=== PATIENT | female | born 1995 | race Hispanic/Latino ===

== ENCOUNTER 2020-04-18 13:10 | Emergency (ER) | payer SELFPAY ==
--- OUTSIDE RECORDS SUMMARY | 2020-04-18 13:13 | XMS REPORT | Continuity of Care Document ---
:1995 Author Organization [facility] t Address [address] [place] [address] Care Team Providers Name Role Phone Unavailable Unavailable Unavailable Payers Payer Name Policy Type Policy Number Effective Date Expiration Date S ource Problems This patient has no known problems. Allergies, Adverse Reactions, Alerts Allergy Allergy Status Severity Reaction(s) Onset Inactive Treating Comm ents Source Name Type Date Date Clinician clindamy DA Active U 2019-0 [facility]- [place] 00:00: [address] clindamy DA Active U 2015-0 [facility] 9-11 [place] 00:00: [address] Medications This patient has no known medications. Procedures This patient has no known procedures. Results Test Description Test Time Test Comments Results Result Comments Source Novel Coronavirus 2019 nCoV 2019-07-09 11:29:00 Test Item Value Reference Range Interpretation Comme nts Novel Coronavirus 2018 nCoV (test code = COVID19) Negative Nega tive - XR CHEST 1 [id number] 14:00:00 Patient Name: ALYSSIA LEE Unit No: [id number] EXAMS: CPT CODE: [id number] XR CHEST 1 V [id number] Reason: cough - XR CHEST 1 V 07/05/2019 1:13 PM Exam: - XR CHEST 1 V Comparison: none Reason forexam: cough FINDINGS: The heart size is normal. Vascularity is normal. The lungs are clear. There is no fluid or adenopathy. IMPRESSION: Negative chest at 1400 Reported and signed by: Jermaine Cobos MD CC: Carlos French MD Technologist: Brenna Costa (Schroeder) RT Trscrpt Dt/ (1400)[id number] Orig Print D/T: S: 07/05/2019 (1409) [facility] NAME: ALYSSIA LEE [facility] PHYS: MARY.01 - Manolo,[place] [id number] : [birth year] AGE: 23 SEX: F LOC: ROSA PHONE #: [phone] EXAM DATE: 07/05/2019 STATUS: REG ER FAX #: RAD NO: DC Dt: PAGE 1 Signed ReportHCG SERUM [id number] 20:31:00 Test Item Value Reference Range Interpretation Comments HCG SERUM QUAL NEGATIVE NEGATIVE False negativ es may occur (test code = when levels of hCGare below HCGQL) 10 mIU/ml. When is still suspec lalit, a new specimenshould be obtained after 48 hours and re-tested.If wa iting 48 hours is not me dically advisable,the t est result should be confi rmed using aquantitative h CG assay. CBC W/AUTO [id number] 20:17:00 Test Item Value Reference Range Interpretation Comments WHITE BLOOD CELL (test code = 11.39 x10 3/uL 4.80-10.80 H WBC) RED BLOOD CELL (test code = 4.35 x10 6/uL 4.2-5.4 N RBC) HEMOGLOBIN (test code = HGB) 13.0 G/DL 12.0-16.0 N HEMATOCRIT (test code = HCT) 39.7 % 37-47 N MEAN CELL VOLUME (test code = 91.3 FL 81-99 N MCV) MEAN CELL HGB (test code = 29.9 PG 27-31 N MCH) MEAN CELL HGB CONCENTRATION 32.7 G/DL 33-37 L (test code = MCHC) RED CELL DISTRIBUTION WIDTH 13.0 % 11.5-14.5 N (test code = RDW) PLATELET COUNT (test code = 270 x10 3/uL 150-450 N PLT) MEAN PLATELET VOLUME (test 9.7 FL 7.4-10.4 N code = MPV) NEUTROPHIL % (test code = NT%) 69.2 % 42-86 N IMMATURE GRANULOCYTE % (test 0.5 % 0.0-2.0 N code = IG%) LYMPHOCYTE % (test code = LY%) 19.8 % 24-44 L MONOCYTE % (test code = MO%) 8.3 % 0.0-4.0 H EOSINOPHIL % (test code = EO%) 1.8 % 0.0-2.7 N BASOPHIL % (test code = BA%) 0.4 % 0.0-0.5 N NUCLEATED RBC % (test code = 0.0 % 0.0-0.0 N NRBC%) NEUTROPHIL # (test code = NT#) 7.88 x10 3/uL 1.8-7.7 H IMMATURE GRANULOCYTE # (test 0.06 x10 3/uL 0.00-0.03 H code = IG#) LYMPHOCYTE # (test code = LY#) 2.26 x10 3/uL 1.0-4.8 N MONOCYTE # (test code = MO#) 0.95 x10 3/uL 0.0-0.8 H EOSINOPHIL # (test code = EO#) 0.20 x10 3/uL 0.0-0.5 N BASOPHIL # (test code = BA#) 0.04 x10 3/uL 0.0-0.2 N NUCLEATED RBC # (test code = 0.0 X10 3/uL 0.0-0.2 N NRBC#)
--- NOTE | 2020-04-18 15:24 | ER ---
Nurse's Notes [facility] Name: Kanwal De La Vega Age: 24 yrs Sex: Female : 1995 Arrival Date: 04/18/2020 Time: 13:12 Bed Waiting Private MD: Diagnosis: Presentation: 04/18 13:34 Chief complaint: Patient states: SOB, cough, runny nose, body aches, and headaches that aa5 began 2 weeks ago. Pt reports her household is COVID-19 positive. Coronavirus screen: cough unrelated to allergies, headache, muscle pain, runny nose, shortness of breath, Client presents with at least one sign or symptom that may indicate coronavirus-19. Standard/surgical mask placed on the client. Provider contacted for isolation considerations. Ebola Screen: Patient negative for fever greater than or equal to 101.5 degrees Fahrenheit, and additional compatible Ebola Virus Disease symptoms. Initial Sepsis Screen: Does the patient meet any 2 criteria? No. Patient's initial sepsis screen is negative. Does the patient have a suspected source of infection? No. Patient's initial sepsis screen is negative. Risk Assessment: Do you want to hurt yourself or someone else? Patient reports no desire to harm self or others. Onset of symptoms was March 2020. 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 - Social history:: Smoking status: Patient denies any tobacco usage or history of. Vital Signs: 13:34 BP 122 / 84; Pulse 76; Resp 16 S; Temp 98.7(O); Pulse Ox 95% on R/A; Pain 7/10; aa5 ED Course: 13:12 Patient arrived in ED. rg4 13:33 Arm band placed on. aa5 13:35 Triage completed. aa5 Administered Medications: No medications were administered Outcome: 15:24 Patient left the ED. dm5 Signatures: Kemi Givens RN RN dm5 Charo Padilla, RN RN aa5 Priscila Villalobos rg4
[2020-04-18 15:41] VITALS: BP 122/84; TEMP 98.7; O2SAT 95
== END 2020-04-18 15:24 | disposition left against medical advice (07) ==
LOC: ER 13:10
DX: Z53.21 Procedure and treatment not carried out due to patient leaving prior to being seen by health care provider (principal)
CPT/HCPCS: 99281

== ENCOUNTER 2021-04-03 18:22 | Emergency (ER) | payer SELFPAY ==
--- OUTSIDE RECORDS SUMMARY | 2021-04-03 18:25 | XMS REPORT | Continuity of Care Document ---
:1995 Author Organization [facility] t Address [address] [place] [address] Care Team Providers Name Role Phone PCP, DOES NOT HAVE A Primary Care Physician Unavailable Singer CARVAJAL Attending Clinician PATEL Attending Clinician Unavailable CHRIS DE LA GARZA Attending Clinician Unavailable NISHANT Attending Clinician Unavailable Physician, Primary or Family Admitting Clinician Unavailnathan vazquez PATEL Admitting Clinician Unavailable Payers Payer Name Policy Type Policy Number Effective Date Expiration Date S ource Problems This patient has no known problems. Allergies, Adverse Reactions, Alerts Allergy Allergy Status Severity Reaction(s) Onset Inactive Treating Comm ents Source Name Type Date Date Clinician Clindamy Propensi Active Hives 2020-04 Univer s jyoti ty to 2-02 ity of adverse 00:00: [place] reaction 00 [facility] CLINDAMY DRUG Active Hives 2020-04 Univers JYOTI INGREDI 2-02 ity of 00:00: [place] 00 [facility] clindamy DA Active U 2020-0 [facility] 3-22 [facility] 00:00: [facility] clindamy DA Active U HIVES 2019-0 [facility] 3-22 [facility] 00:00: [facility] clindamy DA Active U 2015-0 [facility] 9-11 [facility] 00:00: [facility] clindamy DA Active U HIVES 2015-0 [facility] 9-11 Corp[facility] 00:00: [facility] NO KNOWN Drug Active [facility] ALLERGIE Class ity of S [facility] [place] [facility] Social History Social Habit Start Date Stop Date Quantity Comments Source Exposure to Not sure [facility] SARS-CoV-2 (event) Medica l Branch Sex Assigned At [birth year] [facility] 00:00:00 00:00:00 Medical Branch Smoking Status Start Date Stop Date Source Unknown if ever smoked [facility] Medications Ordered Filled Start Stop Current Ordering Indication Dosage Frequency Signature Comments Components Source Medication Medication Date Date Medication? Clinician (SIG) Name Name methylPREDN 2020-04 Yes [id number] Take by [facility] ISolone 05-17 mouth ity of (MEDROL, 00:00: SEE-INSTRU Chad as DONA,) 4 mg 00 CTIONS. Medica l tablets follow [place] package directions azithromyci 2020-04 Yes [id number] 250mg Take 1 Univers n 05-17 tablet by ity of (ZITHROMAX 00:00: mouth [place] Z-DONA) 250 00 SEE-INSTRU Med ical mg tablet CTIONS. Branch Take 500 mg day 1, then 250 mg days 2 to 5. Vital Signs Vital Name Observation Time Observation Value Comments Source Systolic blood 2021-03-16 18:57:00 135 mm[Hg] [facility]iver sity [facility] Diastolic blood 2021-03-16 18:57:00 74 mm[Hg] [facility] Heart rate 2021-03-16 18:57:00 110 /min [facility] Body temperature 2021-03-16 18:57:00 37.06 [facility] Respiratory rate 2021-03-16 18:57:00 18 /min [facility] Body height 2021-03-16 18:57:00 147.3 cm [facility] Body weight 2021-03-16 18:57:00 68.04 kg [facility] BMI 2021-03-16 18:57:00 31.35 kg/m2 [facility] Oxygen saturation in 2021-03-16 18:57:00 100 /min [facility] Arterial blood by [facility] Pulse oximetry Branch Procedures Procedure Date / Time Performed Performing Clinician [facility] e ASSIGNMENT OF BENEFITS 2021-03-16 20:14:13 Doctor Unassigned, No [facility] Name Medical Branch XR CHEST 1 VW 2021-03-16 19:49:32 Kayla Patel o f [facility] [place] [facility] RAPID INFLUENZA A/B 2021-03-16 19:01:00 Kayla Patel ty of [facility] [place] [facility] COVID-19 (ID NOW RAPID 2021-03-16 19:01:00 Kayla Patel [facility] TESTING) [facility] NOTICE OF PRIVACY 2021-03-16 18:54:56 Doctor Unassigned, No [facility] Name Medical Branch CONSENT/REFUSAL FOR 2021-03-16 18:54:22 Doctor Unassigned, No [facility] DIAGNOSIS AND Name Medical Branch TREATMENT Encounters Start End Encounter Admission Attending Care Care Encounter Source Date/Time Date/Time Type Type Clinicians Facility Department ID 2019-07-05 Inpatient [facility] ER [id number] [facility] 12:36:00 [id number] [facility] 2021-03-16 2021-03-[address] [facility] [id number] Univers 12:57:00 14:46:00 Kayla DRUMMOND [id number] i [facility] [id number] [facility] [id number] [facility] 084 Branch 2021-03-16 2021-03-16 Emergency X SINGER INMAYLIN ERT [id number] Univers 12:57:00 14:46:00 KAYLA blanca [facility] 2020-07-22 2020-07-22 Emergency Velasquez DE LA GARZA [facility] [id number] [facility] 08:20:00 17:00:00 TAMMIE 2020-04-18 2020-04-18 Emergency [facility] [id number] [place] 00:00:00 00:00:[address] Results Test Description Test Time Test Comments Results Result Comments Source Novel Coronavirus 2019 nCoV 2019-07-09 11:29:00 Test Item Value Reference Range Interpretation Comme nts Novel Coronavirus 2018 nCoV (test code = COVID19) Negative Nega tive - XR CHEST 1 [id number] 14:00:00 Patient Name: ALYSSIA LEE Unit No: [id number] EXAMS: CPT CODE: [id number] XR CHEST 1 V [id number] Reason: cough - XR CHEST 1 V [...] Dt/ (1400)[id number] Orig Print D/T: S: 07/05/2019 (4864) [facility] NAME: ALYSSIA LEE [address] [facility] PHYS: MARY.01 - [place] [address] : [birth year] AGE: 23 SEX: F LOC: ROSA PHONE #: [phone] EXAM DATE: 07/05/2019 STATUS: REG ER FAX #: RAD NO: DC Dt: PAGE 1 Signed ReportHCG SERUM [id number] 20:31:00 Test Item Value Reference Range Interpretation Comments HCG SERUM QUAL NEGATIVE NEGATIVE False negativ es may occur (test code = when levels of hCGare below HCGQL) 10 mIU/ml. When is still suspec llait, a new specimenshould be obtained after 48 hours and re-tested.If wa iting 48 hours is not me dically advisable,the t est result should be confi rmed using aquantitative h CG assay. CBC W/AUTO [id number] 20:17:00 Test Item Value Reference Range Interpretation [...]
[2021-04-03] MEDS ORDERED: HYDROCODONE/CHLORPHEN 5 ML/OSYR ONE (19:23)
[2021-04-03] MEDS ORDERED: ONDANSETRON 4 MG (ODT) TAB ONE (19:23)
[2021-04-03 20:49] LABS: SARS-COV-2 RT PCR POSITIVE (NEGATIVE)
--- NOTE | 2021-04-03 20:51 | EDPHYS ---
Physician Documentation [facility] Name: Kanwal De La Vega Age: 25 yrs Sex: Female : 1995 Arrival Date: 04/03/2021 Time: 18:24 Bed 14 Private MD: ED Physician Ruben Loza HPI: 04/03 19:16 This 25 yrs old Female presents to ER via Ambulatory with complaints of Cough, pm1 Headache, Chills, Body Aches. 19:16 The patient or guardian reports cough, with no sputum, flu symptoms, low-grade fever, pm1 body aches. Onset: The symptoms/episode began/occurred yesterday. Severity of symptoms: in the emergency department the symptoms are actually worse. Modifying factors: The symptoms are alleviated by nothing, the symptoms are aggravated by nothing. Associated signs and symptoms: Pertinent positives: chest pain, with cough, earache, fever, nausea, Pertinent negatives: diarrhea, vomiting. The patient has not experienced similar symptoms in the past. The patient has not recently seen a physician. 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 - Social history:: Smoking status: Patient denies any tobacco usage or history of. ROS: 19:16 Eyes: Negative for injury, pain, redness, and discharge. pm1 19:16 Neck: Negative for injury, pain, and swelling. 19:16 Back: Negative for injury and pain, MS/Extremity: Negative for injury and deformity, Skin: Negative for injury, rash, and discoloration. 19:16 Constitutional: Positive for body aches, fever, Negative for poor PO intake. 19:16 ENT: Positive for ear pain, sore throat. 19:16 Cardiovascular: Positive for chest pain, with cough, Negative for edema, palpitations. 19:16 Respiratory: Positive for cough, with no reported sputum, Negative for shortness of breath, sputum production, wheezing. 19:16 Abdomen/GI: Positive for nausea, Negative for abdominal pain, vomiting, diarrhea. 19:16 Neuro: Positive for headache, Negative for dizziness, numbness, tingling, weakness. 19:16 All other systems are negative. pm1 Exam: 19:16 Constitutional: This is a well developed, well nourished patient who is awake, alert, pm1 and in no acute distress. Head/Face: Normocephalic, atraumatic. 19:16 Back: No spinal tenderness. No costovertebral tenderness. Full range of motion. Skin: Warm, dry with normal turgor. Normal color with no rashes, no lesions, and no evidence of cellulitis. MS/ Extremity: Pulses equal, no cyanosis. Neurovascular intact. Full, normal range of motion. 19:16 Eyes: Exam is negative for acute changes, Extraocular movements: no acute changes, Conjunctiva: no acute changes, no injection, Sclera: no acute changes, icterus, is not appreciated. 19:16 ENT: External ear(s): no acute changes, Ear canal(s): no acute changes, TM's: no acute changes, Mouth: Lips: normal, moist, Oral mucosa: normal, pink and intact, moist, Posterior pharynx: Airway: no evidence of obstruction, Tonsils: bilaterally enlarged, with erythema, with exudate, no ulcerations, peritonsillar mass, is not appreciated. 19:16 Neck: External neck: is normal, ROM/movement: no acute changes, Lymph nodes: lymphadenopathy is appreciated, anterior cervical nodes. 19:16 Cardiovascular: Exam negative for acute changes, Rate: normal, Rhythm: regular, Pulses: no pulse deficits are appreciated, Heart sounds: normal, normal S1and S2. 19:16 Respiratory: Exam negative for acute changes, respiratory distress, shortness of breath, Breath sounds: are clear throughout. 19:16 Neuro: Exam negative for acute changes, Orientation: is normal, Mentation: is normal, Motor: is normal, moves all fours. Vital Signs: 18:57 Pulse 111; Resp 18; Temp 98.4; Pulse Ox 100% ; Weight 58.97 kg; Height 4 ft. 9 in. ww (144.78 cm); Pain 0/10; 20:42 BP 128 / 95; Pulse 98; Resp 16; Temp 99; Pulse Ox 100% ; Pain 8/10; kd3 18:57 Body Mass Index 28.13 (58.97 kg, 144.78 cm) ww MDM: 19:13 Patient medically screened. [facility] 20:49 Data reviewed: vital signs. Data interpreted: Pulse oximetry: on room air is 100 %. pm1 Interpretation: normal. Counseling: I had a detailed discussion with the patient and/or guardian regarding: the historical points, exam findings, and any diagnostic results supporting the discharge/admit diagnosis, lab results, the need for outpatient follow up, to return to the emergency department if symptoms worsen or persist or if there are any questions or concerns that arise at home. 04/03 19:15 Order name: COVID-19/FLU A+B (Document "Date of Onset" if Symptomatic) pm1 04/03 19:15 Order name: Strep pm1 04/03 19:16 Order name: COVID-19/FLU A+B; Complete Time: 20:50 EDMS 04/03 19:16 Order name: Group A Streptococcus Rapid Sc; Complete Time: 20:34 EDMS 04/03 20:34 Order name: Throat Culture EDMS Administered Medications: 19:35 Drug: Tussionex Pennkinetic ER (chlorpheniramine-hydrocodone) Suspension 5 ml Route: PO;kd3 21:16 Follow up: Response: No adverse reaction kd3 19:35 Drug: Ondansetron 4 mg Route: PO; kd3 21:16 Follow up: Response: No adverse reaction kd3 20:55 Drug: Tylenol 650 mg Route: PO; kd3 21:16 Follow up: Response: No adverse reaction; Pain is decreased kd3 Disposition: 04/04 18:58 Co-signature as Attending Physician, Ruben Loza MD I agree with the assessment and [facility] plan of care. Disposition Summary: 04/03/21 20:50 Discharge Ordered Location: Home pm1 Problem: new pm1 Symptoms: have improved pm1 Condition: Stable pm1 Diagnosis - Coronavirus infection, unspecified pm1 Followup: pm1 - With: Emergency Department - When: As needed - Reason: Worsening of condition Followup: pm1 - With: Private Physician - When: 2 - 3 days - Reason: Recheck today's complaints, Continuance of care, Re-evaluation by your physician Discharge Instructions: - Discharge Summary Sheet pm1 - COVID-19 pm1 - COVID-19 Frequently Asked Questions pm1 - 10 Things You Can Do to Manage Your COVID-19 Symptoms at Home - [facility] pm1 - COVID-19: Quarantine vs. Isolation - [facility] pm1 Forms: - Medication Reconciliation Form pm1 - Thank You Letter pm1 - Antibiotic Education pm1 - Prescription Opioid Use pm1 - Work release form pm1 Prescriptions: - Guaifenesin AC 10-100 mg/5 mL Oral Liquid - take 10 milliliters by ORAL route every 4 hours As needed; 240 milliliter; pm1 Refills: 0, Product Selection Permitted Signatures: Dispatcher [employer] EDWI Ruben Loza MD MD cha Marinas, Patrick, ROBERTO SPEECH THERAPY ASSISTANT pm1 Bianca Hogue RN RN kd3 Babita Rocha RN RN ww
--- NOTE | 2021-04-03 20:51 | ER ---
Nurse's Notes [facility] Name: Kanwal De La Vega Age: 25 yrs Sex: Female : 1995 Arrival Date: 04/03/2021 Time: 18:24 Bed 14 Private MD: Diagnosis: Coronavirus infection, unspecified Presentation: 04/03 18:57 Chief complaint: Patient states: Sore throat, bilateral ear pain, cough, chest ww congestion and nasal congestion that started 2 days ago. Coronavirus screen: Vaccine status: Patient reports being unvaccinated. Client denies travel out of the [place] in the last 14 days. chills, congestion, cough unrelated to allergies, fatigue, nausea, sore throat, Client presents with at least one sign or symptom that may indicate coronavirus-19. Standard/surgical mask placed on the client. Provider contacted for isolation considerations. Ebola Screen: Patient negative for fever greater than or equal to 101.5 degrees Fahrenheit, and additional compatible Ebola Virus Disease symptoms Patient denies exposure to infectious person. Patient denies travel to an Ebola-affected area in the 21 days before illness onset. Initial Sepsis Screen: Does the patient meet any 2 criteria? No. Patient's initial sepsis screen is negative. Does the patient have a suspected source of infection? No. Patient's initial sepsis screen is negative. Risk Assessment: Do you want to hurt yourself or someone else? Patient reports no desire to harm self or others. Onset of symptoms was April 01, 2021. 18:57 Method Of Arrival: Ambulatory ww 18:57 Acuity: MOI 4 ww Triage Assessment: 18:59 Headache History: Denies prior headaches. General: Appears ill, well developed, well ww nourished, Behavior is calm, cooperative, appropriate for age. Pain: Complains of pain in soft palate, uvula, left aspect of posterior pharynx and right aspect of posterior pharynx Pain Pain began 2-3 days ago. Also complains of sleeplessness. EENT: Reports nasal congestion nasal discharge pain when swallowing. Neuro: Level of Consciousness is awake, alert, obeys commands, Oriented to person, place, time, situation, Appropriate for age Gait is steady, Speech is normal. Cardiovascular: Capillary refill < 3 seconds Patient's skin is warm and dry. Respiratory: Reports cough that is Airway is patent Respiratory effort is even, unlabored, Respiratory pattern is regular, symmetrical. GI: No deficits noted. No signs and/or symptoms were reported involving the gastrointestinal system. : No deficits noted. No signs and/or symptoms were reported regarding the genitourinary system. Derm: No deficits noted. No signs and/or symptoms reported regarding the dermatologic system. Skin is intact, Skin is pink, warm \\T\\ dry. Musculoskeletal: No deficits noted. No signs and/or symptoms reported regarding the musculoskeletal system. 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 - Social history:: Smoking status: Patient denies any tobacco usage or history of. Screenin:43 Abuse screen: Denies threats or abuse. Denies injuries from another. Nutritional kd3 screening: No deficits noted. Tuberculosis screening: No symptoms or risk factors identified. Fall Risk None identified. Assessment: 19:47 Reassessment: Patient is alert, oriented x 3, equal unlabored respirations, skin kd3 warm/dry/pink. Pain: Complains of pain in mouth and right aspect of posterior pharynx and left aspect of posterior pharynx and uvula and soft palate. Neuro: No deficits noted. Level of Consciousness is awake, alert, obeys commands, Oriented to person, place, time, situation, Appropriate for age. Cardiovascular: No deficits noted. Patient's skin is warm and dry. Respiratory: No deficits noted. Airway is patent Respiratory effort is even, unlabored. GI: Reports diarrhea. Vital Signs: 18:57 Pulse 111; Resp 18; Temp 98.4; Pulse Ox 100% ; Weight 58.97 kg; Height 4 ft. 9 in. ww (144.78 cm); Pain 0/10; 20:42 BP 128 / 95; Pulse 98; Resp 16; Temp 99; Pulse Ox 100% ; Pain 8/10; kd3 18:57 Body Mass Index 28.13 (58.97 kg, 144.78 cm) ED Course: 18:24 Patient arrived in ED. rg4 18:59 Triage completed. ww 18:59 Arm band placed on right wrist. ww 19:08 Harjinder Lowe NP is [facility]. pm1 19:09 Ruben Loza MD is Attending Physician. pm1 19:17 Bianca Hogue, RN is Primary Nurse. kd3 19:34 Strep Sent. kd3 19:34 COVID-19/FLU A+B (Document "Date of Onset" if Symptomatic) Sent. kd3 19:43 Patient has correct armband on for positive identification. Bed in low position. Call kd3 light in reach. 21:15 No provider procedures requiring assistance completed. Patient did not have IV access kd3 during this emergency room visit. Administered Medications: 19:35 Drug: Tussionex Pennkinetic ER (chlorpheniramine-hydrocodone) Suspension 5 ml Route: PO;kd3 21:16 Follow up: Response: No adverse reaction kd3 19:35 Drug: Ondansetron 4 mg Route: PO; kd3 21:16 Follow up: Response: No adverse reaction kd3 20:55 Drug: Tylenol 650 mg Route: PO; kd3 21:16 Follow up: Response: No adverse reaction; Pain is decreased kd3 Outcome: 20:50 Discharge ordered by MD. pm1 21:15 Discharged to home ambulatory. kd3 21:15 Condition: good 21:15 Discharge instructions given to patient, family, Instructed on discharge instructions, follow up and referral plans. 21:37 Patient left the ED. kd3 Signatures: Harjinder Lowe NP ACCOUNTING CONSULTANT pm1 Priscila Villalobos rg4 Bianca Hogue RN RN kd3 Babita Rocha RN RN
[2021-04-03] MEDS ORDERED: ACETAMINOPHEN 325 MG TABLET ONE (20:53)
[2021-04-03 22:18] VITALS: O2SAT 100
[2021-04-03 22:20] VITALS: BP 128/95; TEMP 99
== END 2021-04-03 21:37 | disposition home or self-care (01) ==
LOC: ER 18:22
DX: U07.1 COVID-19 (principal); Z88.0 Allergy status to penicillin; Z88.3 Allergy status to other anti-infective agents
CPT/HCPCS: 0240U; 87070; 87081; 99283

== ENCOUNTER 2021-07-01 11:56 | Emergency (ER) | payer OTHER, SELFPAY ==
--- OUTSIDE RECORDS SUMMARY | 2021-07-01 11:59 | XMS REPORT | Continuity of Care Document ---
:1995 Author Organization [facility] t Address [address] [place] [address] Care Team Providers Name Role Phone PCP, [...] ity of adverse 00:00: [place] reaction 00 [facility] CLINDAMY DRUG Active Hives 2020-04 Univers JYOTI INGREDI 2-02 ity of 00:00: [place] 00 [facility] clindamy DA Active U 2020-0 [facility] jyoti 3-22 Corpus 00:00: Melisa [facility] clindamy DA Active U HIVES 2019-0 [facility] jyoti 3-22 Corpus 00:00: Melisa [facility] clindamy DA Active U 2015-0 [facility] jyoti 9-11 Corpus 00:00: Melisa [facility] clindamy DA Active U HIVES 2015-0 [facility] jyoti 9-11 Corpus 00:00: Melisa [facility] NO KNOWN Drug Active [facility] ALLERGIE Class ity of S [facility] Social History Social Habit Start Date Stop Date Quantity Comments Source Exposure to Not sure [facility] SARS-CoV-2 (event) Medica l Branch Sex Assigned At [birth year] [facility] 00:00:00 00:00:00 Medical Branch Smoking Status Start Date Stop Date Source Unknown if ever smoked [facility] Medications Ordered Filled Start Stop Current Ordering Indication Dosage Frequency Signature Comments Components Source Medication Medication Date Date Medication? Clinician (SIG) Name Name methylPREDN 2020-04 Yes [id number] Take by [facility] ISolone 05-17 mouth ity of (MEDROL, 00:00: SEE-INSTRU Chad as DONA,) 4 mg 00 CTIONS. Medica l tablets follow [place] package directions azithromyci 2020-04 Yes [id number] 250mg Take 1 Univers n 05-17 tablet by ity of (ZITHROMAX 00:00: mouth [place] Z-DONA) 250 00 SEE-INSTRU Med ical mg tablet CTIONS. Branch Take 500 mg day 1, then 250 mg days 2 to 5. Vital Signs Vital Name Observation Time Observation Value Comments Source Systolic blood 2021-03-16 18:57:00 135 mm[Hg] Univer sity [facility] [place] [place] Diastolic blood 2021-03-16 18:57:00 74 mm[Hg] [facility] Heart rate 2021-03-16 18:57:00 110 /min [facility] Body temperature 2021-03-16 18:57:00 37.06 [facility] Respiratory rate 2021-03-16 18:57:00 18 /min [facility] Body height 2021-03-16 18:57:00 147.3 cm [facility] Body weight 2021-03-16 18:57:00 68.04 kg [facility] BMI 2021-03-16 18:57:00 31.35 kg/m2 [facility] Oxygen saturation in 2021-03-16 18:57:00 100 /min [facility] Arterial blood by [facility] Pulse oximetry Branch Procedures Procedure Date / Time Performed Performing Clinician [facility] e ASSIGNMENT OF BENEFITS 2021-03-16 20:14:13 Doctor Unassigned, No [facility] Name Medical Branch XR CHEST 1 VW 2021-03-16 19:49:32 Kayla Patel o f [facility] RAPID INFLUENZA A/B 2021-03-16 19:01:00 Kayla Patel ty of [facility] COVID-19 (ID NOW RAPID 2021-03-16 19:01:00 Kayla Patel [facility] TESTING) [facility] NOTICE OF PRIVACY 2021-03-16 18:54:56 Doctor Unassigned, No [facility] PRACTICES Name Medical Branch CONSENT/REFUSAL FOR 2021-03-16 18:54:22 Doctor Unassigned, No [facility] DIAGNOSIS AND Name Medical Branch TREATMENT Encounters Start End Encounter Admission Attending Care Care Encounter Source Date/Time Date/Time Type Type Clinicians Facility Department ID 2019-07-05 Inpatient [facility] ER [id number] [facility] 12:36:[id number] [facility] 2021-03-16 2021-03-16 Emergency [facility] [id number] Univers 12:57:00 14:46:00 Kayla DRUMMOND [id number] i [facility] [id number] [facility] [id number] [facility] 084 Branch 2021-03-16 2021-03-16 Emergency X SINGER NEMAYLIN ERT [id number] Univers 12:57:00 14:46:[address] [facility] 2020-07-22 2020-07-22 Emergency Velasquez DE LA GARZA [facility] [id number] [facility] 08:20:00 17:00:00 TAMMIE 2020-04-18 2020-04-18 Emergency BRANDON DILLARD [facility] [id number] [place] 00:00:00 00:00:[address] Results Test Description Test Time Test Comments Results Result Comments Source Novel Coronavirus 2019 nCoV 2019-07-09 11:29:00 Test Item Value Reference Range Interpretation Comme nts Novel Coronavirus 2018 nCoV (test code = COVID19) Negative Nega tive - XR CHEST 1 [id number] 14:00:00 Patient Name: ALYSSIA LEE Unit No: [id number] EXAMS: CPT CODE: [id number] XR CHEST 1 V [id number] Reason: cough - XR CHEST 1 V [...] Dt/ ([id number] Orig Print D/T: S: 07/05/2019 (5220) [facility] NAME: ALYSSIA LEE [address] [facility] PHYS: MARY.[id number] - [place] [address] : [birth year] AGE: 23 SEX: F LOC: ROSA PHONE #: [phone] EXAM DATE: 07/05/2019 STATUS: REG ER FAX #: RAD NO: DC Dt: PAGE 1 Signed ReportHCG SERUM [id number] 20:31:00 Test Item Value Reference Range Interpretation [...] using aquantitative h CG assay. CBC W/AUTO [id number] 20:17:00 Test Item Value Reference Range Interpretation [...]
[2021-07-01] MEDS ORDERED: ONDANSETRON 4 MG (ODT) TAB ONE (13:01)
[2021-07-01 13:17] LABS: SARS-COV-2 RT PCR NEGATIVE (NEGATIVE)
--- NOTE | 2021-07-01 13:26 | EDPHYS ---
Physician Documentation [facility] Name: Kanwal De La Vega Age: 25 yrs Sex: Female : 1995 Arrival Date: 07/01/2021 Time: 11:58 Bed 11 Private MD: ED Physician Brianne Hancock HPI: 07/01 12:53 This 25 yrs old Female presents to ER via Ambulatory with complaints of Cough, kb Headache, Vomiting, Pain All Over. 12:53 The patient or guardian reports cough, that is intermittent, described as mild, flu kb symptoms, low-grade fever, myalgias. The patient has not recently seen a physician. 12:54 Onset: The symptoms/episode began/occurred 3 day(s) ago. Severity of symptoms: At their kb worst the symptoms were moderate, in the emergency department the symptoms are unchanged. Modifying factors: The symptoms are alleviated by nothing, the symptoms are aggravated by nothing. Associated signs and symptoms: Pertinent positives: fever. The patient has not experienced similar symptoms in the past. Pt reports cough, headache, nausea and vomiting, bodyaches, and fever for 3 days. . 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 - Social history:: Smoking status: Patient denies any tobacco usage or history of. ROS: 12:52 Cardiovascular: Negative for chest pain, palpitations, and edema. kb 12:52 Constitutional: Positive for body aches, chills, fatigue, fever, malaise. 12:52 Respiratory: Positive for cough, Negative for dyspnea on exertion, hemoptysis, orthopnea, pleurisy, shortness of breath, sputum production, wheezing. 12:52 Abdomen/GI: Positive for nausea and vomiting, Negative for abdominal pain. 12:52 Neuro: Positive for headache. 12:52 All other systems are negative. Exam: 12:53 Constitutional: This is a well developed, well nourished patient who is awake, alert, kb and in no acute distress. Head/Face: Normocephalic, atraumatic. ENT: Moist Mucous membranes Cardiovascular: Regular rate and rhythm with a normal S1 and S2. No gallops, murmurs, or rubs. No pulse deficits. Respiratory: Respirations even and unlabored. No increased work of breathing. Talking in full sentences Abdomen/GI: Soft, non-tender. No distention Skin: Warm, dry with normal turgor. Normal color. MS/ Extremity: Pulses equal, no cyanosis. Neurovascular intact. Full, normal range of motion. Neuro: Awake and alert, GCS 15, oriented to person, place, time, and situation. Moves all extremities. Normal gait. Psych: Awake, alert, with orientation to person, place and time. Behavior, mood, and affect are within normal limits. Vital Signs: 12:16 BP 106 / 66; Pulse 100; Resp 16; Temp 99.1; Pulse Ox 100% ; Weight 77.11 kg; Height 4 vg1 ft. 9 in. (144.78 cm); Pain 10/10; 13:28 BP 119 / 76; Pulse 92; Resp 18; Pulse Ox 100% on R/A; ss7 12:16 Body Mass Index 36.79 (77.11 kg, 144.78 cm) vg1 MDM: 12:19 Patient medically screened. kb 12:52 Data reviewed: vital signs, nurses notes. Data interpreted: Pulse oximetry: on room air kb is 100 %. Interpretation: normal. 13:25 Counseling: I had a detailed discussion with the patient and/or guardian regarding: the kb historical points, exam findings, and any diagnostic results supporting the discharge/admit diagnosis, lab results, the need for outpatient follow up, a family practitioner, to return to the emergency department if symptoms worsen or persist or if there are any questions or concerns that arise at home. 07/01 12:19 Order name: COVID-19/FLU A+B (Document "Date of Onset" if Symptomatic); Complete Time: kb 13:20 07/01 13:20 Order name: PO challenge; Complete Time: 13:30 kb Administered Medications: 12:55 CANCELLED (Duplicate Order): Zofran (Ondansetron) 4 mg IVP once; over 2 minutes kb 13:02 Drug: Zofran (Ondansetron) 4 mg Route: PO; ss7 13:30 Follow up: Response: Nausea is decreased ss7 Disposition Summary: 07/01/21 13:25 Discharge Ordered Location: Home kb Condition: Stable kb Diagnosis - Acute upper respiratory infection, unspecified kb Followup: kb - With: Emergency Department - When: As needed - Reason: Worsening of condition Followup: kb - With: Private Physician - When: 2 - 3 days - Reason: Recheck today's complaints, Continuance of care, Re-evaluation by your physician Discharge Instructions: - Discharge Summary Sheet kb - Upper Respiratory Infection, Adult, [id number] kb - Viral Respiratory Infection, [id number] kb Forms: - Medication Reconciliation Form kb - Thank You Letter kb - Antibiotic Education kb - Prescription Opioid Use kb - Work release form ss7 Prescriptions: - Zofran 4 mg Oral Tablet - take 1 tablet by ORAL route every 6 hours As needed; 20 tablet; Refills: 0, kb Product Selection Permitted Signatures: Dispatcher [employer] EDMagdalene More FNP-C FNP-Martine Miranda RN RN vg1 Sanjuana Luis RN RN ss7 Corrections: (The following items were deleted from the chart) 12:55 12:55 Zofran (Ondansetron) 4 mg IVP once; over 2 minutes ordered. kb kb
--- NOTE | 2021-07-01 13:26 | ER ---
Nurse's Notes [facility] Name: Kanwal De La Vega Age: 25 yrs Sex: Female : 1995 Arrival Date: 07/01/2021 Time: 11:58 Bed 11 Private MD: Diagnosis: Acute upper respiratory infection, unspecified Presentation: 07/01 12:16 Chief complaint: Patient states: cough, h/a, vomiting, body aches x 3 days. Coronavirus vg1 screen: Vaccine status: Patient reports being unvaccinated. Client denies travel out of the [place] in the last 14 days. chills, headache, muscle pain, vomiting. Client presents with at least one sign or symptom that may indicate coronavirus-19. Standard/surgical mask placed on the client. Ebola Screen: Patient negative for fever greater than or equal to 101.5 degrees Fahrenheit, and additional compatible Ebola Virus Disease symptoms. Initial Sepsis Screen: Does the patient meet any 2 criteria? HR > 90 bpm. Yes Does the patient have a suspected source of infection? No. Patient's initial sepsis screen is negative. Risk Assessment: Do you want to hurt yourself or someone else? Patient reports no desire to harm self or others. Onset of symptoms was June 28, 2021. 12:16 Method Of Arrival: Ambulatory vg1 12:16 Acuity: MOI 3 vg1 Triage Assessment: 12:17 Headache History: The patient has had previous headaches and this one is similar to vg1 previous episodes. General: Appears in no apparent distress. uncomfortable, Behavior is calm, cooperative. Pain: Complains of pain in generalized body Pain currently is 10 out of 10 on a pain scale. Pain began 2-3 days ago. Also complains of nausea. Neuro: Level of Consciousness is awake, alert, obeys commands, Oriented to person, place, time, situation. 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 - Social history:: Smoking status: Patient denies any tobacco usage or history of. Screenin:25 Abuse screen: Denies threats or abuse. Nutritional screening: No deficits noted. ss7 Tuberculosis screening: No symptoms or risk factors identified. Fall Risk None identified. Assessment: 12:25 General: Appears in no apparent distress. ill, Behavior is calm, cooperative, ss7 appropriate for age. Pain: Complains of pain in generalized body aches. Cardiovascular: Heart tones S1 S2. Respiratory: Breath sounds are clear bilaterally. GI: Bowel sounds present X 4 quads. : No deficits noted. EENT: No deficits noted. Derm: No deficits noted. Musculoskeletal: No deficits noted. 13:36 Reassessment: Pt given 4 ounce gingerale. Tolerated well. . ss7 Vital Signs: 12:16 BP 106 / 66; Pulse 100; Resp 16; Temp 99.1; Pulse Ox 100% ; Weight 77.11 kg; Height 4 vg1 ft. 9 in. (144.78 cm); Pain 10/10; 13:28 BP 119 / 76; Pulse 92; Resp 18; Pulse Ox 100% on R/A; ss7 12:16 Body Mass Index 36.79 (77.11 kg, 144.78 cm) vg1 ED Course: 11:58 Patient arrived in ED. ja2 12:03 Magdalene Hernandez FNP-C is [facility]. kb 12:03 Brianne Hancock MD is Attending Physician. kb 12:17 Triage completed. vg1 12:17 Arm band placed on. vg1 12:25 Sanjuana Luis, RN is Primary Nurse. ss7 12:25 Patient has correct armband on for positive identification. Bed in low position. Call ss7 light in reach. 12:25 No provider procedures requiring assistance completed. ss7 12:36 COVID-19/FLU A+B (Document "Date of Onset" if Symptomatic) Sent. ss7 13:28 Patient did not have IV access during this emergency room visit. ss7 Administered Medications: 12:55 CANCELLED (Duplicate Order): Zofran (Ondansetron) 4 mg IVP once; over 2 minutes kb 13:02 Drug: Zofran (Ondansetron) 4 mg Route: PO; ss7 13:30 Follow up: Response: Nausea is decreased ss7 Outcome: 13:25 Discharge ordered by . kb 13:28 Discharged to home ss7 13:28 Condition: good 13:28 Discharge instructions given to patient, Instructed on discharge instructions, follow up and referral plans. Demonstrated understanding of instructions, follow-up care. 13:37 Patient left the ED. ss7 Signatures: Magdalene Hernandez, ACCESS CONTROL SPECIALIST-C THEO-Martine Miranda, RN RN vg1 Kimberly Cho Shana, RN RN ss7
[2021-07-01 13:50] VITALS: TEMP 99.1; O2SAT 100
[2021-07-01 13:51] VITALS: BP 119/76
== END 2021-07-01 13:37 | disposition home or self-care (01) ==
LOC: ER 11:56
DX: J06.9 Acute upper respiratory infection, unspecified (principal); Z20.822 Contact with and (suspected) exposure to COVID-19; Z88.0 Allergy status to penicillin; Z88.3 Allergy status to other anti-infective agents
CPT/HCPCS: 0240U; 99283

== ENCOUNTER 2021-12-19 12:52 | Emergency (ER) | payer SELFPAY ==
--- OUTSIDE RECORDS SUMMARY | 2021-12-19 12:57 | XMS REPORT | Continuity of Care Document ---
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 95954-1) NRBC/100 WBC (test See_Comment [Automat ed code = 4091828351) message] The system which generated this result transmitted reference range : 0.0 - 10.0 /100 WBCs. The refer ence range was not u sed to interpret th is result as normal/abnormal . NRBC x10^3 (test code <0.01 See_Comment [Auto mated = 0827706168) message] The s ystem which generated this result transmitted reference range : 10*3/?L. The reference range was not used to interpret this result as normal/abnormal . GRAN MAT (NEUT) % 66.7 % (test code = 770-8) IMM GRAN % (test code 0.80 % = 8471719248) LYMPH % (test code = 23.4 % 736-9) MONO % (test code = 7.3 % 5905-5) EOS % (test code = 1.3 % 713-8) BASO % (test code = 0.5 % 706-2) GRAN MAT x10^3(ANC) 6.59 10*3/uL 1.88-7.09 (test code = 1414292489) IMM GRAN x10^3 (test 0.08 10*3/uL 0.00-0.06 H code = 7923028296) LYMPH x10^3 (test code 2.31 10*3/uL 1.32-3.29 = 731-0) MONO x10^3 (test code 0.72 10*3/uL 0.33-0.92 = 742-7) EOS x10^3 (test code = 0.13 10*3/uL 0.03-0.39 711-2) BASO x10^3 (test code 0.05 10*3/uL 0.01-0.07 = 704-7) Lab Interpretation Abnormal (test code = 79039-7) [facility] HospitalPO[facility] [id number] 22:35:00 Test Item Value Reference Range Interpretation Comments POCT PREG (test code = 1605) negative On board controls acceptable with present C Line (test code = 3574) POCT PREG LOT # (test code = 3575) [id number] POCT PREG TEST DATE (test code = 3576) Lab Interpretation (test code = Normal 83481-6) [facility] HospitalDR[facility] [id number] 16:22:00 Test Item Value Reference Range Interpretation Comments U Amph Scr (test code Negative *NA*(07/22/20 = U Amph Scr) 11:22 AM) [facility] [id number] 16:22:00 Test Item Value Reference Range Interpretation Comments U Hollie Scr (test code Negative *NA*(07/22/20 = U Hollie Scr) 11:22 AM) [facility] [id number] 16:22:00 Test Item Value Reference Range Interpretation Comments U Benzodiaz Scr (test Positive *ABN*(07/22/20 code = U Benzodiaz Scr) 11:22 AM) [facility] [id number] 16:22:00 Test Item Value Reference Range Interpretation Comments U Cannab Scr (test Positive *ABN*(07/22/20 code = U Cannab Scr) 11:22 AM) [facility] [id number] 16:22:00 Test Item Value Reference Range Interpretation Comments U Cocaine Scr (test Negative *NA*(07/22/20 code = U Cocaine Scr) 11:22 AM) [facility] [id number] 16:22:00 Test Item Value Reference Range Interpretation Comments U Opiate Scr (test Negative *NA*(07/22/20 code = U Opiate Scr) 11:22 AM) [facility] [id number] 16:22:00 Test Item Value Reference Range Interpretation Comments U Phencyclidine Scr (test Negative *NA*(07/22/20 code = U Phencyclidine 11:22 AM) Scr) [facility] [id number] 16:22:00 Test Item Value Reference Range Interpretation Comments UDS Note (test code = See Note (07/22/20 11:22 UDS Note) AM) [facility] [id number] 16:22:00 Test Item Value Reference Range Interpretation Comments UA Turbidity (test code = Clear (07/22/20 11:22 UA Turbidity) AM) [facility] [id number] 16:22:00 Test Item Value Reference Range Interpretation Comments UA Spec Grav (test code = UA Spec Grav) no gt [facility] [id number] 16:22:00 Test Item Value Reference Range Interpretation Comments UA pH (test code = UA pH) 8.0 1 5.0-8.0 [facility] [id number] 16:22:00 Test Item Value Reference Range Interpretation Comments UA Protein (test code = UA Negative mg/dL Protein) [facility] [id number] 16:22:00 Test Item Value Reference Range Interpretation Comments UA Glucose (test code = UA Negative mg/dL Glucose) [facility] [id number] 16:22:00 Test Item Value Reference Range Interpretation Comments UA Ketones (test code = UA Negative mg/dL Ketones) [facility] AND [id number] 16:22:00 Test Item Value Reference Range Interpretation Comments UA Bili (test code = Negative *NA*(07/22/20 UA Bili) 11:22 AM) [facility] AND [id number] 16:22:00 Test Item Value Reference Range Interpretation Comments UA Blood (test code = Negative (07/22/20 11:22 UA Blood) AM) [facility] AND [id number] 16:22:00 Test Item Value Reference Range Interpretation Comments UA Urobilinogen (test code = UA no gt 0.1-1.0 Urobilinogen) [facility] AND [id number] 16:22:00 Test Item Value Reference Range Interpretation Comments UA Nitrite (test code Negative (07/22/20 11:22 = UA Nitrite) AM) [facility] AND [id number] 16:22:00 Test Item Value Reference Range Interpretation Comments UA Leuk Est (test Negative (07/22/20 11:22 code = UA Leuk Est) AM) [facility] AND [id number] 16:22:00 Test Item Value Reference Range Interpretation Comments UA Sq Epi (test code = UA Sq Occasional /LPF Epi) [facility] AND [id number] 16:22:00 Test Item Value Reference Range Interpretation Comments UA WBC (test code = no gt See_Comment [Automa lalit message] The UA WBC) system which ge nerated this result transmit lalit reference range : <=5. The reference range was not used to interpr et this result as reid l/abnormal. [facility] [id number] 16:22:00 Test Item Value Reference Range Interpretation Comments UA RBC (test code = no gt See_Comment [Automa lalit message] The UA RBC) system which ge nerated this result transmit lalit reference range : <=2. The reference range was not used to interpr et this result as reid l/abnormal. [facility] [id number] 16:22:00 Test Item Value Reference Range Interpretation Comments UA Mucus (test code = UA Mucus) Few /LPF [facility] [id number] 16:22:00 Test Item Value Reference Range Interpretation Comments UA Color (test code = UA Color) STRAW [facility] [id number] 13:54:00 Test Item Value Reference Range Interpretation Comments ABO/Rh (test code = ABO/Rh) O POS [facility] [id number] 13:54:00 Test Item Value Reference Range Interpretation Comments Antibody Scrn (test Negative (07/22/20 8:54 code = Antibody Scrn) AM) [facility] Cent[id number] 13:54:00 Test Item Value Reference Range Interpretation Comments Hep C Ab (test code = Hep C Ab) NON-REACTIVE [facility] [id number] 13:54:00 Test Item Value Reference Range Interpretation Comments Hep Signal to Cut-Off (test code = Hep 0.01 1 Signal to Cut-Off) [facility] CenterZkxsrxrFWWPKTMTVN5237-06-20 13:54:00 Test Item Value Reference Range Interpretation Comments [facility] HIV 4th GEN (test Negative *NA*(07/22/20 code = CDC HIV 4th 8:54 AM) GEN) [facility] [id number] 13:46:52 Test Item Value Reference Range Interpretation Comments Glucose Lvl (test code = Glucose Lvl) 89 70-99 [facility] [id number] 13:46:52 Test Item Value Reference Range Interpretation Comments BUN (test code = BUN) 8 7-22 [facility] [id number] 13:46:52 Test Item Value Reference Range Interpretation Comments Creatinine Lvl (test code = Creatinine 0.42 0.50-1.40 Lvl) [facility] [id number] 13:46:52 Test Item Value Reference Range Interpretation Comments Sodium Lvl (test code = Sodium Lvl) 143 135-145 [facility] [id number] 13:46:52 Test Item Value Reference Range Interpretation Comments Potassium Lvl (test code = Potassium 3.6 3.5-5.1 Lvl) [facility] [id number] 13:46:52 Test Item Value Reference Range Interpretation Comments Chloride Lvl (test code = Chloride Lvl) 110 95-109 [facility] [id number] 13:46:52 Test Item Value Reference Range Interpretation Comments CO2 (test code = CO2) 27 24-32 [facility]2021-04-09 13:46:52 Test Item Value Reference Range Interpretation Comments Calcium Lvl (test code = Calcium Lvl) 8.5 8.5-10.5 [facility]2021-04-09 13:46:52 Test Item Value Reference Range Interpretation Comments AGAP (test code = AGAP) 9.6 10.0-20.0 [facility]2021-04-09 13:46:52 Test Item Value Reference Range Interpretation Comments eGFR (test code = eGFR) 140 [facility]2021-04-09 13:46:52 Test Item Value Reference Range Interpretation Comments Lactic Acid Lvl (test code = Lactic 1.6 0.5-2.2 Acid Lvl) [place] [id number] 13:46:52 Test Item Value Reference Range Interpretation Comments S Preg (test code = S Negative *NA*(07/22/20 Preg) 8:46 AM) [id number] 13:46:52 Test Item Value Reference Range Interpretation Comments WBC X 10x3 (test code = WBC X 10x3) 11.3 3.7-10.4 [place] 648481-04-09 13:46:52 Test Item Value Reference Range Interpretation Comments RBC X 10x6 (test code = RBC X 10x6) 4.39 4.20-5.40 [facility] [id number] 13:46:52 Test Item Value Reference Range Interpretation Comments Hgb (test code = Hgb) 13.0 12.0-16.0 [facility] HospitalAzqtjbjHLLDBVCXRZ9510-97-08 13:46:52 Test Item Value Reference Range Interpretation Comments Hct (test code = Hct) 40.3 36.0-48.0 [place] 648481-04-09 13:46:52 Test Item Value Reference Range Interpretation Comments MCV (test code = MCV) 91.7 80.0-98.0 [place] 648481-04-09 13:46:52 Test Item Value Reference Range Interpretation Comments MCH (test code = MCH) 29.7 pg 27.0-31.0 [place] 648481-04-09 13:46:52 Test Item Value Reference Range Interpretation Comments MCHC (test code = MCHC) 32.4 32.0-36.0 [facility] Hos[id number] 13:46:52 Test Item Value Reference Range Interpretation Comments RDW (test code = RDW) 13.7 11.5-14.5 [place] 648481-04-09 13:46:52 Test Item Value Reference Range Interpretation Comments Platelet (test code = Platelet) 245 133-450 [place] 648481-04-09 13:46:52 Test Item Value Reference Range Interpretation Comments MPV (test code = MPV) 8.3 7.4-10.4 [place] 648481-04-09 13:46:52 Test Item Value Reference Range Interpretation Comments ACT (TEG) Rapid (test code = ACT (TEG) 105 s 86-118 Rapid) [place] 648481-04-09 13:46:52 Test Item Value Reference Range Interpretation Comments Split Point Rapid (test code = Split 0.5 min Point Rapid) [place] 648481-04-09 13:46:52 Test Item Value Reference Range Interpretation Comments R-time Rapid (test code = R-time 0.6 min 0.4-0.7 Rapid) [facility] Ho[id number] 13:46:52 Test Item Value Reference Range Interpretation Comments K-time Rapid (test code = K-time 1.0 min 0.6-2.3 Rapid) [place] 648481-04-09 13:46:52 Test Item Value Reference Range Interpretation Comments Angle Rapid (test code = Angle 77 degrees 64-80 Rapid) [facility] HospitalMvnqkwcRDTEVDGJJB5024-91-67 13:46:52 Test Item Value Reference Range Interpretation Comments Max Amplitude Rapid (test code = Max 71 mm 52-71 Amplitude Rapid) [place] 648481-04-09 13:46:52 Test Item Value Reference Range Interpretation Comments G-value Rapid (test code = G-value 12.5 5.0-11.6 Rapid) [facility] HospitalZimhhntIRQNFYQJJM1777-75-88 13:46:52 Test Item Value Reference Range Interpretation Comments Estimated % Lysis Rapid 0.0 See_Comment [Au tomated message] The (test code = Estimated syste m which generated % Lysis Rapid) this result t ransmitted reference range : <=7.5. The reference r marsha was not used to int erpret this result as normal/abnormal . [facility] HospitalWpugyinVICVAPCNSO4996-94-49 13:46:52 Test Item Value Reference Range Interpretation Comments Segs (test code = Segs) 62.5 45.0-75.0 [facility] HospitalNjreryqXMLKXPBAUC8703-63-42 13:46:52 Test Item Value Reference Range Interpretation Comments Lymphocytes (test code = Lymphocytes) 27.1 20.0-40.0 [place] 648481-04-09 13:46:52 Test Item Value Reference Range Interpretation Comments Monocytes (test code = Monocytes) 8.6 2.0-12.0 [place] 648481-04-09 13:46:52 Test Item Value Reference Range Interpretation Comments Eosinophils (test code = 1.1 See_Comment [A utomated message] The Eosinophils) system which ge nerated this result tra nsmitted reference range : <=4.0. The reference r marsha was not used to int erpret this result as normal/abnormal . [facility] HospitalVlgxtkbLPDJWXOPRC6949-28-36 13:46:52 Test Item Value Reference Range Interpretation Comments Basophils (test code = 0.7 See_Comment [Aut omated message] The Basophils) system which ge nerated this result tra nsmitted reference range : <=1.0. The reference r marsha was not used to int erpret this result as normal/abnormal . [facility] HospitalIdccygcCNQJUERERQ4617-26-67 13:46:52 Test Item Value Reference Range Interpretation Comments Neutrophils # (test code = Neutrophils 7.0 1.5-8.1 #) [facility] HospitalMbgpdlmEZRCAILUMM2626-13-75 13:46:52 Test Item Value Reference Range Interpretation Comments Lymphocytes # (test code = Lymphocytes 3.1 1.0-5.5 #) [place] 648481-04-09 13:46:52 Test Item Value Reference Range Interpretation Comments Monocytes # (test code 1.0 See_Comment [Aut omated message] The = Monocytes #) system which generated this result tra nsmitted reference range : <=0.8. The reference r marsha was not used to int erpret this result as normal/abnormal . [place] 648481-04-09 13:46:52 Test Item Value Reference Range Interpretation Comments Eosinophils # (test code 0.1 See_Comment [A utomated message] The = Eosinophils #) system whic h generated this result tra nsmitted reference range : <=0.5. The reference r marsha was not used to int erpret this result as normal/abnormal . [facility] HospitalKtukyuqUIIFRJXKKK2353-55-82 13:46:52 Test Item Value Reference Range Interpretation Comments Basophils # (test code 0.1 See_Comment [Aut omated message] The = Basophils #) system which generated this result tra nsmitted reference range : <=0.2. The reference r marsha was not used to int erpret this result as normal/abnormal . [facility]QovqtqkVBWBZXJLBF4421-31-73 13:46:52 Test Item Value Reference Range Interpretation Comments Ethanol Lvl (test code = Ethanol Lvl) 125 [place] 61288021-04-09 13:46:52 Test Item Value Reference Range Interpretation Comments Etoh (%) (test code = Etoh (%)) 0.125 [facility] Coronavirus 2019 [id number] 11:29:00 Test Item Value Reference Range Interpretation Comments Novel Coronavirus 2019 nCoV (test Negative Negative code = COVID19) - XR CHEST 1 [id number] 14:00:00 Patient Name: ALYSSIA LEE Unit No: [id number] EXAMS: CPT CODE: [id number] XR CHEST 1 V 26235Uboarn: cough - XR CHEST 1 V 07/05/2019 1:13 PM Exam: - XR CHEST 1 V Comparison: none Reason for exam: cough FINDINGS: The heart size is normal. Vascularity is normal. The lungs are clear. There is no fluid or adenopathy. IMPRESSION: Negative chest at 1400 Reported and signed by: Jermaine Cobos MD CC: Carlos French MD Technologist: Brenna Costa (Schroeder) RT Trscrpt Dt/ (1400)[id number] Orig Print D/T: S: 07/05/2019 (8259) [facility] NAME: ALYSSIA LEE [address] PHYS: [id number] - Carlos French [facility], [place] [address] : 1995 AGE: 23 SEX: F LOC: ROSA PHONE #: [phone] EXAM DATE: 07/05/2019 STATUS: REG ER FAX #: RAD NO: DC Dt: PAGE 1 Signed ReportHCG SERUM [id number] 20:31:00 Test Item Value Reference Range Interpretation [...] using aquantitative h CG assay. CBC W/AUTO [id number] 20:17:00 Test Item Value Reference Range Interpretation [...]
--- NOTE | 2021-12-19 16:14 | ER ---
Nurse's Notes [facility] Name: Kanwal De La Vega Age: 26 yrs Sex: Female : 1995 Arrival Date: 12/19/2021 Time: 12:54 Bed Treatment Private MD: Diagnosis: Acute upper respiratory infection, unspecified Presentation: 12/19 13:13 Chief complaint: Patient states: I have had a sore throat, body aches, and coughing for bm7 a week now. Coronavirus screen: Client presents with at least one sign or symptom that may indicate coronavirus-19. Standard/surgical mask placed on the client. Ebola Screen: No symptoms or risks identified at this time. Initial Sepsis Screen: Does the patient meet any 2 criteria? No. Patient's initial sepsis screen is negative. Does the patient have a suspected source of infection? No. Patient's initial sepsis screen is negative. Risk Assessment: Do you want to hurt yourself or someone else? Patient reports no desire to harm self or others. Onset of symptoms is unknown. 13:13 Method Of Arrival: Ambulatory [facility] 13:13 Acuity: MOI 4 bm7 Triage Assessment: 13:17 General: Appears in no apparent distress. uncomfortable, Behavior is calm, cooperative, bm7 appropriate for age. Pain: Denies pain. EENT: Eyes are tearing on right outer canthus and left outer canthus Nares are clear with drainage noted Oral mucosa is moist. Reports nasal discharge. Neuro: No deficits noted. Cardiovascular: No deficits noted. Respiratory: Reports cough that is productive, non-productive, dry, pain with cough Airway is patent Respiratory effort is even, unlabored, Respiratory pattern is regular, symmetrical, Breath sounds are clear bilaterally. GI: No deficits noted. No signs and/or symptoms were reported involving the gastrointestinal system. : No deficits noted. No signs and/or symptoms were reported regarding the genitourinary system. Derm: No deficits noted. No signs and/or symptoms reported regarding the dermatologic system. Musculoskeletal: No deficits noted. No signs and/or symptoms reported regarding the musculoskeletal system. 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 - Social history:: Smoking status: Patient denies any tobacco usage or history of. Screenin:40 Abuse screen: Denies threats or abuse. Denies injuries from another. Nutritional kb3 screening: No deficits noted. Tuberculosis screening: No symptoms or risk factors identified. Fall Risk None identified. Assessment: 15:40 General: Appears in no apparent distress. Behavior is calm, cooperative, [facility] kb[facility]. Pt reports fever, sore throat, cough, congestion, generalized malaise x7 days.. 15:40 Respiratory: Breath sounds are clear bilaterally. kb3 Vital Signs: 13:08 BP 120 / 66; Pulse 90; Resp 16; Temp 98.2(TE); Pulse Ox 98% on R/A; Weight 72.57 kg bm7 (R); Height 4 ft. 10 in. (147.32 cm); Pain 8/10; 15:40 BP 130 / 83; Pulse 100; Resp 20; Pulse Ox 100% ; Pain 7/10; kb3 17:00 BP 128 / 68; Pulse 80; Resp 20; Temp 98.9; Pulse Ox 100% ; kb3 13:08 Body Mass Index 33.44 (72.57 kg, 147.32 cm) bm7 ED Course: 12:54 Patient arrived in ED. mr 12:58 Magdalene Hernandez FNP-C [facility]. kb 12:58 Ramo Maloney MD is Attending Physician. kb 13:13 Triage completed. bm7 13:17 Arm band placed on right wrist. bm7 15:40 Patient has correct armband on for positive identification. Bed in low position. Call kb3 light in reach. 15:40 Warm blanket given. kb3 15:40 No provider procedures requiring assistance completed. kb3 16:07 Cassandra Garcia, RN is Primary Nurse. kb3 17:00 Patient did not have IV access during this emergency room visit. kb3 Administered Medications: No medications were administered Medication: 15:40 VIS not applicable for this client. kb3 Outcome: 16:13 Discharge ordered by . kb 17:00 Discharged to home ambulatory. kb3 17:00 Condition: stable 17:00 Discharge instructions given to patient, Instructed on discharge instructions, follow up and referral plans. medication usage, Demonstrated understanding of instructions, follow-up care, medications. 17:02 Patient left the ED. kb3 Signatures: Magdalene Hernandez, ADJUSTER [employer]LECTR[employer]TACTS-C ADJUSTER ELECTR[employer] CONTACTS-Ckb Lupe Peoples mr Myrna Baeza, RN RN bm7 Cassandra Garcia, RN RN kb3 Corrections: (The following items were deleted from the chart) 16:10 15:40 General: Appears in no apparent distress. Behavior is calm, cooperative, Received kb3 care of pt from [facility] without distress. Pt reports fever, cough, congestion, generalized malaise x3 days. kb3
--- NOTE | 2021-12-19 16:14 | EDPHYS ---
Physician Documentation [facility] Name: Kanwal De La Vega Age: 26 yrs Sex: Female : 1995 Arrival Date: 12/19/2021 Time: 12:54 Bed Treatment Private MD: ED Physician Ramo Maloney HPI: 12/19 16:38 This 26 yrs old Female presents to ER via Ambulatory with complaints of Flu kb Symptoms. 16:38 The patient or guardian reports cough, that is intermittent, described as mild, flu kb symptoms, low-grade fever, myalgias, no appetite. Onset: The symptoms/episode began/occurred 1 week(s) ago. Severity of symptoms: At their worst the symptoms were moderate, in the emergency department the symptoms are unchanged. Modifying factors: The symptoms are alleviated by nothing, the symptoms are aggravated by nothing. Associated signs and symptoms: Pertinent positives: fever, sore throat, Pertinent negatives: chest pain, diarrhea, ear ache, nausea, rhinorrhea, vomiting. The patient has not experienced similar symptoms in the past. The patient has not recently seen a physician. 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 - Social history:: Smoking status: Patient denies any tobacco usage or history of. ROS: 16:38 Abdomen/GI: Negative for abdominal pain, nausea, vomiting, diarrhea, and constipation. kb 16:38 Constitutional: Positive for body aches, chills, fatigue, fever, malaise. 16:38 ENT: Positive for sore throat. 16:38 Respiratory: Positive for cough. 16:38 All other systems are negative. Exam: 16:38 Constitutional: This is a well developed, well nourished patient who is awake, alert, kb and in no acute distress. Head/Face: Normocephalic, atraumatic. ENT: Moist Mucous membranes Cardiovascular: Regular rate and rhythm with a normal S1 and S2. No gallops, murmurs, or rubs. No pulse deficits. Respiratory: Respirations even and unlabored. No increased work of breathing. Talking in full sentences Abdomen/GI: Soft, non-tender. No distention Skin: Warm, dry with normal turgor. Normal color. MS/ Extremity: Pulses equal, no cyanosis. Neurovascular intact. Full, normal range of motion. Neuro: Awake and alert, GCS 15, oriented to person, place, time, and situation. Moves all extremities. Normal gait. Psych: Awake, alert, with orientation to person, place and time. Behavior, mood, and affect are within normal limits. Vital Signs: 13:08 BP 120 / 66; Pulse 90; Resp 16; Temp 98.2(TE); Pulse Ox 98% on R/A; Weight 72.57 kg bm7 (R); Height 4 ft. 10 in. (147.32 cm); Pain 8/10; 15:40 BP 130 / 83; Pulse 100; Resp 20; Pulse Ox 100% ; Pain 7/10; kb3 17:00 BP 128 / 68; Pulse 80; Resp 20; Temp 98.9; Pulse Ox 100% ; kb3 13:08 Body Mass Index 33.44 (72.57 kg, 147.32 cm) bm7 MDM: 13:13 Patient medically screened. kb 16:36 Data reviewed: vital signs, nurses notes. Data interpreted: Pulse oximetry: on room air kb is 100 %. Interpretation: normal. Counseling: I had a detailed discussion with the patient and/or guardian regarding: the historical points, exam findings, and any diagnostic results supporting the discharge/admit diagnosis, lab results, the need for outpatient follow up, a family practitioner, to return to the emergency department if symptoms worsen or persist or if there are any questions or concerns that arise at home. 12/19 13:51 Order name: Influenza Screen (A ; Complete Time: 13:55 EDMS 12/19 13:51 Order name: Group A Streptococcus Rapid Sc; Complete Time: 13:55 EDMS 12/19 14:49 Order name: SARS-COV-2 RT PCR; Complete Time: 15:17 EDMS Administered Medications: No medications were administered Disposition: 18:48 Co-signature as Attending Physician, Ramo Maloney MD. rn Disposition Summary: 12/19/21 16:13 Discharge Ordered Location: Home kb Condition: Stable kb Diagnosis - Acute upper respiratory infection, unspecified kb Followup: kb - With: Emergency Department - When: As needed - Reason: Worsening of condition Followup: kb - With: Private Physician - When: 2 - 3 days - Reason: Recheck today's complaints, Continuance of care, Re-evaluation by your physician Discharge Instructions: - Discharge Summary Sheet kb - Upper Respiratory Infection, Adult, [id number] kb - Viral Respiratory Infection, [id number] kb Forms: - Medication Reconciliation Form kb - Thank You Letter kb - Work release form kb - Antibiotic Education kb - Prescription Opioid Use kb Signatures: Magdalene Hernandez, HOUSEHOLD COORDINATOR-C THEO-Ramo Bonilla MD MD rn McCarthy, Brittany, RN RN bm7
[2021-12-19 18:23] VITALS: O2SAT 100
[2021-12-19 18:25] VITALS: BP 128/68; TEMP 98.9
== END 2021-12-19 17:02 | disposition home or self-care (01) ==
LOC: ER 12:52
DX: J06.9 Acute upper respiratory infection, unspecified (principal); Z20.822 Contact with and (suspected) exposure to COVID-19; Z88.1 Allergy status to other antibiotic agents; Z88.0 Allergy status to penicillin
CPT/HCPCS: 87070; 87081; 87804; 99281; U0003

== ENCOUNTER 2022-04-05 08:57 | Emergency (ER) | payer SELFPAY ==
--- OUTSIDE RECORDS SUMMARY | 2022-04-05 09:02 | XMS REPORT | Continuity of Care Document ---
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 CREATININE (test code = 0.43 mg/dL 0.50-1.04 L 2987091947) TOTAL BILI (test code = 0.6 mg/dL 0.1-1.0 9714384709) CALCIUM (test code = 8.9 mg/dL 8.6-10.6 3659740652) T PROTEIN (test code = 8.0 g/dL 6.3-8.2 5086530932) ALBUMIN (test code = 4.6 g/dL 3.5-5.0 4451972780) ALK PHOS (test code = 137 U/L 34-122 H 7476181904) ALTv (test code = 17 U/L 5-35 1742-6) AST(SGOT) (test code = 29 U/L 13-40 7006617372) eGFR (test code = mL/min/1.73m2 2409775562) JASPREET (test code = JASPREET) Association of [...] tests). Lab Interpretation Abnormal (test code = 80972-4) [facility] 23:06:24 Test Item Value Reference Range Interpretation Comments MAGNESIUM (test code = 8300819582) 1.9 mg/dL 1.7-2.4 Lab Interpretation (test code = Normal 71093-6) [facility]22[facility] 23:06:04 Test Item Value Reference Range Interpretation Comments LIPASE (test code = 3536862426) 119 U/L 0-220 Lab Interpretation (test code = Normal 47150-0) [facility] CenterCB WITH [id number] 22:52:03 Test Item Value Reference Range Interpretation Comments WBC (test code = See_Comment [Automated 8105-2) message] The sy stem which generated this result transmitted reference range : 4.30 - 11.10 10*3/?L. The reference range was not used to interpret this result as normal/abnormal . RBC (test code = See_Comment [Automated 331-2) message] The sy stem which generated this [...] RDW-SD (test code = 41.5 fL 39.0-49.9 40996-5) RDW-CV (test code = 12.6 % 12.0-15.5 788-0) PLT (test code = See_Comment [Automated 777-3) message] The sy stem which generated this result transmitted reference range : 166 - 358 10*3/ ?L. The reference r marsha was not used to interpret this result as normal/abnormal . MPV (test code = 10.6 fL 9.5-12.9 57964-4) NRBC/100 WBC (test See_Comment [Automat ed code = 0564518996) message] The system which generated this result transmitted reference range : 0.0 - 10.0 /100 WBCs. The refer ence range was not u sed to interpret th is result as normal/abnormal . NRBC x10^3 (test code <0.01 See_Comment [Auto mated = 4229732285) message] The s ystem which generated this result transmitted reference range : 10*3/?L. The reference range was not used to interpret this result as normal/abnormal . GRAN MAT (NEUT) % 66.7 % (test code = 770-8) IMM GRAN % (test code 0.80 % = 5180461224) LYMPH % (test code = 23.4 % 736-9) MONO % (test code = 7.3 % 5905-5) EOS % (test code = 1.3 % 713-8) BASO % (test code = 0.5 % 706-2) GRAN MAT x10^3(ANC) 6.59 10*3/uL 1.88-7.09 (test code = 2756217667) IMM GRAN x10^3 (test 0.08 10*3/uL 0.00-0.06 H code = 7149161934) LYMPH x10^3 (test code 2.31 10*3/uL 1.32-3.29 = 731-0) MONO x10^3 (test code 0.72 10*3/uL 0.33-0.92 = 742-7) EOS x10^3 (test code = 0.13 10*3/uL 0.03-0.39 711-2) BASO x10^3 (test code 0.05 10*3/uL 0.01-0.07 = 704-7) Lab Interpretation Abnormal (test code = 98665-1) [facility] [id number] 22:35:00 Test Item Value Reference Range Interpretation Comments POCT PREG (test code = 1605) negative On board controls acceptable with present C Line (test code = 3574) POCT PREG LOT # (test code = 3575) [id number] POCT PREG TEST DATE (test code = 3576) Lab Interpretation (test code = Normal 60070-1) [facility] CenterDR[facility] [id number] 16:22:00 Test Item Value Reference Range Interpretation Comments U Amph Scr (test code Negative *NA*(07/22/20 = U Amph Scr) 11:22 AM) [facility] [id number] 16:22:00 Test Item Value Reference Range Interpretation Comments U Hollie Scr (test code Negative *NA*(07/22/20 = U Hollie Scr) 11:22 AM) [facility] [id number] 16:22:00 Test Item Value Reference Range Interpretation Comments U Benzodiaz Scr (test Positive *ABN*(07/22/20 code = U Benzodiaz Scr) 11:22 AM) [facility] [id number] 16:22:00 Test Item Value Reference Range Interpretation Comments U Cannab Scr (test Positive *ABN*(07/22/20 code = U Cannab Scr) 11:22 AM) [facility] [id number] 16:22:00 Test Item Value Reference Range Interpretation Comments U Cocaine Scr (test Negative *NA*(07/22/20 code = U Cocaine Scr) 11:22 AM) [facility] [id number] 16:22:00 Test Item Value Reference Range Interpretation Comments U Opiate Scr (test Negative *NA*(07/22/20 code = U Opiate Scr) 11:22 AM) [facility] [id number] 16:22:00 Test Item Value Reference Range Interpretation Comments U Phencyclidine Scr (test Negative *NA*(07/22/20 code = U Phencyclidine 11:22 AM) Scr) [facility] [id number] 16:22:00 Test Item Value Reference Range Interpretation Comments UDS Note (test code = See Note (07/22/20 11:22 UDS Note) AM) [facility] [id number] 16:22:00 Test Item Value Reference Range Interpretation Comments UA Turbidity (test code = Clear (07/22/20 11:22 UA Turbidity) AM) [facility] [id number] 16:22:00 Test Item Value Reference Range Interpretation Comments UA Spec Grav (test code = UA Spec Grav) no gt [facility] [id number] 16:22:00 Test Item Value Reference Range Interpretation Comments UA pH (test code = UA pH) 8.0 1 5.0-8.0 [facility] [id number] 16:22:00 Test Item Value Reference Range Interpretation Comments UA Protein (test code = UA Negative mg/dL Protein) [facility] [id number] 16:22:00 Test Item Value Reference Range Interpretation Comments UA Glucose (test code = UA Negative mg/dL Glucose) [facility] [id number] 16:22:00 Test Item Value Reference Range Interpretation Comments UA Ketones (test code = UA Negative mg/dL Ketones) [facility] [id number] 16:22:00 Test Item Value Reference Range Interpretation Comments UA Bili (test code = Negative *NA*(07/22/20 UA Bili) 11:22 AM) [facility] [id number] 16:22:00 Test Item Value Reference Range Interpretation Comments UA Blood (test code = Negative (07/22/20 11:22 UA Blood) AM) [facility] [id number] 16:22:00 Test Item Value Reference Range Interpretation Comments UA Urobilinogen (test code = UA no gt 0.1-1.0 Urobilinogen) [facility] [id number] 16:22:00 Test Item Value Reference Range Interpretation Comments UA Nitrite (test code Negative (07/22/20 11:22 = UA Nitrite) AM) [facility] [id number] 16:22:00 Test Item Value Reference Range Interpretation Comments UA Leuk Est (test Negative (07/22/20 11:22 code = UA Leuk Est) AM) [facility] [id number] 16:22:00 Test Item Value Reference Range Interpretation Comments UA Sq Epi (test code = UA Sq Occasional /LPF Epi) [facility] [id number] 16:22:00 Test Item Value Reference Range Interpretation Comments UA WBC (test code = no gt See_Comment [Automa lalit message] The UA WBC) system which ge nerated this result transmit lalit reference range : <=5. The reference range was not used to interpr et this result as reid l/abnormal. [facility] [id number] 16:22:00 Test Item Value Reference Range Interpretation Comments UA RBC (test code = no gt See_Comment [Automa lalit message] The UA RBC) system which ge nerated this result transmit lalit reference range : <=2. The reference range was not used to interpr et this result as reid l/abnormal. [facility] [id number] 16:22:00 Test Item Value Reference Range Interpretation Comments UA Mucus (test code = UA Mucus) Few /LPF [facility] [id number] 16:22:00 Test Item Value Reference Range Interpretation Comments UA Color (test code = UA Color) STRAW [facility] [id number] 16:22:00 Test Item Value Reference Range Interpretation Comments U Amph Scr (test code Negative *NA*(07/22/20 = U Amph Scr) 11:22 AM) [facility] [id number] 16:22:00 Test Item Value Reference Range Interpretation Comments U Hollie Scr (test code Negative *NA*(07/22/20 = U Hollie Scr) 11:22 AM) [facility] [id number] 16:22:00 Test Item Value Reference Range Interpretation Comments U Benzodiaz Scr (test Positive *ABN*(07/22/20 code = U Benzodiaz Scr) 11:22 AM) [facility] [id number] 16:22:00 Test Item Value Reference Range Interpretation Comments U Cannab Scr (test Positive *ABN*(07/22/20 code = U Cannab Scr) 11:22 AM) [facility] [id number] 16:22:00 Test Item Value Reference Range Interpretation Comments U Cocaine Scr (test Negative *NA*(07/22/20 code = U Cocaine Scr) 11:22 AM) [facility] [id number] 16:22:00 Test Item Value Reference Range Interpretation Comments U Opiate Scr (test Negative *NA*(07/22/20 code = U Opiate Scr) 11:22 AM) [facility] [id number] 16:22:00 Test Item Value Reference Range Interpretation Comments U Phencyclidine Scr (test Negative *NA*(07/22/20 code = U Phencyclidine 11:22 AM) Scr) [facility] [id number] 16:22:00 Test Item Value Reference Range Interpretation Comments UDS Note (test code = See Note (07/22/20 11:22 UDS Note) AM) [facility] [id number] 16:22:00 Test Item Value Reference Range Interpretation Comments UA Turbidity (test code = Clear (07/22/20 11:22 UA Turbidity) AM) [facility] [id number] 16:22:00 Test Item Value Reference Range Interpretation Comments UA Spec Grav (test code = UA Spec Grav) no gt [facility] [id number] 16:22:00 Test Item Value Reference Range Interpretation Comments UA pH (test code = UA pH) 8.0 1 5.0-8.0 [facility] [id number] 16:22:00 Test Item Value Reference Range Interpretation Comments UA Protein (test code = UA Negative mg/dL Protein) [facility] [id number] 16:22:00 Test Item Value Reference Range Interpretation Comments UA Glucose (test code = UA Negative mg/dL Glucose) [facility] [id number] 16:22:00 Test Item Value Reference Range Interpretation Comments UA Ketones (test code = UA Negative mg/dL Ketones) [facility] [id number] 16:22:00 Test Item Value Reference Range Interpretation Comments UA Bili (test code = Negative *NA*(07/22/20 UA Bili) 11:22 AM) [facility] AND [id number] 16:22:00 Test Item Value Reference Range Interpretation Comments UA Blood (test code = Negative (07/22/20 11:22 UA Blood) AM) [facility] AND [id number] 16:22:00 Test Item Value Reference Range Interpretation Comments UA Urobilinogen (test code = UA no gt 0.1-1.0 Urobilinogen) [facility] AND [id number] 16:22:00 Test Item Value Reference Range Interpretation Comments UA Nitrite (test code Negative (07/22/20 11:22 = UA Nitrite) AM) [facility] AND [id number] 16:22:00 Test Item Value Reference Range Interpretation Comments UA Leuk Est (test Negative (07/22/20 11:22 code = UA Leuk Est) AM) [facility] AND [id number] 16:22:00 Test Item Value Reference Range Interpretation Comments UA Sq Epi (test code = UA Sq Occasional /LPF Epi) [facility] AND [id number] 16:22:00 Test Item Value Reference Range Interpretation Comments UA WBC (test code = no gt See_Comment [Automa lalit message] The UA WBC) system which ge nerated this result transmit lalit reference range : <=5. The reference range was not used to interpr et this result as reid l/abnormal. [facility] AND [id number] 16:22:00 Test Item Value Reference Range Interpretation Comments UA RBC (test code = no gt See_Comment [Automa lalit message] The UA RBC) system which ge nerated this result transmit lalit reference range : <=2. The reference range was not used to interpr et this result as reid l/abnormal. [facility] AND [id number] 16:22:00 Test Item Value Reference Range Interpretation Comments UA Mucus (test code = UA Mucus) Few /LPF [facility] AND [id number] 16:22:00 Test Item Value Reference Range Interpretation Comments UA Color (test code = UA Color) STRAW [facility] CenterHunterOn [facility] [id number] 13:54:00 Test Item Value Reference Range Interpretation Comments ABO/Rh (test code = ABO/Rh) O POS [facility] CenterElevate DigitalMiCard[employer] Corporation [facility] [id number] 13:54:00 Test Item Value Reference Range Interpretation Comments Antibody Scrn (test Negative (07/22/20 8:54 code = Antibody Scrn) AM) [facility] Cent[id number] 13:54:00 Test Item Value Reference Range Interpretation Comments Hep C Ab (test code = Hep C Ab) NON-REACTIVE [facility] [id number] 13:54:00 Test Item Value Reference Range Interpretation Comments Hep Signal to Cut-Off (test code = Hep 0.01 1 Signal to Cut-Off) [facility] CenterQcdjcinXPDTMKMEIQ2412-13-16 13:54:00 Test Item Value Reference Range Interpretation Comments [facility] HIV 4th GEN (test Negative *NA*(07/22/20 code = CDC HIV 4th 8:54 AM) GEN) [facility] CenterHunterOn [facility] [id number] 13:54:00 Test Item Value Reference Range Interpretation Comments ABO/Rh (test code = ABO/Rh) O POS [facility] [employer] [facility] [id number] 13:54:00 Test Item Value Reference Range Interpretation Comments Antibody Scrn (test Negative (07/22/20 8:54 code = Antibody Scrn) AM) [facility] [id number] 13:54:00 Test Item Value Reference Range Interpretation Comments Hep C Ab (test code = Hep C Ab) NON-REACTIVE [facility] Cent[id number] 13:54:00 Test Item Value Reference Range Interpretation Comments Hep Signal to Cut-Off (test code = Hep 0.01 1 Signal to Cut-Off) [facility] [id number] 13:54:00 Test Item Value Reference Range Interpretation Comments [facility] HIV 4th GEN (test Negative *NA*(07/22/20 code = CDC HIV 4th 8:54 AM) GEN) [facility] [employer] [id number] 13:46:52 Test Item Value Reference Range Interpretation Comments Potassium Lvl (test code = Potassium 3.6 3.5-5.1 Lvl) [facility] [employer] [id number] 13:46:52 Test Item Value Reference Range Interpretation Comments Chloride Lvl (test code = Chloride Lvl) 110 95-109 [place] [id number] 13:46:52 Test Item Value Reference Range Interpretation Comments CO2 (test code = CO2) 27 24-32 [place] [id number] 13:46:52 Test Item Value Reference Range Interpretation Comments Calcium Lvl (test code = Calcium Lvl) 8.5 8.5-10.5 [place] 672551-04-09 13:46:52 Test Item Value Reference Range Interpretation Comments AGAP (test code = AGAP) 9.6 10.0-20.0 [facility]2021-04-09 13:46:52 Test Item Value Reference Range Interpretation Comments eGFR (test code = eGFR) 140 [facility]2021-04-09 13:46:52 Test Item Value Reference Range Interpretation Comments Lactic Acid Lvl (test code = Lactic 1.6 0.5-2.2 Acid Lvl) [id number] 13:46:52 Test Item Value Reference Range Interpretation Comments S Preg (test code = S Negative *NA*(07/22/20 Preg) 8:46 AM) [id number] 13:46:52 Test Item Value Reference Range Interpretation Comments WBC X 10x3 (test code = WBC X 10x3) 11.3 3.7-10.4 [place] 044461-04-09 13:46:52 Test Item Value Reference Range Interpretation Comments RBC X 10x6 (test code = RBC X 10x6) 4.39 4.20-5.40 [place] 044461-04-09 13:46:52 Test Item Value Reference Range Interpretation Comments Hgb (test code = Hgb) 13.0 12.0-16.0 [place] 044461-04-09 13:46:52 Test Item Value Reference Range Interpretation Comments Hct (test code = Hct) 40.3 36.0-48.0 [place] 044461-04-09 13:46:52 Test Item Value Reference Range Interpretation Comments MCV (test code = MCV) 91.7 80.0-98.0 [place] 044461-04-09 13:46:52 Test Item Value Reference Range Interpretation Comments MCH (test code = MCH) 29.7 pg 27.0-31.0 [facility] HospitalNldcgmwFHWKWZHHID7785-31-93 13:46:52 Test Item Value Reference Range Interpretation Comments MCHC (test code = MCHC) 32.4 32.0-36.0 [facility] HospitalYajqriyZNGMDZWDSD4585-39-75 13:46:52 Test Item Value Reference Range Interpretation Comments RDW (test code = RDW) 13.7 11.5-14.5 [place] 044461-04-09 13:46:52 Test Item Value Reference Range Interpretation Comments Platelet (test code = Platelet) 245 133-450 [facility] HospitalSuqjebvUFNXUMPHZK5854-65-25 13:46:52 Test Item Value Reference Range Interpretation Comments MPV (test code = MPV) 8.3 7.4-10.4 [facility] HospitalMrpdpnvKUUPIWJIDA0487-52-76 13:46:52 Test Item Value Reference Range Interpretation Comments ACT (TEG) Rapid (test code = ACT (TEG) 105 s 86-118 Rapid) [facility] HospitalEvaiujaYCRERQTULQ0672-80-41 13:46:52 Test Item Value Reference Range Interpretation Comments Split Point Rapid (test code = Split 0.5 min Point Rapid) [facility] HospitalUdifyjiEQPCZESCIE5802-25-95 13:46:52 Test Item Value Reference Range Interpretation Comments R-time Rapid (test code = R-time 0.6 min 0.4-0.7 Rapid) [facility] HospitalMqkfvjeTMTZCCZJSG5364-87-36 13:46:52 Test Item Value Reference Range Interpretation Comments K-time Rapid (test code = K-time 1.0 min 0.6-2.3 Rapid) [facility] HospitalWlbtbwwXFFLZVBJBT7435-82-51 13:46:52 Test Item Value Reference Range Interpretation Comments Angle Rapid (test code = Angle 77 degrees 64-80 Rapid) [facility] HospitalImqelsoCDBRPOSMHQ4049-22-76 13:46:52 Test Item Value Reference Range Interpretation Comments Max Amplitude Rapid (test code = Max 71 mm 52-71 Amplitude Rapid) [facility] HospitalNtcpsvvIQOTYABGDD2494-90-78 13:46:52 Test Item Value Reference Range Interpretation Comments G-value Rapid (test code = G-value 12.5 5.0-11.6 Rapid) [facility] HospitalEnxyekfGCJRNSUHAD3269-58-39 13:46:52 Test Item Value Reference Range Interpretation Comments Estimated % Lysis Rapid 0.0 See_Comment [Au tomated message] The (test code = Estimated syste m which generated % Lysis Rapid) this result t ransmitted reference range : <=7.5. The reference r marsha was not used to int erpret this result as normal/abnormal . [place] 044461-04-09 13:46:52 Test Item Value Reference Range Interpretation Comments Segs (test code = Segs) 62.5 45.0-75.0 [facility] HospitalErjwvkkSHUSGSZBTL4830-69-40 13:46:52 Test Item Value Reference Range Interpretation Comments Lymphocytes (test code = Lymphocytes) 27.1 20.0-40.0 [place] 044461-04-09 13:46:52 Test Item Value Reference Range Interpretation Comments Monocytes (test code = Monocytes) 8.6 2.0-12.0 [facility] HospitalZfmmrowAVGASEGTXR2775-20-55 13:46:52 Test Item Value Reference Range Interpretation Comments Eosinophils (test code = 1.1 See_Comment [A utomated message] The Eosinophils) system which ge nerated this result tra nsmitted reference range : <=4.0. The reference r marsha was not used to int erpret this result as normal/abnormal . [facility] HospitalMvthzojEINVOSJSRJ3933-89-64 13:46:52 Test Item Value Reference Range Interpretation Comments Basophils (test code = 0.7 See_Comment [Aut omated message] The Basophils) system which ge nerated this result tra nsmitted reference range : <=1.0. The reference r marsha was not used to int erpret this result as normal/abnormal . [facility] HospitalLwcasngVGAUOQBJNJ4396-93-29 13:46:52 Test Item Value Reference Range Interpretation Comments Neutrophils # (test code = Neutrophils 7.0 1.5-8.1 #) [facility] HospitalOwlrzksSLLYRECLTK6660-44-83 13:46:52 Test Item Value Reference Range Interpretation Comments Lymphocytes # (test code = Lymphocytes 3.1 1.0-5.5 #) [place] 044461-04-09 13:46:52 Test Item Value Reference Range Interpretation Comments Monocytes # (test code 1.0 See_Comment [Aut omated message] The = Monocytes #) system which generated this result tra nsmitted reference range : <=0.8. The reference r marsha was not used to int erpret this result as normal/abnormal . [place] 044461-04-09 13:46:52 Test Item Value Reference Range Interpretation Comments Eosinophils # (test code 0.1 See_Comment [A utomated message] The = Eosinophils #) system whic h generated this result tra nsmitted reference range : <=0.5. The reference r marsha was not used to int erpret this result as normal/abnormal . [facility] HospitalZibuxubYSJGUXUYHY6070-13-37 13:46:52 Test Item Value Reference Range Interpretation Comments Basophils # (test code 0.1 See_Comment [Aut omated message] The = Basophils #) system which generated this result tra nsmitted reference range : <=0.2. The reference r marsha was not used to int erpret this result as normal/abnormal . [place] 281761-04-09 13:46:52 Test Item Value Reference Range Interpretation Comments Ethanol Lvl (test code = Ethanol Lvl) 125 [place] 281761-04-09 13:46:52 Test Item Value Reference Range Interpretation Comments Etoh (%) (test code = Etoh (%)) 0.125 [place] 672551-04-09 13:46:52 Test Item Value Reference Range Interpretation Comments Glucose Lvl (test code = Glucose Lvl) 89 70-99 [place] 672551-04-09 13:46:52 Test Item Value Reference Range Interpretation Comments BUN (test code = BUN) 8 7-22 [facility]enGet[facility] [id number] 13:46:52 Test Item Value Reference Range Interpretation Comments Creatinine Lvl (test code = Creatinine 0.42 0.50-1.40 Lvl) [place] [id number] 13:46:52 Test Item Value Reference Range Interpretation Comments Sodium Lvl (test code = Sodium Lvl) 143 135-145 [id number] 13:46:52 Test Item Value Reference Range Interpretation Comments Potassium Lvl (test code = Potassium 3.6 3.5-5.1 Lvl) [place] 672551-04-09 13:46:52 Test Item Value Reference Range Interpretation Comments Chloride Lvl (test code = Chloride Lvl) 110 95-109 [facility]2021-04-09 13:46:52 Test Item Value Reference Range Interpretation Comments CO2 (test code = CO2) 27 24-32 [place] 672551-04-09 13:46:52 Test Item Value Reference Range Interpretation Comments Calcium Lvl (test code = Calcium Lvl) 8.5 8.5-10.5 [facility]2021-04-09 13:46:52 Test Item Value Reference Range Interpretation Comments AGAP (test code = AGAP) 9.6 10.0-20.0 [facility]2021-04-09 13:46:52 Test Item Value Reference Range Interpretation Comments eGFR (test code = eGFR) 140 [facility]2021-04-09 13:46:52 Test Item Value Reference Range Interpretation Comments Lactic Acid Lvl (test code = Lactic 1.6 0.5-2.2 Acid Lvl) [place] 51831021-04-09 13:46:52 Test Item Value Reference Range Interpretation Comments S Preg (test code = S Negative *NA*(07/22/20 Preg) 8:46 AM) [id number] 13:46:52 Test Item Value Reference Range Interpretation Comments WBC X 10x3 (test code = WBC X 10x3) 11.3 3.7-10.4 [place] [id number] 13:46:52 Test Item Value Reference Range Interpretation Comments RBC X 10x6 (test code = RBC X 10x6) 4.39 4.20-5.40 [place] 044461-04-09 13:46:52 Test Item Value Reference Range Interpretation Comments Hgb (test code = Hgb) 13.0 12.0-16.0 [place] 13039-04-09 13:46:52 Test Item Value Reference Range Interpretation Comments Hct (test code = Hct) 40.3 36.0-48.0 [place] 044461-04-09 13:46:52 Test Item Value Reference Range Interpretation Comments MCV (test code = MCV) 91.7 80.0-98.0 [place] 044461-04-09 13:46:52 Test Item Value Reference Range Interpretation Comments MCH (test code = MCH) 29.7 pg 27.0-31.0 [place] 044461-04-09 13:46:52 Test Item Value Reference Range Interpretation Comments MCHC (test code = MCHC) 32.4 32.0-36.0 [place] 044461-04-09 13:46:52 Test Item Value Reference Range Interpretation Comments RDW (test code = RDW) 13.7 11.5-14.5 [place] 044461-04-09 13:46:52 Test Item Value Reference Range Interpretation Comments Platelet (test code = Platelet) 245 133-450 [facility]texfpmOUZTXAXCPC4460-75-02 13:46:52 Test Item Value Reference Range Interpretation Comments MPV (test code = MPV) 8.3 7.4-10.4 [place] 044461-04-09 13:46:52 Test Item Value Reference Range Interpretation Comments ACT (TEG) Rapid (test code = ACT (TEG) 105 s 86-118 Rapid) [id number] 13:46:52 Test Item Value Reference Range Interpretation Comments Split Point Rapid (test code = Split 0.5 min Point Rapid) [facility]YxrgslsZVCIYYJPJC6096-16-29 13:46:52 Test Item Value Reference Range Interpretation Comments R-time Rapid (test code = R-time 0.6 min 0.4-0.7 Rapid) [place] 044461-04-09 13:46:52 Test Item Value Reference Range Interpretation Comments K-time Rapid (test code = K-time 1.0 min 0.6-2.3 Rapid) [facility]OibplgsKAJFSAORUE1991-83-94 13:46:52 Test Item Value Reference Range Interpretation Comments Angle Rapid (test code = Angle 77 degrees 64-80 Rapid) [place] 044461-04-09 13:46:52 Test Item Value Reference Range Interpretation Comments Max Amplitude Rapid (test code = Max 71 mm 52-71 Amplitude Rapid) [place] 044461-04-09 13:46:52 Test Item Value Reference Range Interpretation Comments G-value Rapid (test code = G-value 12.5 5.0-11.6 Rapid) [facility]WoxwjyaQOLQUVIXUG7510-33-10 13:46:52 Test Item Value Reference Range Interpretation Comments Estimated % Lysis Rapid 0.0 See_Comment [Au tomated message] The (test code = Estimated syste m which generated % Lysis Rapid) this result t ransmitted reference range : <=7.5. The reference r marsha was not used to int erpret this result as normal/abnormal . [facility] HospitalNwacpkiQUCIUYCJLU7146-46-67 13:46:52 Test Item Value Reference Range Interpretation Comments Segs (test code = Segs) 62.5 45.0-75.0 [facility]HupygjvLAJDGZBVOF2348-12-94 13:46:52 Test Item Value Reference Range Interpretation Comments Lymphocytes (test code = Lymphocytes) 27.1 20.0-40.0 [place] 044461-04-09 13:46:52 Test Item Value Reference Range Interpretation Comments Monocytes (test code = Monocytes) 8.6 2.0-12.0 [place] 044461-04-09 13:46:52 Test Item Value Reference Range Interpretation Comments Eosinophils (test code = 1.1 See_Comment [A utomated message] The Eosinophils) system which ge nerated this result tra nsmitted reference range : <=4.0. The reference r marsha was not used to int erpret this result as normal/abnormal . [facility] HospitalIboyrhhYFKXVUQBMV0481-55-22 13:46:52 Test Item Value Reference Range Interpretation Comments Basophils (test code = 0.7 See_Comment [Aut omated message] The Basophils) system which ge nerated this result tra nsmitted reference range : <=1.0. The reference r marsha was not used to int erpret this result as normal/abnormal . [facility] Hospit[id number] 13:46:52 Test Item Value Reference Range Interpretation Comments Neutrophils # (test code = Neutrophils 7.0 1.5-8.1 #) [facility] HospitalBqxobmcFBIQICKLWB6090-66-24 13:46:52 Test Item Value Reference Range Interpretation Comments Lymphocytes # (test code = Lymphocytes 3.1 1.0-5.5 #) [place] 044461-04-09 13:46:52 Test Item Value Reference Range Interpretation Comments Monocytes # (test code 1.0 See_Comment [Aut omated message] The = Monocytes #) system which generated this result tra nsmitted reference range : <=0.8. The reference r marsha was not used to int erpret this result as normal/abnormal . [place] 130[address]-04-09 13:46:52 Test Item Value Reference Range Interpretation Comments Eosinophils # (test code 0.1 See_Comment [A utomated message] The = Eosinophils #) system whic h generated this result tra nsmitted reference range : <=0.5. The reference r marsha was not used to int erpret this result as normal/abnormal . [facility] HospitalOychdoiOVPGQODNGK0054-75-03 13:46:52 Test Item Value Reference Range Interpretation Comments Basophils # (test code 0.1 See_Comment [Aut omated message] The = Basophils #) system which generated this result tra nsmitted reference range : <=0.2. The reference r marsha was not used to int erpret this result as normal/abnormal . [place] [id number] 13:46:52 Test Item Value Reference Range Interpretation Comments Ethanol Lvl (test code = Ethanol Lvl) 125 [place] 281761-04-09 13:46:52 Test Item Value Reference Range Interpretation Comments Etoh (%) (test code = Etoh (%)) 0.125 [facility]2021-04-09 13:46:52 Test Item Value Reference Range Interpretation Comments Glucose Lvl (test code = Glucose Lvl) 89 70-99 [facility]2021-04-09 13:46:52 Test Item Value Reference Range Interpretation Comments BUN (test code = BUN) 8 7-22 [facility]2021-04-09 13:46:52 Test Item Value Reference Range Interpretation Comments Creatinine Lvl (test code = Creatinine 0.42 0.50-1.40 Lvl) [facility]2021-04-09 13:46:52 Test Item Value Reference Range Interpretation Comments Sodium Lvl (test code = Sodium Lvl) 143 135-145 [facility] Coronavirus 2019 [id number] 11:29:00 Test Item Value Reference Range Interpretation Comments Novel Coronavirus 2019 nCoV (test Negative Negative code = COVID19) - XR CHEST 1 [id number] 14:00:00 Patient Name: ALYSSIA LEE Unit No: [id number] EXAMS: CPT CODE: [id number] XR CHEST 1 V [id number]: cough - XR CHEST 1 V 07/05/2019 1:13 PM Exam: - XR CHEST 1 V Comparison: none Reason for exam: cough FINDINGS: The heart size is normal. Vascularity is normal. The lungs are clear. There is no fluid or adenopathy. IMPRESSION: Negative chest at 1400 Reported and signed by: Jermaine Cobos MD CC: [place] MD Technologist: Brenna Costa (Schroeder) RT Trscrpt Dt/ (1400)t.SDR.[id number] Orig Print D/T: S: 07/05/2019 (1403) [facility] NAME: ALYSSIA LEE [address] PHYS: [id number] - [place] [id number] : 1995 AGE: 23 SEX: F LOC: D.POP PHONE #: [phone] EXAM DATE: 07/05/2019 STATUS: REG ER FAX #: RAD NO: DC Dt: PAGE 1 Signed ReportHCG SERUM [id number] 20:31:00 Test Item Value Reference Range Interpretation [...] using aquantitative h CG assay. CBC W/AUTO [id number] 20:17:00 Test Item Value Reference Range Interpretation [...]
[2022-04-05] MEDS ORDERED: KETOROLAC 30 MG/ML INJ ONE (09:47)
[2022-04-05] MEDS ORDERED: MAGNES/ALUMIN/SIMET 30ML UCUP ONE (09:47)
[2022-04-05] MEDS ORDERED: LIDOCAINE VISCOUS 2% SOLN 15 ML UDC ONE (09:47)
[2022-04-05 09:59] LABS: SARS-COV-2 RT PCR NEGATIVE (NEGATIVE)
--- NOTE | 2022-04-05 10:05 | ER ---
Nurse's Notes [facility] Name: Kanwal De La Vega Age: 26 yrs Sex: Female : 1995 Arrival Date: 04/05/2022 Time: 09:00 Bed 20 Private MD: Diagnosis: Streptococcal pharyngitis Presentation: 04/05 09:02 Chief complaint: Patient states: Cough, sore throat, [place], not feeling well since ll1 Saturday. Coronavirus screen: Vaccine status: Patient reports being unvaccinated. Client denies travel out of the [place] in the last 14 days. cough unrelated to allergies, fatigue, fever, headache, muscle pain, sore throat, Client presents with at least one sign or symptom that may indicate coronavirus-19. Standard/surgical mask placed on the client. Ebola Screen: Patient denies travel to an Ebola-affected area in the 21 days before illness onset. Initial Sepsis Screen: Does the patient meet any 2 criteria? HR > 90 bpm. No. Patient's initial sepsis screen is negative. Does the patient have a suspected source of infection? Yes: Productive cough/pneumonia. Risk Assessment: Do you want to hurt yourself or someone else? Patient reports no desire to harm self or others. Onset of symptoms was April 03, 2022. 09:02 Method Of Arrival: Ambulatory [facility] 09:02 Acuity: MOI 4 ll1 Triage Assessment: 09:11 General: Appears uncomfortable, ill, Behavior is calm, cooperative, appropriate for [facility] age. Pain: Complains of pain in throat Pain currently is 10 out of 10 on a pain scale. Quality of pain is described as aching, throbbing, Pain began 2-3 days ago. EENT: Throat is reddened bilaterally Reports pain when swallowing. Neuro: No deficits noted. Neuro: Reports headache. Cardiovascular: No deficits noted. Respiratory: Reports cough that is. GI: No deficits noted. 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 - Social history:: Smoking status: Patient denies any tobacco usage or history of. Screenin:19 [facility] ED Fall Risk Assessment (Adult) Score/Fall Risk Level 0 - 2 = Low Risk ll1 Oriented to surroundings, Maintained a safe environment, Hourly rounding (assess needs \T\ fall precautionary measures) done. Abuse screen: Denies threats or abuse. Nutritional screening: No deficits noted. Tuberculosis screening: No symptoms or risk factors identified. Assessment: 09:21 Reassessment: No changes from previously documented assessment. Patient and/or family ll1 updated on plan of care and expected duration. Pain level reassessed. Patient is alert, oriented x 3, equal unlabored respirations, skin warm/dry/pink. Respiratory: Airway is patent Respiratory effort is even, unlabored, Breath sounds are clear bilaterally. 09:52 Reassessment: No changes from previously documented assessment. Patient and/or family ll1 updated on plan of care and expected duration. Pain level reassessed. Patient is alert, oriented x 3, equal unlabored respirations, skin warm/dry/pink. 10:18 Reassessment: No changes from previously documented assessment. Patient and/or family ll1 updated on plan of care and expected duration. Pain level reassessed. Patient is alert, oriented x 3, equal unlabored respirations, skin warm/dry/pink. Vital Signs: 09:02 BP 119 / 80; Pulse 93; Resp 17; Temp 98.6(O); Pulse Ox 99% on R/A; Height 4 ft. 11 in. ll1 (149.86 cm); Pain 10/10; 10:18 BP 112 / 82; Pulse 86; Resp 17; Pulse Ox 99% ; Pain 10/10; ll1 ED Course: 09:00 Patient arrived in ED. rg4 09:01 Arm band placed on Patient placed in an exam room, on a stretcher. ll1 09:02 Magdalene Hernandez FNP-C [facility] kb 09:02 Facundo Moran MD is Attending Physician. kb 09:11 Strep Sent. ss 09:11 COVID-19/FLU A+B Sent. ss 09:16 Marlyn Landon, WALESKA is Primary Nurse. ll1 09:18 Triage completed. ll1 09:20 Patient has correct armband on for positive identification. Bed in low position. Call ll1 light in reach. Side rails up X 1. Cardiac monitoring not applicable on this patient. 10:19 No provider procedures requiring assistance completed. Patient did not have IV access ll1 during this emergency room visit. Administered Medications: 09:50 Drug: Ketorolac 30 mg Route: IM; Site: right gluteus; ll1 10:19 Follow up: Response: No adverse reaction; Pain is unchanged, physician notified; RASS: ll1 Alert and Calm (0) 09:52 Drug: GI Cocktail without - (Maalox Suspension 30 ml, Lidocaine Liquid 2 % 15 ll1 ml) Route: PO; 10:19 Follow up: Response: No adverse reaction; Pain is unchanged, physician notified; RASS: ll1 Alert and Calm (0) Medication: 09:20 VIS not applicable for this client. ll1 Outcome: 10:04 Discharge ordered by . kb 10:19 Patient left the ED. ll1 10:19 Discharged to home ambulatory. ll1 10:19 Condition: stable 10:19 Discharge instructions given to patient, Instructed on discharge instructions, follow up and referral plans. Demonstrated understanding of instructions, follow-up care, medications, Prescriptions given X 1. Signatures: Magdalene Hernandez, FURNITURE PAINTER-C FURNITURE PAINTER-Mariob Sera Bruno, RN Priscila Pickering rg4 Marlyn Landon, WALESKA RN ll1
--- NOTE | 2022-04-05 10:05 | EDPHYS ---
Physician Documentation [facility] Name: Kanwal De La Vega Age: 26 yrs Sex: Female : 1995 Arrival Date: 04/05/2022 Time: 09:00 Bed 20 Private MD: ED Physician Facundo Moran HPI: 04/05 09:10 This 26 yrs old Female presents to ER via Unassigned with complaints of Sore kb Throat, Cough. 09:10 The patient presents with sore throat. The patient describes throat pain as constant. kb Onset: The symptoms/episode began/occurred 3 day(s) ago. Severity of symptoms: At their worst the symptoms were moderate, in the emergency department the symptoms are unchanged. Modifying factors: The symptoms are alleviated by nothing, the symptoms are aggravated by swallowing, Patient's oral intake status: limited fluid intake, limited food intake, unaware of sick contact. Associated signs and symptoms: Pertinent positives: cough, flu-like symptoms, myalgias, Sore throat. The patient has not experienced similar symptoms in the past. The patient has not recently seen a physician. Pt reports cough, chills, bodyaches and sore throat for 3 days. . 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 - Social history:: Smoking status: Patient denies any tobacco usage or history of. ROS: 09:10 Abdomen/GI: Negative for abdominal pain, nausea, vomiting, diarrhea, and constipation. kb 09:10 Constitutional: Positive for body aches, chills, malaise. 09:10 ENT: Positive for sore throat. 09:10 Respiratory: Positive for cough. 09:10 All other systems are negative. Exam: 09:10 Constitutional: This is a well developed, well nourished patient who is awake, alert, kb and in no acute distress. Head/Face: Normocephalic, atraumatic. Cardiovascular: Regular rate and rhythm with a normal S1 and S2. No gallops, murmurs, or rubs. No pulse deficits. Respiratory: Respirations even and unlabored. No increased work of breathing. Talking in full sentences Abdomen/GI: Soft, non-tender. No distention Skin: Warm, dry with normal turgor. Normal color. MS/ Extremity: Pulses equal, no cyanosis. Neurovascular intact. Full, normal range of motion. Neuro: Awake and alert, GCS 15, oriented to person, place, time, and situation. Moves all extremities. Normal gait. Psych: Awake, alert, with orientation to person, place and time. Behavior, mood, and affect are within normal limits. 09:10 ENT: Posterior pharynx: Airway: normal, no evidence of obstruction, Tonsils: bilaterally enlarged, with erythema, Uvula: normal, midline, swelling, that is mild, erythema, that is mild. Vital Signs: 09:02 BP 119 / 80; Pulse 93; Resp 17; Temp 98.6(O); Pulse Ox 99% on R/A; Height 4 ft. 11 in. ll1 (149.86 cm); Pain 10/10; 10:18 BP 112 / 82; Pulse 86; Resp 17; Pulse Ox 99% ; Pain 10/10; ll1 MDM: 09:02 Patient medically screened. kb 09:13 Data reviewed: vital signs, nurses notes. Data interpreted: Pulse oximetry: on room air kb is 100 %. Interpretation: normal. 10:03 Counseling: I had a detailed discussion with the patient and/or guardian regarding: the kb historical points, exam findings, and any diagnostic results supporting the discharge/admit diagnosis, lab results, the need for outpatient follow up, a family practitioner, to return to the emergency department if symptoms worsen or persist or if there are any questions or concerns that arise at home. 04/05 09:05 Order name: Strep; Complete Time: 09:30 kb 04/05 09:05 Order name: COVID-19/FLU A+B; Complete Time: 10:03 kb Administered Medications: 09:50 Drug: Ketorolac 30 mg Route: IM; Site: right gluteus; ll1 10:19 Follow up: Response: No adverse reaction; Pain is unchanged, physician notified; RASS: ll1 Alert and Calm (0) 09:52 Drug: GI Cocktail without - (Maalox Suspension 30 ml, Lidocaine Liquid 2 % 15 ll1 ml) Route: PO; 10:19 Follow up: Response: No adverse reaction; Pain is unchanged, physician notified; RASS: ll1 Alert and Calm (0) Disposition: 10:19 Attestation: The patient's history, exam findings, diagnostics, and a summary of any jr interventions or procedures was reviewed in detail with Magdalene BRADLEY. Disposition Summary: 04/05/22 10:04 Discharge Ordered Location: Home kb Condition: Stable kb Diagnosis - Streptococcal pharyngitis kb Followup: kb - With: Emergency Department - When: As needed - Reason: Worsening of condition Followup: kb - With: Private Physician - When: 2 - 3 days - Reason: Recheck today's complaints, Continuance of care, Re-evaluation by your physician Discharge Instructions: - Discharge Summary Sheet kb - Strep Throat, Adult, Kisp-[id number] kb Forms: - Medication Reconciliation Form kb - Thank You Letter kb - Antibiotic Education kb - Prescription Opioid Use kb - Work release form ll1 Prescriptions: - Zithromax 500 mg Oral Tablet - take 1 tablet by ORAL route once daily for 5 days; 5 tablet; Refills: 0, kb Product Selection Permitted Signatures: Dispatcher [employer] EDMagdalene More FNP-C FNP-Marlyn Champagne, RN RN ll1 Facundo Moran MD MD [id number]
[2022-04-05 10:29] VITALS: BP 119/80; TEMP 98.6; O2SAT 99
== END 2022-04-05 10:19 | disposition home or self-care (01) ==
LOC: ER 08:57
DX: J02.0 Streptococcal pharyngitis (principal); Z20.822 Contact with and (suspected) exposure to COVID-19
CPT/HCPCS: 0240U; 87081; 96372; 99283

== ENCOUNTER 2022-05-26 19:41 | Emergency (ER) | payer SELFPAY ==
--- OUTSIDE RECORDS SUMMARY | 2022-05-26 19:47 | XMS REPORT | Continuity of Care Document ---
:1995 Author Organization [facility] t Address [address] [place] [address] Care Team Providers Name Role Phone Asked, No Pcp Primary Care Physician Unavailable BILLIE JASMINE Attending Clinician Unavailable Billie Maya Attending Clinician Tyler CANCINO Attending Clinician Unavailable Tyler Dewitt Attending Clinician Doctor Unassigned, [place] Attending Clinician Unavailable JERRY PADILLA Attending Clinician [...] 07-22 16:54:00 l 07/22/2020 00:00: Rudolph culp [address] No known No known Disease Unive rs active active ity of problems problems [facility] Lower back Lower Problem Active 2020-07-24 M emoria injury back 22:15:56 l (disorder) injury Rudolph n (disorder) Active Problem 07/24/2020 [facility] Acute Acute Problem Active 2020-07-24 Memor ia exacerbati exacerbati 22:15:56 l on of on of Se asthma asthma (disorder) (disorder) Active Problem 07/24/2020 [facility] History of Past Illness Condition Condition Condition Status Onset Resolution Last Treating Co mments Source Name Details Category Date Date Treatment Clinician Date Unspecifie Unspecifi Problem 2020-07-24 2020-07-24 Memoria d asthma ed asthma 07-22 22:15:56 22:15:56 l with with 17:00: Se (acute) (acute) 00 exacerbati exacerbati on on 07/22/2020 07/24/2020 [facility] Strain of Strain of Problem 2020-07-24 2020-07-24 Memoria muscle, muscle, 07-22 22:15:56 22:15:56 l fascia and fascia and 17:00: He rmann tendon of tendon of 00 lower lower back, back, initial initial encounter encounter 07/22/2020 [facility] Allergies, Adverse Reactions, Alerts Allergy Allergy Status [...] U [facility] jyoti 3-22 [facility] 00:00: Melisa [address] [place] [address] clindamy DA Active U HIVES 2019-0 [facility] jyoti 3-22 [facility] 00:00: Melisa [address] [facility] clindamy DA Active U 2016-0 [facility] jyoti 9-11 [facility] 00:00: Melisa [address] [facility] clindamy DA Active U HIVES 2015-0 [facility] jyoti 9-11 [facility] 00:00: Melisa [facility] penicill penicill Active Memori a ins ins l Se clindamy clindamy Active Memori a jyoti jyoti l [place] NO KNOWN Drug Active [facility] ALLERGIE Class ity of S [facility] Social History Social Habit Start Date Stop Date Quantity Comments Source Exposure to 2021-10-10 2021-10-20 Yes [facility] SARS-CoV-2 00:00:00 10:24:00 [facility] (event) [place] Alcohol intake 2020-04-18 2020-04-18 Current drinker [facility] 00:00:00 00:00:00 of alcohol (finding) Alcohol Comment 2020-04-18 2020-04-18 [facility] 00:00:00 00:00:00 Tobacco use and 2020-04-18 2020-04-18 Smokeless tobacco [facility] exposure 00:00:00 00:00:00 non-user Sex Assigned At [birth year] [facility] 00:00:00 00:00:00 Smoking Status Start Date Stop Date Source Unknown if ever smoked [facility] Social History [facility] Medications Ordered Filled Start Stop Current Ordering Indication Dosage Frequency Signature Comments Components Source Medication Medication Date Date Medication? Clinician (SIG) Name Name ondansetron Yes [id number] 4mg Take 1 Univers 4 mg 7-08 tablet by ity of disintegrat 00:00: mouth [place] ing tablet 00 every 8 Medica l (eight) Branch hours as needed for Nausea and Vomiting (N/V). benzonatate Yes [id number] 100mg Take 1 Univers 100 mg 7-08 [...] Sat08/16/21 at 2030, STAT iopamidol 2021- No [id number] 120mL 120 mL, Univers (ISOVUE 08-17 Intravenou [...] Branch at 1830, STAT ibuprofen 2021- Yes [id number] 600mg Take 1 U nivers 600 mg 5-04 tablet by ity of tablet 00:00: mouth [place] 00 every 6 Medical (six) Branch hours as needed for Pain (scale 4-6). dicyclomine 2021-0 Yes [id number] 20mg Take 1 Univers 20 mg 5-04 tablet by ity of tablet 00:00: mouth 4 [place] 00 (four) Medical times Branch daily. ondansetron 2021-0 Yes [id number] 4mg Take 1 Univers 4 mg 5-04 tablet by ity of disintegrat 00:00: mouth [place] ing tablet 00 every 8 Medica l (eight) Branch hours as needed for Nausea and Vomiting (N/V). ibuprofen Yes [id number] 600mg Take 1 U nivers 600 mg 5-04 tablet by ity of tablet 00:00: mouth [place] 00 every 6 Medical (six) Branch hours as needed for Pain (scale 4-6). dicyclomine Yes [id number] 20mg Take 1 Univers 20 mg 5-04 tablet by ity of tablet 00:00: mouth (four) Medical times Branch daily. ondansetron 0 Yes [id number] 4mg Take 1 Univers 4 mg 5-04 tablet by ity of disintegrat 00:00: mouth [place] ing tablet 00 every 8 Medica l (eight) Branch hours as needed for Nausea and Vomiting (N/V). dextrometho 2021- No 5mL 5 mL, [facility] 07-21 Oral, ity of enesin 17:45: 16:52 ONCE, 1 Aleshia (ROBITUSSIN 00 :00 dose, On Medi indu DM) 10-100 07/21/21 Bra nch mg/5 mL at 1245, solution 5 Routine mL acetaminoph 2021- No 1000mg 1,000 mg, [facility] en 07-21 Oral, ity of (TYLENOL) 17:45: 16:52 ONCE, 1 [place] tablet 00 :00 dose, On Medical 1,000 mg 07/21/21 Branc h at 1245, Routine methylPREDN 2020-04 Yes [id number] Take by [facility] ISolone 2-02 mouth ity of (MEDROL, 00:00: SEE-INSTRU Chad as DONA,) 4 mg 00 CTIONS. Medica l tablets follow Branch package directions azithromyci 2020-04 Yes [id number] 250mg Take 1 Univers n 2-02 tablet by ity of (ZITHROMAX 00:00: mouth [place] Z-DONA) 250 00 SEE-INSTRU Med ical mg tablet CTIONS. Branch Take 500 mg day 1, then 250 mg days 2 to 5. methylPREDN 2020-04 Yes [id number] Take by [facility] ISolone 202 mouth ity of (MEDROL, 00:00: SEE-INSTRU Chad as DONA,) 4 mg 00 CTIONS. Medica l tablets follow Branch package directions azithromyci 2020-04 Yes [id number] 250mg Take 1 Univers n 2-02 tablet by ity of (ZITHROMAX 00:00: mouth [place] Z-DONA) 250 00 SEE-INSTRU Med ical mg tablet CTIONS. Branch Take 500 mg day 1, then 250 mg days 2 to 5. methylPREDN 2020-04 Yes [id number] Take by [facility] ISolone 202 mouth ity of (MEDROL, 00:00: SEE-INSTRU Chad as DONA,) 4 mg 00 CTIONS. Medica l tablets follow Branch package directions azithromyci 2020-04 Yes [id number] 250mg Take 1 Univers n 2-02 tablet by ity of (ZITHROMAX 00:00: mouth [place] Z-DONA) 250 00 SEE-INSTRU Med ical mg tablet CTIONS. Branch Take 500 mg day 1, then 250 mg days 2 to 5. methylPREDN 2020-04 Yes [id number] Take by [facility] ISolone 202 mouth ity of (MEDROL, 00:00: SEE-INSTRU Chad as DONA,) 4 mg 00 CTIONS. Medica l tablets follow Branch package directions azithromyci 2020-04 Yes [id number] 250mg Take 1 Univers n 2-02 tablet by ity of (ZITHROMAX 00:00: mouth [place] Z-DONA) 250 00 SEE-INSTRU Med ical mg tablet CTIONS. Branch Take 500 mg day 1, then 250 mg days 2 to 5. methylPREDN 2020-04 Yes [id number] Take by [facility] ISolone 202 mouth ity of (MEDROL, 00:00: SEE-INSTRU Chad as DONA,) 4 mg 00 CTIONS. Medica l tablets follow Branch package directions azithromyci 2020-04 Yes [id number] 250mg Take 1 Univers n 2-02 tablet [...] CDT Albuterol No Notes: SEE Me moria 4- RT l 22:41: DOCUMENTAT Se 00 ION (Same as: Proventil) Albuterol No Notes: SEE Me moria 4-09 RT l 22:41: DOCUMENTAT [place] 00 ION (Same as: Proventil) Albuterol No Notes: SEE Me moria 4-09 RT l 22:41: DOCUMENTAT [place] 00 ION (Same as: Proventil) Famotidine No Notes: Memor ia 07-22 (Same as: l 21:42: Pepcid) Se 00 Can be dilute in 5-10cc NS IVP: Slow IV push over at least 2 minutes. Famotidine 2020-0 No Notes: Memor ia 4-09 (Same as: l 21:42: Pepcid) Es 00 Can be dilute in 5-10cc NS IVP: Slow IV push over at least 2 minutes. Famotidine 2020-0 No Notes: Memor ia 4-09 (Same as: l 21:42: Pepcid) [place] 00 Can be dilute in 5-10cc NS IVP: Slow IV push over at least 2 minutes. MDI Inhaler 2020-0 Yes 1 ea, Memor ia Spacer 4-09 MISC, l 20:50: ONCE, Use Se 00 as directed, # 1 ea, 0 Refill(s) MDI Inhaler 2020-0 Yes 1 ea, Memor ia Spacer 4-09 MISC, l 20:50: ONCE, Use [place] 00 as directed, # 1 ea, 0 Refill(s) MDI Inhaler 2020-0 Yes 1 ea, Memor ia Spacer 4-09 MISC, l 20:50: ONCE, Use Se 00 as directed, # 1 ea, 0 Refill(s) Isolyte S 2020-0 No 1,000 mL, Mem oria PH-7.4 4-09 Infuse l (Bolus) IV 19:30: Over: 1 Herm [place] 00 hr, Route: IV, Drug form: INJ, ONCE, Priority: STAT, Dosing Weight 63.636 kg, Start date: 07/22/20 14:30:00 CDT, Stop date: 07/22/20 14:30:00 CDT, Bolus Dose Isolyte S 1-0 No 1,000 mL, Mem oria PH-7.4 4-09 Infuse l (Bolus) IV 19:30: Over: 1 [place] 00 hr, Route: IV, Drug form: INJ, ONCE, Priority: STAT, Dosing Weight 63.636 kg, Start date: 07/22/20 14:30:00 CDT, Stop date: 07/22/20 14:30:00 CDT, Bolus Dose Isolyte S 1-0 No 1,000 mL, Mem oria PH-7.4 4-09 Infuse l (Bolus) IV 19:30: Over: 1 [place] 00 hr, Route: IV, Drug form: INJ, ONCE, Priority: STAT, Dosing Weight 63.636 kg, Start date: 07/22/20 14:30:00 CDT, Stop date: 07/22/20 14:30:00 CDT, Bolus Dose Prednisone 2020-0 No Notes: Memor ia 4-09 Take with l 17:47: food. [place] 00 Prednisone 2020-0 No Notes: Memor ia 4-09 Take with l 17:47: food. Se 00 Prednisone 2020-0 No Notes: Memor ia 4-09 Take with l 17:47: food. Zofran 2020-0 No 4 mg, Memoria 4- Route: l 17:46: IVP, Drug Se 00 form: INJ, ONCE, Dosing Weight 63.636, kg, Priority: STAT, Start date: 07/22/20 12:46:00 CDT, Stop date: 07/22/20 12:46:00 CDT Zofran 2020-0 No 4 mg, Memoria - Route: l 17:46: IVP, Drug Se 00 form: INJ, ONCE, Dosing Weight 63.636, kg, Priority: STAT, Start date: 07/22/20 12:46:00 CDT, Stop date: 07/22/20 12:46:00 CDT Zofran 2020-0 No 4 mg, Memoria - Route: l 17:46: IVP, Drug Se 00 form: INJ, ONCE, Dosing Weight 63.636, kg, Priority: STAT, Start date: 07/22/20 12:46:00 CDT, Stop date: 07/22/20 12:46:00 CDT Prednisone 2020-0 Yes 50 mg = 1 Me moria 50 MG Oral 4-09 tab, PO, l Tablet 17:36: Daily, # 5 Destini nn 00 tab, 0 Refill(s) Prednisone 2020-0 Yes 50 mg = 1 Me moria 50 MG Oral 4-09 tab, PO, l Tablet 17:36: Daily, # 5 Destini nn 00 tab, 0 Refill(s) Prednisone 2020-0 Yes 50 mg = 1 Me moria 50 MG Oral 4-09 tab, PO, l Tablet 17:36: Daily, # 5 Destini nn 00 tab, 0 Refill(s) Prednisone 2021-0 No 50 mg, Memor ia 07-22 Route: PO, l 17:35: Drug form: Se 00 TAB, ONCE, Dosing Weight 63.636, kg, Priority: STAT, Start date: 07/22/20 12:35:00 CDT, Stop date: 07/22/20 12:35:00 CDT Albuterol 2021-0 No 3 ml, Memoria 0.833 MG/ML 07-22 Route: l / 17:35: NEB, Drug Se Ipratropium 00 Form: Dike SOLN, 0.167 MG/ML Dosing Inhalant Weight Solution 63.636, [DuoNeb] kg, ONCE, PRN Respirator y Pathway, Start date: 07/22/20 12:35:00 CDT Prednisone 1-0 No 50 mg, Memor ia 07-22 Route: PO, l 17:35: Drug form: Se 00 TAB, ONCE, Dosing Weight 63.636, kg, Priority: STAT, Start date: 07/22/20 12:35:00 CDT, Stop date: 07/22/20 12:35:00 CDT Albuterol 1-0 No 3 ml, Memoria 0.833 MG/ML 07-22 Route: l / 17:35: NEB, Drug Se Ipratropium 00 Form: Dike SOLN, 0.167 MG/ML Dosing Inhalant Weight Solution 63.636, [DuoNeb] kg, ONCE, PRN Respirator y Pathway, Start date: 07/22/20 12:35:00 CDT Prednisone 1-0 No 50 mg, Memor ia 07-22 Route: PO, l 17:35: Drug form: [place] 00 TAB, ONCE, Dosing Weight 63.636, kg, Priority: STAT, Start date: 07/22/20 12:35:00 CDT, Stop date: 07/22/20 12:35:00 CDT Albuterol 2021-0 No 3 ml, Memoria 0.833 MG/ML 07-22 Route: l / 17:35: NEB, Drug [place] Ipratropium 00 Form: Dike SOLN, 0.167 MG/ML Dosing Inhalant Weight Solution 63.636, [DuoNeb] kg, ONCE, PRN Respirator y Pathway, Start date: 07/22/20 12:35:00 CDT acetaminoph 0 No 1 tab, [place] rusty en-codeine - Route: PO, l #3 16:06: Drug Form: [place] 00 TAB, Dosing Weight 63.636, kg, ONCE, STAT, Start date: 07/22/20 11:06:00 CDT, Stop date: 07/22/20 11:06:00 CDT acetaminoph 2020-0 No 1 tab, [place] rusty en-codeine - Route: PO, l #3 16:06: Drug Form: Se 00 TAB, Dosing Weight 63.636, kg, ONCE, STAT, Start date: 07/22/20 11:06:00 CDT, Stop date: 07/22/20 11:06:00 CDT acetaminoph 2020-0 No 1 tab, [place] rusty en-codeine - Route: PO, l #3 16:06: Drug Form: [place] 00 TAB, Dosing Weight 63.636, kg, ONCE, STAT, Start date: 07/22/20 11:06:00 CDT, Stop date: 07/22/20 11:06:00 CDT Albuterol 0 No Notes: Memori a 0.833 MG/ML 07-22 (Same as: :: Duoneb) Se Ipratropium 00 Dike 0.167 MG/ML Inhalant Solution [DuoNeb] Albuterol No Notes: Memori a 0.833 MG/ML - (Same as: :: Duoneb) Se Ipratropium 00 Dike 0.167 MG/ML Inhalant Solution [DuoNeb] Albuterol No Notes: Memori a 0.833 MG/ML 07-22 (Same as: :: Duoneb) [place] Ipratropium 00 Dike 0.167 MG/ML Inhalant Solution [DuoNeb] Iohexol No 85 mL, Memoria 07-22 Route: l 14:24: IVP, Drug [place] 00 Form: SOLN, Dosing Weight 63.636, kg, ONCALL, STAT, Start date: 07/22/20 9:24:00 CDT, Duration: 1 doses or times, Dose = 2.2ml/kg, Max dose = 100ml -- "To be infused by Radiology Staff ONLY" Iohexol 1-0 No 85 mL, Memoria 07-22 Route: l 14:24: IVP, Drug Se 00 Form: SOLN, Dosing Weight 63.636, kg, ONCALL, STAT, Start date: 07/22/20 9:24:00 CDT, Duration: 1 doses or times, Dose = 2.2ml/kg, Max dose = 100ml -- "To be infused by Radiology Staff ONLY" Iohexol 1-0 No 85 mL, Memoria 07-22 Route: l 14:24: IVP, Drug Se Form: SOLN, Dosing Weight 63.636, kg, ONCALL, [...] Stop date: 07/22/20 8:43:00 CDT Isolyte S 2021-0 No 1,000 mL, Mem oria PH-7.4 07-22 [...] CDT, Stop date: 07/22/20 8:43:00 CDT Saline 1-0 No Notes: Memoria Flush 0.9% 4-09 (Same as: l 13:39: BD Se 00 Posiflush) Fentanyl No 50 Memoria 4-09 microgram, l 13:39: Route: Se 00 IVP, ONCE, Dosing Weight 63.636, kg, Priority: STAT, Start date: 07/22/20 8:39:00 CDT, Stop date: 07/22/20 8:39:00 CDT Saline No Notes: Memoria Flush 0.9% 4-09 (Same as: l 13:39: BD Se 00 Posiflush) Fentanyl No 50 Memoria 4-09 microgram, l 13:39: Route: Se 00 IVP, ONCE, Dosing Weight 63.636, kg, Priority: STAT, Start date: 07/22/20 8:39:00 CDT, Stop date: 07/22/20 8:39:00 CDT Saline No Notes: Memoria Flush 0.9% 4-09 (Same as: l 13:39: BD [place] 00 Posiflush) Fentanyl No 50 Memoria 4-09 [...] inhaler hours as needed for wheezing. azithromyci 2021-0 Yes 250mg QD Take 1 [facility] (Zithromax 00:00: (250 mg [facility]) 250 00 total) by l MG tablet mouth daily. Take 2 tablets the first day, then 1 tablet daily for 4 days. azithromyci 1-0 Yes 250mg QD Take 1 [facility] n 1-[address] (Zithromax 00:00: (250 mg [facility]) 250 00 total) by l MG tablet mouth daily. Take 2 tablets the first day, then 1 tablet daily for 4 days. azithromyci 2020-0 Yes 250mg QD Take 1 [facility] n 1-[address] (Zithromax 00:00: (250 mg [facility]) 250 00 total) by l MG tablet mouth daily. Take 2 tablets the first day, then 1 tablet daily for 4 days. Vital Signs Vital Name Observation Time Observation Value Comments Source Systolic blood 2021-10-20 15:24:00 119 [facility]Hg[facility] 2021-10-20 15:24:00 73 mm[Hg] [facility] Heart rate 2021-10-20 15:24:00 88 /min [facility] Body temperature 2021-10-20 15:24:00 36.67 [place] Respiratory rate 2021-10-20 15:24:00 18 /min [facility] Body height 2021-10-20 15:24:[address] [facility] Body weight 2021-10-20 15:24:[address] [facility] BMI 2021-10-20 15:24:00 29.26 kg/m2 [facility] Oxygen saturation in 2021-10-20 15:24:00 97 /min [facility] Arterial blood by [facility] Pulse oximetry [place] Systolic blood 2021-08-17 02:00:00 119 mm[Hg] Univer sity [facility] Diastolic blood 2021-08-17 02:00:00 70 mm[Hg] [facility] 2021-08-17 02:00:00 83 /min [facility] Respiratory rate 2021-08-17 02:00:00 19 /min [facility] Oxygen saturation in 2021-08-17 02:00:00 100 /min [facility] of Arterial blood by [facility] Pulse oximetry Branch Body temperature 2021-08-16 20:33:00 37.5 [place] [facility] Body height 2021-08-16 20:33:00 147.3 cm [facility] Body weight 2021-08-16 20:33:00 77.111 kg [facility] BMI 2021-08-16 20:33:00 35.53 kg/m2 [facility] Systolic blood 2021-07-21 16:28:00 126 mm[Hg] Univer sity [facility] Diastolic blood 2021-07-21 16:28:00 79 mm[Hg] Unive rsity [facility] Heart rate 2021-07-21 16:28:00 89 /min [facility] Body temperature 2021-07-21 16:28:00 37.28 [place] [facility] Respiratory rate 2021-07-21 16:28:00 18 /min [facility] Body weight 2021-07-21 16:28:00 77.111 kg [facility] BMI 2021-07-21 16:28:00 35.53 kg/m2 [facility] Oxygen saturation in 2021-07-21 16:28:00 99 /min [facility] of Arterial blood by [facility] Pulse oximetry Branch Systolic blood 2021-03-16 18:57:00 135 mm[Hg] Univer [facility]ity [facility] [place] [facility] Diastolic blood 2021-03-16 18:57:00 74 mm[Hg] Unive rsity [facility] Heart rate 2021-03-16 18:57:00 110 /min [facility] Body temperature 2021-03-16 18:57:00 37.06 [place] [facility] [place] [facility] Respiratory rate 2021-03-16 18:57:00 18 /min [facility] Body height 2021-03-16 18:57:[address] [facility] Body weight 2021-03-16 18:57:[address] [facility] BMI 2021-03-16 18:57:00 31.35 kg/m2 [facility] Oxygen saturation in 2021-03-16 18:57:00 100 /min [facility] blood by [facility] Pulse oximetry Branch Diastolic (mm Hg) 2020-07-22 21:06:00 Mem orial Se Respitory Rate 2020-07-22 21:06:00 Memori al [place] Systolic (mm Hg) 2020-07-22 21:06:00 [place] rial [place] Respitory Rate 2020-07-22 20:33:00 Memori al [place] Respitory Rate 2020-07-22 19:50:00 Memori al [place] Systolic (mm Hg) 2020-07-22 19:50:00 [place] rial Se Diastolic (mm Hg) 2020-07-22 19:50:00 Mem orial [place] Systolic (mm Hg) 2020-07-22 19:04:00 [place] rial [place] Diastolic (mm Hg) 2020-07-22 19:04:00 Mem orial Se Temperature Oral (F) 2020-07-22 17:25:00 98.3 F [facility] Height 2020-07-22 13:21:00 144.78 cm [facility] BMI Calculated 2020-07-22 13:21:[facility] [place] Weight 2020-07-22 13:21:00 [facility] Heart Rate 2020-07-22 13:21:00 [facility] Procedures Procedure Date / Time Performed Performing Clinician [facility] e POCT TEST 2021-10-20 15:47:[address] [facility] COVID-19 (ID NOW RAPID 2021-10-20 15:42:00 Billie Jasmine [facility] TESTING) Medical Branch CONSENT/REFUSAL FOR 2021-10-20 15:20:23 [facility]igned, [facility] Name [facility] Branch TREATMENT CT ABDOMEN PELVIS W 2021-08-16 23:04:02 Tyler Cancino [facility] CONTRAST [facility] COMP. METABOLIC PANEL 2021-08-16 22:37:00 Tyler Cancino [facility] ([id number]) Medical Branch CBC WITH DIFF 2021-08-16 22:37:00 Tyler Cancino [facility] URINALYSIS 2021-08-16 22:37:00 Tyler Cancino [facility] LIPASE 2021-08-16 22:37:00 Tyler Cancino [facility] MAGNESIUM 2021-08-16 22:37:00 Tyler Cancino [facility] POCT TEST 2021-08-16 22:35:[address] [facility] NOTICE OF PRIVACY 2021-08-16 20:19:38 Doctor Unassigned, No [facility] Medical Branch CONSENT/REFUSAL FOR 2021-08-16 20:18:58 Doctor Unassigned, No [facility] Medical Branch TREATMENT RAPID STREP SCREEN FOR 2021-07-21 16:29:00 Kayla Patel [facility] GROUP A Medical Branch RAPID INFLUENZA A/B 2021-07-21 16:29:[address] [facility] CONSENT/REFUSAL FOR 2021-07-21 16:23:54 Doctor Unassigned, No [facility] AND Name Medical Branch TREATMENT ASSIGNMENT OF BENEFITS 2021-03-16 20:14:13 Doctor Unassigned, No [facility] XR CHEST 1 VW 2021-03-16 19:49:32 Kayla Patel [facility] RAPID INFLUENZA A/B 2021-03-16 19:01:[address] [facility] COVID-19 (ID NOW RAPID 2021-03-16 19:01:00 [facility] TESTING) Medical Branch NOTICE OF PRIVACY 2021-03-16 18:54:56 Doctor Unassigned, No [facility] Medical Branch CONSENT/REFUSAL FOR 2021-03-16 18:54:22 Doctor Unassigned, No [facility] AND Name Medical Branch TREATMENT Plan of Care Planned Activity Planned Date Details Comments Source Future Scheduled 2022-04-09 [facility] 06:05:15 (#1) [code = COVID-19 VACCINE (#1)] Future Scheduled 2022-04-09 [facility] 06[facility]05:15 screening (procedure) [code = 349957604] Future Scheduled 2022-04-09 [facility] for [facility] Test 06:05:15 malignant neoplasm of cervix (procedure) [code = 477692405] Future Scheduled 2022-04-09 INFLUENZA VACCINE [facility] Test 06:05:15 [code = INFLUENZA VACCINE] Future Scheduled 2022-04-01 COVID-19 [facility]ACCINE [facility] Test 16:02:42 (#1) [code = COVID-19 VACCINE (#1)] Future Scheduled 2022-04-01 [facility] 16:02:42 screening (procedure) [code = 653076282] Future Scheduled 2022-04-01 INFLUENZA VACCINE [facility] Test 16:02:42 [code = INFLUENZA VACCINE] Future Scheduled 2021-12-16 COVID-19 VACCINE [facility] Test 14:45:51 (#1) [code = COVID-19 VACCINE (#1)] Future Scheduled 2021-12-16 [facility] Test 14:45:51 screening (procedure) [code = 453976793] Future Scheduled 2021-12-16 [facility] for [facility] Test 14:45:51 malignant neoplasm of cervix (procedure) [code = 334082643] Future Scheduled 2021-12-16 INFLUENZA VACCINE [facility] Test 14:45:51 [code = INFLUENZA VACCINE] Future Scheduled 2021-12-16 [facility]IS B [facility] Test 14:45:51 VACCINES (1 of 3 - 3-dose series) [code = HEPATITIS B VACCINES (1 of 3 - 3-dose series)] Encounters Start End Encounter Admission Attending Care Care Encounter Source Date/Time Date/Time Type Type Clinicians Facility Department ID 2021-10-20 2021-10-20 Emergency X KENROY, [facility] [id number] Univers 10:26:00 11:30:00 BILLIE blanca [facility] 2021-10-20 2021-10-20 [facility] [id number] Univers 10:26:00 11:30:00 Billie Kirkpatrick HODA [id number] [facility] [id number] [facility] [id number] [address] 2021-08-16 2021-08-16 Emergency X Tyler CANCINO [facility] ERT [id number] Univers 15:34:00 21:39:00 ity of [facility] 2021-08-16 2021-08-16 Emergency Tyler Cancino [facility] [id number] Univers 15:34:00 21:39:00 Joyce DRUMMOND [id number] i ty of [place] [id number] [facility] [id number] [address] 2021-08-16 2021-08-16 Orders Doctor JINNY [id number] Univers 00:00:00 00:00:00 Only Unassigned, [place] [id number] [facility] [id number] Chad [id number] [address] 2021-07-21 2021-07-21 Emergency [facility] E[facility] [id number] [facility] 11:28:00 12:36:00 JERRY ity of [facility] 2021-07-21 2021-07-21 Emergency [facility] [id number] [facility] 11:28:00 12:36:00 Jerry Chaves HODA [id number] i [address] [facility] [id number] [facility] [id number] [address] 2021-03-16 2021-03-16 Emergency [facility] [id number] [facility] 12:57:00 14:46:00 Kayla DRUMMOND [id number] i ty [address] [facility] [id number] [facility] [id number] [address] 2021-03-16 2021-03-16 Emergency X [facility] ERT [id number] [facility] 12:57:00 14:46:00 KAYLA hasmukh [facility] 2020-07-22 2020-07-22 Emergency [facility] [id number] [place] 13:20:36 22:00:00 r [place] 00 [facility] 2020-07-22 2020-07-22 Emergency [facility] [id number] [place] 13:20:36 22:00:00 r [place] 00 [facility] 2020-07-22 2020-07-22 Outpatient Frederic [facility] [id number] 08:20:36 17:00:00 Tammie Fortino 2020-07-22 2020-07-22 Emergency E [facility] [id number] 08:20:00 17:00:00 TAMMIE 2020-04-18 2020-04-18 Emergency BRANDON DILLARD [facility] [id number] [place] 00:00:00 00:00:[address] 2019-07-05 2019-08-07 Inpatient [facility] ER [id number] [facility] 12:36:00 08:15:59 41 [facility] Results Test Description Test Time Test Comments Results Result Comments Source POCT TEST 2021-10-20 15:47:00 Test Item Value Reference Range Interpretation Comme nts POCT PREG (test code = 1605) Negative On board controls acceptable with C Line (test code = 3574) Present POCT PREG LOT # (test code = 3575) [id number] POCT PREG TEST DATE (test code = 3576) 02/12/2023 Lab Interpretation (test code = 03592-6) Normal [facility] (49890)2021-08-16 23:06:24 Test Item Value Reference Range Interpretation Comments NA (test code = 138 mmol/L 135-145 6207989306) K (test code = 4.7 mmol/L 3.5-5.0 7023410883) CL (test code = 104 mmol/L 98-108 5088822366) CO2 TOTAL (test code = 25 mmol/L 23-31 1679884845) AGAP (test code = 2-16 9249137903) BUN (test code = 9 mg/dL 7-23 3393001252) GLUCOSE (test code = 87 mg/dL 70-110 2168873650) CREATININE (test code = 0.43 mg/dL 0.50-1.04 L 7702844164) TOTAL BILI (test code = 0.6 mg/dL 0.1-1.7 4715827456) CALCIUM (test code = 8.9 mg/dL 8.6-10.6 8468813456) T PROTEIN (test code = 8.0 g/dL 6.3-8.2 2433174786) ALBUMIN (test code = 4.6 g/dL 3.5-5.0 9254909048) ALK PHOS (test code = 137 U/L 34-122 H 7014013081) ALTv (test code = 17 U/L 5-35 2-6) AST(SGOT) (test code = 29 U/L 13-40 0190451148) eGFR (test code = mL/min/1.73m2 8154420922) JASPREET (test code = JASPREET) Association of [...] tests). Lab Interpretation Abnormal (test code = 90854-7) [facility]2022-[facility]-04 23:06:24 Test Item Value Reference Range Interpretation Comments MAGNESIUM (test code = 3877858050) 1.9 mg/dL 1.7-2.4 Lab Interpretation (test code = Normal 30621-3) [facility]2022-[facility]-04 23:06:04 Test Item Value Reference Range Interpretation Comments LIPASE (test code = 9016512660) 119 U/L 0-220 Lab Interpretation (test code = Normal 69579-1) [facility] AreaCB WITH [id number] 22:52:03 Test Item Value Reference Range Interpretation Comments WBC (test code = See_Comment [Automated 4290-2) message] The sy stem which generated this result transmitted reference range : 4.30 - 11.10 10*3/?L. The reference range was not used to interpret this result as normal/abnormal . RBC (test code = See_Comment [Automated 176-8) message] The sy stem which generated this [...] RDW-SD (test code = 41.5 fL 39.0-49.9 21329-9) RDW-CV (test code = 12.6 % 12.0-15.5 788-0) PLT (test code = See_Comment [Automated 067-3) message] The sy stem which generated this result transmitted reference range : 166 - 358 10*3/ ?L. The reference r marsha was not used to interpret this result as normal/abnormal . MPV (test code = 10.6 fL 9.5-12.9 97442-1) NRBC/100 WBC (test See_Comment [Automat ed code = 6037163187) message] The system which generated this result transmitted reference range : 0.0 - 10.0 /100 WBCs. The refer ence range was not u sed to interpret th is result as normal/abnormal . NRBC x10^3 (test code <0.01 See_Comment [Auto mated = 7979780385) message] The s ystem which generated this result transmitted reference range : 10*3/?L. The reference range was not used to interpret this result as normal/abnormal . GRAN MAT (NEUT) % 66.7 % (test code = 770-8) IMM GRAN % (test code 0.80 % = 9239970946) LYMPH % (test code = 23.4 % 736-9) MONO % (test code = 7.3 % 5905-5) EOS % (test code = 1.3 % 713-8) BASO % (test code = 0.5 % 706-2) GRAN MAT x10^3(ANC) 6.59 10*3/uL 1.88-7.09 (test code = 5213009337) IMM GRAN x10^3 (test 0.08 10*3/uL 0.00-0.06 H code = 2689881319) LYMPH x10^3 (test code 2.31 10*3/uL 1.32-3.29 = 731-0) MONO x10^3 (test code 0.72 10*3/uL 0.33-0.92 = 742-7) EOS x10^3 (test code = 0.13 10*3/uL 0.03-0.39 711-2) BASO x10^3 (test code 0.05 10*3/uL 0.01-0.07 = 704-7) Lab Interpretation Abnormal (test code = 81285-4) [facility] [id number] 22:35:00 Test Item Value Reference Range Interpretation Comments POCT PREG (test code = 1605) negative On board controls acceptable with present C Line (test code = 3574) POCT PREG LOT # (test code = 3575) [id number] POCT PREG TEST DATE (test code = 3576) Lab Interpretation (test code = Normal 45588-2) [facility] [id number] 16:22:00 Test Item Value Reference Range Interpretation Comments U Amph Scr (test code Negative *NA*(07/22/20 = U Amph Scr) 11:22 AM) [facility] [id number] 16:22:00 Test Item Value Reference Range Interpretation Comments U Hollie Scr (test code Negative *NA*(07/22/20 = U Hollie Scr) 11:22 AM) [facility] [id number] 16:22:00 Test Item Value Reference Range Interpretation Comments U Benzodiaz Scr (test Positive *ABN*(07/22/20 code = U Benzodiaz Scr) 11:22 AM) [facility] [id number] 16:22:00 Test Item Value Reference Range Interpretation Comments U Cannab Scr (test Positive *ABN*(07/22/20 code = U Cannab Scr) 11:22 AM) [facility] [id number] 16:22:00 Test Item Value Reference Range Interpretation Comments U Cocaine Scr (test Negative *NA*(07/22/20 code = U Cocaine Scr) 11:22 AM) [facility] [id number] 16:22:00 Test Item Value Reference Range Interpretation Comments U Opiate Scr (test Negative *NA*(07/22/20 code = U Opiate Scr) 11:22 AM) [facility] [id number] 16:22:00 Test Item Value Reference Range Interpretation Comments U Phencyclidine Scr (test Negative *NA*(07/22/20 code = U Phencyclidine 11:22 AM) Scr) [facility] [id number] 16:22:00 Test Item Value Reference Range Interpretation Comments UDS Note (test code = See Note (07/22/20 11:22 UDS Note) AM) [facility] [id number] 16:22:00 Test Item Value Reference Range Interpretation Comments UA Turbidity (test code = Clear (07/22/20 11:22 UA Turbidity) AM) [facility] [id number] 16:22:00 Test Item Value Reference Range Interpretation Comments UA Spec Grav (test code = UA Spec Grav) no gt [facility] AND [id number] 16:22:00 Test Item Value Reference Range Interpretation Comments UA pH (test code = UA pH) 8.0 1 5.0-8.0 [facility] AND [id number] 16:22:00 Test Item Value Reference Range Interpretation Comments UA Protein (test code = UA Negative mg/dL Protein) [facility] AND [id number] 16:22:00 Test Item Value Reference Range Interpretation Comments UA Glucose (test code = UA Negative mg/dL Glucose) [facility] AND [id number] 16:22:00 Test Item Value Reference Range Interpretation Comments UA Ketones (test code = UA Negative mg/dL Ketones) [facility] AND [id number] 16:22:00 Test Item Value Reference Range Interpretation Comments UA Bili (test code = Negative *NA*(07/22/20 UA Bili) 11:22 AM) [facility] AND [id number] 16:22:00 Test Item Value Reference Range Interpretation Comments UA Blood (test code = Negative (07/22/20 11:22 UA Blood) AM) [facility] AND [id number] 16:22:00 Test Item Value Reference Range Interpretation Comments UA Urobilinogen (test code = UA no gt 0.1-1.0 Urobilinogen) [facility] AND [id number] 16:22:00 Test Item Value Reference Range Interpretation Comments UA Nitrite (test code Negative (07/22/20 11:22 = UA Nitrite) AM) [facility] AND [id number] 16:22:00 Test Item Value Reference Range Interpretation Comments UA Leuk Est (test Negative (07/22/20 11:22 code = UA Leuk Est) AM) [facility] AND [id number] 16:22:00 Test Item Value Reference Range Interpretation Comments UA Sq Epi (test code = UA Sq Occasional /LPF Epi) [facility] AND [id number] 16:22:00 Test Item Value Reference Range Interpretation Comments UA WBC (test code = no gt See_Comment [Automa lalit message] The UA WBC) system which ge nerated this result transmit lalit reference range : <=5. The reference range was not used to interpr et this result as reid l/abnormal. [facility] [id number] 16:22:00 Test Item Value Reference Range Interpretation Comments UA RBC (test code = no gt See_Comment [Automa lalit message] The UA RBC) system which ge nerated this result transmit lalit reference range : <=2. The reference range was not used to interpr et this result as reid l/abnormal. [facility] [id number] 16:22:00 Test Item Value Reference Range Interpretation Comments UA Mucus (test code = UA Mucus) Few /LPF [facility] [id number] 16:22:00 Test Item Value Reference Range Interpretation Comments UA Color (test code = UA Color) STRAW [facility] [id number] 16:22:00 Test Item Value Reference Range Interpretation Comments U Amph Scr (test code Negative *NA*(07/22/20 = U Amph Scr) 11:22 AM) [facility] [id number] 16:22:00 Test Item Value Reference Range Interpretation Comments U Hollie Scr (test code Negative *NA*(07/22/20 = U Hollie Scr) 11:22 AM) [facility] [id number] 16:22:00 Test Item Value Reference Range Interpretation Comments U Benzodiaz Scr (test Positive *ABN*(07/22/20 code = U Benzodiaz Scr) 11:22 AM) [facility] [id number] 16:22:00 Test Item Value Reference Range Interpretation Comments U Cannab Scr (test Positive *ABN*(07/22/20 code = U Cannab Scr) 11:22 AM) [facility] [id number] 16:22:00 Test Item Value Reference Range Interpretation Comments U Cocaine Scr (test Negative *NA*(07/22/20 code = U Cocaine Scr) 11:22 AM) [facility] [id number] 16:22:00 Test Item Value Reference Range Interpretation Comments U Opiate Scr (test Negative *NA*(07/22/20 code = U Opiate Scr) 11:22 AM) [facility] [id number] 16:22:00 Test Item Value Reference Range Interpretation Comments U Phencyclidine Scr (test Negative *NA*(07/22/20 code = U Phencyclidine 11:22 AM) Scr) [facility] [id number] 16:22:00 Test Item Value Reference Range Interpretation Comments UDS Note (test code = See Note (07/22/20 11:22 UDS Note) AM) [facility] [id number] 16:22:00 Test Item Value Reference Range Interpretation Comments UA Turbidity (test code = Clear (07/22/20 11:22 UA Turbidity) AM) [facility] [id number] 16:22:00 Test Item Value Reference Range Interpretation Comments UA Spec Grav (test code = UA Spec Grav) no gt [facility] [id number] 16:22:00 Test Item Value Reference Range Interpretation Comments UA pH (test code = UA pH) 8.0 1 5.0-8.0 [facility] [id number] 16:22:00 Test Item Value Reference Range Interpretation Comments UA Protein (test code = UA Negative mg/dL Protein) [facility] [id number] 16:22:00 Test Item Value Reference Range Interpretation Comments UA Glucose (test code = UA Negative mg/dL Glucose) [facility] [id number] 16:22:00 Test Item Value Reference Range Interpretation Comments UA Ketones (test code = UA Negative mg/dL Ketones) [facility] [id number] 16:22:00 Test Item Value Reference Range Interpretation Comments UA Bili (test code = Negative *NA*(07/22/20 UA Bili) 11:22 AM) [facility] [id number] 16:22:00 Test Item Value Reference Range Interpretation Comments UA Blood (test code = Negative (07/22/20 11:22 UA Blood) AM) [facility] [id number] 16:22:00 Test Item Value Reference Range Interpretation Comments UA Urobilinogen (test code = UA no gt 0.1-1.0 Urobilinogen) [facility] [id number] 16:22:00 Test Item Value Reference Range Interpretation Comments UA Nitrite (test code Negative (07/22/20 11:22 = UA Nitrite) AM) [facility] [id number] 16:22:00 Test Item Value Reference Range Interpretation Comments UA Leuk Est (test Negative (07/22/20 11:22 code = UA Leuk Est) AM) [facility] [id number] 16:22:00 Test Item Value Reference Range Interpretation Comments UA Sq Epi (test code = UA Sq Occasional /LPF Epi) [facility] [id number] 16:22:00 Test Item Value Reference Range Interpretation Comments UA WBC (test code = no gt See_Comment [Automa lalit message] The UA WBC) system which ge nerated this result transmit lalit reference range : <=5. The reference range was not used to interpr et this result as reid l/abnormal. [facility] [id number] 16:22:00 Test Item Value Reference Range Interpretation Comments UA RBC (test code = no gt See_Comment [Automa lalit message] The UA RBC) system which ge nerated this result transmit lalit reference range : <=2. The reference range was not used to interpr et this result as reid l/abnormal. [facility] [id number] 16:22:00 Test Item Value Reference Range Interpretation Comments UA Mucus (test code = UA Mucus) Few /LPF [facility] [id number] 16:22:00 Test Item Value Reference Range Interpretation Comments UA Color (test code = UA Color) STRAW [facility] [id number] 16:22:00 Test Item Value Reference Range Interpretation Comments U Amph Scr (test code Negative *NA*(07/22/20 = U Amph Scr) 11:22 AM) [facility] [id number] 16:22:00 Test Item Value Reference Range Interpretation Comments U Hollie Scr (test code Negative *NA*(07/22/20 = U Hollie Scr) 11:22 AM) [facility] [id number] 16:22:00 Test Item Value Reference Range Interpretation Comments U Benzodiaz Scr (test Positive *ABN*(07/22/20 code = U Benzodiaz Scr) 11:22 AM) [facility] [id number] 16:22:00 Test Item Value Reference Range Interpretation Comments U Cannab Scr (test Positive *ABN*(07/22/20 code = U Cannab Scr) 11:22 AM) [facility] [id number] 16:22:00 Test Item Value Reference Range Interpretation Comments U Cocaine Scr (test Negative *NA*(07/22/20 code = U Cocaine Scr) 11:22 AM) [facility] [id number] 16:22:00 Test Item Value Reference Range Interpretation Comments U Opiate Scr (test Negative *NA*(07/22/20 code = U Opiate Scr) 11:22 AM) [facility] [id number] 16:22:00 Test Item Value Reference Range Interpretation Comments U Phencyclidine Scr (test Negative *NA*(07/22/20 code = U Phencyclidine 11:22 AM) Scr) [facility] [id number] 16:22:00 Test Item Value Reference Range Interpretation Comments UDS Note (test code = See Note (07/22/20 11:22 UDS Note) AM) [facility] [id number] 16:22:00 Test Item Value Reference Range Interpretation Comments UA Turbidity (test code = Clear (07/22/20 11:22 UA Turbidity) AM) [facility] [id number] 16:22:00 Test Item Value Reference Range Interpretation Comments UA Spec Grav (test code = UA Spec Grav) no gt [facility] [id number] 16:22:00 Test Item Value Reference Range Interpretation Comments UA pH (test code = UA pH) 8.0 1 5.0-8.0 [facility] [id number] 16:22:00 Test Item Value Reference Range Interpretation Comments UA Protein (test code = UA Negative mg/dL Protein) [facility] [id number] 16:22:00 Test Item Value Reference Range Interpretation Comments UA Glucose (test code = UA Negative mg/dL Glucose) [facility] [id number] 16:22:00 Test Item Value Reference Range Interpretation Comments UA Ketones (test code = UA Negative mg/dL Ketones) [facility] [id number] 16:22:00 Test Item Value Reference Range Interpretation Comments UA Bili (test code = Negative *NA*(07/22/20 UA Bili) 11:22 AM) [facility] [id number] 16:22:00 Test Item Value Reference Range Interpretation Comments UA Blood (test code = Negative (07/22/20 11:22 UA Blood) AM) [facility] [id number] 16:22:00 Test Item Value Reference Range Interpretation Comments UA Urobilinogen (test code = UA no gt 0.1-1.0 Urobilinogen) [facility] AND [id number] 16:22:00 Test Item Value Reference Range Interpretation Comments UA Nitrite (test code Negative (07/22/20 11:22 = UA Nitrite) AM) [facility] AND [id number] 16:22:00 Test Item Value Reference Range Interpretation Comments UA Leuk Est (test Negative (07/22/20 11:22 code = UA Leuk Est) AM) [facility] AND [id number] 16:22:00 Test Item Value Reference Range Interpretation Comments UA Sq Epi (test code = UA Sq Occasional /LPF Epi) [facility] AND [id number] 16:22:00 Test Item Value Reference Range Interpretation Comments UA WBC (test code = no gt See_Comment [Automa lalit message] The UA WBC) system which ge nerated this result transmit lalit reference range : <=5. The reference range was not used to interpr et this result as reid l/abnormal. [facility] AND [id number] 16:22:00 Test Item Value Reference Range Interpretation Comments UA RBC (test code = no gt See_Comment [Automa lalit message] The UA RBC) system which ge nerated this result transmit lalit reference range : <=2. The reference range was not used to interpr et this result as reid l/abnormal. [facility] AND [id number] 16:22:00 Test Item Value Reference Range Interpretation Comments UA Mucus (test code = UA Mucus) Few /LPF [facility] AND [id number] 16:22:00 Test Item Value Reference Range Interpretation Comments UA Color (test code = UA Color) STRAW [facility] BANK [id number] 13:54:00 Test Item Value Reference Range Interpretation Comments ABO/Rh (test code = ABO/Rh) O POS [facility] CenterHackPadEXCEL[facility] [id number] 13:54:00 Test Item Value Reference Range Interpretation Comments Antibody Scrn (test Negative (07/22/20 8:54 code = Antibody Scrn) AM) [facility] [id number] 13:54:00 Test Item Value Reference Range Interpretation Comments Hep C Ab (test code = Hep C Ab) NON-REACTIVE [facility] [id number] 13:54:00 Test Item Value Reference Range Interpretation Comments Hep Signal to Cut-Off (test code = Hep 0.01 1 Signal to Cut-Off) [facility] [id number] 13:54:00 Test Item Value Reference Range Interpretation Comments [facility] HIV 4th GEN (test Negative *NA*(07/22/20 code = CDC HIV 4th 8:54 AM) GEN) [facility] [id number] 13:54:00 Test Item Value Reference Range Interpretation Comments ABO/Rh (test code = ABO/Rh) O POS [facility] [id number] 13:54:00 Test Item Value Reference Range Interpretation Comments Antibody Scrn (test Negative (07/22/20 8:54 code = Antibody Scrn) AM) [facility] [id number] 13:54:00 Test Item Value Reference Range Interpretation Comments Hep C Ab (test code = Hep C Ab) NON-REACTIVE [facility] [id number] 13:54:00 Test Item Value Reference Range Interpretation Comments Hep Signal to Cut-Off (test code = Hep 0.01 1 Signal to Cut-Off) [facility] [id number] 13:54:00 Test Item Value Reference Range Interpretation Comments [facility] HIV 4th GEN (test Negative *NA*(07/22/20 code = CDC HIV 4th 8:54 AM) GEN) [facility] CenterVital [facility]msWE[facility] [id number] 13:54:00 Test Item Value Reference Range Interpretation Comments ABO/Rh (test code = ABO/Rh) O POS [facility]WE[facility] [id number] 13:54:00 Test Item Value Reference Range Interpretation Comments Antibody Scrn (test Negative (07/22/20 8:54 code = Antibody Scrn) AM) [place] [id number] 13:54:00 Test Item Value Reference Range Interpretation Comments Hep C Ab (test code = Hep C Ab) NON-REACTIVE [place] [id number] 13:54:00 Test Item Value Reference Range Interpretation Comments Hep Signal to Cut-Off (test code = Hep 0.01 1 Signal to Cut-Off) [place] [id number] 13:54:00 Test Item Value Reference Range Interpretation Comments [facility] HIV 4th GEN (test Negative *NA*(07/22/20 code = CDC HIV 4th 8:54 AM) GEN) [facility]2021-04-09 13:46:52 Test Item Value Reference Range Interpretation Comments Glucose Lvl (test code = Glucose Lvl) 89 70-99 [facility]2021-04-09 13:46:52 Test Item Value Reference Range Interpretation Comments BUN (test code = BUN) 8 7-22 [place] 159931-04-09 13:46:52 Test Item Value Reference Range Interpretation Comments Creatinine Lvl (test code = Creatinine 0.42 0.50-1.40 Lvl) [facility]2021-04-09 13:46:52 Test Item Value Reference Range Interpretation Comments Sodium Lvl (test code = Sodium Lvl) 143 135-145 [facility]2021-04-09 13:46:52 Test Item Value Reference Range Interpretation Comments Potassium Lvl (test code = Potassium 3.6 3.5-5.1 Lvl) [facility]2021-04-09 13:46:52 Test Item Value Reference Range Interpretation Comments Chloride Lvl (test code = Chloride Lvl) 110 95-109 [place] 159931-04-09 13:46:52 Test Item Value Reference Range Interpretation Comments CO2 (test code = CO2) 27 24-32 [facility]2021-04-09 13:46:52 Test Item Value Reference Range Interpretation Comments Calcium Lvl (test code = Calcium Lvl) 8.5 8.5-10.5 [place] 159931-04-09 13:46:52 Test Item Value Reference Range Interpretation Comments AGAP (test code = AGAP) 9.6 10.0-20.0 [place] 159931-04-09 13:46:52 Test Item Value Reference Range Interpretation Comments eGFR (test code = eGFR) 140 [facility]2021-04-09 13:46:52 Test Item Value Reference Range Interpretation Comments Lactic Acid Lvl (test code = Lactic 1.6 0.5-2.2 Acid Lvl) [facility]GrcofepIQLZCKICXKKSW4232-38-28 13:46:52 Test Item Value Reference Range Interpretation Comments S Preg (test code = S Negative *NA*(07/22/20 Preg) 8:46 AM) [facility]kcsoaaCRFCZJKKEM2190-[facility] 13:46:52 Test Item Value Reference Range Interpretation Comments WBC X 10x3 (test code = WBC X 10x3) 11.3 3.7-10.4 [facility]VsegefuPPDLUKMHRJ0062-90-75 13:46:52 Test Item Value Reference Range Interpretation Comments RBC X 10x6 (test code = RBC X 10x6) 4.39 4.20-5.40 [facility]NgoucynTPSTWECZZI1462-79-78 13:46:52 Test Item Value Reference Range Interpretation Comments Hgb (test code = Hgb) 13.0 12.0-16.0 [facility]OpjjremAQVRQHKQGD5074-98-65 13:46:52 Test Item Value Reference Range Interpretation Comments Hct (test code = Hct) 40.3 36.0-48.0 [facility]UrkevldUVGHFCSZXF2455-96-38 13:46:52 Test Item Value Reference Range Interpretation Comments MCV (test code = MCV) 91.7 80.0-98.0 [facility]EmyzmziRMZZLZPITG8049-59-60 13:46:52 Test Item Value Reference Range Interpretation Comments MCH (test code = MCH) 29.7 pg 27.0-31.0 [facility] HospitalRwkvepaKMXXSWHVQF1789-53-49 13:46:52 Test Item Value Reference Range Interpretation Comments MCHC (test code = MCHC) 32.4 32.0-36.0 [facility]WcqalgqIKBUESMBRR8229-70-91 13:46:52 Test Item Value Reference Range Interpretation Comments RDW (test code = RDW) 13.7 11.5-14.5 [facility]DivfppsCYLDYZXPEW8334-95-61 13:46:52 Test Item Value Reference Range Interpretation Comments Platelet (test code = Platelet) 245 133-450 [facility]QozdlzpDTTSJNJFFE8312-45-65 13:46:52 Test Item Value Reference Range Interpretation Comments MPV (test code = MPV) 8.3 7.4-10.4 [place] 731901-04-09 13:46:52 Test Item Value Reference Range Interpretation Comments ACT (TEG) Rapid (test code = ACT (TEG) 105 s 86-118 Rapid) [place] 731901-04-09 13:46:52 Test Item Value Reference Range Interpretation Comments Split Point Rapid (test code = Split 0.5 min Point Rapid) [place] 731901-04-09 13:46:52 Test Item Value Reference Range Interpretation Comments R-time Rapid (test code = R-time 0.6 min 0.4-0.7 Rapid) [place] 731901-04-09 13:46:52 Test Item Value Reference Range Interpretation Comments K-time Rapid (test code = K-time 1.0 min 0.6-2.3 Rapid) [place] 731901-04-09 13:46:52 Test Item Value Reference Range Interpretation Comments Angle Rapid (test code = Angle 77 degrees 64-80 Rapid) [facility]OiavyleAINSQMINPK1817-13-18 13:46:52 Test Item Value Reference Range Interpretation Comments Max Amplitude Rapid (test code = Max 71 mm 52-71 Amplitude Rapid) [place] 731901-04-09 13:46:52 Test Item Value Reference Range Interpretation Comments G-value Rapid (test code = G-value 12.5 5.0-11.6 Rapid) [place] 731901-04-09 13:46:52 Test Item Value Reference Range Interpretation Comments Estimated % Lysis Rapid 0.0 See_Comment [Au tomated message] The (test code = Estimated syste m which generated % Lysis Rapid) this result t ransmitted reference range : <=7.5. The reference r marsha was not used to int erpret this result as normal/abnormal . [place] 731901-04-09 13:46:52 Test Item Value Reference Range Interpretation Comments Segs (test code = Segs) 62.5 45.0-75.0 [place] 731901-04-09 13:46:52 Test Item Value Reference Range Interpretation Comments Lymphocytes (test code = Lymphocytes) 27.1 20.0-40.0 [place] [address]-04-09 13:46:52 Test Item Value Reference Range Interpretation Comments Monocytes (test code = Monocytes) 8.6 2.0-12.0 [place] 731901-04-09 13:46:52 Test Item Value Reference Range Interpretation Comments Eosinophils (test code = 1.1 See_Comment [A utomated message] The Eosinophils) system which ge nerated this result tra nsmitted reference range : <=4.0. The reference r marsha was not used to int erpret this result as normal/abnormal . [place] 731901-04-09 13:46:52 Test Item Value Reference Range Interpretation Comments Basophils (test code = 0.7 See_Comment [Aut omated message] The Basophils) system which ge nerated this result tra nsmitted reference range : <=1.0. The reference r marsha was not used to int erpret this result as normal/abnormal . [place] 731901-04-09 13:46:52 Test Item Value Reference Range Interpretation Comments Neutrophils # (test code = Neutrophils 7.0 1.5-8.1 #) [place] 731901-04-09 13:46:52 Test Item Value Reference Range Interpretation Comments Lymphocytes # (test code = Lymphocytes 3.1 1.0-5.5 #) [facility]SbjqusqONJKFHCRSB0978-09-70 13:46:52 Test Item Value Reference Range Interpretation Comments Monocytes # (test code 1.0 See_Comment [Aut omated message] The = Monocytes #) system which generated this result tra nsmitted reference range : <=0.8. The reference r marsha was not used to int erpret this result as normal/abnormal . [place] 731901-04-09 13:46:52 Test Item Value Reference Range Interpretation Comments Eosinophils # (test code 0.1 See_Comment [A utomated message] The = Eosinophils #) system whic h generated this result tra nsmitted reference range : <=0.5. The reference r marsha was not used to int erpret this result as normal/abnormal . [place] 731901-04-09 13:46:52 Test Item Value Reference Range Interpretation Comments Basophils # (test code 0.1 See_Comment [Aut omated message] The = Basophils #) system which generated this result tra nsmitted reference range : <=0.2. The reference r marsha was not used to int erpret this result as normal/abnormal . [place] 11605021-04-09 13:46:52 Test Item Value Reference Range Interpretation Comments Ethanol Lvl (test code = Ethanol Lvl) 125 [place] 604691-04-09 13:46:52 Test Item Value Reference Range Interpretation Comments Etoh (%) (test code = Etoh (%)) 0.125 [facility]2021-04-09 13:46:52 Test Item Value Reference Range Interpretation Comments Glucose Lvl (test code = Glucose Lvl) 89 70-99 [facility]2021-04-09 13:46:52 Test Item Value Reference Range Interpretation Comments BUN (test code = BUN) 8 7-22 [facility]2021-04-09 13:46:52 Test Item Value Reference Range Interpretation Comments Creatinine Lvl (test code = Creatinine 0.42 0.50-1.40 Lvl) [facility]2021-04-09 13:46:52 Test Item Value Reference Range Interpretation Comments Sodium Lvl (test code = Sodium Lvl) 143 135-145 [facility]2021-04-09 13:46:52 Test Item Value Reference Range Interpretation Comments Potassium Lvl (test code = Potassium 3.6 3.5-5.1 Lvl) [facility]2021-04-09 13:46:52 Test Item Value Reference Range Interpretation Comments Chloride Lvl (test code = Chloride Lvl) 110 95-109 [place] 159931-04-09 13:46:52 Test Item Value Reference Range Interpretation Comments CO2 (test code = CO2) 27 24-32 [place] 159931-04-09 13:46:52 Test Item Value Reference Range Interpretation Comments Calcium Lvl (test code = Calcium Lvl) 8.5 8.5-10.5 [place] 159931-04-09 13:46:52 Test Item Value Reference Range Interpretation Comments AGAP (test code = AGAP) 9.6 10.0-20.0 [place] 159931-04-09 13:46:52 Test Item Value Reference Range Interpretation Comments eGFR (test code = eGFR) 140 [facility]2021-04-09 13:46:52 Test Item Value Reference Range Interpretation Comments Lactic Acid Lvl (test code = Lactic 1.6 0.5-2.2 Acid Lvl) [facility]zbtfXBQOOYBSDMBTE4471-05-86 13:46:52 Test Item Value Reference Range Interpretation Comments S Preg (test code = S Negative *NA*(07/22/20 Preg) 8:46 AM) [facility]XawdchpOMOQKGTHBN0734-48-03 13:46:52 Test Item Value Reference Range Interpretation Comments WBC X 10x3 (test code = WBC X 10x3) 11.3 3.7-10.4 [facility]BegmatyRRKNKJDXEU4636-04-73 13:46:52 Test Item Value Reference Range Interpretation Comments RBC X 10x6 (test code = RBC X 10x6) 4.39 4.20-5.40 [facility]UkyidgbFPVIRIDDIP7163-18-84 13:46:52 Test Item Value Reference Range Interpretation Comments Hgb (test code = Hgb) 13.0 12.0-16.0 [facility]QrytbhwUJGJQEWYKI0824-71-00 13:46:52 Test Item Value Reference Range Interpretation Comments Hct (test code = Hct) 40.3 36.0-48.0 [facility]EikpalrITSTFPXTIY1943-89-69 13:46:52 Test Item Value Reference Range Interpretation Comments MCV (test code = MCV) 91.7 80.0-98.0 [facility] HospitalTqujeodQPXACBCLWP3148-22-20 13:46:52 Test Item Value Reference Range Interpretation Comments MCH (test code = MCH) 29.7 pg 27.0-31.0 [facility]XbmkiysMGRDXEOOBM2861-22-29 13:46:52 Test Item Value Reference Range Interpretation Comments MCHC (test code = MCHC) 32.4 32.0-36.0 [facility] HospitalLsxlvjkHXYEWGSYZQ5509-54-34 13:46:52 Test Item Value Reference Range Interpretation Comments RDW (test code = RDW) 13.7 11.5-14.5 [facility]SqebjjlHKEGMEUDPQ6182-17-50 13:46:52 Test Item Value Reference Range Interpretation Comments Platelet (test code = Platelet) 245 133-450 [facility] HospitalScuwnjtDPNTDEDSHE9987-59-56 13:46:52 Test Item Value Reference Range Interpretation Comments MPV (test code = MPV) 8.3 7.4-10.4 [place] 731901-04-09 13:46:52 Test Item Value Reference Range Interpretation Comments ACT (TEG) Rapid (test code = ACT (TEG) 105 s 86-118 Rapid) [place] 731901-04-09 13:46:52 Test Item Value Reference Range Interpretation Comments Split Point Rapid (test code = Split 0.5 min Point Rapid) [place] 731901-04-09 13:46:52 Test Item Value Reference Range Interpretation Comments R-time Rapid (test code = R-time 0.6 min 0.4-0.7 Rapid) [place] 731901-04-09 13:46:52 Test Item Value Reference Range Interpretation Comments K-time Rapid (test code = K-time 1.0 min 0.6-2.3 Rapid) [place] 731901-04-09 13:46:52 Test Item Value Reference Range Interpretation Comments Angle Rapid (test code = Angle 77 degrees 64-80 Rapid) [place] 731901-04-09 13:46:52 Test Item Value Reference Range Interpretation Comments Max Amplitude Rapid (test code = Max 71 mm 52-71 Amplitude Rapid) [place] 731901-04-09 13:46:52 Test Item Value Reference Range Interpretation Comments G-value Rapid (test code = G-value 12.5 5.0-11.6 Rapid) [place] 731901-04-09 13:46:52 Test Item Value Reference Range Interpretation Comments Estimated % Lysis Rapid 0.0 See_Comment [Au tomated message] The (test code = Estimated syste m which generated % Lysis Rapid) this result t ransmitted reference range : <=7.5. The reference r marsha was not used to int erpret this result as normal/abnormal . [place] 731901-04-09 13:46:52 Test Item Value Reference Range Interpretation Comments Segs (test code = Segs) 62.5 45.0-75.0 [place] [address]-04-09 13:46:52 Test Item Value Reference Range Interpretation Comments Lymphocytes (test code = Lymphocytes) 27.1 20.0-40.0 [place] 731901-04-09 13:46:52 Test Item Value Reference Range Interpretation Comments Monocytes (test code = Monocytes) 8.6 2.0-12.0 [place] [address]-04-09 13:46:52 Test Item Value Reference Range Interpretation Comments Eosinophils (test code = 1.1 See_Comment [A utomated message] The Eosinophils) system which ge nerated this result tra nsmitted reference range : <=4.0. The reference r marsha was not used to int erpret this result as normal/abnormal . [place] 731901-04-09 13:46:52 Test Item Value Reference Range Interpretation Comments Basophils (test code = 0.7 See_Comment [Aut omated message] The Basophils) system which ge nerated this result tra nsmitted reference range : <=1.0. The reference r marsha was not used to int erpret this result as normal/abnormal . [place] 731901-04-09 13:46:52 Test Item Value Reference Range Interpretation Comments Neutrophils # (test code = Neutrophils 7.0 1.5-8.1 #) [place] 731901-04-09 13:46:52 Test Item Value Reference Range Interpretation Comments Lymphocytes # (test code = Lymphocytes 3.1 1.0-5.5 #) [place] 731901-04-09 13:46:52 Test Item Value Reference Range Interpretation Comments Monocytes # (test code 1.0 See_Comment [Aut omated message] The = Monocytes #) system which generated this result tra nsmitted reference range : <=0.8. The reference r marsha was not used to int erpret this result as normal/abnormal . [place] 731901-04-09 13:46:52 Test Item Value Reference Range Interpretation Comments Eosinophils # (test code 0.1 See_Comment [A utomated message] The = Eosinophils #) system whic h generated this result tra nsmitted reference range : <=0.5. The reference r marsha was not used to int erpret this result as normal/abnormal . [facility] HospitalMshmvioNVVRWZMOGM2364-32-52 13:46:52 Test Item Value Reference Range Interpretation Comments Basophils # (test code 0.1 See_Comment [Aut omated message] The = Basophils #) system which generated this result tra nsmitted reference range : <=0.2. The reference r marsha was not used to int erpret this result as normal/abnormal . [place] 11605021-04-09 13:46:52 Test Item Value Reference Range Interpretation Comments Ethanol Lvl (test code = Ethanol Lvl) 125 [place] 11605021-04-09 13:46:52 Test Item Value Reference Range Interpretation Comments Etoh (%) (test code = Etoh (%)) 0.125 [facility]2021-04-09 13:46:52 Test Item Value Reference Range Interpretation Comments Glucose Lvl (test code = Glucose Lvl) 89 70-99 [place] 159931-04-09 13:46:52 Test Item Value Reference Range Interpretation Comments BUN (test code = BUN) 8 7-22 [facility]2021-04-09 13:46:52 Test Item Value Reference Range Interpretation Comments Creatinine Lvl (test code = Creatinine 0.42 0.50-1.40 Lvl) [place] 159931-04-09 13:46:52 Test Item Value Reference Range Interpretation Comments Sodium Lvl (test code = Sodium Lvl) 143 135-145 [place] 159931-04-09 13:46:52 Test Item Value Reference Range Interpretation Comments Potassium Lvl (test code = Potassium 3.6 3.5-5.1 Lvl) [facility]2021-04-09 13:46:52 Test Item Value Reference Range Interpretation Comments Chloride Lvl (test code = Chloride Lvl) 110 95-109 [facility]2021-04-09 13:46:52 Test Item Value Reference Range Interpretation Comments CO2 (test code = CO2) 27 24-32 [facility]2021-04-09 13:46:52 Test Item Value Reference Range Interpretation Comments Calcium Lvl (test code = Calcium Lvl) 8.5 8.5-10.5 [facility]2021-04-09 13:46:52 Test Item Value Reference Range Interpretation Comments AGAP (test code = AGAP) 9.6 10.0-20.0 [place] 159931-04-09 13:46:52 Test Item Value Reference Range Interpretation Comments eGFR (test code = eGFR) 140 [facility]2021-04-09 13:46:52 Test Item Value Reference Range Interpretation Comments Lactic Acid Lvl (test code = Lactic 1.6 0.5-2.2 Acid Lvl) [facility]lecfITMMYKRCPGEIE6429[facility] 13:46:52 Test Item Value Reference Range Interpretation Comments S Preg (test code = S Negative *NA*(07/22/20 Preg) 8:46 AM) [facility]GgfnvbePYXKBRHKIH8877-35-92 13:46:52 Test Item Value Reference Range Interpretation Comments WBC X 10x3 (test code = WBC X 10x3) 11.3 3.7-10.4 [facility]MffezwiOVTZBBVKFJ8155-95-30 13:46:52 Test Item Value Reference Range Interpretation Comments RBC X 10x6 (test code = RBC X 10x6) 4.39 4.20-5.40 [facility]RgjxrgyZRXXDALCWZ6899-57-91 13:46:52 Test Item Value Reference Range Interpretation Comments Hgb (test code = Hgb) 13.0 12.0-16.0 [facility]NsothklRBIHAMZFAF1303-74-50 13:46:52 Test Item Value Reference Range Interpretation Comments Hct (test code = Hct) 40.3 36.0-48.0 [facility]GotlxnlDUSNBVBBRY8597-58-32 13:46:52 Test Item Value Reference Range Interpretation Comments MCV (test code = MCV) 91.7 80.0-98.0 [facility]HqnusphDGHLQWRGMT9520-61-50 13:46:52 Test Item Value Reference Range Interpretation Comments MCH (test code = MCH) 29.7 pg 27.0-31.0 [facility]YlhhobuZCHHIAXNMR1298-61-15 13:46:52 Test Item Value Reference Range Interpretation Comments MCHC (test code = MCHC) 32.4 32.0-36.0 [facility]WfhfifzKVMNAUAHNT5953-61-36 13:46:52 Test Item Value Reference Range Interpretation Comments RDW (test code = RDW) 13.7 11.5-14.5 [facility] HospitalPltqqyjHYSHUQMVHS8458-65-42 13:46:52 Test Item Value Reference Range Interpretation Comments Platelet (test code = Platelet) 245 133-450 [facility] HospitalLvmkunsZRYYKWNYXV0228-06-10 13:46:52 Test Item Value Reference Range Interpretation Comments MPV (test code = MPV) 8.3 7.4-10.4 [facility]HxxrbdoRZZJUTLCRQ8318-08-35 13:46:52 Test Item Value Reference Range Interpretation Comments ACT (TEG) Rapid (test code = ACT (TEG) 105 s 86-118 Rapid) [facility] HospitalSyyyqbiVUFAVMZGDO3627-42-23 13:46:52 Test Item Value Reference Range Interpretation Comments Split Point Rapid (test code = Split 0.5 min Point Rapid) [facility]PjitryfEKVUHAJIGX2581-47-07 13:46:52 Test Item Value Reference Range Interpretation Comments R-time Rapid (test code = R-time 0.6 min 0.4-0.7 Rapid) [facility]PewbpjwMSIBVCVWDF9501-39-56 13:46:52 Test Item Value Reference Range Interpretation Comments K-time Rapid (test code = K-time 1.0 min 0.6-2.3 Rapid) [place] 731901-04-09 13:46:52 Test Item Value Reference Range Interpretation Comments Angle Rapid (test code = Angle 77 degrees 64-80 Rapid) [facility] HospitalPcaiwojBWPTZUMNWN0339-07-14 13:46:52 Test Item Value Reference Range Interpretation Comments Max Amplitude Rapid (test code = Max 71 mm 52-71 Amplitude Rapid) [facility] HospitalGjlhacfYAESJNUGYS3065-29-49 13:46:52 Test Item Value Reference Range Interpretation Comments G-value Rapid (test code = G-value 12.5 5.0-11.6 Rapid) [facility] HospitalEyphascJJNFGAYQEJ0036-59-86 13:46:52 Test Item Value Reference Range Interpretation Comments Estimated % Lysis Rapid 0.0 See_Comment [Au tomated message] The (test code = Estimated syste m which generated % Lysis Rapid) this result t ransmitted reference range : <=7.5. The reference r marsha was not used to int erpret this result as normal/abnormal . [facility] HospitalUpnikdmPEHWUIXJPS2094-95-98 13:46:52 Test Item Value Reference Range Interpretation Comments Segs (test code = Segs) 62.5 45.0-75.0 [place] 731901-04-09 13:46:52 Test Item Value Reference Range Interpretation Comments Lymphocytes (test code = Lymphocytes) 27.1 20.0-40.0 [place] 731901-04-09 13:46:52 Test Item Value Reference Range Interpretation Comments Monocytes (test code = Monocytes) 8.6 2.0-12.0 [place] [address]-04-09 13:46:52 Test Item Value Reference Range Interpretation Comments Eosinophils (test code = 1.1 See_Comment [A utomated message] The Eosinophils) system which ge nerated this result tra nsmitted reference range : <=4.0. The reference r marsha was not used to int erpret this result as normal/abnormal . [facility] HospitalRwircthUPHAETMTRD5010-29-68 13:46:52 Test Item Value Reference Range Interpretation Comments Basophils (test code = 0.7 See_Comment [Aut omated message] The Basophils) system which ge nerated this result tra nsmitted reference range : <=1.0. The reference r marsha was not used to int erpret this result as normal/abnormal . [facility] HospitalEtjmrzsFTDJYIDXQL9495-64-28 13:46:52 Test Item Value Reference Range Interpretation Comments Neutrophils # (test code = Neutrophils 7.0 1.5-8.1 #) [facility] HospitalZirrhgiLMAEWVPUDI9493-81-26 13:46:52 Test Item Value Reference Range Interpretation Comments Lymphocytes # (test code = Lymphocytes 3.1 1.0-5.5 #) [facility] HospitalAzchaxcDZDXSPENDX2436-53-43 13:46:52 Test Item Value Reference Range Interpretation Comments Monocytes # (test code 1.0 See_Comment [Aut omated message] The = Monocytes #) system which generated this result tra nsmitted reference range : <=0.8. The reference r marsha was not used to int erpret this result as normal/abnormal . [facility] HospitalLjhwpwbVXOSHRFSPL8882-72-57 13:46:52 Test Item Value Reference Range Interpretation Comments Eosinophils # (test code 0.1 See_Comment [A utomated message] The = Eosinophils #) system whic h generated this result tra nsmitted reference range : <=0.5. The reference r marsha was not used to int erpret this result as normal/abnormal . [facility] HospitalUwwotcaGFPVBVYIPC7172-99-24 13:46:52 Test Item Value Reference Range Interpretation Comments Basophils # (test code 0.1 See_Comment [Aut omated message] The = Basophils #) system which generated this result tra nsmitted reference range : <=0.2. The reference r marsha was not used to int erpret this result as normal/abnormal . [facility]cerUZJHXDGPPG3959[facility] 13:46:52 Test Item Value Reference Range Interpretation Comments Ethanol Lvl (test code = Ethanol Lvl) 125 [facility]QfbuzsmYPJRKYDVTZ2131-61-59 13:46:52 Test Item Value Reference Range Interpretation Comments Etoh (%) (test code = Etoh (%)) 0.125 [facility] Coronavirus 2019 pOuM2514-08-59 11:29:00 Test Item Value Reference Range Interpretation Comments Novel Coronavirus 2019 nCoV (test Negative Negative code = COVID19) - XR CHEST 1 [id number] 14:00:00 Patient Name: ALYSSIA LEE Unit No: [id number] EXAMS: CPT CODE: [id number] XR CHEST 1 V [id number]: cough - XR CHEST 1 V 07/05/2019 1:13 PM Exam: - XR CHEST 1 V Comparison: none Reason for exam: cough FINDINGS: The heart size is normal. Vascularity is normal. The lungs are clear. There is no fluid or adenopathy. IMPRESSION: Negative chest at 1400 Reported and signed by: Jermaine Cobos MD CC: Carlos French MD Technologist: Brenna Costa (Schroeder) RT Trscrpt Dt/ (1400)t.[id number] Orig Print D/T: S: 07/05/2019 (1403) [facility] NAME: ALYSSIA LEE [address] [facility] PHYS: [place] [address] : 1995 AGE: 23 SEX: F LOC: [facility]A PHONE #: [phone] EXAM DATE: 07/05/2019 STATUS: REG ER FAX #: RAD NO: DC Dt: PAGE 1 Signed ReportHCG SERUM [id number] 20:31:00 Test Item Value Reference Range Interpretation [...] using aquantitative h CG assay. CBC W/AUTO [id number] 20:17:00 Test Item Value Reference Range Interpretation [...]
[2022-05-26 21:30] LABS: SARS-COV-2 RT PCR NEGATIVE (NEGATIVE)
--- NOTE | 2022-05-26 22:03 | EDPHYS ---
Physician Documentation [facility] Name: Kanwal De La Vega Age: 26 yrs Sex: Female : 1995 Arrival Date: 05/26/2022 Time: 19:44 Bed IW1 Private MD: ED Physician Jimmie Casper HPI: 05/26 22:04 This 26 yrs old Female presents to ER via Ambulatory with complaints of ms3 Vomiting, Headache, Fever. 22:04 26-year-old female with past medical history of asthma presents for headache, body ms3 ache, cough, congestion. 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 Patient states her discomfort is a 9/10 described as aching. Patient endorses vomiting x1. Patient states her temperature was up to 100.. 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 - Social history:: Smoking status: Patient denies any tobacco usage or history of. ROS: 22:04 Neck: Negative for injury, pain, and swelling, Cardiovascular: Negative for chest pain, ms3 and palpitations. Respiratory: Negative for shortness of breath, cough, wheezing, and pleuritic chest pain, Abdomen/GI: Negative for abdominal pain, nausea, vomiting, diarrhea, and constipation, MS/Extremity: Negative for injury and deformity, Skin: Negative for injury, rash, and discoloration. 22:04 Constitutional: Positive for body aches, chills, fever. 22:04 All other systems are negative. Exam: 22:04 Constitutional: This is a well developed, well nourished patient who is awake, alert, ms3 and in no acute distress. Head/Face: Normocephalic, atraumatic. Neck: Trachea midline, no cervical lymphadenopathy. Supple, full range of motion without nuchal rigidity, or vertebral point tenderness. No Meningismus. Chest/axilla: Normal chest wall appearance and motion. Nontender with no deformity. Cardiovascular: Regular rate and rhythm with a normal S1 and S2. No gallops, murmurs, or rubs. Normal PMI, no JVD. No pulse deficits. Respiratory: Lungs have equal breath sounds bilaterally, clear to auscultation and percussion. No rales, rhonchi or wheezes noted. No increased work of breathing, no retractions or nasal flaring. Abdomen/GI: Soft, non-tender, with normal bowel sounds. No distension or tympany. No guarding or rebound. No evidence of tenderness throughout. Skin: Warm, dry with normal turgor. Normal color with no rashes, no lesions, and no evidence of cellulitis. MS/ Extremity: Pulses equal, no cyanosis. Neurovascular intact. Full, normal range of motion. Vital Signs: 20:33 BP 119 / 67; Pulse 86; Resp 18; Temp 98.7(O); Pulse Ox 98% on R/A; Weight 72.57 kg (R); ll3 Height 4 ft. 10 in. (147.32 cm) (R); Pain 9/10; 20:33 Body Mass Index 33.44 (72.57 kg, 147.32 cm) ll3 MDM: 20:05 Patient medically screened. ms3 22:04 Differential diagnosis: Flu vs COVID vs URI. Data reviewed: vital signs, nurses notes, ms3 and as a result, I will discharge patient. Counseling: I had a detailed discussion with the patient and/or guardian regarding: the historical points, exam findings, and any diagnostic results supporting the discharge/admit diagnosis, lab results, the need for outpatient follow up, to return to the emergency department if symptoms worsen or persist or if there are any questions or concerns that arise at home. ED course: Discussed negative labs with patient. Patient to follow-up with Dr. Vance in 2 to 3 days. Patient understands and agrees with plan. All questions were answered. Return precautions discussed include worsening symptoms, or any other concerns. On reevaluation patient is alert and oriented x4, no apparent distress, nontoxic, speaking full sentences.. 05/26 20:03 Order name: COVID-19/FLU A+B; Complete Time: 22:02 ms3 Administered Medications: No medications were administered Disposition Summary: 05/26/22 22:03 Discharge Ordered Location: Home ms3 Condition: Stable ms3 Diagnosis - Acute upper respiratory infection, unspecified ms3 Followup: ms3 - With: Popeye Vance DO - When: 2 - 3 days - Reason: Recheck today's complaints Discharge Instructions: - Discharge Summary Sheet ms3 - Upper Respiratory Infection, Adult, [id number] ms3 Forms: - Medication Reconciliation Form ms3 - Thank You Letter ms3 - Antibiotic Education ms3 - Work release form ms3 - Prescription Opioid Use ms3 Signatures: Dispatcher [employer] EDJimmie Booker DO DO ms3 Yumiko Baptiste, RN RN ll3
--- NOTE | 2022-05-26 22:03 | ER ---
Nurse's Notes [facility] Name: Kanwal De La Vega Age: 26 yrs Sex: Female : 1995 Arrival Date: 05/26/2022 Time: 19:44 Bed IW1 Private MD: Diagnosis: Acute upper respiratory infection, unspecified Presentation: 05/26 20:33 Chief complaint: Patient states: C/o N/V, H/A, body aches, and cough X 2-3 days. ll3 Coronavirus screen: Vaccine status: Patient reports being unvaccinated. cough unrelated to allergies, headache, muscle pain, nausea, vomiting. Ebola Screen: No symptoms or risks identified at this time. Initial Sepsis Screen: Does the patient meet any 2 criteria? No. Patient's initial sepsis screen is negative. Does the patient have a suspected source of infection? No. Patient's initial sepsis screen is negative. Risk Assessment: Do you want to hurt yourself or someone else? Patient reports no desire to harm self or others. Onset of symptoms was May 23, 2022. 20:33 Method Of Arrival: Ambulatory ll3 20:33 Acuity: MOI 3 ll3 Triage Assessment: 20:35 General: Appears uncomfortable, Behavior is calm, cooperative, Reports chills for ll3 feeling ill for fatigue for. Pain: Complains of pain in back Pain does not radiate. Pain currently is 9 out of 10 on a pain scale. GI: Reports nausea, vomiting. Musculoskeletal: Reports pain in back C/o low back pain. 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 - Social history:: Smoking status: Patient denies any tobacco usage or history of. Screenin:19 [facility] ED Fall Risk Assessment (Adult) History of falling in the last 3 months, ll3 including since admission No falls in past 3 months (0 pts) Confusion or Disorientation No (0 pts) Intoxicated or Sedated No (0 pts) Impaired Gait No (0 pts) Mobility Assist Device Used No (0 pt) Altered Elimination No (0 pt) Score/Fall Risk Level 0 - 2 = Low Risk Oriented to surroundings, Maintained a safe environment, Educated pt \T\ family on fall prevention, incl call for assistance when getting out of bed. Abuse screen: Denies threats or abuse. Denies injuries from another. Nutritional screening: No deficits noted. Tuberculosis screening: No symptoms or risk factors identified. Vital Signs: 20:33 BP 119 / 67; Pulse 86; Resp 18; Temp 98.7(O); Pulse Ox 98% on R/A; Weight 72.57 kg (R); ll3 Height 4 ft. 10 in. (147.32 cm) (R); Pain 9/10; 20:33 Body Mass Index 33.44 (72.57 kg, 147.32 cm) ll3 ED Course: 19:44 Patient arrived in ED. ja2 19:49 Jimmie Casper DO is Attending Physician. ms3 20:35 Triage completed. ll3 20:35 Arm band placed on. ll3 22:03 Popeye Vance DO is Referral Physician. ms3 22:19 Patient has correct armband on for positive identification. ll3 22:19 No provider procedures requiring assistance completed. Patient did not have IV access ll3 during this emergency room visit. Administered Medications: No medications were administered Medication: 22:20 VIS not applicable for this client. ll3 Outcome: 22:03 Discharge ordered by . ms3 22:19 Discharged to home ambulatory, with family. ll3 22:19 Condition: stable 22:19 Discharge instructions given to patient, family, Instructed on discharge instructions, follow up and referral plans. 22:20 Patient left the ED. ll3 Signatures: Jimmie Casper DO DO ms3 Kimberly Cho ja2 Yumiko Baptiste, RN RN ll3
[2022-05-26 22:26] VITALS: BP 119/67; TEMP 98.7; O2SAT 98
== END 2022-05-26 22:20 | disposition home or self-care (01) ==
LOC: ER 19:41
DX: J06.9 Acute upper respiratory infection, unspecified (principal); Z20.822 Contact with and (suspected) exposure to COVID-19
CPT/HCPCS: 0240U; 99281

== ENCOUNTER 2022-08-12 18:25 | Emergency (ER) | payer SELFPAY ==
--- OUTSIDE RECORDS SUMMARY | 2022-08-12 18:34 | XMS REPORT | Continuity of Care Document ---
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 Rudolph n 00 Dosing Weight 63.636 kg, Start date: 07/22/20 8:43:00 CDT, Stop date: 07/22/20 8:43:00 CDT Isolyte S 2020-0 No 1,000 mL, Mem oria PH-7.4 4-09 Route: IV, l (Bolus) IV 13:43: ONCE, Rudolph n 00 Dosing Weight 63.636 kg, Start date: 07/22/20 8:43:00 CDT, Stop date: 07/22/20 8:43:00 CDT Saline No Notes: Memoria Flush 0.9% 07-22 (Same as: l 13:39: BD Se 00 Posiflush) Fentanyl No 50 Memoria 4-09 microgram, l 13:39: Route: [place] 00 IVP, ONCE, Dosing Weight 63.636, kg, [...] 0.9% 4-09 (Same as: l 13:39: BD [place] 00 Posiflush) Fentanyl No 50 Memoria 4-09 [...] 0.9% 4-09 (Same as: l 13:39: BD [place] 00 Posiflush) Fentanyl No 50 Memoria 4-09 microgram, l 13:39: Route: [place] 00 IVP, ONCE, Dosing Weight 63.636, kg, Priority: STAT, Start date: 07/22/20 8:39:00 CDT, Stop date: 04/09/21 8:39:00 CDT albuterol 2020-0 Yes 2{puff} Q6H Inhale 2 M ethodi (PROAIR 1-[address] HFA) 90 17:09: every 6 Hospita mcg/actuati 07 (six) l on inhaler hours as needed for wheezing. albuterol 0 Yes 2{puff} Q6H Inhale 2 M ethodi (PROAIR 1-[address] HFA) 90 17:09: every 6 [facility]ospita mcg/actuati 07 (six) l on inhaler hours as needed for wheezing. albuterol 0 Yes 2{puff} Q6H Inhale 2 M ethodi (PROAIR 1-[address] HFA) 90 17:09: every 6 Hospita mcg/actuati 07 (six) l on inhaler hours as needed for wheezing. albuterol 0 Yes 2{puff} Q6H Inhale 2 M ethodi (PROAIR 1-[address] HFA) 90 17:09: every 6 Hospita mcg/actuati 07 (six) l on inhaler hours as needed for wheezing. azithromyci 0 Yes 250mg QD Take 1 [facility] n [facility]-[address] (Zithromax 00:00: (250 mg Hosp shailesh Z-Dona) 250 00 total) by l MG tablet mouth daily. Take 2 tablets the first day, then 1 tablet daily for 4 days. azithromyci 0 Yes 250mg QD Take 1 Met [facility] n 1-[address] (Zithromax 00:00: (250 mg Hosp shailesh Z-Dona) 250 00 total) by l MG tablet mouth daily. Take 2 tablets the first day, then 1 tablet daily for 4 days. azithromyci 0 Yes 250mg QD Take 1 Met [facility] n 1-[address] (Zithromax 00:00: (250 mg [facility]osp shailesh [facility]-Don[facility]) 250 00 total) by l MG tablet mouth daily. Take 2 tablets the first day, then 1 tablet daily for 4 days. azithromyci 0 Yes 250mg QD Take 1 [facility] n 1-[address] (Zithromax 00:00: (250 mg [facility]osp [facility]) 250 00 total) by l MG tablet mouth daily. Take 2 tablets the first day, then 1 tablet daily for 4 days. Immunizations Ordered Filled Immunization Date Status Comments [facility] e Immunization Name Name Influenza Virus 2022-07-05 Completed Universit y of Vaccine [facility] .5 mL 00:00:00 [facility] Influenza Virus 2022-07-05 Completed Universit y of Vaccine Quad .5 mL 00:00:00 [facility] 6+ [facility] Influenza Virus 2022-07-05 Completed Universit y of Vaccine Quad .5 mL 00:00:00 [facility] 6+ [facility] Influenza Virus 2022-07-05 Completed Universit y of Vaccine Quad .5 mL 00:00:00 [facility] 6+ [facility] Influenza Virus 2022-07-05 Completed Universit y of Vaccine Quad .5 mL 00:00:00 [facility] IM 6+ MO Branch Influenza Virus 2022-07-05 Completed Universit y of Vaccine Quad .5 mL 00:00:00 [facility] 6+ MO Branch Vital Signs Vital Name Observation Time Observation Value Comments Source Systolic blood 2022-07-05 18:08:00 130 mm[Hg] Univer [facility]ity [facility] Diastolic blood 2022-07-05 18:08:00 82 mm[Hg] Unive rsity of [facility] Heart rate 2022-07-05 18:08:00 111 /min [facility] Body temperature 2022-07-05 18:08:00 37.11 [place] [facility] Respiratory rate 2022-07-05 18:08:00 17 /min [facility] Body height 2022-07-05 18:08:00 147.3 cm [facility] Body weight 2022-07-05 18:08:00 88.225 kg [facility] BMI 2022-07-05 18:08:00 40.65 kg/m2 [facility] Systolic blood 2021-10-20 15:24:00 119 mm[Hg] Univer [facility]ity [facility] Diastolic blood 2021-10-20 15:24:00 73 mm[Hg] Unive rsity of [facility] Heart rate 2021-10-20 15:24:00 88 /min [facility] Body temperature 2021-10-20 15:24:00 36.67 [place] [facility] Respiratory rate 2021-10-20 15:24:00 18 /min [facility] Body height 2021-10-20 15:24:00 147.3 cm [facility] Body weight 2021-10-20 15:24:00 63.504 kg [facility] BMI 2021-10-20 15:24:00 29.26 kg/m2 [facility] Oxygen saturation in 2021-10-20 15:24:00 97 /min University of Arterial blood by [facility] Pulse oximetry Branch Systolic blood 2021-08-17 02:00:00 119 mm[Hg] Univer sity of [facility] Diastolic blood 2021-08-17 02:00:00 70 mm[Hg] Unive rsity of [facility] Heart rate 2021-08-17 02:00:00 83 /min [facility] Respiratory rate 2021-08-17 02:00:00 19 /min [facility] Oxygen saturation in 2021-08-17 02:00:00 100 /min University of Arterial blood by [facility] Pulse oximetry Branch Body temperature 2021-08-16 20:33:00 37.5 [place] [facility] Body height 2021-08-16 20:33:00 147.3 cm [facility] Body weight 2021-08-16 20:33:00 77.111 kg [facility] BMI 2021-08-16 20:33:00 35.53 kg/m2 [facility] Systolic blood 2021-07-21 16:28:00 126 mm[Hg] Univer sity of [facility] Diastolic blood 2021-07-21 16:28:00 79 mm[Hg] Unive rsity of [facility] Heart rate 2021-07-21 16:28:00 89 /min [facility] Body temperature 2021-07-21 16:28:00 37.28 [place] [facility] Respiratory rate 2021-07-21 16:28:00 18 /min [facility] Body weight 2021-07-21 16:28:00 77.111 kg [facility] BMI 2021-07-21 16:28:00 35.53 kg/m2 Universi [facility] Oxygen saturation in 2021-07-21 16:28:00 99 /min University of Arterial blood by [facility] Pulse oximetry Branch Systolic blood 2021-03-16 18:57:00 135 mm[Hg] Univer sity of pressure [facility] Diastolic blood 2021-03-16 18:57:00 74 mm[Hg] Unive rsity of pressure [facility] Heart rate 2021-03-16 18:57:00 110 /min Universi [facility] Body temperature 2021-03-16 18:57:00 37.06 [place] [facility] Respiratory rate 2021-03-16 18:57:00 18 /min [facility] Body height 2021-03-16 18:57:00 147.3 cm Universi [facility] Body weight 2021-03-16 18:57:00 68.04 kg Universi ty [facility] Medical Branch BMI 2021-03-16 18:57:00 31.35 kg/m2 Universi [facility] Oxygen saturation in 2021-03-16 18:57:00 100 /min University of Arterial blood by [facility] Pulse oximetry Branch Diastolic (mm Hg) 2020-07-22 21:06:00 Mem orial Se Respitory Rate 2020-07-22 21:06:00 Memori al [place] Systolic (mm Hg) 2020-07-22 21:06:00 Gilmar rial [place] Respitory Rate 2020-07-22 20:33:00 Memori al Se Respitory Rate 2020-07-22 19:50:00 Memori al Se Systolic (mm Hg) 2020-07-22 19:50:00 [place] rial Se Diastolic (mm Hg) 2020-07-22 19:50:00 Mem orial [place] Systolic (mm Hg) 2020-07-22 19:04:00 [place] rial Se Diastolic (mm Hg) 2020-07-22 19:04:00 Mem orial [place] Temperature Oral (F) 2020-07-22 17:25:00 [facility]3 [facility] 2020-07-22 13:21:00 144.78 cm [facility] BMI Calculated 2020-07-22 13:21:00 Ciera Gabriel Weight 2020-07-22 13:21:00 [facility] Heart Rate 2020-07-22 13:21:00 [facility] Procedures Procedure Date / Time Performing Clinician Source Performed "RWSP ILEANA ONLY" FLU 2022-07-05 19:10:23 [facility] MONTHS, IM, QUAD (FLUZONE/FLULAVAL/FLUAR IX) CBC WITH DIFF 2022-07-05 19:00:00 Jenna Hurst [facility] GLYCOSYLATED HEMOGLOBIN 2022-07-05 19:00:00 Jenna Hurst [facility] (A1C) [facility] RUBELLA SCREEN IGG 2022-07-05 19:00:00 Jenna Hurst [facility] HCV ANTIBODY 2022-07-05 19:00:00 Jenna Hurst [facility] GC & CHLAMYDIA 2022-07-05 19:00:00 Jenna Hurst [facility] AMPLIFIED ASSAY [facility] HIV 1/2 AG-AB WITH 2022-07-05 19:00:00 [facility] REFLEX [facility] PAP SMEAR-LIQUID 2022-07-05 19:00:00 Jenna Hurst [facility] BASED-[facility] SYPHILIS IGG/IGM 2022-07-05 19:00:00 Jenna Hurst [facility] ASSIGNMENT OF BENEFITS 2022-07-05 17:43:00 Doctor Unassigned, No [facility] Name [facility] POCT TEST 2021-10-20 15:47:00 Billie Jasmine [facility] COVID-19 (ID NOW RAPID 2021-10-20 15:42:00 [facility] CONSENT/REFUSAL FOR 2021-10-20 15:20:23 Doctor Unassigned, No [facility] [place] [facility] Name Medical Branch CT ABDOMEN PELVIS W 2021-08-16 23:04:02 Tyler Cancino [facility] CONTRAST Medical Branch COMP. METABOLIC PANEL 2021-08-16 22:37:00 Tyler Cancino [facility] ([id number]) Medical Branch CBC WITH DIFF 2021-08-16 22:37:00 Tyler Cancino [facility] URINALYSIS 2021-08-16 22:37:00 Tyler Cancino [facility] LIPASE 2021-08-16 22:37:00 Tyler Cancino [facility] MAGNESIUM 2021-08-16 22:37:00 Tyler Cancino [facility] POCT TEST 2021-08-16 22:35:00 Tyler Cancino [facility] NOTICE OF PRIVACY 2021-08-16 20:19:38 Doctor Unassigned, No [facility] PRACTICES [facility] Medical Branch CONSENT/REFUSAL FOR 2021-08-16 20:18:58 Doctor Unassigned, No [facility] RAPID STREP SCREEN FOR 2021-07-21 16:29:00 Kayla Patel [facility] GROUP A Medical Branch RAPID INFLUENZA A/B 2021-07-21 16:29:00 Kayla Patel [facility] CONSENT/REFUSAL FOR 2021-07-21 16:23:54 Doctor Unassigned, No [facility] [place] [facility] Name Medical Branch ASSIGNMENT OF BENEFITS 2021-03-16 20:14:13 Doctor Unassigned, No [facility] XR CHEST 1 VW 2021-03-16 19:49:32 Kayla Patel [facility] RAPID INFLUENZA A/B 2021-03-16 19:01:00 Kayla Patel [facility] COVID-19 (ID NOW RAPID 2021-03-16 19:01:00 Kayla Patel [facility] TESTING) Medical Branch NOTICE OF PRIVACY 2021-03-16 18:54:56 Doctor Unassigned, No Univ ersity [facility] PRACTICES Name Medical Branch CONSENT/REFUSAL FOR 2021-03-16 18:54:22 Doctor Unassigned, No [facility] Name [facility] Plan of Care Planned Activity Planned Date Details Comments Source Future Scheduled 2022-07-16 COVID-[address] [facility] Test 02:23:48 (#1) [code = COVID-19 VACCINE (#1)] Future Scheduled 2022-07-16 [facility] 02:23:48 screening (procedure) [code = 717188407] Future Scheduled 2022-07-16 [facility] Test 02:23:48 malignant neoplasm of cervix (procedure) [code = 751133481] Future Scheduled 2022-07-16 [facility]INE [facility] 02:23:48 [code = INFLUENZA VACCINE] Future Scheduled 2022-04-09 COVID-[address] [facility] Test 06:05:15 (#1) [code = COVID-19 VACCINE (#1)] Future Scheduled 2022-04-09 [facility] 06:05:15 screening (procedure) [code = 474252883] Future Scheduled 2022-04-09 [facility] Test 06:05:15 malignant neoplasm of cervix (procedure) [code = 613526621] Future Scheduled 2022-04-09 [facility] 06:05:15 [code = INFLUENZA VACCINE] Future Scheduled 2022-04-01 COVID-[address] [facility] Test 16:02:42 (#1) [code = COVID-19 VACCINE (#1)] Future Scheduled 2022-04-01 [facility] 16:02:42 screening (procedure) [code = 741201041] Future Scheduled 2022-04-01 [facility] 16:02:42 [code = INFLUENZA VACCINE] Future Scheduled 2021-12-16 COVID-[address] [facility] Test 14:45:51 (#1) [code = COVID-19 VACCINE (#1)] Future Scheduled 2021-12-16 [facility] 14:45:51 screening (procedure) [code = 189197348] Future Scheduled 2021-12-16 [facility] Test 14:45:51 malignant neoplasm of cervix (procedure) [code = 599684742] Future Scheduled 2021-12-16 [facility]INE [facility] 14:45:51 [code = INFLUENZA VACCINE] Future Scheduled 2021-12-16 [facility]IS B [facility] 14:45:51 VACCINES (1 of 3 - 3-dose series) [code = HEPATITIS B VACCINES (1 of 3 - 3-dose series)] Encounters Start End Encounter Admission Attending Care Care Encounter Source Date/Time Date/Time Type Type Clinicians Facility Department ID 2022-07-11 2022-07-11 Telephone Natali INMAYLIN [id number] [id number] Univers 00:00:00 00:00:00 Jenna A BATCH WEIGHER [id number] i ty of REGIONAL 4.2.7.2.686 Chad as MATERNAL [id number] Med ical & CHILD [address] [place] [address] 2022-07-10 2022-07-10 Case Natali INMAYLIN [id number] [id number] Univers 00:00:00 00:00:00 Management Jenna A BATCH WEIGHER [id number] ity of REGIONAL 4.2.7.2.686 Chad as MATERNAL [id number] Med ical & CHILD [address] [place] [address] 2022-07-06 2022-07-06 Patient Kaylene [facility] [id number] Univers 00:00:00 00:00:00 Secure Vivian Roland BATCH WEIGHER 350.1.13.10 ity of REGIONAL 4.2.7.2.686 Chad as MATERNAL [id number] Med ical & CHILD [address] [place] [address] 2022-07-06 2022-07-06 Patient Natali INMAYLIN 1.2.840.114 [id number] Univers 00:00:00 00:00:00 Secure Msg Jenna A BATCH WEIGHER 350.1.13.10 ity of REGIONAL 4.2.7.2.686 Chad as MATERNAL [id number] Med ical & CHILD [address] [place] [address] 2022-07-05 2022-07-05 Outpatient R NATALI [facility] [id number] Univers 13:00:00 14:03:36 JENNA ity of [facility] 2022-07-05 2022-07-05 Office Provider, SheronRmchdea Nevarez [facility] 1 .2.840.114 [id number] Univers 13:00:00 14:03:36 Visit DiliaJenna sosa Jarrett BATCH WEIGHER 350.1.13.1 0 ity of [facility] 4.2.7.2.686 Chad as MATERNAL [id number] Med ical & CHILD [address] [place] [address] 2022-07-05 2022-07-05 Orders Doctor JINNY 1.2.840.114 [id number] Univers 00:00:00 00:00:00 Only Unassigned, [place] 350.1.13.10 ity of [place] [facility] 4.2.7.2.686 Chad as [id number] [address] 2021-10-20 2021-10-20 Emergency X [facility] ERT [id number] Univers 10:26:00 11:30:00 BILLIE ity of [facility] 2021-10-20 2021-10-20 Emergency [facility] [id number] Univers 10:26:00 11:30:00 Billie DRUMMOND 350.1.13.10 i ty of [place] 4.2.7.2.686 [facility] [id number] [address] 2021-08-16 2021-08-16 Emergency X Tyler CANCINO [facility] ERT [id number] Univers 15:34:00 21:39:00 ity of [facility] 2021-08-16 2021-08-16 Emergency Tyler Cancino [facility] 1.2.840.114 [id number] Univers 15:34:00 21:39:00 Joyce DRUMMODN 350.1.13.10 i ty of [place] 4.2.7.2.686 [facility] [id number] [address] 2021-08-16 2021-08-16 Orders Doctor JINNY 1.2.840.114 [id number] Univers 00:00:00 00:00:00 Only Unassigned, [place] 350.1.13.10 ity of [facility] 4.2.7.2.686 Chad [id number] [address] 2021-07-21 2021-07-21 Emergency [email or web address] ERT [id number] Univers 11:28:00 12:36:00 JERRY blanca [facility] 2021-07-21 2021-07-21 [facility] [id number] Univers 11:28:00 12:36:00 Jerry DRUMMOND 350.1.13.10 i ty of [place] 4.2.7.2.686 [facility] [id number] [address] 2021-03-16 2021-03-16 [facility] [id number] Univers 12:57:00 14:46:00 Kayla DRUMMOND 350.1.13.10 i ty of [place] 4.2.7.2.686 [facility] [id number] [address] 2021-03-16 2021-03-16 Emergency [email or web address] ERT [id number] Univers 12:57:00 14:46:00 KAYLA blanca [facility] 2020-07-22 2020-07-22 [facility] [id number] Memoria 13:20:36 22:00:00 [facility] 00 [facility] 2020-07-22 2020-07-22 Emergency [facility] [id number] Memoria 13:20:36 22:00:[address] 2020-07-22 2020-07-22 Outpatient Frederic [employer] [id number] 08:20:36 17:00:00 Tammie Freitas 2020-07-22 2020-07-22 Emergency E [facility] [address] [facility] 08:20:00 17:00:00 TAMMIE 2020-04-18 2020-04-18 Emergency [facility] [id number] [place] 00:00:00 00:00:[address] 2019-07-05 2019-08-07 [facility]patient [facility] [id number] [facility] 12:36:00 08:15:59 41 [facility] Results Test Description Test Time Test Comments Results Result Comments Source RUBELLA SCREEN ([place]) IGG 2022-07-06 16:54:07 Test Item Value Reference Range Interpretation Comme nts Rubella screen IgG (test code = Equivocal Negative [id number]) JASPREET (test code = JASPREET) Positive - Indicates the patient was exposed to Rubella through infection or vaccination.Negative - Indicates the patient could be susceptible to Rubella infection.Equivocal - A second specimen should be sent. [facility] [id number] 16:54:07 Test Item Value Reference Range Interpretation Comments Rubella screen IgG Equivocal Negative (test code = 8424126608) JASPREET (test code = JASPREET) Positive - Indicates the patient was exposed to Rubella through infection or vaccination.Negative - Indicates the patient could be susceptible to Rubella infection.Equivocal - A second specimen should be sent. [facility] ONLY - SYPHILIS [id number] 15:52:17 Test Item Value Reference Range Interpretation Comments Syphilis IgG/IgM (test Non-reactive Non-reactive code = 08921-8) JASPREET (test code = JASPREET) Non-reactive - No serologic evidence of T. pallidum infection. Cannot exclude incubating or early syphilis. Submit a second specimen in 2-4 weeks if syphilis is clinically suspected. Equivocal - Further testing to follow. Reactive - Further testing to follow. Lab Interpretation (test Normal code = 68469-2) [facility] ONLY - SYPHILIS [id number] 15:52:17 Test Item Value Reference Range Interpretation Comments Syphilis IgG/IgM (test Non-reactive Non-reactive code = 70335-7) JASPREET (test code = JASPREET) Non-reactive - No serologic evidence of T. pallidum infection. Cannot exclude incubating or early syphilis. Submit a second specimen in 2-4 weeks if syphilis is clinically suspected. Equivocal - Further testing to follow. Reactive - Further testing to follow. Lab Interpretation (test Normal code = 92322-6) [facility] (A1C)2022-07-06 12:19:27 Test Item Value Reference Range Interpretation Comments HGB A1C (test code = 5.2 % 4.0-5.7 4548-4) JASPREET (test code = JASPREET) Reference RangesNormal: <5.7%Prediabetes: 5.7 - 6.4%Diabetes: > 6.5% Lab Interpretation (test Normal code = 71233-5) [facility]A1C)2022-07-06 12:19:27 Test Item Value Reference Range Interpretation Comments HGB A1C (test code = 5.2 % 4.0-5.7 4548-4) JASPREET (test code = JASPREET) Reference RangesNormal: <5.7%Prediabetes: 5.7 - 6.4%Diabetes: > 6.5% Lab Interpretation (test Normal code = 45680-2) [facility] AG-AB WITH [id number] 11:15:01 Test Item Value Reference Range Interpretation Comments HIV 0.10 Negative Semi-quantitative (test code = 61299-0) JASPREET (test code = Non-reactive for HIV-1 JASPREET) antigen and HIV-1/HIV-2 antibodies. ?No laboratory evidence of HIV infection. ?Repeat in 2-4 weeks if acute HIV infection is suspected. [facility] 1/2 AG-AB WITH [id number] 11:15:01 Test Item Value Reference Range Interpretation Comments HIV 0.10 Negative Semi-quantitative (test code = 69530-9) JASPREET (test code = Non-reactive for HIV-1 JASPREET) antigen and HIV-1/HIV-2 antibodies. ?No laboratory evidence of HIV infection. ?Repeat in 2-4 weeks if acute HIV infection is suspected. [facility] [id number] 05:42:09 Test Item Value Reference Range Interpretation Comments HCV Ab (test code = 14106-5) Negative HCV Semi-Quantitative (test code = 0.02 21257-2) [facility] [id number] 05:42:09 Test Item Value Reference Range Interpretation Comments HCV Ab (test code = 25594-9) Negative HCV Semi-Quantitative (test code = 0.02 02999-8) [facility] [id number] 04:39:19 Test Item Value Reference Range Interpretation Comments WBC (test code = 10.89 See_Comment [Automated 6690-2) message] The sy stem which generated this result transmitted reference range : 4.30 - 11.10 10*3/?L. The reference range was not used to interpret this result as normal/abnormal . RBC (test code = 4.71 See_Comment [Automated 789-8) message] The sy stem which generated this result transmitted reference range : 3.93 - 5.25 10*6/?L. The reference range was not used to interpret this result as normal/abnormal . HGB (test code = 14.2 g/dL 11.6-15.0 718-7) HCT (test code = 43.7 % 35.7-45.2 4544-3) MCV (test code = 92.8 fL 80.6-95.5 787-2) MCH (test code = 30.1 pg 25.9-32.8 785-6) MCHC (test code = 32.5 g/dL 31.6-35.1 786-4) RDW-SD (test code = 42.8 fL 39.0-49.9 04838-3) RDW-CV (test code = 12.4 % 12.0-15.5 788-0) PLT (test code = 328 See_Comment [Automated 777-3) message] The sy stem which generated this result transmitted reference range : 166 - 358 10*3/ ?L. The reference r marsha was not used to interpret this result as normal/abnormal . MPV (test code = 10.9 fL 9.5-12.9 32574-1) NRBC/100 WBC (test 0.0 See_Comment [Automat ed code = [id number]) message] The system which generated this result transmitted reference range : 0.0 - 10.0 /100 WBCs. The refer ence range was not u sed to interpret th is result as normal/abnormal . NRBC x10^3 (test code See_Comment [Auto mated = [id number]) message] The s ystem which generated this result transmitted reference range : 10*3/?L. The reference range was not used to interpret this result as normal/abnormal . GRAN MAT (NEUT) % 70.6 % (test code = 770-8) IMM GRAN % (test code 0.70 % = 2262498898) LYMPH % (test code = 20.3 % 736-9) MONO % (test code = 6.7 % 5905-5) EOS % (test code = 1.0 % 713-8) BASO % (test code = 0.7 % 706-2) GRAN MAT x10^3(ANC) 7.68 10*3/uL 1.88-7.09 H (test code = 8346450361) IMM GRAN x10^3 (test 0.08 10*3/uL 0.00-0.06 H code = 5449317234) LYMPH x10^3 (test code 2.21 10*3/uL 1.32-3.29 = 731-0) MONO x10^3 (test code 0.73 10*3/uL 0.33-0.92 = 742-7) EOS x10^3 (test code = 0.11 10*3/uL 0.03-0.39 711-2) BASO x10^3 (test code 0.08 10*3/uL 0.01-0.07 H = 704-7) Lab Interpretation Abnormal (test code = 09542-1) [facility] WITH [id number] 04:39:19 Test Item Value Reference Range Interpretation Comments WBC (test code = 10.89 See_Comment [Automated 8590-2) message] The sy stem which generated this result transmitted reference range : 4.30 - 11.10 10*3/?L. The reference range was not used to interpret this result as normal/abnormal . RBC (test code = 4.71 See_Comment [Automated 999-8) message] The sy stem which generated this result transmitted reference range : 3.93 - 5.25 10*6/?L. The reference range was not used to interpret this result as normal/abnormal . HGB (test code = 14.2 g/dL 11.6-15.0 718-7) HCT (test code = 43.7 % 35.7-45.2 4544-3) MCV (test code = 92.8 fL 80.6-95.5 787-2) MCH (test code = 30.1 pg 25.9-32.8 785-6) MCHC (test code = 32.5 g/dL 31.6-35.1 786-4) RDW-SD (test code = 42.8 fL 39.0-49.9 56637-0) RDW-CV (test code = 12.4 % 12.0-15.5 788-0) PLT (test code = 328 See_Comment [Automated 777-3) message] The sy stem which generated this result transmitted reference range : 166 - 358 10*3/ ?L. The reference r marsha was not used to interpret this result as normal/abnormal . MPV (test code = 10.9 fL 9.5-12.9 58430-6) NRBC/100 WBC (test 0.0 See_Comment [Automat ed code = 7386759771) message] The system which generated this result transmitted reference range : 0.0 - 10.0 /100 WBCs. The refer ence range was not u sed to interpret th is result as normal/abnormal . NRBC x10^3 (test code See_Comment [Auto mated = 3605467622) message] The s ystem which generated this result transmitted reference range : 10*3/?L. The reference range was not used to interpret this result as normal/abnormal . GRAN MAT (NEUT) % 70.6 % (test code = 770-8) IMM GRAN % (test code 0.70 % = 9513271489) LYMPH % (test code = 20.3 % 736-9) MONO % (test code = 6.7 % 5905-5) EOS % (test code = 1.0 % 713-8) BASO % (test code = 0.7 % 706-2) GRAN MAT x10^3(ANC) 7.68 10*3/uL 1.88-7.09 H (test code = 0891721605) IMM GRAN x10^3 (test 0.08 10*3/uL 0.00-0.06 H code = 5321320682) LYMPH x10^3 (test code 2.21 10*3/uL 1.32-3.29 = 731-0) MONO x10^3 (test code 0.73 10*3/uL 0.33-0.92 = 742-7) EOS x10^3 (test code = 0.11 10*3/uL 0.03-0.39 711-2) BASO x10^3 (test code 0.08 10*3/uL 0.01-0.07 H = 704-7) Lab Interpretation Abnormal (test code = 13520-5) [id number] 15:47:00 Test Item Value Reference Range Interpretation Comments POCT PREG (test code = 1605) Negative On board controls acceptable with Present C Line (test code = 3574) POCT PREG LOT # (test code = 3575) [id number] POCT PREG TEST DATE (test 02/12/2023 code = 3576) Lab Interpretation (test code = Normal 93671-0) [facility]. METABOLIC PANEL (08587)2021-08-16 23:06:24 Test Item Value Reference Range Interpretation Comments NA (test code = 138 mmol/L 135-145 1743279120) K (test code = 4.7 mmol/L 3.5-5.0 8289209743) CL (test code = 104 mmol/L 98-108 3442061591) CO2 TOTAL (test code = 25 mmol/L 23-31 2846256551) AGAP (test code = 2-16 2906957849) BUN (test code = 9 mg/dL 7-23 0860371608) GLUCOSE (test code = 87 mg/dL 70-110 9448283640) CREATININE (test code = 0.43 mg/dL 0.50-1.04 L 8491952954) TOTAL BILI (test code = 0.6 mg/dL 0.1-1.4 6400853955) CALCIUM (test code = 8.9 mg/dL 8.6-10.6 6064187400) T PROTEIN (test code = 8.0 g/dL 6.3-8.2 6013559394) ALBUMIN (test code = 4.6 g/dL 3.5-5.0 9324045103) ALK PHOS (test code = 137 U/L 34-122 H 6256132355) ALTv (test code = 17 U/L 5-35 1742-6) AST(SGOT) (test code = 29 U/L 13-40 0724063180) eGFR (test code = mL/min/1.73m2 7492824084) JASPREET (test code = JASPREET) Association of [...] tests). Lab Interpretation Abnormal (test code = 78164-6) [facility]:06:24 Test Item Value Reference Range Interpretation Comments MAGNESIUM (test code = 5724045302) 1.9 mg/dL 1.7-2.4 Lab Interpretation (test code = Normal 61778-5) [facility] 23:06:04 Test Item Value Reference Range Interpretation Comments LIPASE (test code = 0687490316) 119 U/L 0-220 Lab Interpretation (test code = Normal 45868-1) [facility] [id number] 22:52:03 Test Item Value Reference Range Interpretation Comments WBC (test code = See_Comment [Automated 7990-2) message] The sy stem which generated this [...] RDW-SD (test code = 41.5 fL 39.0-49.9 56283-4) RDW-CV (test code = 12.6 % 12.0-15.5 788-0) PLT (test code = See_Comment [Automated 777-3) message] The sy stem which generated this result transmitted reference range : 166 - 358 10*3/ ?L. The reference r marsha was not used to interpret this result as normal/abnormal . MPV (test code = 10.6 fL 9.5-12.9 12805-5) NRBC/100 WBC (test See_Comment [Automat ed code = 4307966486) message] The system which generated this result transmitted reference range : 0.0 - 10.0 /100 WBCs. The refer ence range was not u sed to interpret th is result as normal/abnormal . NRBC x10^3 (test code <0.01 See_Comment [Auto mated = 3816835234) message] The s ystem which generated this result transmitted reference range : 10*3/?L. The reference range was not used to interpret this result as normal/abnormal . GRAN MAT (NEUT) % 66.7 % (test code = 770-8) IMM GRAN % (test code 0.80 % = 1111822195) LYMPH % (test code = 23.4 % 736-9) MONO % (test code = 7.3 % 5905-5) EOS % (test code = 1.3 % 713-8) BASO % (test code = 0.5 % 706-2) GRAN MAT x10^3(ANC) 6.59 10*3/uL 1.88-7.09 (test code = 5506827243) IMM GRAN x10^3 (test 0.08 10*3/uL 0.00-0.06 H code = 8381097165) LYMPH x10^3 (test code 2.31 10*3/uL 1.32-3.29 = 731-0) MONO x10^3 (test code 0.72 10*3/uL 0.33-0.92 = 742-7) EOS x10^3 (test code = 0.13 10*3/uL 0.03-0.39 711-2) BASO x10^3 (test code 0.05 10*3/uL 0.01-0.07 = 704-7) Lab Interpretation Abnormal (test code = 07145-9) [facility] [id number] 22:35:00 Test Item Value Reference Range Interpretation Comments POCT PREG (test code = 1605) negative On board controls acceptable with present C Line (test code = 3574) POCT PREG LOT # (test code = 3575) [id number] POCT PREG TEST DATE (test code = 3576) Lab Interpretation (test code = Normal 94306-0) [facility] [id number] 16:22:00 Test Item Value Reference Range Interpretation Comments U Amph Scr (test code Negative *NA*(07/22/20 = U Amph Scr) 11:22 AM) [facility] [id number] 16:22:00 Test Item Value Reference Range Interpretation Comments U Hollie Scr (test code Negative *NA*(07/22/20 = U Hollie Scr) 11:22 AM) [facility] [id number] 16:22:00 Test Item Value Reference Range Interpretation Comments U Benzodiaz Scr (test Positive *ABN*(07/22/20 code = U Benzodiaz Scr) 11:22 AM) [facility] [id number] 16:22:00 Test Item Value Reference Range Interpretation Comments U Cannab Scr (test Positive *ABN*(07/22/20 code = U Cannab Scr) 11:22 AM) [facility] [id number] 16:22:00 Test Item Value Reference Range Interpretation Comments U Cocaine Scr (test Negative *NA*(07/22/20 code = U Cocaine Scr) 11:22 AM) [facility] [id number] 16:22:00 Test Item Value Reference Range Interpretation Comments U Opiate Scr (test Negative *NA*(07/22/20 code = U Opiate Scr) 11:22 AM) [facility] [id number] 16:22:00 Test Item Value Reference Range Interpretation Comments U Phencyclidine Scr (test Negative *NA*(07/22/20 code = U Phencyclidine 11:22 AM) Scr) [facility] [id number] 16:22:00 Test Item Value Reference Range Interpretation Comments UDS Note (test code = See Note (07/22/20 11:22 UDS Note) AM) [facility] [id number] 16:22:00 Test Item Value Reference Range Interpretation Comments UA Turbidity (test code = Clear (07/22/20 11:22 UA Turbidity) AM) [facility] [id number] 16:22:00 Test Item Value Reference Range Interpretation Comments UA Spec Grav (test code = UA Spec Grav) no gt [facility] [id number] 16:22:00 Test Item Value Reference Range Interpretation Comments UA pH (test code = UA pH) 8.0 1 5.0-8.0 [facility] [id number] 16:22:00 Test Item Value Reference Range Interpretation Comments UA Protein (test code = UA Negative mg/dL Protein) [facility] [id number] 16:22:00 Test Item Value Reference Range Interpretation Comments UA Glucose (test code = UA Negative mg/dL Glucose) [facility] [id number] 16:22:00 Test Item Value Reference Range Interpretation Comments UA Ketones (test code = UA Negative mg/dL Ketones) [facility] [id number] 16:22:00 Test Item Value Reference Range Interpretation Comments UA Bili (test code = Negative *NA*(07/22/20 UA Bili) 11:22 AM) [facility] [id number] 16:22:00 Test Item Value Reference Range Interpretation Comments UA Blood (test code = Negative (07/22/20 11:22 UA Blood) AM) [facility] [id number] 16:22:00 Test Item Value Reference Range Interpretation Comments UA Urobilinogen (test code = UA no gt 0.1-1.0 Urobilinogen) [facility] [id number] 16:22:00 Test Item Value Reference Range Interpretation Comments UA Nitrite (test code Negative (07/22/20 11:22 = UA Nitrite) AM) [facility] [id number] 16:22:00 Test Item Value Reference Range Interpretation Comments UA Leuk Est (test Negative (07/22/20 11:22 code = UA Leuk Est) AM) [facility] [id number] 16:22:00 Test Item Value Reference Range Interpretation Comments UA Sq Epi (test code = UA Sq Occasional /LPF Epi) [facility] [id number] 16:22:00 Test Item Value Reference Range Interpretation Comments UA WBC (test code = no gt See_Comment [Automa lalit message] The UA WBC) system which ge nerated this result transmit lalit reference range : <=5. The reference range was not used to interpr et this result as reid l/abnormal. [facility] [id number] 16:22:00 Test Item Value Reference Range Interpretation Comments UA RBC (test code = no gt See_Comment [Automa lalit message] The UA RBC) system which ge nerated this result transmit lalit reference range : <=2. The reference range was not used to interpr et this result as reid l/abnormal. [facility] [id number] 16:22:00 Test Item Value Reference Range Interpretation Comments UA Mucus (test code = UA Mucus) Few /LPF [facility] [id number] 16:22:00 Test Item Value Reference Range Interpretation Comments UA Color (test code = UA Color) STRAW [facility] [id number] 16:22:00 Test Item Value Reference Range Interpretation Comments U Amph Scr (test code Negative *NA*(07/22/20 = U Amph Scr) 11:22 AM) [facility] [id number] 16:22:00 Test Item Value Reference Range Interpretation Comments U Hollie Scr (test code Negative *NA*(07/22/20 = U Hollie Scr) 11:22 AM) [facility] [id number] 16:22:00 Test Item Value Reference Range Interpretation Comments U Benzodiaz Scr (test Positive *ABN*(07/22/20 code = U Benzodiaz Scr) 11:22 AM) [facility] [id number] 16:22:00 Test Item Value Reference Range Interpretation Comments U Cannab Scr (test Positive *ABN*(07/22/20 code = U Cannab Scr) 11:22 AM) [facility] [id number] 16:22:00 Test Item Value Reference Range Interpretation Comments U Cocaine Scr (test Negative *NA*(07/22/20 code = U Cocaine Scr) 11:22 AM) [facility] [id number] 16:22:00 Test Item Value Reference Range Interpretation Comments U Opiate Scr (test Negative *NA*(07/22/20 code = U Opiate Scr) 11:22 AM) [facility] [id number] 16:22:00 Test Item Value Reference Range Interpretation Comments U Phencyclidine Scr (test Negative *NA*(07/22/20 code = U Phencyclidine 11:22 AM) Scr) [facility] [id number] 16:22:00 Test Item Value Reference Range Interpretation Comments UDS Note (test code = See Note (07/22/20 11:22 UDS Note) AM) [facility] [id number] 16:22:00 Test Item Value Reference Range Interpretation Comments UA Turbidity (test code = Clear (07/22/20 11:22 UA Turbidity) AM) [facility] [id number] 16:22:00 Test Item Value Reference Range Interpretation Comments UA Spec Grav (test code = UA Spec Grav) no gt [facility] [id number] 16:22:00 Test Item Value Reference Range Interpretation Comments UA pH (test code = UA pH) 8.0 1 5.0-8.0 [facility] AND [id number] 16:22:00 Test Item Value Reference Range Interpretation Comments UA Protein (test code = UA Negative mg/dL Protein) [facility] AND [id number] 16:22:00 Test Item Value Reference Range Interpretation Comments UA Glucose (test code = UA Negative mg/dL Glucose) [facility] AND [id number] 16:22:00 Test Item Value Reference Range Interpretation Comments UA Ketones (test code = UA Negative mg/dL Ketones) [facility] AND [id number] 16:22:00 Test Item Value Reference Range Interpretation Comments UA Bili (test code = Negative *NA*(07/22/20 UA Bili) 11:22 AM) [facility] AND [id number] 16:22:00 Test Item Value Reference Range Interpretation Comments UA Blood (test code = Negative (07/22/20 11:22 UA Blood) AM) [facility] AND [id number] 16:22:00 Test Item Value Reference Range Interpretation Comments UA Urobilinogen (test code = UA no gt 0.1-1.0 Urobilinogen) [facility] AND [id number] 16:22:00 Test Item Value Reference Range Interpretation Comments UA Nitrite (test code Negative (07/22/20 11:22 = UA Nitrite) AM) [facility] AND [id number] 16:22:00 Test Item Value Reference Range Interpretation Comments UA Leuk Est (test Negative (07/22/20 11:22 code = UA Leuk Est) AM) [facility] AND [id number] 16:22:00 Test Item Value Reference Range Interpretation Comments UA Sq Epi (test code = UA Sq Occasional /LPF Epi) [facility] AND [id number] 16:22:00 Test Item Value Reference Range Interpretation Comments UA WBC (test code = no gt See_Comment [Automa lalit message] The UA WBC) system which ge nerated this result transmit lalit reference range : <=5. The reference range was not used to interpr et this result as erid l/abnormal. [facility] AND [id number] 16:22:00 Test Item Value Reference Range Interpretation Comments UA RBC (test code = no gt See_Comment [Automa lalit message] The UA RBC) system which ge nerated this result transmit lalit reference range : <=2. The reference range was not used to interpr et this result as reid l/abnormal. [facility] [id number] 16:22:00 Test Item Value Reference Range Interpretation Comments UA Mucus (test code = UA Mucus) Few /LPF [facility] [id number] 16:22:00 Test Item Value Reference Range Interpretation Comments UA Color (test code = UA Color) STRAW [facility] [id number] 16:22:00 Test Item Value Reference Range Interpretation Comments U Amph Scr (test code Negative *NA*(07/22/20 = U Amph Scr) 11:22 AM) [facility] [id number] 16:22:00 Test Item Value Reference Range Interpretation Comments U Hollie Scr (test code Negative *NA*(07/22/20 = U Hollie Scr) 11:22 AM) [facility] [id number] 16:22:00 Test Item Value Reference Range Interpretation Comments U Benzodiaz Scr (test Positive *ABN*(07/22/20 code = U Benzodiaz Scr) 11:22 AM) [facility] [id number] 16:22:00 Test Item Value Reference Range Interpretation Comments U Cannab Scr (test Positive *ABN*(07/22/20 code = U Cannab Scr) 11:22 AM) [facility] [id number] 16:22:00 Test Item Value Reference Range Interpretation Comments U Amph Scr (test code Negative *NA*(07/22/20 = U Amph Scr) 11:22 AM) [facility] [id number] 16:22:00 Test Item Value Reference Range Interpretation Comments U Hollie Scr (test code Negative *NA*(07/22/20 = U Hollie Scr) 11:22 AM) [facility] [id number] 16:22:00 Test Item Value Reference Range Interpretation Comments U Benzodiaz Scr (test Positive *ABN*(07/22/20 code = U Benzodiaz Scr) 11:22 AM) [facility] [id number] 16:22:00 Test Item Value Reference Range Interpretation Comments U Cannab Scr (test Positive *ABN*(07/22/20 code = U Cannab Scr) 11:22 AM) [facility] [id number] 16:22:00 Test Item Value Reference Range Interpretation Comments U Cocaine Scr (test Negative *NA*(07/22/20 code = U Cocaine Scr) 11:22 AM) [facility] [id number] 16:22:00 Test Item Value Reference Range Interpretation Comments U Opiate Scr (test Negative *NA*(07/22/20 code = U Opiate Scr) 11:22 AM) [facility] [id number] 16:22:00 Test Item Value Reference Range Interpretation Comments U Phencyclidine Scr (test Negative *NA*(07/22/20 code = U Phencyclidine 11:22 AM) Scr) [facility] [id number] 16:22:00 Test Item Value Reference Range Interpretation Comments UDS Note (test code = See Note (07/22/20 11:22 UDS Note) AM) [facility] [id number] 16:22:00 Test Item Value Reference Range Interpretation Comments U Cocaine Scr (test Negative *NA*(07/22/20 code = U Cocaine Scr) 11:22 AM) [facility] [id number] 16:22:00 Test Item Value Reference Range Interpretation Comments UA Turbidity (test code = Clear (07/22/20 11:22 UA Turbidity) AM) [facility] [id number] 16:22:00 Test Item Value Reference Range Interpretation Comments UA Spec Grav (test code = UA Spec Grav) no gt [facility] [id number] 16:22:00 Test Item Value Reference Range Interpretation Comments UA pH (test code = UA pH) 8.0 1 5.0-8.0 [facility] [id number] 16:22:00 Test Item Value Reference Range Interpretation Comments UA Protein (test code = UA Negative mg/dL Protein) [facility] [id number] 16:22:00 Test Item Value Reference Range Interpretation Comments UA Glucose (test code = UA Negative mg/dL Glucose) [facility] [id number] 16:22:00 Test Item Value Reference Range Interpretation Comments UA Ketones (test code = UA Negative mg/dL Ketones) [facility] [id number] 16:22:00 Test Item Value Reference Range Interpretation Comments UA Bili (test code = Negative *NA*(07/22/20 UA Bili) 11:22 AM) [facility] [id number] 16:22:00 Test Item Value Reference Range Interpretation Comments UA Blood (test code = Negative (07/22/20 11:22 UA Blood) AM) [facility] [id number] 16:22:00 Test Item Value Reference Range Interpretation Comments UA Urobilinogen (test code = UA no gt 0.1-1.0 Urobilinogen) [facility] [id number] 16:22:00 Test Item Value Reference Range Interpretation Comments UA Nitrite (test code Negative (07/22/20 11:22 = UA Nitrite) AM) [facility] [id number] 16:22:00 Test Item Value Reference Range Interpretation Comments U Opiate Scr (test Negative *NA*(07/22/20 code = U Opiate Scr) 11:22 AM) [facility] [id number] 16:22:00 Test Item Value Reference Range Interpretation Comments UA Leuk Est (test Negative (07/22/20 11:22 code = UA Leuk Est) AM) [facility] [id number] 16:22:00 Test Item Value Reference Range Interpretation Comments UA Sq Epi (test code = UA Sq Occasional /LPF Epi) [facility] [id number] 16:22:00 Test Item Value Reference Range Interpretation Comments UA WBC (test code = no gt See_Comment [Automa lalit message] The UA WBC) system which ge nerated this result transmit lalit reference range : <=5. The reference range was not used to interpr et this result as reid l/abnormal. [facility] [id number] 16:22:00 Test Item Value Reference Range Interpretation Comments UA RBC (test code = no gt See_Comment [Automa lalit message] The UA RBC) system which ge nerated this result transmit lalit reference range : <=2. The reference range was not used to interpr et this result as reid l/abnormal. [facility] [id number] 16:22:00 Test Item Value Reference Range Interpretation Comments UA Mucus (test code = UA Mucus) Few /LPF [facility] [id number] 16:22:00 Test Item Value Reference Range Interpretation Comments UA Color (test code = UA Color) STRAW [facility] [id number] 16:22:00 Test Item Value Reference Range Interpretation Comments U Phencyclidine Scr (test Negative *NA*(07/22/20 code = U Phencyclidine 11:22 AM) Scr) [facility] [id number] 16:22:00 Test Item Value Reference Range Interpretation Comments UDS Note (test code = See Note (07/22/20 11:22 UDS Note) AM) [facility] [id number] 16:22:00 Test Item Value Reference Range Interpretation Comments UA Turbidity (test code = Clear (07/22/20 11:22 UA Turbidity) AM) [facility] [id number] 16:22:00 Test Item Value Reference Range Interpretation Comments UA Spec Grav (test code = UA Spec Grav) no gt [facility] [id number] 16:22:00 Test Item Value Reference Range Interpretation Comments UA pH (test code = UA pH) 8.0 1 5.0-8.0 [facility] [id number] 16:22:00 Test Item Value Reference Range Interpretation Comments UA Protein (test code = UA Negative mg/dL Protein) [facility] [id number] 16:22:00 Test Item Value Reference Range Interpretation Comments UA Glucose (test code = UA Negative mg/dL Glucose) [facility] [id number] 16:22:00 Test Item Value Reference Range Interpretation Comments UA Ketones (test code = UA Negative mg/dL Ketones) [facility] [id number] 16:22:00 Test Item Value Reference Range Interpretation Comments UA Bili (test code = Negative *NA*(07/22/20 UA Bili) 11:22 AM) [facility] [id number] 16:22:00 Test Item Value Reference Range Interpretation Comments UA Blood (test code = Negative (07/22/20 11:22 UA Blood) AM) [facility] [id number] 16:22:00 Test Item Value Reference Range Interpretation Comments UA Urobilinogen (test code = UA no gt 0.1-1.0 Urobilinogen) [facility] [id number] 16:22:00 Test Item Value Reference Range Interpretation Comments UA Nitrite (test code Negative (07/22/20 11:22 = UA Nitrite) AM) [facility] [id number] 16:22:00 Test Item Value Reference Range Interpretation Comments UA Leuk Est (test Negative (07/22/20 11:22 code = UA Leuk Est) AM) [facility] [id number] 16:22:00 Test Item Value Reference Range Interpretation Comments UA Sq Epi (test code = UA Sq Occasional /LPF Epi) [facility] [id number] 16:22:00 Test Item Value Reference Range Interpretation Comments UA WBC (test code = no gt See_Comment [Automa lalit message] The UA WBC) system which ge nerated this result transmit lalit reference range : <=5. The reference range was not used to interpr et this result as reid l/abnormal. [facility] [id number] 16:22:00 Test Item Value Reference Range Interpretation Comments UA RBC (test code = no gt See_Comment [Automa lalit message] The UA RBC) system which ge nerated this result transmit lalit reference range : <=2. The reference range was not used to interpr et this result as reid l/abnormal. [facility] [id number] 16:22:00 Test Item Value Reference Range Interpretation Comments UA Mucus (test code = UA Mucus) Few /LPF [facility] [id number] 16:22:00 Test Item Value Reference Range Interpretation Comments UA Color (test code = UA Color) STRAW [facility] [id number] 16:22:00 Test Item Value Reference Range Interpretation Comments U Amph Scr (test code Negative *NA*(07/22/20 = U Amph Scr) 11:22 AM) [facility] [id number] 16:22:00 Test Item Value Reference Range Interpretation Comments U Hollie Scr (test code Negative *NA*(07/22/20 = U Hollie Scr) 11:22 AM) [facility] [id number] 16:22:00 Test Item Value Reference Range Interpretation Comments U Benzodiaz Scr (test Positive *ABN*(07/22/20 code = U Benzodiaz Scr) 11:22 AM) [facility] [id number] 16:22:00 Test Item Value Reference Range Interpretation Comments U Cannab Scr (test Positive *ABN*(07/22/20 code = U Cannab Scr) 11:22 AM) [facility] [id number] 16:22:00 Test Item Value Reference Range Interpretation Comments U Cocaine Scr (test Negative *NA*(07/22/20 code = U Cocaine Scr) 11:22 AM) [facility] [id number] 16:22:00 Test Item Value Reference Range Interpretation Comments U Opiate Scr (test Negative *NA*(07/22/20 code = U Opiate Scr) 11:22 AM) [facility] [id number] 16:22:00 Test Item Value Reference Range Interpretation Comments U Phencyclidine Scr (test Negative *NA*(07/22/20 code = U Phencyclidine 11:22 AM) Scr) [facility] [id number] 16:22:00 Test Item Value Reference Range Interpretation Comments UDS Note (test code = See Note (07/22/20 11:22 UDS Note) AM) [facility] [id number] 16:22:00 Test Item Value Reference Range Interpretation Comments UA Turbidity (test code = Clear (07/22/20 11:22 UA Turbidity) AM) [facility] [id number] 16:22:00 Test Item Value Reference Range Interpretation Comments UA Spec Grav (test code = UA Spec Grav) no gt [facility] [id number] 16:22:00 Test Item Value Reference Range Interpretation Comments UA pH (test code = UA pH) 8.0 1 5.0-8.0 [facility] [id number] 16:22:00 Test Item Value Reference Range Interpretation Comments UA Protein (test code = UA Negative mg/dL Protein) [facility] [id number] 16:22:00 Test Item Value Reference Range Interpretation Comments UA Glucose (test code = UA Negative mg/dL Glucose) [facility] AND [id number] 16:22:00 Test Item Value Reference Range Interpretation Comments UA Ketones (test code = UA Negative mg/dL Ketones) [facility] AND [id number] 16:22:00 Test Item Value Reference Range Interpretation Comments UA Bili (test code = Negative *NA*(07/22/20 UA Bili) 11:22 AM) [facility] AND [id number] 16:22:00 Test Item Value Reference Range Interpretation Comments UA Blood (test code = Negative (07/22/20 11:22 UA Blood) AM) [facility] AND [id number] 16:22:00 Test Item Value Reference Range Interpretation Comments UA Urobilinogen (test code = UA no gt 0.1-1.0 Urobilinogen) [facility] AND [id number] 16:22:00 Test Item Value Reference Range Interpretation Comments UA Nitrite (test code Negative (07/22/20 11:22 = UA Nitrite) AM) [facility] AND [id number] 16:22:00 Test Item Value Reference Range Interpretation Comments UA Leuk Est (test Negative (07/22/20 11:22 code = UA Leuk Est) AM) [facility] AND [id number] 16:22:00 Test Item Value Reference Range Interpretation Comments UA Sq Epi (test code = UA Sq Occasional /LPF Epi) [facility] AND [id number] 16:22:00 Test Item Value Reference Range Interpretation Comments UA WBC (test code = no gt See_Comment [Automa lalit message] The UA WBC) system which ge nerated this result transmit lalit reference range : <=5. The reference range was not used to interpr et this result as reid l/abnormal. [facility] AND [id number] 16:22:00 Test Item Value Reference Range Interpretation Comments UA RBC (test code = no gt See_Comment [Automa lalit message] The UA RBC) system which ge nerated this result transmit lalit reference range : <=2. The reference range was not used to interpr et this result as reid l/abnormal. [facility] AND [id number] 16:22:00 Test Item Value Reference Range Interpretation Comments UA Mucus (test code = UA Mucus) Few /LPF [facility] [id number] 16:22:00 Test Item Value Reference Range Interpretation Comments UA Color (test code = UA Color) STRAW [facility] [id number] 13:54:00 Test Item Value Reference Range Interpretation Comments ABO/Rh (test code = ABO/Rh) O POS [facility] [id number] 13:54:00 Test Item Value Reference Range Interpretation Comments Antibody Scrn (test Negative (07/22/20 8:54 code = Antibody Scrn) AM) [id number] 13:54:00 Test Item Value Reference Range Interpretation Comments Hep C Ab (test code = Hep C Ab) NON-REACTIVE [facility] [id number] 13:54:00 Test Item Value Reference Range Interpretation Comments Hep Signal to Cut-Off (test code = Hep 0.01 1 Signal to Cut-Off) [facility] [id number] 13:54:00 Test Item Value Reference Range Interpretation Comments [facility] HIV 4th GEN (test Negative *NA*(07/22/20 code = CDC HIV 4th 8:54 AM) GEN) [facility] [id number] 13:54:00 Test Item Value Reference Range Interpretation Comments ABO/Rh (test code = ABO/Rh) O POS [facility] [id number] 13:54:00 Test Item Value Reference Range Interpretation Comments Antibody Scrn (test Negative (07/22/20 8:54 code = Antibody Scrn) AM) [facility] [id number] 13:54:00 Test Item Value Reference Range Interpretation Comments Hep C Ab (test code = Hep C Ab) NON-REACTIVE [facility] [id number] 13:54:00 Test Item Value Reference Range Interpretation Comments Hep Signal to Cut-Off (test code = Hep 0.01 1 Signal to Cut-Off) [facility] Dent[id number] 13:54:00 Test Item Value Reference Range Interpretation Comments [facility] HIV 4th GEN (test Negative *NA*(07/22/20 code = CDC HIV 4th 8:54 AM) GEN) [facility] [id number] 13:54:00 Test Item Value Reference Range Interpretation Comments ABO/Rh (test code = ABO/Rh) [facility] [id number] 13:54:00 Test Item Value Reference Range Interpretation Comments Antibody Scrn (test Negative (07/22/20 8:54 code = Antibody Scrn) AM) [id number] 13:54:00 Test Item Value Reference Range Interpretation Comments Hep C Ab (test code = Hep C Ab) NON-REACTIVE [facility]inneyUkynahrFMHDIGHLFC0590-84-33 13:54:00 Test Item Value Reference Range Interpretation Comments Hep Signal to Cut-Off (test code = Hep 0.01 1 Signal to Cut-Off) [facility]DtdgxprLAWVAXMKMM1146-81-94 13:54:00 Test Item Value Reference Range Interpretation Comments [facility] HIV 4th GEN (test Negative *NA*(07/22/20 code = CDC HIV 4th 8:54 AM) GEN) [facility] [id number] 13:54:00 Test Item Value Reference Range Interpretation Comments ABO/Rh (test code = ABO/Rh) O POS [facility] [id number] 13:54:00 Test Item Value Reference Range Interpretation Comments Antibody Scrn (test Negative (07/22/20 8:54 code = Antibody Scrn) AM) [facility]neyCgvkrpvSQMQYEPSGH8429-15-36 13:54:00 Test Item Value Reference Range Interpretation Comments Hep C Ab (test code = Hep C Ab) NON-REACTIVE [facility]neyWmlqjbpOIPIRDNIAR1613-07-88 13:54:00 Test Item Value Reference Range Interpretation Comments Hep Signal to Cut-Off (test code = Hep 0.01 1 Signal to Cut-Off) [facility]neyFyhjrasWNPKNQTNMY0487-81-09 13:54:00 Test Item Value Reference Range Interpretation Comments [facility] HIV 4th GEN (test Negative *NA*(07/22/20 code = CDC HIV 4th 8:54 AM) GEN) [facility] [id number] 13:54:00 Test Item Value Reference Range Interpretation Comments ABO/Rh (test code = ABO/Rh) O POS [facility] [id number] 13:54:00 Test Item Value Reference Range Interpretation Comments Antibody Scrn (test Negative (07/22/20 8:54 code = Antibody Scrn) AM) [facility] [id number] 13:54:00 Test Item Value Reference Range Interpretation Comments Hep C Ab (test code = Hep C Ab) NON-REACTIVE [place] 297871-04-09 13:54:00 Test Item Value Reference Range Interpretation Comments Hep Signal to Cut-Off (test code = Hep 0.01 1 Signal to Cut-Off) [place] 297871-04-09 13:54:00 Test Item Value Reference Range Interpretation Comments [facility] HIV 4th GEN (test Negative *NA*(07/22/20 code = CDC HIV 4th 8:54 AM) GEN) [facility]2021-04-09 13:46:52 Test Item Value Reference Range Interpretation Comments Glucose Lvl (test code = Glucose Lvl) 89 70-99 [facility]2021-04-09 13:46:52 Test Item Value Reference Range Interpretation Comments BUN (test code = BUN) 8 7-22 [facility]2021-04-09 13:46:52 Test Item Value Reference Range Interpretation Comments Creatinine Lvl (test code = Creatinine 0.42 0.50-1.40 Lvl) [facility]2021-04-09 13:46:52 Test Item Value Reference Range Interpretation Comments Sodium Lvl (test code = Sodium Lvl) 143 135-145 [facility]2021-04-09 13:46:52 Test Item Value Reference Range Interpretation Comments Potassium Lvl (test code = Potassium 3.6 3.5-5.1 Lvl) [facility]2021-04-09 13:46:52 Test Item Value Reference Range Interpretation Comments Chloride Lvl (test code = Chloride Lvl) 110 95-109 [facility]2021-04-09 13:46:52 Test Item Value Reference Range Interpretation Comments CO2 (test code = CO2) 27 24-32 [facility]2021-04-09 13:46:52 Test Item Value Reference Range Interpretation Comments Calcium Lvl (test code = Calcium Lvl) 8.5 8.5-10.5 [facility]2021-04-09 13:46:52 Test Item Value Reference Range Interpretation Comments AGAP (test code = AGAP) 9.6 10.0-20.0 [facility]2021-04-09 13:46:52 Test Item Value Reference Range Interpretation Comments eGFR (test code = eGFR) 140 [facility]2021-04-09 13:46:52 Test Item Value Reference Range Interpretation Comments Lactic Acid Lvl (test code = Lactic 1.6 0.5-2.2 Acid Lvl) [facility] Ce[id number] 13:46:52 Test Item Value Reference Range Interpretation Comments S Preg (test code = S Negative *NA*(07/22/20 Preg) 8:46 AM) [facility]InglmtkQZUCTKHDYD4039-31-42 13:46:52 Test Item Value Reference Range Interpretation Comments WBC X 10x3 (test code = WBC X 10x3) 11.3 3.7-10.4 [facility] CampusZwstbgcVWTCUITYKA6820-01-57 13:46:52 Test Item Value Reference Range Interpretation Comments RBC X 10x6 (test code = RBC X 10x6) 4.39 4.20-5.40 [facility] CampusWxcelcxSUZBAJMCLG2073-08-13 13:46:52 Test Item Value Reference Range Interpretation Comments Hgb (test code = Hgb) 13.0 12.0-16.0 [facility] CampusKmxucjzMIRMMCJBCC9532-54-73 13:46:52 Test Item Value Reference Range Interpretation Comments Hct (test code = Hct) 40.3 36.0-48.0 [facility] CampusAojktcsNEIHYEFQEY5130-50-10 13:46:52 Test Item Value Reference Range Interpretation Comments MCV (test code = MCV) 91.7 80.0-98.0 [facility] CampusAtdcwinDIDJEZIPPC8330-30-80 13:46:52 Test Item Value Reference Range Interpretation Comments MCH (test code = MCH) 29.7 pg 27.0-31.0 [facility] CampusOludcmkCRXWXMDQMW4849-83-19 13:46:52 Test Item Value Reference Range Interpretation Comments MCHC (test code = MCHC) 32.4 32.0-36.0 [facility] CampusDszzbcaYBMMOHXDUH3721-60-92 13:46:52 Test Item Value Reference Range Interpretation Comments RDW (test code = RDW) 13.7 11.5-14.5 [facility] CampusWwfdatcMLHOXDGITB7679-89-06 13:46:52 Test Item Value Reference Range Interpretation Comments Platelet (test code = Platelet) 245 133-450 [place] [address]-04-09 13:46:52 Test Item Value Reference Range Interpretation Comments MPV (test code = MPV) 8.3 7.4-10.4 [place] 349131-04-09 13:46:52 Test Item Value Reference Range Interpretation Comments ACT (TEG) Rapid (test code = ACT (TEG) 105 s 86-118 Rapid) [place] 349131-04-09 13:46:52 Test Item Value Reference Range Interpretation Comments Split Point Rapid (test code = Split 0.5 min Point Rapid) [facility] CampusJntvqotAQCMIJOXGW5747-52-00 13:46:52 Test Item Value Reference Range Interpretation Comments R-time Rapid (test code = R-time 0.6 min 0.4-0.7 Rapid) [place] 349131-04-09 13:46:52 Test Item Value Reference Range Interpretation Comments K-time Rapid (test code = K-time 1.0 min 0.6-2.3 Rapid) [place] 349131-04-09 13:46:52 Test Item Value Reference Range Interpretation Comments Angle Rapid (test code = Angle 77 degrees 64-80 Rapid) [facility] CampusHghujjrFIMOBITSZN1700-21-03 13:46:52 Test Item Value Reference Range Interpretation Comments Max Amplitude Rapid (test code = Max 71 mm 52-71 Amplitude Rapid) [place] 349131-04-09 13:46:52 Test Item Value Reference Range Interpretation Comments G-value Rapid (test code = G-value 12.5 5.0-11.6 Rapid) [facility] CampusNhsdrhqZCEYHFGXCJ3497-13-14 13:46:52 Test Item Value Reference Range Interpretation Comments Estimated % Lysis Rapid 0.0 See_Comment [Au tomated message] The (test code = Estimated syste m which generated % Lysis Rapid) this result t ransmitted reference range : <=7.5. The reference r marsha was not used to int erpret this result as normal/abnormal . [facility] CampusPdmmuwsTDSHQKICDV0137-28-62 13:46:52 Test Item Value Reference Range Interpretation Comments Segs (test code = Segs) 62.5 45.0-75.0 [place] 349131-04-09 13:46:52 Test Item Value Reference Range Interpretation Comments Lymphocytes (test code = Lymphocytes) 27.1 20.0-40.0 [place] 349131-04-09 13:46:52 Test Item Value Reference Range Interpretation Comments Monocytes (test code = Monocytes) 8.6 2.0-12.0 [place] 349131-04-09 13:46:52 Test Item Value Reference Range Interpretation Comments Eosinophils (test code = 1.1 See_Comment [A utomated message] The Eosinophils) system which ge nerated this result tra nsmitted reference range : <=4.0. The reference r marsha was not used to int erpret this result as normal/abnormal . [place] 349131-04-09 13:46:52 Test Item Value Reference Range Interpretation Comments Basophils (test code = 0.7 See_Comment [Aut omated message] The Basophils) system which ge nerated this result tra nsmitted reference range : <=1.0. The reference r marsha was not used to int erpret this result as normal/abnormal . [facility] CampusKayjayrXJOXDTXVWT7185-11-95 13:46:52 Test Item Value Reference Range Interpretation Comments Neutrophils # (test code = Neutrophils 7.0 1.5-8.1 #) [facility] CampusDsxnvfaQCKAKMHSNO0748-69-25 13:46:52 Test Item Value Reference Range Interpretation Comments Lymphocytes # (test code = Lymphocytes 3.1 1.0-5.5 #) [facility] CampusUtaziyfZGBPJNSBQR4640-62-22 13:46:52 Test Item Value Reference Range Interpretation Comments Monocytes # (test code 1.0 See_Comment [Aut omated message] The = Monocytes #) system which generated this result tra nsmitted reference range : <=0.8. The reference r marsha was not used to int erpret this result as normal/abnormal . [place] 349131-04-09 13:46:52 Test Item Value Reference Range Interpretation Comments Eosinophils # (test code 0.1 See_Comment [A utomated message] The = Eosinophils #) system whic h generated this result tra nsmitted reference range : <=0.5. The reference r marsha was not used to int erpret this result as normal/abnormal . [facility] CampusMegceilIRTAPDZYOO1281-23-98 13:46:52 Test Item Value Reference Range Interpretation Comments Basophils # (test code 0.1 See_Comment [Aut omated message] The = Basophils #) system which generated this result tra nsmitted reference range : <=0.2. The reference r marsha was not used to int erpret this result as normal/abnormal . [place] [address]-04-09 13:46:52 Test Item Value Reference Range Interpretation Comments Ethanol Lvl (test code = Ethanol Lvl) 125 [place] 251751-04-09 13:46:52 Test Item Value Reference Range Interpretation Comments Etoh (%) (test code = Etoh (%)) 0.125 [place] 665761-04-09 13:46:52 Test Item Value Reference Range Interpretation Comments Glucose Lvl (test code = Glucose Lvl) 89 70-99 [place] 665761-04-09 13:46:52 Test Item Value Reference Range Interpretation Comments BUN (test code = BUN) 8 7-22 [place] 665761-04-09 13:46:52 Test Item Value Reference Range Interpretation Comments Creatinine Lvl (test code = Creatinine 0.42 0.50-1.40 Lvl) [facility]2021-04-09 13:46:52 Test Item Value Reference Range Interpretation Comments Sodium Lvl (test code = Sodium Lvl) 143 135-145 [facility]2021-04-09 13:46:52 Test Item Value Reference Range Interpretation Comments Potassium Lvl (test code = Potassium 3.6 3.5-5.1 Lvl) [facility]2021-04-09 13:46:52 Test Item Value Reference Range Interpretation Comments Chloride Lvl (test code = Chloride Lvl) 110 95-109 [place] 665761-04-09 13:46:52 Test Item Value Reference Range Interpretation Comments CO2 (test code = CO2) 27 24-32 [place] 665761-04-09 13:46:52 Test Item Value Reference Range Interpretation Comments Calcium Lvl (test code = Calcium Lvl) 8.5 8.5-10.5 [place] 665761-04-09 13:46:52 Test Item Value Reference Range Interpretation Comments AGAP (test code = AGAP) 9.6 10.0-20.0 [place] 665761-04-09 13:46:52 Test Item Value Reference Range Interpretation Comments eGFR (test code = eGFR) 140 [facility] [id number] 13:46:52 Test Item Value Reference Range Interpretation Comments Lactic Acid Lvl (test code = Lactic 1.6 0.5-2.2 Acid Lvl) [facility]NA[facility]HPHSGEJY6051-63-47 13:46:52 Test Item Value Reference Range Interpretation Comments S Preg (test code = S Negative *NA*(07/22/20 Preg) 8:46 AM) [facility] CampusVuuajnlBNTWRIBSSJ0251-37-27 13:46:52 Test Item Value Reference Range Interpretation Comments WBC X 10x3 (test code = WBC X 10x3) 11.3 3.7-10.4 [facility] CampusPqwixmoKFYBBCRNLN7395-81-98 13:46:52 Test Item Value Reference Range Interpretation Comments RBC X 10x6 (test code = RBC X 10x6) 4.39 4.20-5.40 [facility] CampusBvcjnmjSBBCNWNXYW4835-54-02 13:46:52 Test Item Value Reference Range Interpretation Comments Hgb (test code = Hgb) 13.0 12.0-16.0 [facility] CampusBjdpmwgWTBADJFFSV2669-58-18 13:46:52 Test Item Value Reference Range Interpretation Comments Hct (test code = Hct) 40.3 36.0-48.0 [facility] CampusNsrdztjIFJTBSJRCN2942-67-02 13:46:52 Test Item Value Reference Range Interpretation Comments MCV (test code = MCV) 91.7 80.0-98.0 [facility] CampusJcwbhtzKXNTYVMQGO8098-85-57 13:46:52 Test Item Value Reference Range Interpretation Comments MCH (test code = MCH) 29.7 pg 27.0-31.0 [facility] CampusIhvclwsOUXEPSJGWO3339-31-52 13:46:52 Test Item Value Reference Range Interpretation Comments MCHC (test code = MCHC) 32.4 32.0-36.0 [facility] CampusRrlqdgeHCPXDZNWYM5373-16-63 13:46:52 Test Item Value Reference Range Interpretation Comments RDW (test code = RDW) 13.7 11.5-14.5 [facility] CampusQdvujsnOEDREFZEJB3353-85-94 13:46:52 Test Item Value Reference Range Interpretation Comments Platelet (test code = Platelet) 245 133-450 [facility] CampusFwuoavnLDKQVFJNAD7344-68-04 13:46:52 Test Item Value Reference Range Interpretation Comments MPV (test code = MPV) 8.3 7.4-10.4 [facility] CampusJzcpybgZYGMAGQHZZ7603-19-18 13:46:52 Test Item Value Reference Range Interpretation Comments ACT (TEG) Rapid (test code = ACT (TEG) 105 s 86-118 Rapid) [place] 349131-04-09 13:46:52 Test Item Value Reference Range Interpretation Comments Split Point Rapid (test code = Split 0.5 min Point Rapid) [place] 349131-04-09 13:46:52 Test Item Value Reference Range Interpretation Comments R-time Rapid (test code = R-time 0.6 min 0.4-0.7 Rapid) [place] 349131-04-09 13:46:52 Test Item Value Reference Range Interpretation Comments K-time Rapid (test code = K-time 1.0 min 0.6-2.3 Rapid) [place] 349131-04-09 13:46:52 Test Item Value Reference Range Interpretation Comments Angle Rapid (test code = Angle 77 degrees 64-80 Rapid) [facility] CampusTwqjyigBNTVWTMBTF8460-66-93 13:46:52 Test Item Value Reference Range Interpretation Comments Max Amplitude Rapid (test code = Max 71 mm 52-71 Amplitude Rapid) [facility] CampusTkfovziPABLNLPCXT8666-31-72 13:46:52 Test Item Value Reference Range Interpretation Comments G-value Rapid (test code = G-value 12.5 5.0-11.6 Rapid) [facility] CampusVfkwqddTPIZJFOGCX6400-22-90 13:46:52 Test Item Value Reference Range Interpretation Comments Estimated % Lysis Rapid 0.0 See_Comment [Au tomated message] The (test code = Estimated syste m which generated % Lysis Rapid) this result t ransmitted reference range : <=7.5. The reference r marsha was not used to int erpret this result as normal/abnormal . [place] 349131-04-09 13:46:52 Test Item Value Reference Range Interpretation Comments Segs (test code = Segs) 62.5 45.0-75.0 [place] 349131-04-09 13:46:52 Test Item Value Reference Range Interpretation Comments Lymphocytes (test code = Lymphocytes) 27.1 20.0-40.0 [place] 349131-04-09 13:46:52 Test Item Value Reference Range Interpretation Comments Monocytes (test code = Monocytes) 8.6 2.0-12.0 [place] 349131-04-09 13:46:52 Test Item Value Reference Range Interpretation Comments Eosinophils (test code = 1.1 See_Comment [A utomated message] The Eosinophils) system which ge nerated this result tra nsmitted reference range : <=4.0. The reference r marsha was not used to int erpret this result as normal/abnormal . [place] 349131-04-09 13:46:52 Test Item Value Reference Range Interpretation Comments Basophils (test code = 0.7 See_Comment [Aut omated message] The Basophils) system which ge nerated this result tra nsmitted reference range : <=1.0. The reference r marsha was not used to int erpret this result as normal/abnormal . [place] 349131-04-09 13:46:52 Test Item Value Reference Range Interpretation Comments Neutrophils # (test code = Neutrophils 7.0 1.5-8.1 #) [place] 349131-04-09 13:46:52 Test Item Value Reference Range Interpretation Comments Lymphocytes # (test code = Lymphocytes 3.1 1.0-5.5 #) [place] 349131-04-09 13:46:52 Test Item Value Reference Range Interpretation Comments Monocytes # (test code 1.0 See_Comment [Aut omated message] The = Monocytes #) system which generated this result tra nsmitted reference range : <=0.8. The reference r marsha was not used to int erpret this result as normal/abnormal . [place] 349131-04-09 13:46:52 Test Item Value Reference Range Interpretation Comments Eosinophils # (test code 0.1 See_Comment [A utomated message] The = Eosinophils #) system whic h generated this result tra nsmitted reference range : <=0.5. The reference r marsha was not used to int erpret this result as normal/abnormal . [place] 349131-04-09 13:46:52 Test Item Value Reference Range Interpretation Comments Basophils # (test code 0.1 See_Comment [Aut omated message] The = Basophils #) system which generated this result tra nsmitted reference range : <=0.2. The reference r marsha was not used to int erpret this result as normal/abnormal . [place] [address]-04-09 13:46:52 Test Item Value Reference Range Interpretation Comments Ethanol Lvl (test code = Ethanol Lvl) 125 [place] 251751-04-09 13:46:52 Test Item Value Reference Range Interpretation Comments Etoh (%) (test code = Etoh (%)) 0.125 [place] 665761-04-09 13:46:52 Test Item Value Reference Range Interpretation Comments Glucose Lvl (test code = Glucose Lvl) 89 70-99 [place] 665761-04-09 13:46:52 Test Item Value Reference Range Interpretation Comments BUN (test code = BUN) 8 7-22 [place] 665761-04-09 13:46:52 Test Item Value Reference Range Interpretation Comments Creatinine Lvl (test code = Creatinine 0.42 0.50-1.40 Lvl) [facility]2021-04-09 13:46:52 Test Item Value Reference Range Interpretation Comments Sodium Lvl (test code = Sodium Lvl) 143 135-145 [place] 665761-04-09 13:46:52 Test Item Value Reference Range Interpretation Comments Potassium Lvl (test code = Potassium 3.6 3.5-5.1 Lvl) [facility]2021-04-09 13:46:52 Test Item Value Reference Range Interpretation Comments Chloride Lvl (test code = Chloride Lvl) 110 95-109 [place] 665761-04-09 13:46:52 Test Item Value Reference Range Interpretation Comments CO2 (test code = CO2) 27 24-32 [place] 665761-04-09 13:46:52 Test Item Value Reference Range Interpretation Comments Calcium Lvl (test code = Calcium Lvl) 8.5 8.5-10.5 [place] 665761-04-09 13:46:52 Test Item Value Reference Range Interpretation Comments AGAP (test code = AGAP) 9.6 10.0-20.0 [place] 665761-04-09 13:46:52 Test Item Value Reference Range Interpretation Comments eGFR (test code = eGFR) 140 [place] 665761-04-09 13:46:52 Test Item Value Reference Range Interpretation Comments Lactic Acid Lvl (test code = Lactic 1.6 0.5-2.2 Acid Lvl) [facility]UftsvvcXPFCPIRXJYYSN7415-70-88 13:46:52 Test Item Value Reference Range Interpretation Comments S Preg (test code = S Negative *NA*(07/22/20 Preg) 8:46 AM) [facility]BfftkdyYKMQZWRWQF3660-13-06 13:46:52 Test Item Value Reference Range Interpretation Comments WBC X 10x3 (test code = WBC X 10x3) 11.3 3.7-10.4 [facility] CampusXadjgojLJMPZIOKUU4119-62-01 13:46:52 Test Item Value Reference Range Interpretation Comments RBC X 10x6 (test code = RBC X 10x6) 4.39 4.20-5.40 [facility] CampusAfnusavWCDCMFQUII3393-38-42 13:46:52 Test Item Value Reference Range Interpretation Comments Hgb (test code = Hgb) 13.0 12.0-16.0 [facility] CampusKletpwsHRSQPQPHDE5255-29-75 13:46:52 Test Item Value Reference Range Interpretation Comments Hct (test code = Hct) 40.3 36.0-48.0 [facility] CampusUgylhasKSVMGMBIZN1450-67-05 13:46:52 Test Item Value Reference Range Interpretation Comments MCV (test code = MCV) 91.7 80.0-98.0 [facility] CampusEobrtevEYATTPOYGS5031-26-99 13:46:52 Test Item Value Reference Range Interpretation Comments MCH (test code = MCH) 29.7 pg 27.0-31.0 [facility] CampusVctrnekTZTXKPYOWA9928-05-48 13:46:52 Test Item Value Reference Range Interpretation Comments MCHC (test code = MCHC) 32.4 32.0-36.0 [facility] CampusJvdxwlqKJKDFOQDRE8414-69-79 13:46:52 Test Item Value Reference Range Interpretation Comments RDW (test code = RDW) 13.7 11.5-14.5 [facility] CampusMjfrcspMZHQRAMHHH5050-95-27 13:46:52 Test Item Value Reference Range Interpretation Comments Platelet (test code = Platelet) 245 133-450 [facility] CampusCzcgqdwHSDLEPOWTJ1878-55-92 13:46:52 Test Item Value Reference Range Interpretation Comments MPV (test code = MPV) 8.3 7.4-10.4 [facility] CampusXutakpaNTFTWXWNWR3325-68-77 13:46:52 Test Item Value Reference Range Interpretation Comments ACT (TEG) Rapid (test code = ACT (TEG) 105 s 86-118 Rapid) [place] 349131-04-09 13:46:52 Test Item Value Reference Range Interpretation Comments Split Point Rapid (test code = Split 0.5 min Point Rapid) [facility] CampusJumdhbhCPUBCWONAL7027-68-50 13:46:52 Test Item Value Reference Range Interpretation Comments R-time Rapid (test code = R-time 0.6 min 0.4-0.7 Rapid) [facility] CampusGeyoldyYRIUQHUSFD3347-29-69 13:46:52 Test Item Value Reference Range Interpretation Comments K-time Rapid (test code = K-time 1.0 min 0.6-2.3 Rapid) [place] [address]-04-09 13:46:52 Test Item Value Reference Range Interpretation Comments Angle Rapid (test code = Angle 77 degrees 64-80 Rapid) [place] 349131-04-09 13:46:52 Test Item Value Reference Range Interpretation Comments Max Amplitude Rapid (test code = Max 71 mm 52-71 Amplitude Rapid) [place] 349131-04-09 13:46:52 Test Item Value Reference Range Interpretation Comments G-value Rapid (test code = G-value 12.5 5.0-11.6 Rapid) [place] 349131-04-09 13:46:52 Test Item Value Reference Range Interpretation Comments Estimated % Lysis Rapid 0.0 See_Comment [Au tomated message] The (test code = Estimated syste m which generated % Lysis Rapid) this result t ransmitted reference range : <=7.5. The reference r marsha was not used to int erpret this result as normal/abnormal . [facility] CampusBkjwifdGIBCLIAXVY3408-72-18 13:46:52 Test Item Value Reference Range Interpretation Comments Segs (test code = Segs) 62.5 45.0-75.0 [place] 349131-04-09 13:46:52 Test Item Value Reference Range Interpretation Comments Lymphocytes (test code = Lymphocytes) 27.1 20.0-40.0 [place] 349131-04-09 13:46:52 Test Item Value Reference Range Interpretation Comments Monocytes (test code = Monocytes) 8.6 2.0-12.0 [facility] CampusVkgtimyPUYLCUOMNU0512-44-55 13:46:52 Test Item Value Reference Range Interpretation Comments Eosinophils (test code = 1.1 See_Comment [A utomated message] The Eosinophils) system which ge nerated this result tra nsmitted reference range : <=4.0. The reference r marsha was not used to int erpret this result as normal/abnormal . [facility] CampusRyitxolTXUYKZZVRR2629-53-08 13:46:52 Test Item Value Reference Range Interpretation Comments Basophils (test code = 0.7 See_Comment [Aut omated message] The Basophils) system which ge nerated this result tra nsmitted reference range : <=1.0. The reference r marsha was not used to int erpret this result as normal/abnormal . [facility] CampusXzznzvuKCPOXJJFZF3322-87-75 13:46:52 Test Item Value Reference Range Interpretation Comments Neutrophils # (test code = Neutrophils 7.0 1.5-8.1 #) [facility] CampusLknjijuINDLYXLAOM4778-71-33 13:46:52 Test Item Value Reference Range Interpretation Comments Lymphocytes # (test code = Lymphocytes 3.1 1.0-5.5 #) [facility] CampusHieoewbIMALRNDAEO1130-13-42 13:46:52 Test Item Value Reference Range Interpretation Comments Monocytes # (test code 1.0 See_Comment [Aut omated message] The = Monocytes #) system which generated this result tra nsmitted reference range : <=0.8. The reference r marsha was not used to int erpret this result as normal/abnormal . [facility] CampusYhlqqwjEPOEDWYKOE9492-23-08 13:46:52 Test Item Value Reference Range Interpretation Comments Eosinophils # (test code 0.1 See_Comment [A utomated message] The = Eosinophils #) system whic h generated this result tra nsmitted reference range : <=0.5. The reference r marsha was not used to int erpret this result as normal/abnormal . [facility] CampusHpbbxpxPBTCKUMRYO3333-94-38 13:46:52 Test Item Value Reference Range Interpretation Comments Basophils # (test code 0.1 See_Comment [Aut omated message] The = Basophils #) system which generated this result tra nsmitted reference range : <=0.2. The reference r marsha was not used to int erpret this result as normal/abnormal . [place] 251751-04-09 13:46:52 Test Item Value Reference Range Interpretation Comments Ethanol Lvl (test code = Ethanol Lvl) 125 [place] [address]-04-09 13:46:52 Test Item Value Reference Range Interpretation Comments Etoh (%) (test code = Etoh (%)) 0.125 [place] 665761-04-09 13:46:52 Test Item Value Reference Range Interpretation Comments Glucose Lvl (test code = Glucose Lvl) 89 70-99 [place] 665761-04-09 13:46:52 Test Item Value Reference Range Interpretation Comments BUN (test code = BUN) 8 7-22 [place] 665761-04-09 13:46:52 Test Item Value Reference Range Interpretation Comments Creatinine Lvl (test code = Creatinine 0.42 0.50-1.40 Lvl) [place] 665761-04-09 13:46:52 Test Item Value Reference Range Interpretation Comments Sodium Lvl (test code = Sodium Lvl) 143 135-145 [place] 665761-04-09 13:46:52 Test Item Value Reference Range Interpretation Comments Potassium Lvl (test code = Potassium 3.6 3.5-5.1 Lvl) [place] 665761-04-09 13:46:52 Test Item Value Reference Range Interpretation Comments Chloride Lvl (test code = Chloride Lvl) 110 95-109 [place] 665761-04-09 13:46:52 Test Item Value Reference Range Interpretation Comments CO2 (test code = CO2) 27 24-32 [place] 665761-04-09 13:46:52 Test Item Value Reference Range Interpretation Comments Calcium Lvl (test code = Calcium Lvl) 8.5 8.5-10.5 [place] 665761-04-09 13:46:52 Test Item Value Reference Range Interpretation Comments AGAP (test code = AGAP) 9.6 10.0-20.0 [place] 665761-04-09 13:46:52 Test Item Value Reference Range Interpretation Comments eGFR (test code = eGFR) 140 [place] 665761-04-09 13:46:52 Test Item Value Reference Range Interpretation Comments Lactic Acid Lvl (test code = Lactic 1.6 0.5-2.2 Acid Lvl) [facility] CenterXgjmesrRQBVTWBWVRQJN3771-39-12 13:46:52 Test Item Value Reference Range Interpretation Comments S Preg (test code = S Negative *NA*(07/22/20 Preg) 8:46 AM) [facility] CampusMkgxnheLFHBAKUGZL9275-81-10 13:46:52 Test Item Value Reference Range Interpretation Comments WBC X 10x3 (test code = WBC X 10x3) 11.3 3.7-10.4 [facility] CampusOirjbdfGOSMEIDXZL6771-15-41 13:46:52 Test Item Value Reference Range Interpretation Comments RBC X 10x6 (test code = RBC X 10x6) 4.39 4.20-5.40 [facility] CampusNijzyakHOBKTIGWMA2245-72-29 13:46:52 Test Item Value Reference Range Interpretation Comments Hgb (test code = Hgb) 13.0 12.0-16.0 [facility] CampusCrebqlnUORVMEPUKN9136-27-06 13:46:52 Test Item Value Reference Range Interpretation Comments Hct (test code = Hct) 40.3 36.0-48.0 [facility] CampusEsueetxKYPCRVJKRF9060-09-00 13:46:52 Test Item Value Reference Range Interpretation Comments MCV (test code = MCV) 91.7 80.0-98.0 [facility] CampusKwyzuleHAVBGWDFST5457-49-82 13:46:52 Test Item Value Reference Range Interpretation Comments MCH (test code = MCH) 29.7 pg 27.0-31.0 [facility] CampusDufwcrdAIGZUZPKWP8251-47-16 13:46:52 Test Item Value Reference Range Interpretation Comments MCHC (test code = MCHC) 32.4 32.0-36.0 [facility] CampusKwrxpttFELUMYIIEF3442-98-98 13:46:52 Test Item Value Reference Range Interpretation Comments RDW (test code = RDW) 13.7 11.5-14.5 [facility] CampusZjdqbkrVXXXSGRYTQ9854-50-65 13:46:52 Test Item Value Reference Range Interpretation Comments Platelet (test code = Platelet) 245 133-450 [facility] CampusWvktnreVCWFSAWQYV3849-99-41 13:46:52 Test Item Value Reference Range Interpretation Comments MPV (test code = MPV) 8.3 7.4-10.4 [facility] CampusDvkfunsPVDXFLSGGN6971-43-13 13:46:52 Test Item Value Reference Range Interpretation Comments ACT (TEG) Rapid (test code = ACT (TEG) 105 s 86-118 Rapid) [facility] CampusAxlkawdDWYQABGTTX9208-20-85 13:46:52 Test Item Value Reference Range Interpretation Comments Split Point Rapid (test code = Split 0.5 min Point Rapid) [place] 349131-04-09 13:46:52 Test Item Value Reference Range Interpretation Comments R-time Rapid (test code = R-time 0.6 min 0.4-0.7 Rapid) [place] 349131-04-09 13:46:52 Test Item Value Reference Range Interpretation Comments K-time Rapid (test code = K-time 1.0 min 0.6-2.3 Rapid) [place] 349131-04-09 13:46:52 Test Item Value Reference Range Interpretation Comments Angle Rapid (test code = Angle 77 degrees 64-80 Rapid) [place] 349131-04-09 13:46:52 Test Item Value Reference Range Interpretation Comments Max Amplitude Rapid (test code = Max 71 mm 52-71 Amplitude Rapid) [place] 349131-04-09 13:46:52 Test Item Value Reference Range Interpretation Comments G-value Rapid (test code = G-value 12.5 5.0-11.6 Rapid) [facility] CampusObtjeqrONFGVDVHGZ4450-96-38 13:46:52 Test Item Value Reference Range Interpretation Comments Estimated % Lysis Rapid 0.0 See_Comment [Au tomated message] The (test code = Estimated syste m which generated % Lysis Rapid) this result t ransmitted reference range : <=7.5. The reference r marsha was not used to int erpret this result as normal/abnormal . [facility] CampusMngdjffBTUENXWGYI0580-38-57 13:46:52 Test Item Value Reference Range Interpretation Comments Segs (test code = Segs) 62.5 45.0-75.0 [place] 349131-04-09 13:46:52 Test Item Value Reference Range Interpretation Comments Lymphocytes (test code = Lymphocytes) 27.1 20.0-40.0 [place] [address]-04-09 13:46:52 Test Item Value Reference Range Interpretation Comments Monocytes (test code = Monocytes) 8.6 2.0-12.0 [place] 349131-04-09 13:46:52 Test Item Value Reference Range Interpretation Comments Eosinophils (test code = 1.1 See_Comment [A utomated message] The Eosinophils) system which ge nerated this result tra nsmitted reference range : <=4.0. The reference r marsha was not used to int erpret this result as normal/abnormal . [facility] CampusTqkwhlfYEKTLXMIIT1187-95-21 13:46:52 Test Item Value Reference Range Interpretation Comments Basophils (test code = 0.7 See_Comment [Aut omated message] The Basophils) system which ge nerated this result tra nsmitted reference range : <=1.0. The reference r marsha was not used to int erpret this result as normal/abnormal . [facility] CampusPktguchATJHZMLESL9194-84-89 13:46:52 Test Item Value Reference Range Interpretation Comments Neutrophils # (test code = Neutrophils 7.0 1.5-8.1 #) [facility] CampusZwpaqagLDYYCNWKTB9389-45-87 13:46:52 Test Item Value Reference Range Interpretation Comments Lymphocytes # (test code = Lymphocytes 3.1 1.0-5.5 #) [facility] CampusYgsmjqdZBXAECXICW9745-61-37 13:46:52 Test Item Value Reference Range Interpretation Comments Monocytes # (test code 1.0 See_Comment [Aut omated message] The = Monocytes #) system which generated this result tra nsmitted reference range : <=0.8. The reference r marsha was not used to int erpret this result as normal/abnormal . [facility] CampusJszxjurZOLZUVVUEE7355-49-99 13:46:52 Test Item Value Reference Range Interpretation Comments Eosinophils # (test code 0.1 See_Comment [A utomated message] The = Eosinophils #) system whic h generated this result tra nsmitted reference range : <=0.5. The reference r marsha was not used to int erpret this result as normal/abnormal . [facility] CampusYbahkmrAGDSFBHWOH1039-73-40 13:46:52 Test Item Value Reference Range Interpretation Comments Basophils # (test code 0.1 See_Comment [Aut omated message] The = Basophils #) system which generated this result tra nsmitted reference range : <=0.2. The reference r marsha was not used to int erpret this result as normal/abnormal . [facility]YttldglVLBPUJTICX5478-01-38 13:46:52 Test Item Value Reference Range Interpretation Comments Ethanol Lvl (test code = Ethanol Lvl) 125 [facility]RwompqtTLQJKVCOEO7995-41-18 13:46:52 Test Item Value Reference Range Interpretation Comments Etoh (%) (test code = Etoh (%)) 0.125 [place] 665761-04-09 13:46:52 Test Item Value Reference Range Interpretation Comments Glucose Lvl (test code = Glucose Lvl) 89 70-99 [place] 665761-04-09 13:46:52 Test Item Value Reference Range Interpretation Comments BUN (test code = BUN) 8 7-22 [place] 665761-04-09 13:46:52 Test Item Value Reference Range Interpretation Comments Creatinine Lvl (test code = Creatinine 0.42 0.50-1.40 Lvl) [place] 665761-04-09 13:46:52 Test Item Value Reference Range Interpretation Comments Sodium Lvl (test code = Sodium Lvl) 143 135-145 [place] 665761-04-09 13:46:52 Test Item Value Reference Range Interpretation Comments Potassium Lvl (test code = Potassium 3.6 3.5-5.1 Lvl) [place] 665761-04-09 13:46:52 Test Item Value Reference Range Interpretation Comments Chloride Lvl (test code = Chloride Lvl) 110 95-109 [place] 665761-04-09 13:46:52 Test Item Value Reference Range Interpretation Comments CO2 (test code = CO2) 27 24-32 [place] 665761-04-09 13:46:52 Test Item Value Reference Range Interpretation Comments Calcium Lvl (test code = Calcium Lvl) 8.5 8.5-10.5 [place] 665761-04-09 13:46:52 Test Item Value Reference Range Interpretation Comments AGAP (test code = AGAP) 9.6 10.0-20.0 [place] 665761-04-09 13:46:52 Test Item Value Reference Range Interpretation Comments eGFR (test code = eGFR) 140 [place] 665761-04-09 13:46:52 Test Item Value Reference Range Interpretation Comments Lactic Acid Lvl (test code = Lactic 1.6 0.5-2.2 Acid Lvl) [facility]MLFRWMVTPGQNP0170[facility] 13:46:52 Test Item Value Reference Range Interpretation Comments S Preg (test code = S Negative *NA*(07/22/20 Preg) 8:46 AM) [facility] CampusSfyoygbFOLSEPXBFR5702-68-35 13:46:52 Test Item Value Reference Range Interpretation Comments WBC X 10x3 (test code = WBC X 10x3) 11.3 3.7-10.4 [facility] CampusWwivlpnRCZJQKFSDM4039-26-63 13:46:52 Test Item Value Reference Range Interpretation Comments RBC X 10x6 (test code = RBC X 10x6) 4.39 4.20-5.40 [facility] CampusGulpdysICHSNYKWCZ6241-24-49 13:46:52 Test Item Value Reference Range Interpretation Comments Hgb (test code = Hgb) 13.0 12.0-16.0 [facility] CampusXasktjkJHZBRSSAFE0285-87-96 13:46:52 Test Item Value Reference Range Interpretation Comments Hct (test code = Hct) 40.3 36.0-48.0 [facility] CampusPypsgctYPYQWYRCIV0963-91-95 13:46:52 Test Item Value Reference Range Interpretation Comments MCV (test code = MCV) 91.7 80.0-98.0 [facility] CampusVwfoscwCOGAAIXBFQ1730-03-62 13:46:52 Test Item Value Reference Range Interpretation Comments MCH (test code = MCH) 29.7 pg 27.0-31.0 [facility] CampusLqlvpabBKGMREFLAP1642-34-13 13:46:52 Test Item Value Reference Range Interpretation Comments MCHC (test code = MCHC) 32.4 32.0-36.0 [facility] CampusQfijonqKIJIGSNQJA4236-19-60 13:46:52 Test Item Value Reference Range Interpretation Comments RDW (test code = RDW) 13.7 11.5-14.5 [facility] CampusAxzeuseZEGEWPXJBH4205-09-25 13:46:52 Test Item Value Reference Range Interpretation Comments Platelet (test code = Platelet) 245 133-450 [facility] CampusEwrwzmyGQGTTFZEGY9904-47-70 13:46:52 Test Item Value Reference Range Interpretation Comments MPV (test code = MPV) 8.3 7.4-10.4 [facility] CampusJcnkejgAANWOQGXUS9455-62-84 13:46:52 Test Item Value Reference Range Interpretation Comments ACT (TEG) Rapid (test code = ACT (TEG) 105 s 86-118 Rapid) [place] [address]-04-09 13:46:52 Test Item Value Reference Range Interpretation Comments Split Point Rapid (test code = Split 0.5 min Point Rapid) [place] [address]-04-09 13:46:52 Test Item Value Reference Range Interpretation Comments R-time Rapid (test code = R-time 0.6 min 0.4-0.7 Rapid) [place] [address]-04-09 13:46:52 Test Item Value Reference Range Interpretation Comments K-time Rapid (test code = K-time 1.0 min 0.6-2.3 Rapid) [place] [address]-04-09 13:46:52 Test Item Value Reference Range Interpretation Comments Angle Rapid (test code = Angle 77 degrees 64-80 Rapid) [place] 349131-04-09 13:46:52 Test Item Value Reference Range Interpretation Comments Max Amplitude Rapid (test code = Max 71 mm 52-71 Amplitude Rapid) [place] [address]-04-09 13:46:52 Test Item Value Reference Range Interpretation Comments G-value Rapid (test code = G-value 12.5 5.0-11.6 Rapid) [place] 349131-04-09 13:46:52 Test Item Value Reference Range Interpretation Comments Estimated % Lysis Rapid 0.0 See_Comment [Au tomated message] The (test code = Estimated syste m which generated % Lysis Rapid) this result t ransmitted reference range : <=7.5. The reference r marsha was not used to int erpret this result as normal/abnormal . [place] 349131-04-09 13:46:52 Test Item Value Reference Range Interpretation Comments Segs (test code = Segs) 62.5 45.0-75.0 [place] [address]-04-09 13:46:52 Test Item Value Reference Range Interpretation Comments Lymphocytes (test code = Lymphocytes) 27.1 20.0-40.0 [place] [address]-04-09 13:46:52 Test Item Value Reference Range Interpretation Comments Monocytes (test code = Monocytes) 8.6 2.0-12.0 [place] [address]-04-09 13:46:52 Test Item Value Reference Range Interpretation Comments Eosinophils (test code = 1.1 See_Comment [A utomated message] The Eosinophils) system which ge nerated this result tra nsmitted reference range : <=4.0. The reference r marsha was not used to int erpret this result as normal/abnormal . [facility] CampusLfevkcpXPUTHPLWFS6755-89-44 13:46:52 Test Item Value Reference Range Interpretation Comments Basophils (test code = 0.7 See_Comment [Aut omated message] The Basophils) system which ge nerated this result tra nsmitted reference range : <=1.0. The reference r marsha was not used to int erpret this result as normal/abnormal . [facility] CampusNcvwmdrGJLJHXXXSU0258-39-07 13:46:52 Test Item Value Reference Range Interpretation Comments Neutrophils # (test code = Neutrophils 7.0 1.5-8.1 #) [facility] CampusHopjrtvMOHVIGQTQS4364-56-58 13:46:52 Test Item Value Reference Range Interpretation Comments Lymphocytes # (test code = Lymphocytes 3.1 1.0-5.5 #) [facility] CampusWtrziexIBRLFGULUY5182-77-74 13:46:52 Test Item Value Reference Range Interpretation Comments Monocytes # (test code 1.0 See_Comment [Aut omated message] The = Monocytes #) system which generated this result tra nsmitted reference range : <=0.8. The reference r marsha was not used to int erpret this result as normal/abnormal . [facility] CampusSuuthctSJTPVRLLUD0415-08-69 13:46:52 Test Item Value Reference Range Interpretation Comments Eosinophils # (test code 0.1 See_Comment [A utomated message] The = Eosinophils #) system whic h generated this result tra nsmitted reference range : <=0.5. The reference r marsha was not used to int erpret this result as normal/abnormal . [id number] 13:46:52 Test Item Value Reference Range Interpretation Comments Basophils # (test code 0.1 See_Comment [Aut omated message] The = Basophils #) system which generated this result tra nsmitted reference range : <=0.2. The reference r marsha was not used to int erpret this result as normal/abnormal . [place] [id number] 13:46:52 Test Item Value Reference Range Interpretation Comments Ethanol Lvl (test code = Ethanol Lvl) 125 [place] [id number] 13:46:52 Test Item Value Reference Range Interpretation Comments Etoh (%) (test code = Etoh (%)) 0.125 [facility] Coronavirus 2019 [id number] 11:29:00 Test Item Value Reference Range Interpretation Comments Novel Coronavirus 2019 nCoV (test Negative Negative code = COVID19) - XR CHEST 1 [id number] 14:00:00 Patient Name: ALYSSIA LEE Unit No: [id number] EXAMS: CPT CODE: [id number] XR CHEST 1 V [id number] Reason: cough - XR CHEST 1 V [...] Dt/ (1400)[id number] Orig Print D/T: S: 07/05/2019 (1406) [facility] NAME: ALYSSIA LEE [address] [facility] PHYS: MARY.Daria - Carlos French [facility] [place] [address] : 1995 AGE: 23 SEX: F LOC: [place] PHONE #: [phone] EXAM DATE: 07/05/2019 STATUS: REG ER FAX #: RAD NO: DC Dt: PAGE 1 Signed ReportHCG SERUM [id number] 20:31:00 Test Item Value Reference Range Interpretation [...] using aquantitative h CG assay. CBC W/AUTO [id number] 20:17:00 Test Item Value Reference Range Interpretation [...]
[2022-08-12] MEDS ORDERED: ONDANSETRON 4 MG (ODT) TAB ONE (19:30)
[2022-08-12] MEDS ORDERED: FAMOTIDINE 20 MG TAB ONE (19:30)
[2022-08-12] MEDS ORDERED: ACETAMINOPHEN 500 MG TAB ONE ×2 (19:30→19:33)
[2022-08-12 19:47] LABS: Urine Bacteria None Seen /HPF (<20); Urine Mucus Slight /HPF (None Seen); Urine RBC None Seen /HPF (None Seen); Urine WBC Clump Rare /HPF (None Seen)
[2022-08-12 20:10] LABS: Specific Gravity 1.016 (1.005-1.030)
--- NOTE | 2022-08-12 20:38 | ER ---
Nurse's Notes [facility] Name: Kanwal De La Vega Age: 27 yrs Sex: Female : 1995 Arrival Date: 08/12/2022 Time: 18:25 Bed 12 Private MD: Diagnosis: Nausea with vomiting, unspecified;Cough;Headache Presentation: 08/12 19:03 Chief complaint: Patient states: C/o body aches, hot flashes, H/A, N/V X2 days. aa5 Coronavirus screen: Vaccine status: Patient reports being unvaccinated. cough unrelated to allergies, diarrhea, fatigue, headache, muscle pain, nausea, vomiting. Ebola Screen: No symptoms or risks identified at this time. Initial Sepsis Screen: Does the patient meet any 2 criteria? No. Patient's initial sepsis screen is negative. Does the patient have a suspected source of infection? No. Patient's initial sepsis screen is negative. Risk Assessment: Do you want to hurt yourself or someone else? Patient reports no desire to harm self or others. Onset of symptoms was August 09, 2022. 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 - Social history:: Smoking status: Patient denies any tobacco usage or history of. Screenin:30 [facility] ED Fall Risk Assessment (Adult) History of falling in the last 3 months, kl including since admission No falls in past 3 months (0 pts) Confusion or Disorientation No (0 pts) Intoxicated or Sedated No (0 pts) Impaired Gait No (0 pts) Mobility Assist Device Used No (0 pt) Altered Elimination No (0 pt) Score/Fall Risk Level 0 - 2 = Low Risk Oriented to surroundings, Maintained a safe environment. Abuse screen: Denies threats or abuse. Nutritional screening: No deficits noted. Tuberculosis screening: No symptoms or risk factors identified. Assessment: 19:28 General: Appears uncomfortable, Behavior is calm, cooperative. Pain: Complains of pain kl in generalized aches sore throat Pain currently is 8 out of 10 on a pain scale. Quality of pain is described as aching. Neuro: No deficits noted. Cardiovascular: No deficits noted. Respiratory: No deficits noted. Airway is patent Trachea midline Respiratory effort is even, unlabored, Respiratory pattern is regular, symmetrical. GI: No deficits noted. No signs and/or symptoms were reported involving the gastrointestinal system. : No deficits noted. No signs and/or symptoms were reported regarding the genitourinary system. Vital Signs: 19:03 BP 119 / 64; Pulse 90; Resp 16; Temp 97.3(TE); Pulse Ox 100% on R/A; Weight 83.46 kg; aa5 Height 4 ft. 10 in. ; Pain 10/10; 19:03 Body Mass Index 38.46 (83.46 kg, 147.32 cm) aa5 19:03 Pain Scale: Adult aa5 ED Course: 18:29 Patient arrived in ED. mr 18:34 Ruben Payne PA is PHCP. cp 18:34 Facundo Moran MD is Attending Physician. cp 19:05 Triage completed. aa5 19:05 Arm band placed on. aa5 19:13 Marshal Pierce MD is Attending Physician. cp 19:31 No provider procedures requiring assistance completed. kl 20:46 Patient has correct armband on for positive identification. Bed in low position. Call ll3 light in reach. Side rails up X 1. 20:47 Patient did not have IV access during this emergency room visit. ll3 Administered Medications: 19:27 Drug: Ondansetron PO 4 mg Route: PO; kl 20:47 Follow up: Response: No adverse reaction; Marked relief of symptoms ll3 19:27 Drug: Famotidine PO 20 mg Route: PO; kl 20:47 Follow up: Response: No adverse reaction ll3 19:27 Drug: Acetaminophen PO 1000 mg Route: PO; kl 20:47 Follow up: Response: No adverse reaction ll3 Medication: 20:46 VIS not applicable for this client. ll3 Outcome: 20:37 Discharge ordered by . cp 20:47 Discharged to home ambulatory. ll3 20:47 Condition: stable 20:47 Discharge instructions given to patient, Instructed on discharge instructions, follow up and referral plans. medication usage, Demonstrated understanding of instructions, follow-up care, medications, Prescriptions given X 2. 20:47 Patient left the ED. ll3 Signatures: China Landon RN Lupe Hoffman Audri, RN RN aa5 Ruben Payne PA PA cp Loubet, Lynsea, RN RN ll3
--- NOTE | 2022-08-12 20:38 | EDPHYS ---
Physician Documentation [facility] Name: Kanwal De La Vega Age: 27 yrs Sex: Female : 1995 Arrival Date: 08/12/2022 Time: 18:25 Bed 12 Private MD: ED Physician Marshal Pierce HPI: 08/12 19:00 This 27 yrs old Female presents to ER via Ambulatory with complaints of Flu cp Symptoms. 19:00 The patient or guardian reports flu symptoms, headache, body aches, cough. cp 19:00 Onset: The symptoms/episode began/occurred 2 day(s) ago. Associated signs and symptoms: cp Pertinent positives: nausea, vomiting, Pertinent negatives: fever. Severity of symptoms: in the emergency department the symptoms are unchanged despite home interventions. 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 - Social history:: Smoking status: Patient denies any tobacco usage or history of. ROS: 19:05 Constitutional: Positive for body aches, chills, Negative for fever, poor PO intake. cp 19:05 Eyes: Negative for injury, pain, redness, and discharge. cp 19:05 ENT: Negative for drainage from ear(s), ear pain, difficulty swallowing, difficulty handling secretions. 19:05 Neck: Negative for pain with movement, pain at rest, stiffness. 19:05 Cardiovascular: Negative for chest pain. 19:05 Respiratory: Positive for cough, Negative for shortness of breath, wheezing. 19:05 Abdomen/GI: Positive for nausea, vomiting, Negative for diarrhea, constipation. 19:05 Neuro: Positive for headache, Negative for altered mental status, weakness. 19:05 All other systems are negative. Exam: 19:10 Constitutional: The patient appears in no acute distress, alert, awake, non-toxic, well cp developed, well nourished. 19:10 Head/Face: Normocephalic, atraumatic. cp 19:10 Eyes: Periorbital structures: appear normal, Conjunctiva: normal, no exudate, no injection, Sclera: no appreciated abnormality, Lids and lashes: appear normal, bilaterally. 19:10 ENT: External ear(s): are unremarkable, Ear canal(s): are normal, clear, TM's: bulging, is not appreciated, bilaterally, dullness, bilaterally, erythema, is not appreciated, bilaterally, Nose: is normal, Mouth: Lips: moist, Oral mucosa: pink and intact, moist, Posterior pharynx: is normal, airway is patent, no erythema, no exudate. 19:10 Neck: ROM/movement: is normal, is supple, without pain, no range of motions limitations, no meningismus, Lymph nodes: no appreciated lymphadenopathy. 19:10 Chest/axilla: Inspection: normal. 19:10 Cardiovascular: Rate: normal, Rhythm: regular. 19:10 Respiratory: the patient does not display signs of respiratory distress, Respirations: normal, no use of accessory muscles, no retractions, labored breathing, is not present, Breath sounds: are clear throughout, no decreased breath sounds, no stridor, no wheezing. 19:10 Abdomen/GI: Inspection: abdomen appears normal, Palpation: abdomen is soft and non-tender, in all quadrants. 19:10 Skin: no rash present. Vital Signs: 19:03 BP 119 / 64; Pulse 90; Resp 16; Temp 97.3(TE); Pulse Ox 100% on R/A; Weight 83.46 kg; aa5 Height 4 ft. 10 in. ; Pain 10/10; 19:03 Body Mass Index 38.46 (83.46 kg, 147.32 cm) aa5 19:03 Pain Scale: Adult aa5 MDM: 19:10 Patient medically screened. cp 20:35 Data reviewed: vital signs, nurses notes, lab test result(s). cp 20:35 Differential diagnosis: bronchitis, flu, URI. Antibiotic administration: Not indicated, cp the patient has a suspected viral illness. Counseling: I had a detailed discussion with the patient and/or guardian regarding: the historical points, exam findings, and any diagnostic results supporting the discharge/admit diagnosis, lab results, to return to the emergency department if symptoms worsen or persist or if there are any questions or concerns that arise at home. Response to treatment: the patient's symptoms have mildly improved after treatment, and as a result, I will discharge patient. 08/12 18:49 Order name: Strep; Complete Time: 20:16 08/12 20:16 Interpretation: Reviewed. 08/12 18:49 Order name: COVID-19 SARS RT PCR; Complete Time: 20:16 cp 08/12 20:16 Interpretation: Reviewed. 08/12 18:49 Order name: Influenza Screen (a \T\ B) 08/12 18:49 Order name: Urine Microscopic Only; Complete Time: 20:16 cp 08/12 20:17 Interpretation: Reviewed. 08/12 18:49 Order name: PREGU; Complete Time: 20:16 cp 08/12 20:17 Interpretation: Reviewed. 08/12 20:02 Order name: Throat Culture EDMS Administered Medications: 19:27 Drug: Ondansetron PO 4 mg Route: PO; kl 20:47 Follow up: Response: No adverse reaction; Marked relief of symptoms ll3 19:27 Drug: Famotidine PO 20 mg Route: PO; kl 20:47 Follow up: Response: No adverse reaction ll3 19:27 Drug: Acetaminophen PO 1000 mg Route: PO; kl 20:47 Follow up: Response: No adverse reaction ll3 Disposition Summary: 08/12/22 20:37 Discharge Ordered Location: Home cp Problem: new cp Symptoms: have improved cp Condition: Stable cp Diagnosis - Nausea with vomiting, unspecified cp - Cough cp - Headache cp Followup: cp - With: Private Physician - When: 2 - 3 days - Reason: Worsening of condition Discharge Instructions: - Discharge Summary Sheet cp - General Headache Without Cause cp - Nausea and Vomiting, Adult cp - Cough, Adult cp Forms: - Medication Reconciliation Form cp - Thank You Letter cp - Antibiotic Education cp - Prescription Opioid Use cp - Work release form ll3 Prescriptions: - Bromfed DM 2-30-10 mg/5 mL Oral syrup - administer 10 milliliter by ORAL route every 6 hours as needed for cold cp symptoms; 180 milliliter; Refills: 0, Product Selection Permitted - Zofran 4 mg Oral Tablet - take 1 tablet by ORAL route every 12 hours As needed; 20 tablet; Refills: 0, cp Product Selection Permitted Signatures: Dispatcher [employer] EDChina Ramey RN RN kl Calderon, Audri, RN RN aa5 Ruben Payne PA PA cp Loubet, Lynsea RN ll3 Corrections: (The following items were deleted from the chart) 08/13 16:19 08/12 19:00 Onset: The symptoms/episode began/occurred 3 day(s) ago, madhuri dhaliwal
[2022-08-12 21:11] VITALS: BP 119/64; TEMP 97.3; O2SAT 100
== END 2022-08-12 20:47 | disposition home or self-care (01) ==
LOC: ER 18:25
DX: R11.2 Nausea with vomiting, unspecified (principal); R05.9 Cough, unspecified; R51.9 Headache, unspecified; Z20.822 Contact with and (suspected) exposure to COVID-19
CPT/HCPCS: 81015; 81025; 87070; 87081; 87804; 99283; Q0162; U0003

== ENCOUNTER 2023-02-09 15:07 | Emergency (ER) | payer OTHER, SELFPAY ==
--- OUTSIDE RECORDS SUMMARY | 2023-02-09 15:16 | XMS REPORT | Continuity of Care Document ---
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 Spacer 07-22 MISC, l 20:50: ONCE, Use [place] 00 as directed, # 1 ea, 0 Refill(s) MDI Inhaler 0 Yes 1 ea, Memor ia Spacer 07-22 MISC, l 20:50: ONCE, Use [place] 00 as directed, # 1 ea, 0 Refill(s) MDI Inhaler 0 Yes 1 ea, Memor ia Spacer 07-22 MISC, l 20:50: ONCE, Use [place] 00 as directed, # 1 ea, 0 Refill(s) MDI Inhaler 2020-0 Yes 1 ea, Memor ia Spacer 07-22 MISC, l 20:50: ONCE, Use Se 00 as directed, # 1 ea, 0 Refill(s) MDI Inhaler 0 Yes 1 ea, Memor ia Spacer 07-22 MISC, l 20:50: ONCE, Use [place] 00 as directed, # 1 ea, 0 Refill(s) MDI Inhaler 0 Yes 1 ea, Memor ia Spacer 07-22 MISC, l 20:50: ONCE, Use [place] 00 as directed, # 1 ea, 0 [...] ia 4-09 Take with l 17:47: food. [place] Prednisone 2020-0 No Notes: Memor ia 4-09 Take with l 17:47: food. [place] Prednisone 2020-0 No Notes: Memor ia 4-09 Take with l 17:47: food. Se Zofran 2020-0 No 4 mg, Memoria 4-09 Route: l 17:46: IVP, Drug [place] 00 form: INJ, ONCE, Dosing Weight 63.636, kg, Priority: STAT, Start date: 07/22/20 12:46:00 CDT, Stop date: 07/22/20 12:46:00 CDT Zofran 2020-0 No 4 mg, Memoria 4-09 Route: l 17:46: IVP, Drug Se 00 form: INJ, ONCE, Dosing Weight 63.636, kg, Priority: STAT, Start date: 07/22/20 12:46:00 CDT, Stop date: 07/22/20 12:46:00 CDT Zofran 2020-0 No 4 mg, Memoria 4-09 Route: l 17:46: IVP, Drug Se 00 form: INJ, ONCE, Dosing Weight 63.636, kg, Priority: STAT, Start date: 07/22/20 12:46:00 CDT, Stop date: 07/22/20 12:46:00 CDT Zofran 1-0 No 4 mg, Memoria 4-09 Route: l 17:46: IVP, Drug [place] 00 form: INJ, ONCE, Dosing Weight 63.636, kg, Priority: STAT, Start date: 07/22/20 12:46:00 CDT, Stop date: 07/22/20 12:46:00 CDT Zofran 1-0 No 4 mg, Memoria 4-09 Route: l 17:46: IVP, Drug [place] 00 form: INJ, ONCE, Dosing Weight 63.636, kg, Priority: STAT, Start date: 07/22/20 12:46:00 CDT, Stop date: 07/22/20 12:46:00 CDT Zofran 1-0 No 4 mg, Memoria 4-09 Route: l 17:46: IVP, Drug Se 00 form: INJ, ONCE, Dosing Weight 63.636, kg, Priority: STAT, Start date: 07/22/20 12:46:00 CDT, Stop date: 07/22/20 12:46:00 CDT Zofran 1-0 No 4 mg, Memoria 4-09 Route: l 17:46: IVP, Drug [place] 00 form: INJ, ONCE, Dosing Weight 63.636, kg, Priority: STAT, Start date: 07/22/20 12:46:00 CDT, Stop date: 07/22/20 12:46:00 CDT Zofran 1-0 No 4 mg, Memoria 4-09 Route: l 17:46: IVP, Drug [place] 00 form: INJ, ONCE, Dosing Weight 63.636, kg, Priority: STAT, Start date: 07/22/20 12:46:00 CDT, Stop date: 07/22/20 12:46:00 CDT Zofran 1-0 No 4 mg, Memoria 4- Route: l 17:46: IVP, Drug [place] 00 form: INJ, ONCE, Dosing Weight 63.636, kg, Priority: STAT, Start date: 07/22/20 12:46:00 CDT, Stop date: 07/22/20 12:46:00 CDT Zofran 2020-0 No 4 mg, [facility]oria 4-09 Route: l 17:46: IVP, Drug [place] 00 form: INJ, ONCE, Dosing Weight 63.636, kg, Priority: STAT, Start date: 07/22/20 12:46:00 CDT, Stop date: 07/22/20 12:46:00 CDT Prednisone 1-0 Yes 50 mg = 1 Me moria 50 MG Oral 4-09 tab, PO, l Tablet 17:36: Daily, # 5 Destini nn 00 tab, 0 Refill(s) Prednisone 2020-0 Yes 50 mg = 1 Me moria 50 MG Oral 4-09 tab, PO, l Tablet 17:36: Daily, # 5 Destini nn 00 tab, 0 Refill(s) Prednisone 1-0 Yes 50 mg = 1 Me moria [...] 07-22 Route: l / 17:35: NEB, Drug [place] Ipratropium 00 Form: [place] SOLN, 0.167 MG/ML Dosing Inhalant Weight Solution 63.636, [DuoNeb] kg, ONCE, PRN Respirator y Pathway, Start date: 07/22/20 12:35:00 CDT Prednisone 2021-0 No 50 mg, Memor ia 07-22 Route: PO, l 17:35: Drug form: Se 00 TAB, ONCE, Dosing Weight 63.636, kg, Priority: STAT, Start date: 07/22/20 12:35:00 CDT, Stop date: 07/22/20 12:35:00 CDT Albuterol 2021-0 No 3 ml, Memoria 0.833 MG/ML 07-22 Route: l / 17:35: NEB, Drug [place] Ipratropium 00 Form: [place] SOLN, 0.167 MG/ML Dosing Inhalant Weight Solution 63.636, [DuoNeb] kg, ONCE, PRN Respirator y Pathway, Start date: 07/22/20 12:35:00 CDT Prednisone 2021-0 No 50 mg, Memor ia 07-22 Route: PO, l 17:35: Drug form: Se 00 TAB, ONCE, Dosing Weight 63.636, kg, Priority: STAT, Start date: 07/22/20 12:35:00 CDT, Stop date: 07/22/20 12:35:00 CDT Albuterol 2021-0 No 3 ml, [facility]oria 0.833 MG/ML 07-22 Route: l / 17:35: NEB, Drug Se Ipratropium 00 Form: [place] SOLN, 0.167 MG/ML Dosing Inhalant Weight Solution 63.636, [DuoNeb] kg, ONCE, PRN Respirator y Pathway, Start date: 07/22/20 12:35:00 CDT Prednisone 2021-0 No 50 mg, Memor ia 07-22 Route: PO, l 17:35: Drug form: Se 00 TAB, ONCE, Dosing Weight 63.636, kg, Priority: STAT, Start date: 07/22/20 12:35:00 CDT, Stop date: 07/22/20 12:35:00 CDT Albuterol 2021-0 No 3 ml, [facility]oria 0.833 MG/ML 07-22 Route: l / 17:35: NEB, Drug Se Ipratropium 00 Form: [place] SOLN, 0.167 MG/ML Dosing Inhalant Weight Solution 63.636, [DuoNeb] kg, ONCE, PRN Respirator y Pathway, Start date: 07/22/20 12:35:00 CDT Prednisone 2021-0 No 50 mg, Memor ia 07-22 Route: PO, l 17:35: Drug form: [place] 00 TAB, ONCE, Dosing Weight 63.636, kg, Priority: STAT, Start date: 07/22/20 12:35:00 CDT, Stop date: 07/22/20 12:35:00 CDT Albuterol 2021-0 No 3 ml, [facility]oria 0.833 MG/ML 07-22 Route: l / 17:35: NEB, Drug Se Ipratropium 00 Form: [place] SOLN, 0.167 MG/ML Dosing Inhalant Weight Solution 63.636, [DuoNeb] kg, ONCE, PRN Respirator y Pathway, Start date: 07/22/20 12:35:00 CDT Prednisone 2021-0 No 50 mg, Memor ia 07-22 Route: PO, l 17:35: Drug form: Se 00 TAB, ONCE, Dosing Weight 63.636, kg, Priority: STAT, Start date: 07/22/20 12:35:00 CDT, Stop date: 07/22/20 12:35:00 CDT Albuterol 2021-0 No 3 ml, [facility] 0.833 MG/ML 07-22 Route: l / 17:35: NEB, Drug Se Ipratropium 00 Form: [place] SOLN, 0.167 MG/ML Dosing Inhalant Weight Solution 63.636, [DuoNeb] kg, ONCE, PRN Respirator y Pathway, Start date: 07/22/20 12:35:00 CDT Prednisone 2021-0 No 50 mg, Memor ia 07-22 Route: PO, l 17:35: Drug form: [place] 00 TAB, ONCE, Dosing Weight 63.636, kg, Priority: STAT, Start date: 07/22/20 12:35:00 CDT, Stop date: 07/22/20 12:35:00 CDT Albuterol 2021-0 No 3 ml, Memoria 0.833 MG/ML 07-22 Route: l / 17:35: NEB, Drug Se Ipratropium 00 Form: [place] SOLN, 0.167 MG/ML Dosing Inhalant Weight Solution 63.636, [DuoNeb] kg, ONCE, PRN Respirator y Pathway, Start date: 07/22/20 12:35:00 CDT Prednisone 2021-0 No 50 mg, Memor ia 07-22 Route: PO, l 17:35: Drug form: [place] 00 TAB, ONCE, Dosing Weight 63.636, kg, Priority: STAT, Start date: 07/22/20 12:35:00 CDT, Stop date: 07/22/20 12:35:00 CDT Albuterol 2021-0 No 3 ml, [facility] 0.833 MG/ML 07-22 Route: l / 17:35: NEB, Drug [place] Ipratropium 00 Form: [place] SOLN, 0.167 MG/ML Dosing Inhalant Weight Solution 63.636, [DuoNeb] kg, ONCE, PRN Respirator y Pathway, Start date: 07/22/20 12:35:00 CDT Prednisone 2021-0 No 50 mg, Mem[facility] ia 07-22 Route: PO, l 17:35: Drug form: [place] 00 TAB, ONCE, Dosing Weight 63.636, kg, Priority: STAT, Start date: 07/22/20 12:35:00 CDT, Stop date: 07/22/20 12:35:00 CDT Albuterol 2021-0 No 3 ml, [facility]oria 0.833 MG/ML 07-22 Route: l / 17:35: NEB, Drug Se Ipratropium 00 Form: [place] SOLN, 0.167 MG/ML Dosing Inhalant Weight Solution 63.636, [DuoNeb] kg, ONCE, PRN Respirator y Pathway, Start date: 07/22/20 12:35:00 CDT Prednisone 2021-0 No 50 mg, Memor ia 07-22 Route: PO, l 17:35: Drug form: Se 00 TAB, ONCE, Dosing Weight 63.636, kg, Priority: STAT, Start date: 07/22/20 12:35:00 CDT, Stop date: 07/22/20 12:35:00 CDT Albuterol 2021-0 No 3 ml, [facility]oria 0.833 MG/ML 07-22 Route: l / 17:35: NEB, Drug Se Ipratropium 00 Form: [place] SOLN, 0.167 MG/ML Dosing Inhalant Weight Solution 63.636, [DuoNeb] kg, ONCE, PRN Respirator y Pathway, Start date: 07/22/20 12:35:00 CDT acetaminoph 2021-0 No 1 tab, [place] rusty en-codeine 4-09 Route: PO, l #3 16:06: Drug Form: Se 00 TAB, Dosing Weight 63.636, kg, ONCE, STAT, Start date: 07/22/20 11:06:00 CDT, Stop date: 07/22/20 11:06:00 CDT acetaminoph 2021-0 No 1 tab, [place] rusty en-codeine 4- Route: PO, l #3 16:06: Drug Form: [place] 00 TAB, Dosing Weight 63.636, kg, ONCE, STAT, Start date: 07/22/20 11:06:00 CDT, Stop date: 07/22/20 11:06:00 CDT acetaminoph 2021-0 No 1 tab, [place] rusty en-codeine 4- Route: PO, l #3 16:06: Drug Form: Se 00 TAB, Dosing Weight 63.636, kg, ONCE, STAT, Start date: 07/22/20 11:06:00 CDT, Stop date: 07/22/20 11:06:00 CDT acetaminoph 2021-0 No 1 tab, [place] rusty en-codeine 4-09 Route: PO, l #3 16:06: Drug Form: [place] 00 TAB, Dosing Weight 63.636, kg, ONCE, STAT, Start date: 07/22/20 11:06:00 CDT, Stop date: 07/22/20 11:06:00 CDT acetaminoph 2021-0 No 1 tab, [place] rusty en-codeine 4-09 Route: PO, l #3 16:06: Drug Form: Se 00 TAB, Dosing Weight 63.636, kg, ONCE, STAT, Start date: 07/22/20 11:06:00 CDT, Stop date: 07/22/20 11:06:00 CDT acetaminoph 2021-0 No 1 tab, [place] rusty en-codeine 4-09 Route: PO, l #3 16:06: Drug Form: Se 00 TAB, Dosing Weight 63.636, kg, ONCE, STAT, Start date: 07/22/20 11:06:00 CDT, Stop date: 07/22/20 11:06:00 CDT acetaminoph 2020-0 No 1 tab, [place] rusty en-codeine 4- Route: PO, l #3 16:06: Drug Form: [place] 00 TAB, Dosing Weight 63.636, kg, ONCE, STAT, Start date: 07/22/20 11:06:00 CDT, Stop date: 07/22/20 11:06:00 CDT acetaminoph 2020-0 No 1 tab, [place] rusty en-codeine - Route: PO, l #3 16:06: Drug Form: [place] 00 TAB, Dosing Weight 63.636, kg, ONCE, STAT, Start date: 07/22/20 11:06:00 CDT, Stop date: 07/22/20 11:06:00 CDT acetaminoph 2020-0 No 1 tab, [place] rusty en-codeine - Route: PO, l #3 16:06: Drug Form: [place] 00 TAB, Dosing Weight 63.636, kg, ONCE, STAT, Start date: 07/22/20 11:06:00 CDT, Stop date: 07/22/20 11:06:00 CDT acetaminoph 2020-0 No 1 tab, [place] rusty en-codeine - Route: PO, l #3 16:06: Drug Form: [place] 00 TAB, Dosing Weight 63.636, kg, ONCE, STAT, Start date: 07/22/20 11:06:00 CDT, Stop date: 07/22/20 11:06:00 CDT Albuterol No Notes: Memori a 0.833 MG/ML - (Same as: :: Duoneb) Se Ipratropium 00 [place] 0.167 MG/ML Inhalant Solution [DuoNeb] Albuterol No Notes: Memori a 0.833 MG/ML - (Same as: :: Duoneb) Se Ipratropium 00 [place] 0.167 MG/ML Inhalant Solution [DuoNeb] Albuterol No Notes: Memori a 0.833 MG/ML 07-22 (Same as: : Duoneb) Se Ipratropium 00 [place] 0.167 MG/ML Inhalant Solution [DuoNeb] Albuterol No Notes: Memori a 0.833 MG/ML 07-22 (Same as: : Duoneb) Se Ipratropium 00 [place] 0.167 MG/ML Inhalant Solution [DuoNeb] Albuterol No Notes: Memori a 0.833 MG/ML 07-22 (Same as: : Duoneb) [place] Ipratropium 00 [place] 0.167 MG/ML Inhalant Solution [DuoNeb] Albuterol No Notes: Memori a 0.833 MG/ML 07-22 (Same as: : Duoneb) Se Ipratropium 00 [place] 0.167 MG/ML Inhalant Solution [DuoNeb] Albuterol No Notes: Memori a 0.833 MG/ML 07-22 (Same as: : Duoneb) [place] Ipratropium 00 [place] 0.167 MG/ML Inhalant Solution [DuoNeb] Albuterol No Notes: Memori a 0.833 MG/ML 07-22 (Same as: : Duoneb) Se Ipratropium 00 [place] 0.167 MG/ML Inhalant Solution [DuoNeb] Albuterol No Notes: Memori a 0.833 MG/ML 07-22 (Same as: : Duoneb) [place] Ipratropium 00 [place] 0.167 MG/ML Inhalant Solution [DuoNeb] Albuterol No Notes: Memori a 0.833 MG/ML 07-22 (Same as: : Duoneb) [place] Ipratropium 00 [place] 0.167 MG/ML Inhalant Solution [DuoNeb] Iohexol No 85 mL, Memoria 07-22 Route: l 14:24: IVP, Drug [place] 00 Form: SOLN, Dosing Weight 63.636, kg, ONCALL, STAT, Start date: 07/22/20 9:24:00 CDT, Duration: 1 doses or times, Dose = 2.2ml/kg, Max dose = 100ml -- "To be infused by Radiology Staff ONLY" Iohexol 2021-0 No 85 mL, [facility]oria 07-22 Route: l 14:24: IVP, Drug [place] 00 Form: SOLN, Dosing Weight 63.636, kg, ONCALL, STAT, Start date: 07/22/20 9:24:00 CDT, Duration: 1 doses or times, Dose = 2.2ml/kg, Max dose = 100ml -- "To be infused by Radiology Staff ONLY" Iohexol 2021-0 No 85 mL, [facility]oria 07-22 Route: l 14:24: IVP, Drug [place] 00 Form: SOLN, Dosing Weight 63.636, kg, ONCALL, STAT, Start date: 07/22/20 9:24:00 CDT, Duration: 1 doses or times, Dose = 2.2ml/kg, Max dose = 100ml -- "To be infused by Radiology Staff ONLY" Iohexol 2021-0 No 85 mL, [facility]oria 07-22 Route: l 14:24: IVP, Drug [place] 00 Form: SOLN, Dosing Weight 63.636, kg, ONCALL, STAT, Start date: 07/22/20 9:24:00 CDT, Duration: 1 doses or times, Dose = 2.2ml/kg, Max dose = 100ml -- "To be infused by Radiology Staff ONLY" Iohexol 2021-0 No 85 mL, Memoria 07-22 Route: l 14:24: IVP, Drug [place] 00 Form: SOLN, Dosing Weight 63.636, kg, ONCALL, STAT, Start date: 07/22/20 9:24:00 CDT, Duration: 1 doses or times, Dose = 2.2ml/kg, Max dose = 100ml -- "To be infused by Radiology Staff ONLY" Iohexol 2021-0 No 85 mL, [facility]oria 07-22 Route: l 14:24: IVP, Drug [place] 00 Form: SOLN, Dosing Weight 63.636, kg, [...] Route: l 14:24: IVP, Drug Se Form: PATITON, Dosing Weight 63.636, kg, ONCALL, STAT, Start date: 07/22/20 9:24:00 CDT, Duration: 1 doses or times, Dose = 2.2ml/kg, Max dose = 100ml -- "To be infused by Radiology Staff ONLY" Iohexol 2020-0 No 85 mL, Memoria 07-22 Route: l 14:24: IVP, Drug Se Form: PATITON, Dosing Weight 63.636, kg, ONCALL, STAT, Start [...] l (Bolus) IV 13:43: ONCE, Rudolph n Dosing Weight 63.636 kg, Start date: 07/22/20 8:43:00 CDT, Stop date: 07/22/20 8:43:00 CDT Isolyte S 2021-0 No 1,000 mL, Mem oria PH-7.4 4 Route: IV, l (Bolus) IV 13:43: ONCE, Rudolph Borden Dosing Weight 63.636 kg, Start date: 07/22/20 8:43:00 CDT, Stop date: 07/22/20 8:43:00 CDT Isolyte S 2021-0 No 1,000 mL, Mem oria PH-7.4 07-22 Route: IV, l (Bolus) IV 13:43: ONCE, Rudolph Borden Dosing Weight 63.636 kg, Start date: 07/22/20 8:43:00 CDT, Stop date: 07/22/20 8:43:00 CDT Isolyte S 2021-0 No 1,000 mL, Mem oria PH-7.4 07-22 Route: IV, l (Bolus) IV 13:43: ONCE, Rudolph Borden Dosing Weight 63.636 kg, Start date: 07/22/20 8:43:00 CDT, Stop date: 07/22/20 8:43:00 CDT Isolyte S 2021-0 No 1,000 mL, Mem oria PH-7.4 07-22 Route: IV, l (Bolus) IV 13:43: ONCE, Rudolph Borden Dosing Weight 63.636 kg, Start date: 07/22/20 8:43:00 CDT, Stop date: 07/22/20 8:43:00 CDT Isolyte S 2021-0 No 1,000 mL, Mem oria PH-7.4 4- Route: IV, l (Bolus) IV 13:43: ONCE, Rudolph Borden Dosing Weight 63.636 kg, Start date: 07/22/20 8:43:00 CDT, Stop date: 07/22/20 8:43:00 CDT Isolyte S 2021-0 No 1,000 mL, Mem oria PH-7.4 4- Route: IV, l (Bolus) IV 13:43: ONCE, Rudolph Borden Dosing Weight 63.636 kg, Start date: 07/22/20 8:43:00 CDT, Stop date: 07/22/20 8:43:00 CDT Isolyte S 2020-0 No 1,000 mL, Mem oria PH-7.4 4 Route: IV, l (Bolus) IV 13:43: ONCE, Rudolph n 00 Dosing Weight 63.636 kg, Start date: 07/22/20 8:43:00 CDT, Stop date: 07/22/20 8:43:00 CDT Isolyte S 2020-0 No 1,000 mL, Mem oria PH-7.4 4 Route: IV, l (Bolus) IV 13:43: ONCE, Rudolph n 00 Dosing Weight 63.636 kg, Start date: 07/22/20 8:43:00 CDT, Stop date: 07/22/20 8:43:00 CDT Isolyte S 2020-0 No 1,000 mL, Mem oria PH-7.4 07-22 Route: IV, l (Bolus) IV 13:43: ONCE, Rudolph n Dosing Weight 63.636 kg, Start date: 07/22/20 8:43:00 CDT, Stop date: 07/22/20 8:43:00 CDT Saline No Notes: Memoria Flush 0.9% 4-09 (Same as: l 13:39: BD [place] 00 Posiflush) Fentanyl No 50 Memoria 4-09 microgram, l 13:39: Route: [place] 00 IVP, ONCE, Dosing Weight 63.636, kg, Priority: STAT, Start date: 07/22/20 8:39:00 CDT, Stop date: 07/22/20 8:39:00 CDT Saline No Notes: [facility] Flush 0.9% 4-09 (Same as: l 13:39: BD Se 00 Posiflush) Fentanyl No 50 Memoria 4-09 microgram, l 13:39: Route: [place] 00 IVP, ONCE, Dosing Weight 63.636, kg, Priority: STAT, Start date: 07/22/20 8:39:00 CDT, Stop date: 07/22/20 8:39:00 CDT Saline 0 No Notes: [facility] Flush 0.9% 4-09 (Same as: l 13:39: BD [place] 00 Posiflush) Fentanyl No 50 Memoria 4-09 microgram, l 13:39: Route: Se 00 IVP, ONCE, Dosing Weight 63.636, kg, Priority: STAT, Start date: 07/22/20 8:39:00 CDT, Stop date: 07/22/20 8:39:00 CDT Saline No Notes: [facility] Flush 0.9% 4-09 (Same as: l 13:39: BD Se 00 Posiflush) Fentanyl No 50 Memoria 4-09 microgram, l 13:39: Route: [place] 00 IVP, ONCE, Dosing Weight 63.636, kg, Priority: STAT, Start date: 07/22/20 8:39:00 CDT, Stop date: 07/22/20 8:39:00 CDT Saline No Notes: [facility] Flush 0.9% 4-09 (Same as: l 13:39: BD [place] 00 Posiflush) Fentanyl No 50 Memoria 4-09 microgram, l 13:39: Route: [place] 00 IVP, ONCE, Dosing Weight 63.636, kg, Priority: STAT, Start date: 07/22/20 8:39:00 CDT, Stop date: 07/22/20 8:39:00 CDT Saline No Notes: [facility] Flush 0.9% 4-09 (Same as: l 13:39: BD [place] 00 Posiflush) Fentanyl No 50 Memoria 4-09 microgram, l 13:39: Route: Se 00 IVP, ONCE, Dosing Weight 63.636, kg, Priority: STAT, Start date: 07/22/20 8:39:00 CDT, Stop date: 07/22/20 8:39:00 CDT Saline No Notes: [facility] Flush 0.9% 4-09 (Same as: l 13:39: BD [place] 00 Posiflush) Fentanyl No 50 Memoria 4-09 microgram, l 13:39: Route: Se 00 IVP, ONCE, Dosing Weight 63.636, kg, Priority: STAT, Start date: 07/22/20 8:39:00 CDT, Stop date: 07/22/20 8:39:00 CDT Saline No Notes: [facility] Flush 0.9% 4-09 (Same as: l 13:39: BD [place] 00 Posiflush) Fentanyl No 50 Memoria 4-09 microgram, l 13:39: Route: [place] 00 IVP, ONCE, Dosing Weight 63.636, kg, Priority: STAT, Start date: 07/22/20 8:39:00 CDT, Stop date: 07/22/20 8:39:00 CDT Saline No Notes: [facility] Flush 0.9% 4-09 (Same as: l 13:39: BD Se 00 Posiflush) Fentanyl No 50 Memoria 4-09 microgram, l 13:39: Route: [place] 00 IVP, ONCE, Dosing Weight 63.636, kg, Priority: STAT, Start date: 07/22/20 8:39:00 CDT, Stop date: 07/22/20 8:39:00 CDT Saline No Notes: Memoria Flush 0.9% 4-09 (Same as: l 13:39: BD [place] 00 Posiflush) Fentanyl No 50 Memoria 4-09 microgram, l 13:39: Route: [place] 00 IVP, ONCE, Dosing Weight 63.636, kg, [...] inhaler hours as needed for wheezing. azithromyci 2020-0 Yes 250mg QD Take 1 [...] daily for 4 days. Immunizations Ordered Filled Date Status Comments Source Immunization Name Immunization Name [facility] 2022-12-18 Completed [facility] HPV9 2022-11-14 Completed [facility] 00:00: [facility] HPV9 2022-11-14 Completed [facility] 00:00:00 [facility] HPV9 2022-11-14 Completed [facility] 00:[facility]: [facility] 2022-11-14 Completed [facility] 00[facility]00:00 [facility] HPV9 2022-11-14 Completed [facility] 00:00:00 [facility] HPV9 2022-11-14 Completed [facility]00:00 [facility] Influenza Virus 2022-07-05 Completed [facility] .5 mL 00:00:00 [facility] Influenza Virus 2022-07-05 Completed [facility] Vacc[facility] .5 mL 00:00:00 [facility] 6[facility] Influenza Virus 2022-07-05 Completed [facility] .5 mL 00:00:00 [facility] 6[facility] Influenza Virus 2022-07-05 Completed [facility] .5 mL 00:00:00 [facility] Influenza Virus 2022-07-05 Completed [facility] Vaccine Quad .5 mL 00:00:00 [facility] 6+ [facility] Influenza Virus 2022-07-05 Completed [facility] Vaccine [facility] .5 mL 00:00:00 [facility] Influenza Virus 2022-07-05 Completed [facility] Vaccine Quad .5 mL 00:00:00 [facility] Influenza Virus 2022-07-05 Completed [facility] Vaccine [facility] .5 mL 00:00:00 [facility] Influenza Virus 2022-07-05 Completed [facility] Vaccine [facility] .5 mL 00:00:00 [facility] Influenza Virus 2022-07-05 Completed [facility] Vaccine Quad .5 mL 00:00:00 [facility] Influenza Virus 2022-07-05 Completed [facility] Vaccine [facility] .5 mL 00:00:00 [facility] Influenza Virus 2022-07-05 Completed [facility] Vacc[facility] .5 mL 00:00:00 [facility] 6+ [facility] Influenza Virus 2022-07-05 Completed [facility] .5 mL 00:00:00 [facility] (FLUZONE/FLULAVAL/F LUARIX) Influenza Virus Unknown Completed [facility] .5 mL [facility] IM 6+ [facility] (FLUZONE/FLULAVAL/F LUARIX) HPV9 Unknown Completed [facility] Influenza Virus Unknown Completed [facility] Vaccine [facility] .5 mL [facility] IM 6+ [facility] (FLUZONE/FLULAVAL/F LUARIX) HPV9 Unknown Completed [facility] Influenza Virus Unknown Completed [facility] .5 mL [facility] 6+ [facility] (FLUZONE/FLULAVAL/F LUARIX) Influenza Virus Unknown Completed [facility] of [facility] .5 mL [facility] 6+ MO Branch (FLUZONE/FLULAVAL/F LUARIX) HPV9 Unknown Completed [facility] HPV9 Unknown Completed [facility] Influenza Virus Unknown Completed [facility] of [facility] Quad .5 mL [facility] 6+ MO Branch (FLUZONE/FLULAVAL/F LUARIX) HPV9 Unknown Completed [facility] HPV9 Unknown Completed [facility] Influenza Virus Unknown Completed [facility] of [facility] .5 mL [facility] 6+ MO Branch (FLUZONE/FLULAVAL/F LUARIX) HPV9 Unknown Completed [facility] HPV9 Unknown Completed [facility] Influenza Virus Unknown Completed [facility] y of Vaccine Quad , [facility] dical Preserv and ABX Branch Free 6 MO-64 YRS (FLUCELVAX) Influenza Virus Unknown Completed [facility] of [facility] Quad .5 mL [facility] 6+ MO Branch (FLUZONE/FLULAVAL/F LUARIX) HPV9 Unknown Completed [facility] HPV9 Unknown Completed [facility] Influenza Virus Unknown Completed [facility] y of [facility] , [facility] dical Preserv and ABX Branch Free 6 MO-64 YRS (FLUCELVAX) Influenza Virus Unknown Completed [facility] of [facility] .5 mL [facility] 6+ MO Branch (FLUZONE/FLULAVAL/F LUARIX) HPV9 Unknown Completed [facility] HPV9 Unknown Completed [facility] Influenza Virus Unknown Completed [facility] of [facility] IM, [place] [facility] dical Preserv and ABX Branch Free 6 MO-64 YRS (FLUCELVAX) Influenza Virus Unknown Completed [facility] of [facility] .5 mL [facility] 6+ MO Branch (FLUZONE/FLULAVAL/F LUARIX) HPV9 Unknown Completed [facility] HPV9 Unknown Completed [facility] Influenza Virus Unknown Completed [facility] of [facility] IM, [place] [facility] dical Preserv and ABX Branch Free 6 MO-64 YRS (FLUCELVAX) Vital Signs Vital Name Observation Time Observation Value Comments Source Systolic blood 2023-02-06 13:31:00 123 mm[Hg] Univer sity of pressure [facility] Diastolic blood 2023-02-06 13:31:00 78 mm[Hg] Unive rsity of [facility] Heart rate 2023-02-06 13:31:00 116 /min [facility] ty [facility] Body temperature 2023-02-06 13:31:00 36.89 [facility] 2023-02-06 13:31:00 18 /min [facility] ersity [facility] Body height 2023-02-06 13:31:00 147.3 cm Universi ty of [facility] Body weight 2023-02-06 13:31:00 77.253 kg Universi ty [facility] BMI 2023-02-06 13:31:00 35.60 kg/m2 Univers[facility] ty [facility] Systolic blood 2023-02-05 20:36:00 112 mm[Hg] Univer sity of pressure [facility] Diastolic blood 2023-02-05 20:36:00 82 mm[Hg] Unive rsity of pressure [facility] Heart rate 2023-02-05 20:31:00 113 /min Universi ty [facility] Body temperature 2023-02-05 20:31:00 36.39 [facility] Body weight 2023-02-05 20:31:00 77.622 kg Universi ty [facility] BMI 2023-02-05 20:31:00 35.77 kg/m2 Universi ty [facility] Body temperature 2022-12-18 18:52:00 36.83 [facility] Systolic blood 2022-11-14 18:55:00 127 mm[Hg] Univer sity of [facility] Diastolic blood 2022-11-14 18:55:00 87 mm[Hg] Unive rsity of [facility] Heart rate 2022-11-14 18:55:00 104 /min Universi ty [facility] Body temperature 2022-11-14 18:55:00 36.94 [facility] Respiratory rate 2022-11-14 18:55:00 18 /min Univ [facility] Body height 2022-11-14 18:55:00 147.3 cm [facility] Body weight 2022-11-14 18:55:00 88.622 kg [facility] BMI 2022-11-14 18:55:00 40.83 kg/m2 Universi ty [facility] Systolic blood 2022-09-19 19:40:00 116 mm[Hg] Univer [facility]ity [facility] Diastolic blood 2022-09-19 19:40:00 85 mm[Hg] Unive rsity [facility] Heart rate 2022-09-19 19:40:00 87 /min [facility] Body temperature 2022-09-19 19:40:00 36.83 [facility] Respiratory rate 2022-09-19 19:40:00 18 /min Univ ersity of [facility] Body height 2022-09-19 19:40:00 147.3 cm [facility] Body weight 2022-09-19 19:40:00 81.647 kg [facility] BMI 2022-09-19 19:40:00 37.62 kg/m2 Universi ty of [facility] Oxygen saturation in 2022-09-19 19:40:00 99 /min University of Arterial blood by [facility] Pulse oximetry Branch Systolic blood 2022-07-05 18:08:00 130 mm[Hg] Univer [facility]ity [facility] [place] [facility] [place] Diastolic blood 2022-07-05 18:08:00 82 mm[Hg] Unive rsity [facility] Heart rate 2022-07-05 18:08:00 111 /min [facility] Body temperature 2022-07-05 18:08:00 37.11 [facility] [place] [facility] Respiratory rate 2022-07-05 18:08:00 17 /min Univ [facility] Body height 2022-07-05 18:08:00 147.3 cm [facility] Body weight 2022-07-05 18:08:00 88.225 kg [facility] BMI 2022-07-05 18:08:00 40.65 kg/m2 [facility] Systolic blood 2021-10-20 15:24:00 119 mm[Hg] Univer [facility] Diastolic blood 2021-10-20 15:24:00 73 mm[Hg] Unive rsity [facility] Heart rate 2021-10-20 15:24:00 88 /min [facility] Body temperature 2021-10-20 15:24:00 36.67 [facility] [place] [facility] Respiratory rate 2021-10-20 15:24:00 18 /min Univ [facility] Body height 2021-10-20 15:24:00 147.3 cm [facility] Body weight 2021-10-20 15:24:00 63.504 kg [facility] BMI 2021-10-20 15:24:00 29.26 kg/m2 [facility] Oxygen saturation in 2021-10-20 15:24:00 97 /min University of Arterial blood by [place] [employer] Pulse oximetry Branch Systolic blood 2021-08-17 02:00:00 119 mm[Hg] Univer [facility]ity [facility] Diastolic blood 2021-08-17 02:00:00 70 mm[Hg] Unive rsity [facility] Heart rate 2021-08-17 02:00:00 83 /min [facility] Respiratory rate 2021-08-17 02:00:00 19 /min Univ [facility] Oxygen saturation in 2021-08-17 02:00:00 100 /min University of Arterial blood by [place] Pulse oximetry Branch Body temperature 2021-08-16 20:33:00 37.5 [facility] [place] [facility] Body height 2021-08-16 20:33:00 147.3 cm [facility] Body weight 2021-08-16 20:33:00 77.111 kg [facility] BMI 2021-08-16 20:33:00 35.53 kg/m2 [facility] Systolic blood 2021-07-21 16:28:00 126 mm[Hg] Univer [facility] [place] [facility] Diastolic blood 2021-07-21 16:28:00 79 mm[Hg] Unive rsity [facility] Heart rate 2021-07-21 16:28:00 89 /min [facility] Body temperature 2021-07-21 16:28:00 37.28 [facility] [place] [facility] Respiratory rate 2021-07-21 16:28:00 18 /min Univ [facility] [place] [facility] [place] Body weight 2021-07-21 16:28:00 77.111 kg [facility] BMI 2021-07-21 16:28:00 35.53 kg/m2 [facility] Oxygen saturation in 2021-07-21 16:28:00 99 /min University of Arterial blood by Fluid-1 indu Pulse oximetry Branch Systolic blood 2021-03-16 18:57:00 135 mm[Hg] Univer [facility]ity [facility] [place] [facility] Diastolic blood 2021-03-16 18:57:00 74 mm[Hg] Unive rsity [facility] Heart rate 2021-03-16 18:57:00 110 /min [facility] Body temperature 2021-03-16 18:57:00 37.06 [facility] [place] [facility] Respiratory rate 2021-03-16 18:57:00 18 /min Univ [facility] Body height 2021-03-16 18:57:00 147.3 cm [facility] Body weight 2021-03-16 18:57:00 68.04 kg [facility] BMI 2021-03-16 18:57:00 31.35 kg/m2 [facility] Oxygen saturation in 2021-03-16 18:57:00 100 /min University of Arterial blood by [facility] Pulse oximetry Branch Diastolic (mm Hg) 2020-07-22 21:06:00 Mem orial Se Respitory Rate 2020-07-22 21:06:00 Memori al [place] Systolic (mm Hg) 2020-07-22 21:06:00 [place] rial Se Respitory Rate 2020-07-22 20:33:00 Memori al [place] Respitory Rate 2020-07-22 19:50:00 Memori al [place] Systolic (mm Hg) 2020-07-22 19:50:00 [place] rial [place] Diastolic (mm Hg) 2020-07-22 19:50:00 Mem orial [place] Systolic (mm Hg) 2020-07-22 19:04:00 [place] rial [place] Diastolic (mm Hg) 2020-07-22 19:04:00 Mem orial [place] Temperature Oral (F) 2020-07-22 17:25:00 98.3 F [facility] Height 2020-07-22 13:21:00 144.78 cm [facility] BMI Calculated 2020-07-22 13:21:[address] [facility] Weight 2020-07-22 13:21:00 [facility] Heart Rate 2020-07-22 13:21:00 [facility] Procedures Procedure Date / Time Performing Clinician Source Performed FLU VACC ([id number]), 6 2023-02-06 14:06:00 Jenna uHrst [facility] MO-62 YRS, .5ML, IM, Medical Bra nch QUAD (FLUCELVAX) POCT URINALYSIS W/O 2023-02-06 13:44:[address] [facility] SPECIFIC GRAVITY [facility] POCT TEST 2023-02-06 13:43:00 Jenna Hurst [facility] POCT TEST 2023-02-05 21:10:00 Jenna Hurst [facility] GARDASIL 9 (HPV 9V) 2022-12-18 18:53:30 Bette Connor [facility] VACCINE [facility] GARDASIL 9 (HPV 9V) 2022-11-14 19:35:58 Bette Connor [facility] VACCINE [facility] POCT TEST 2022-11-14 18:52:00 Jenna Hurst [facility] IMMTRAC2 CONSENT 2022-11-14 05:01:00 Doctor Unassigned, No Unive [facility] ASSIGNMENT OF BENEFITS 2022-09-19 20:41:40 Doctor Unassigned, No [facility] ASSIGNMENT OF BENEFITS 2022-09-19 20:33:15 Doctor Unassigned, No [facility] CONSENT/REFUSAL FOR 2022-09-19 19:27:39 Doctor Unassigned, No Un [facility] DIAGNOSIS AND TREATMENT [facility] "RWSP ILEANA ONLY" FLU 2022-07-05 19:10:23 Jenna Hurst Un [facility] VACC(), 6+ Medical Bran ch MONTHS, IM, QUAD (FLUZONE/FLULAVAL/FLUAR IX) CBC WITH DIFF 2022-07-05 19:00:00 Jenna Hurst [facility] GLYCOSYLATED HEMOGLOBIN 2022-07-05 19:00:00 Jenna Hurst [facility] (A1C) [facility] RUBELLA SCREEN IGG 2022-07-05 19:00:[address] [facility] HCV ANTIBODY 2022-07-05 19:00:00 Jenna uHrst [facility] GC & CHLAMYDIA 2022-07-05 19:00:00 Jenna Hurst [facility] AMPLIFIED ASSAY [facility] HIV 1/2 AG-AB WITH 2022-07-05 19:00:00 [facility] REFLEX [facility] PAP SMEAR-LIQUID 2022-07-05 19:00:00 J[facility]st [facility]ED[facility] SYPHILIS IGG/IGM 2022-07-05 19:00:00 Jenna Hurst [facility] ASSIGNMENT OF BENEFITS 2022-07-05 17:43:00 Doctor Unassigned, No [facility] POCT TEST 2021-10-20 15:47:00 Billie Jasmine [facility] COVID-19 (ID NOW RAPID 2021-10-20 15:42:00 Billie Jasmine [facility] TESTING) Medical Branch CONSENT/REFUSAL FOR 2021-10-20 15:20:23 Doctor Unassigned, No Un [facility] [place] DIAGNOSIS [facility] TREATMENT Name [facility] [place] [facility] ABDOMEN PELVIS W 2021-08-16 23:04:02 Tyler Cancino [facility] CONTRAST [facility] COMP. METABOLIC PANEL 2021-08-16 22:37:00 Tyler Cancino [facility] ([id number]) Medical Branch CBC WITH DIFF 2021-08-16 22:37:00 Leroy [facility] URINALYSIS 2021-08-16 22:37:00 Leroy [facility] LIPASE 2021-08-16 22:37:00 Tyler Cancino [facility] MAGNESIUM 2021-08-16 22:37:00 Leroy [facility] POCT TEST 2021-08-16 22:35:00 Tyler Cancino [facility] NOTICE OF PRIVACY 2021-08-16 20:19:38 Doctor Unassigned, No [facility] CONSENT/REFUSAL FOR 2021-08-16 20:18:58 Doctor Unassigned, No Un [facility] [place] [facility]REAT[facility] RAPID STREP SCREEN FOR 2021-07-21 16:29:00 David Patel [facility] GROUP A Medical Branch RAPID INFLUENZA A/B 2021-07-21 16:29:00 David Patel [facility] CONSENT/REFUSAL FOR 2021-07-21 16:23:54 Doctor Unassigned, No [facility] [place] [facility] TREAT[facility] ASSIGNMENT OF BENEFITS 2021-03-16 20:14:13 Doctor Unassigned, No [facility] XR CHEST 1 VW 2021-03-16 19:49:32 David Patel [facility] RAPID INFLUENZA A/B 2021-03-16 19:01:00 David [facility]el [facility] Medical Branch COVID-19 (ID NOW RAPID 2021-03-16 19:01:00 David Patel [facility] TESTING) Medical Branch NOTICE OF PRIVACY 2021-03-16 18:54:56 Doctor Unassigned, No [facility] PRACTICES Name Medical Branch CONSENT/REFUSAL FOR 2021-03-16 18:54:22 Doctor Unassigned, No [facility]REATMENT Name Medical Branch Plan of Care Planned Activity Planned Date Details Comments Source Future Scheduled 2023-02-09 COVID-[address] [facility] Test 14:23:05 (#1) [code = COVID-19 VACCINE (#1)] Future Scheduled 2023-02-09 [facility] 14:23:05 screening (procedure) [code = 449867215] Future Scheduled 2023-02-09 [facility] Test 14:23:05 malignant neoplasm of cervix (procedure) [code = 759396782] Future Scheduled 2023-02-09 [facility] 14:23:05 (#1) [code = INFLUENZA VACCINE (#1)] Future Scheduled 2022-07-16 COVID-[address] [facility] Test 02:23:48 (#1) [code = COVID-19 VACCINE (#1)] Future Scheduled 2022-07-16 [facility] 02:23:48 screening (procedure) [code = 169635642] Future Scheduled 2022-07-16 [facility] Test 02:23:48 malignant neoplasm of cervix (procedure) [code = 573371271] Future Scheduled 2022-07-16 [facility] 02:23:48 [code = INFLUENZA VACCINE] Future Scheduled 2022-04-09 COVID-[address] [facility] Test 06:05:15 (#1) [code = COVID-19 VACCINE (#1)] Future Scheduled 2022-04-09 [facility] 06:05:15 screening (procedure) [code = 122987671] Future Scheduled 2022-04-09 [facility] Test 06:05:15 malignant neoplasm of cervix (procedure) [code = 999626184] Future Scheduled 2022-04-09 [facility] 06:05:15 [code = INFLUENZA VACCINE] Future Scheduled 2022-04-01 [facility] 16:02:42 (#1) [code = COVID-19 VACCINE (#1)] Future Scheduled 2022-04-01 [facility] 16:02:42 screening (procedure) [code = 754093965] Future Scheduled 2022-04-01 [facility] 16:02:42 [code = INFLUENZA VACCINE] Future Scheduled 2021-12-16 [facility] 14:45:51 (#1) [code = COVID-19 VACCINE (#1)] Future Scheduled 2021-12-16 [facility] 14:45:51 screening (procedure) [code = 267938982] Future Scheduled 2021-12-16 [facility] Test 14:45:51 malignant neoplasm of cervix (procedure) [code = 431846336] Future Scheduled 2021-12-16 [facility] 14:45:51 [code = INFLUENZA VACCINE] Future Scheduled 2021-12-16 HE[facility]ITIS B [facility] 14:45:51 VACCINES (1 of 3 - 3-dose series) [code = HEPATITIS B VACCINES (1 of 3 - 3-dose series)] Encounters Start End Encounter Admission Attending Care Care Encounter Source Date/Time Date/Time Type Type Clinicians Facility Department ID 2023-05-27 2023-05-27 Outpatient R [facility] [id number] Univers 14:00:00 14:00:00 ity [facility] 2023-02-06 2023-02-06 Outpatient R [facility] [id number] Univers 08:15:00 09:15:27 JENNA ity [facility] 2023-02-06 2023-02-06 [facility] 1.2.840.114 [id number] Univers 08:15:00 09:15:27 Jenna A STAMPING PRESS OPERATOR 350.1.13.10 ity of Visit REGIONAL 4.2.7.2.686 Chad as MATERNAL [id number] Med ical & CHILD [address] [place] [address] 2023-02-05 2023-02-05 Outpatient R [facility] [id number] Univers 15:15:00 15:56:09 JENNA ity of [facility] 2023-02-05 2023-02-05 Office [facility] 1.2.840.114 [id number] Univers 15:15:00 15:56:09 Visit Jenna Farias STAMPING PRESS OPERATOR 350.1.13.10 i ty of [facility] 4.2.7.2.686 Chad as MATERNAL [phone] Med ical & CHILD [address] [place] [address] 2022-12-18 2022-12-18 Nurse Nurse, Abdiel Rmchp Rgv Cprit Obgyn U [facility] 1.2.840.114 [id number] [facility] 14:00:00 14:00:00 Visit Bette Connor STAMPING PRESS OPERATOR 350.1.13. 10 ity of [facility] 4..7.2.686 Chad as MATERNAL [id number] [facility] [address] [place] [address] 2022-12-18 2022-12-18 Outpatient [facility] [id number] Univers 14:00:00 13:50:08 BETTE terry [facility] 2022-11-28 2022-11-28 Case [facility] 1.2.840.114 [id number] Univers 00:00:00 00:00:00 Management Jenna Farias STAMPING PRESS OPERATOR 350.1.13.10 ity of [facility] 4..7.2.686 Chad as MATERNAL [id number] [facility] ical & CHILD [address] [place] [address] 2022-11-26 2022-11-26 Patient [facility] 1.2.840.114 [id number] Univers 00:00:00 00:00:00 Secure Msg Jenna A STAMPING PRESS OPERATOR 350.1.13.10 ity of [facility] 4.2.7.2.686 Chad as MATERNAL [id number] [facility] ical & CHILD [address] [place] [address] 2022-11-16 2022-11-16 Telephone [facility] 1.2.840.114 [id number] Univers 00:00:00 00:00:00 Jenna A STAMPING PRESS OPERATOR 350.1.13.10 i ty of [address]686 Chad as MATERNAL [id number] [facility] & [address] 2022-11-16 2022-11-16 Patient [facility] 1.2.840.114 [id number] Univers 00:00:00 00:00:00 Secure Msg Jenna A STAMPING PRESS OPERATOR 350.1.13.10 ity of [address]2.686 Chad as MATERNAL [id number] [address] 2022-11-14 2022-11-14 Outpatient R [facility] [id number] Univers 13:30:00 14:33:27 [facility] 2022-11-14 2022-11-14 Office [facility] 1.2.840.114 [id number] Univers 13:30:00 14:33:27 Visit Jenna A STAMPING PRESS OPERATOR 350.1.13.10 i ty of [place] [id number] Chad as MATERNAL [id number] [address] 2022-11-14 2022-11-14 Orders Doctor JINNY 1.2.840.114 [id number] Univers 00:00:00 00:00:00 Only Unassigned, [place] 350.1.13.10 ity of [place] [address]686 Chad as [id number] [address] 2022-10-05 2022-10-05 Outpatient R [facility] [id number] Univers 09:00:00 09:00:00 JENNA [facility] 2022-09-19 2022-09-19 Emergency X [facility] ERT [id number] Univers 14:40:00 15:49:00 LORENA noe [facility] 2022-09-19 2022-09-19 Emergency [facility] 1.2.722.672 [id number] [facility] 14:40:00 15:49:00 [facility] Emergency Departmentnorberto [place] 350.1.13.10 ity of [place] 4.2.7.2.686 [id number] [address] 2022-07-11 2022-07-11 Telephone [facility] 1.2.840.114 [id number] Univers 00:00:00 00:00:00 Jenna A STAMPING PRESS OPERATOR 350.1.13.10 i ty of [facility] 4.2.7.2.686 Chad as MATERNAL [id number] Med ical & CHILD [address] [place] [address] 2022-07-10 2022-07-10 Case Robertbrennen [facility] 1.2.840.114 [id number] Univers 00:00:00 00:00:00 Management Jenna A STAMPING PRESS OPERATOR 350.1.13.10 ity of [facility] 4.2.7.2.686 Chad as MATERNAL [id number] Med ical & CHILD [address] [place] [address] 2022-07-10 2022-07-10 [facility] 1.2.840.114 [id number] Univers 00:00:00 00:00:00 Secure Msg Jenna A STAMPING PRESS OPERATOR 350.1.13.10 ity of [facility] 4.2.7.2.686 Chad as MATERNAL [id number] Med ical & CHILD [address] [place] [address] 2022-07-06 2022-07-06 Patient Kaylene [facility] 1.2.840.114 [id number] Univers 00:00:00 00:00:00 Secure Msg Charlotteh STAMPING PRESS OPERATOR 350.1.13.10 ity of [facility] 4.2.7.2.686 Chad as MATERNAL [id number] Med ical & CHILD [address] [place] [address] 2022-07-06 2022-07-06 Patient Frank [facility] 1.2.840.114 [id number] Univers 00:00:00 00:00:00 Secure Msg Jenna A STAMPING PRESS OPERATOR 350.1.13.10 ity of [facility] 4.2.7.2.686 Chad as MATERNAL [id number] Med ical & CHILD [address] [place] [address] 2022-07-05 2022-07-05 Outpatient R FRANK [facility] [id number] Univers 13:00:00 14:03:36 JENNA ity of [facility] 2022-07-05 2022-07-05 Office Provider, SheronRmchp Roque [facility] 1 .2.840.114 [id number] Univers 13:00:00 14:03:36 Visit Jenna Hurst STAMPING PRESS OPERATOR 350.1.13.1 0 ity [facility] 4.2.7.2.686 Chad as MATERNAL [id number] [facility] ical & CHILD [address] [place] [address] 2022-07-05 2022-07-05 Orders Doctor JINNY 1.2.840.114 [id number] Univers 00:00:00 00:00:00 Only Unassigned, KING[place]ON 350.1.13.10 ity of [facility] 4.2.7.2.686 Chad as [id number] [address] 2021-10-20 2021-10-20 Emergency X [facility] ERT [id number] Univers 10:26:00 11:30:00 BILLIE ity of [facility] 2021-10-20 2021-10-20 Emergency [facility] [id number] Univers 10:26:00 11:30:00 Billie DRUMMOND 350.1.13.10 i ty of [place] 4.2.7.2.686 [facility] [id number] [address] 2021-08-16 2021-08-16 Emergency X Tyler CANCINO [facility] ERT [id number] Univers 15:34:00 21:39:00 ity of [facility] 2021-08-16 2021-08-16 Emergency Tyler Cancino [facility] 1.2.840.114 [id number] Univers 15:34:00 21:39:00 Joyce DRUMMOND 350.1.13.10 i ty of [place] 4.2.7.2.686 [place] [id number] [address] 2021-08-16 2021-08-16 Orders Doctor JINNY 1.2.840.114 [id number] Univers 00:00:00 00:00:00 Only Unassigned, [place] 350.1.13.10 ity of [facility] 4.2.7.2.686 Chad [id number] [address] 2021-07-21 2021-07-21 Emergency [facility] [id number] Univers 11:28:00 12:36:00 JERRY blanca [facility] 2021-07-21 2021-07-21 Emergency [facility] 1.2.016.245 [id number] Univers 11:28:00 12:36:00 Jerry DRUMMOND 350.1.13.10 i ty of [place] 4.2.7.2.686 [facility] [id number] [address] 2021-03-16 2021-03-16 Emergency [facility] [id number] Univers 12:57:00 14:46:00 David DRUMMOND 350.1.13.10 i ty of [place] 4.2.7.2.686 [facility] [id number] [address] 2021-03-16 2021-03-16 Emergency X [facility] ERT [id number] Univers 12:57:00 14:46:00 DAVID blanca [facility] 2020-07-22 2020-07-22 Emergency [facility] [id number] Memoria 13:20:36 22:00:[address] [place] [address] 2020-07-22 2020-07-22 Emergency [facility] [id number] Memoria 13:20:36 22:00:[address] [place] [address] 2020-07-22 2020-07-22 Outpatient Frederic [facility] [id number] 08:20:36 17:00:00 Tammie Freitas 2020-07-22 2020-07-22 Emergency E [id number] 08:20:00 17:00:00 TAMMIE 2020-04-18 2020-04-18 Emergency BRANDON DILLARD [facility] [id number] [place] 00:00:00 00:00:[address] 2019-07-05 2019-08-07 Inpatient [facility] ER [id number] 69 [facility] 12:36:00 08:15:59 41 [facility] Results Test Description Test Time Test Comments Results Result Comments Source POCT TEST 2023-02-06 13:44:00 Test Item Value Reference Range Interpretation Comme nts POCT PREG (test code = 1605) Positive On board controls acceptable with C Line (test code = 3574) Yes POCT PREG LOT # (test code = 3575) POCT PREG TEST DATE (test code = 357) General acute hospital URINALYSIS W/O SPECIFIC [id number] 13:44:00 Test Item Value Reference Range Interpretation Comments POCT PH U (test code = 3254) 5 mg/dl 5-8 POCT U LEUK EST (test code = Trace Negative - Negative 3263) POCT U NIT (test code = 3262) Neg Negative - Negative POCT U PROT (test code = 3259) 1+ Negative - Negative POCT U GLU (test code = 3256) Nml Negative - Negative POCT U KETONE (test code = 3258) 2+ Negative - Negative POCT U BLD (test code = 3257) Trace Negative - Negative [id number] 13:44:00 Test Item Value Reference Range Interpretation Comments POCT PREG (test code = 1605) Positive On board controls acceptable with C Yes Line (test code = 3574) POCT PREG LOT # (test code = 3575) POCT PREG TEST DATE (test code = 357) [facility] SPECIFIC [id number] 13:44:00 Test Item Value Reference Range Interpretation Comments POCT PH U (test code = 3254) 5 mg/dl 5-8 POCT U LEUK EST (test code = Trace Negative - Negative 3263) POCT U NIT (test code = 3262) Neg Negative - Negative POCT U PROT (test code = 3259) 1+ Negative - Negative POCT U GLU (test code = 3256) Nml Negative - Negative POCT U KETONE (test code = 3258) 2+ Negative - Negative POCT U BLD (test code = 3257) Trace Negative - Negative General acute hospital [id number] 13:44:00 Test Item Value Reference Range Interpretation Comments POCT PREG (test code = 1605) Positive On board controls acceptable with C Yes Line (test code = 3574) POCT PREG LOT # (test code = 3575) POCT PREG TEST DATE (test code = 3576) General acute hospital URINALYSIS W/O SPECIFIC [id number] 13:44:00 Test Item Value Reference Range Interpretation Comments POCT PH U (test code = 3254) 5 mg/dl 5-8 POCT U LEUK EST (test code = Trace Negative - Negative 3263) POCT U NIT (test code = 3262) Neg Negative - Negative POCT U PROT (test code = 3259) 1+ Negative - Negative POCT U GLU (test code = 3256) Nml Negative - Negative POCT U KETONE (test code = 3258) 2+ Negative - Negative POCT U BLD (test code = 3257) Trace Negative - Negative General acute hospital [id number] 13:44:00 Test Item Value Reference Range Interpretation Comments POCT PREG (test code = 1605) Positive On board controls acceptable with C Yes Line (test code = 3574) POCT PREG LOT # (test code = 3575) POCT PREG TEST DATE (test code = 3576) General acute hospital URINALYSIS W/O SPECIFIC [id number] 13:44:00 Test Item Value Reference Range Interpretation Comments POCT PH U (test code = 3254) 5 mg/dl 5-8 POCT U LEUK EST (test code = Trace Negative - Negative 3263) POCT U NIT (test code = 3262) Neg Negative - Negative POCT U PROT (test code = 3259) 1+ Negative - Negative POCT U GLU (test code = 3256) Nml Negative - Negative POCT U KETONE (test code = 3258) 2+ Negative - Negative POCT U BLD (test code = 3257) Trace Negative - Negative General acute hospital [id number] 21:10:00 Test Item Value Reference Range Interpretation Comments POCT PREG (test code = 1605) Positive On board controls acceptable with C Yes Line (test code = 3574) POCT PREG LOT # (test code = 3575) POCT PREG TEST DATE (test code = 3576) [id number] 21:10:00 Test Item Value Reference Range Interpretation Comments POCT PREG (test code = 1605) Positive On board controls acceptable with C Yes Line (test code = 3574) POCT PREG LOT # (test code = 3575) POCT PREG TEST DATE (test code = 3576) [facility] [id number] 18:52:00 Test Item Value Reference Range Interpretation Comments POCT PREG (test code = 1605) Negative On board controls acceptable with C Yes Line (test code = 3574) POCT PREG LOT # (test code = 3575) POCT PREG TEST DATE (test code = 3576) [facility] [id number] 18:52:00 Test Item Value Reference Range Interpretation Comments POCT PREG (test code = 1605) Negative On board controls acceptable with C Yes Line (test code = 3574) POCT PREG LOT # (test code = 3575) POCT PREG TEST DATE (test code = 3576) [facility] [place]CREEN ([place] [id number] 16:54:07 Test Item Value Reference Range Interpretation Comments Rubella screen IgG Equivocal Negative (test code = 6800635046) JASPREET (test code = JASPREET) Positive - Indicates the patient was exposed to Rubella through infection or vaccination.Negative - Indicates the patient could be susceptible to Rubella infection.Equivocal - A second specimen should be sent. [facility] [place]CREEN ([place]) [id number] 16:54:07 Test Item Value Reference Range Interpretation Comments Rubella screen IgG Equivocal Negative (test code = 5483961128) JASPREET (test code = JASPREET) Positive - Indicates the patient was exposed to Rubella through infection or vaccination.Negative - Indicates the patient could be susceptible to Rubella infection.Equivocal - A second specimen should be sent. [facility] [id number] 15:52:17 Test Item Value Reference Range Interpretation Comments Syphilis IgG/IgM (test Non-reactive Non-reactive code = 47449-4) JASPREET (test code = JASPREET) Non-reactive - No serologic evidence of T. pallidum infection. Cannot exclude incubating or early syphilis. Submit a second specimen in 2-4 weeks if syphilis is clinically suspected. Equivocal - Further testing to follow. Reactive - Further testing to follow. Lab Interpretation (test Normal code = 67785-5) [facility] [id number] 15:52:17 Test Item Value Reference Range Interpretation Comments Syphilis IgG/IgM (test Non-reactive Non-reactive code = 49461-5) JASPREET (test code = JASPREET) Non-reactive - No serologic evidence of T. pallidum infection. Cannot exclude incubating or early syphilis. Submit a second specimen in 2-4 weeks if syphilis is clinically suspected. Equivocal - Further testing to follow. Reactive - Further testing to follow. Lab Interpretation (test Normal code = 71777-8) [facility]A1C)2022-07-06 12:19:27 Test Item Value Reference Range Interpretation Comments HGB A1C (test code = 5.2 % 4.0-5.7 4548-4) JASPREET (test code = JASPREET) Reference RangesNormal: <5.7%Prediabetes: 5.7 - 6.4%Diabetes: > 6.5% Lab Interpretation (test Normal code = 19086-1) [facility]A1C)2022-07-06 12:19:27 Test Item Value Reference Range Interpretation Comments HGB A1C (test code = 5.2 % 4.0-5.7 4548-4) JASPREET (test code = JASPREET) Reference RangesNormal: <5.7%Prediabetes: 5.7 - 6.4%Diabetes: > 6.5% Lab Interpretation (test Normal code = 41033-0) [facility] WITH [id number] 11:15:01 Test Item Value Reference Range Interpretation Comments HIV 0.10 Negative Semi-quantitative (test code = 64538-2) JASPREET (test code = Non-reactive for HIV-1 JASPREET) antigen and HIV-1/HIV-2 antibodies. ?No laboratory evidence of HIV infection. ?Repeat in 2-4 weeks if acute HIV infection is suspected. [facility] WITH [id number] 11:15:01 Test Item Value Reference Range Interpretation Comments HIV 0.10 Negative Semi-quantitative (test code = 54846-9) JASPREET (test code = Non-reactive for HIV-1 JASPREET) antigen and HIV-1/HIV-2 antibodies. ?No laboratory evidence of HIV infection. ?Repeat in 2-4 weeks if acute HIV infection is suspected. [facility] [id number] 05:42:09 Test Item Value Reference Range Interpretation Comments HCV Ab (test code = 27791-7) Negative HCV Semi-Quantitative (test code = 0.02 47539-6) [facility] [id number] 05:42:09 Test Item Value Reference Range Interpretation Comments HCV Ab (test code = 41100-1) Negative HCV Semi-Quantitative (test code = 0.02 10441-1) [facility] [id number] 04:39:19 Test Item Value Reference Range Interpretation Comments WBC (test code = 10.89 See_Comment [Automated 8697-2) message] The sy stem which generated this result transmitted reference range : 4.30 - 11.10 10*3/?L. The reference range was not used to interpret this result as normal/abnormal . RBC (test code = 4.71 See_Comment [Automated 246-8) message] The sy stem which generated this [...] RDW-SD (test code = 42.8 fL 39.0-49.9 83027-9) RDW-CV (test code = 12.4 % 12.0-15.5 788-0) PLT (test code = 328 See_Comment [Automated 777-3) message] The sy stem which generated this result transmitted reference range : 166 - 358 10*3/ ?L. The reference r marsha was not used to interpret this result as normal/abnormal . MPV (test code = 10.9 fL 9.5-12.9 23308-3) NRBC/100 WBC (test 0.0 See_Comment [Automat ed code = 2785236977) message] The system which generated this result transmitted reference range : 0.0 - 10.0 /100 WBCs. The refer ence range was not u sed to interpret th is result as normal/abnormal . NRBC x10^3 (test code See_Comment [Auto mated = 5470357667) message] The s ystem which generated this result transmitted reference range : 10*3/?L. The reference range was not used to interpret this result as normal/abnormal . GRAN MAT (NEUT) % 70.6 % (test code = 770-8) IMM GRAN % (test code 0.70 % = 6963372143) LYMPH % (test code = 20.3 % 736-9) MONO % (test code = 6.7 % 5905-5) EOS % (test code = 1.0 % 713-8) BASO % (test code = 0.7 % 706-2) GRAN MAT x10^3(ANC) 7.68 10*3/uL 1.88-7.09 H (test code = 5866779139) IMM GRAN x10^3 (test 0.08 10*3/uL 0.00-0.06 H code = 8711351934) LYMPH x10^3 (test code 2.21 10*3/uL 1.32-3.29 = 731-0) MONO x10^3 (test code 0.73 10*3/uL 0.33-0.92 = 742-7) EOS x10^3 (test code = 0.11 10*3/uL 0.03-0.39 711-2) BASO x10^3 (test code 0.08 10*3/uL 0.01-0.07 H = 704-7) Lab Interpretation Abnormal (test code = 37565-2) [facility] WITH [id number] 04:39:19 Test Item Value Reference Range Interpretation [...] RDW-SD (test code = 42.8 fL 39.0-49.9 58193-9) RDW-CV (test code = 12.4 % 12.0-15.5 788-0) PLT (test code = 328 See_Comment [Automated 777-3) message] The sy stem which generated this result transmitted reference range : 166 - 358 10*3/ ?L. The reference r marsha was not used to interpret this result as normal/abnormal . MPV (test code = 10.9 fL 9.5-12.9 75810-6) NRBC/100 WBC (test 0.0 See_Comment [Automat ed code = 7873438804) message] The system which generated this result transmitted reference range : 0.0 - 10.0 /100 WBCs. The refer ence range was not u sed to interpret th is result as normal/abnormal . NRBC x10^3 (test code See_Comment [Auto mated = 6728083688) message] The s ystem which generated this result transmitted reference range : 10*3/?L. The reference range was not used to interpret this result as normal/abnormal . GRAN MAT (NEUT) % 70.6 % (test code = 770-8) IMM GRAN % (test code 0.70 % = 5018165540) LYMPH % (test code = 20.3 % 736-9) MONO % (test code = 6.7 % 5905-5) EOS % (test code = 1.0 % 713-8) BASO % (test code = 0.7 % 706-2) GRAN MAT x10^3(ANC) 7.68 10*3/uL 1.88-7.09 H (test code = 9577014168) IMM GRAN x10^3 (test 0.08 10*3/uL 0.00-0.06 H code = 3564256224) LYMPH x10^3 (test code 2.21 10*3/uL 1.32-3.29 = 731-0) MONO x10^3 (test code 0.73 10*3/uL 0.33-0.92 = 742-7) EOS x10^3 (test code = 0.11 10*3/uL 0.03-0.39 711-2) BASO x10^3 (test code 0.08 10*3/uL 0.01-0.07 H = 704-7) Lab Interpretation Abnormal (test code = 89723-8) [facility] [id number] 15:47:00 Test Item Value Reference Range Interpretation Comments POCT PREG (test code = 1605) Negative On board controls acceptable with Present C Line (test code = 3574) POCT PREG LOT # (test code = 3575) [id number] POCT PREG TEST DATE (test 02/12/2023 code = 3576) Lab Interpretation (test code = Normal 59493-4) [facility]. METABOLIC PANEL (22654)2021-08-16 23:06:24 Test Item Value Reference Range Interpretation Comments NA (test code = 138 mmol/L 135-145 8674946138) K (test code = 4.7 mmol/L 3.5-5.0 2428336464) CL (test code = 104 mmol/L 98-108 4308886588) CO2 TOTAL (test code = 25 mmol/L 23-31 2163031121) AGAP (test code = 2-16 5913068982) BUN (test code = 9 mg/dL 7-23 2130043280) GLUCOSE (test code = 87 mg/dL 70-110 6437565751) CREATININE (test code = 0.43 mg/dL 0.50-1.04 L 8217899706) TOTAL BILI (test code = 0.6 mg/dL 0.1-1.6 1675498955) CALCIUM (test code = 8.9 mg/dL 8.6-10.6 9932668319) T PROTEIN (test code = 8.0 g/dL 6.3-8.2 8422088528) ALBUMIN (test code = 4.6 g/dL 3.5-5.0 7154867453) ALK PHOS (test code = 137 U/L 34-122 H 7859771807) ALTv (test code = 17 U/L 5-35 1742-6) AST(SGOT) (test code = 29 U/L 13-40 9666969704) eGFR (test code = mL/min/1.73m2 2158591649) JASPREET (test code = JASPREET) Association of [...] tests). Lab Interpretation Abnormal (test code = 65580-9) [facility] 23:06:24 Test Item Value Reference Range Interpretation Comments MAGNESIUM (test code = 1519361233) 1.9 mg/dL 1.7-2.4 Lab Interpretation (test code = Normal 71847-2) [facility] 23:06:04 Test Item Value Reference Range Interpretation Comments LIPASE (test code = 2476679901) 119 U/L 0-220 Lab Interpretation (test code = Normal 03983-2) [facility] [id number] 22:52:03 Test Item Value Reference Range Interpretation Comments WBC (test code = See_Comment [Automated 9090-2) message] The sy stem which generated this result transmitted reference range : 4.30 - 11.10 10*3/?L. The reference range was not used to interpret this result as normal/abnormal . RBC (test code = See_Comment [Automated 452-8) message] The sy stem which generated this [...] RDW-SD (test code = 41.5 fL 39.0-49.9 28078-1) RDW-CV (test code = 12.6 % 12.0-15.5 788-0) PLT (test code = See_Comment [Automated 797-3) message] The sy stem which generated this result transmitted reference range : 166 - 358 10*3/ ?L. The reference r marsha was not used to interpret this result as normal/abnormal . MPV (test code = 10.6 fL 9.5-12.9 15286-2) NRBC/100 WBC (test See_Comment [Automat ed code = 9541104120) message] The system which generated this result transmitted reference range : 0.0 - 10.0 /100 WBCs. The refer ence range was not u sed to interpret th is result as normal/abnormal . NRBC x10^3 (test code <0.01 See_Comment [Auto mated = 2082801663) message] The s ystem which generated this result transmitted reference range : 10*3/?L. The reference range was not used to interpret this result as normal/abnormal . GRAN MAT (NEUT) % 66.7 % (test code = 770-8) IMM GRAN % (test code 0.80 % = 1785146152) LYMPH % (test code = 23.4 % 736-9) MONO % (test code = 7.3 % 5905-5) EOS % (test code = 1.3 % 713-8) BASO % (test code = 0.5 % 706-2) GRAN MAT x10^3(ANC) 6.59 10*3/uL 1.88-7.09 (test code = 9881187926) IMM GRAN x10^3 (test 0.08 10*3/uL 0.00-0.06 H code = 7419304734) LYMPH x10^3 (test code 2.31 10*3/uL 1.32-3.29 = 731-0) MONO x10^3 (test code 0.72 10*3/uL 0.33-0.92 = 742-7) EOS x10^3 (test code = 0.13 10*3/uL 0.03-0.39 711-2) BASO x10^3 (test code 0.05 10*3/uL 0.01-0.07 = 704-7) Lab Interpretation Abnormal (test code = 29737-9) [facility] acute hospital [id number] 22:35:00 Test Item Value Reference Range Interpretation Comments POCT PREG (test code = 1605) negative On board controls acceptable with present C Line (test code = 3574) POCT PREG LOT # (test code = 3575) [id number] POCT PREG TEST DATE (test code = 3576) Lab Interpretation (test code = Normal 76390-9) [facility] [id number] 16:22:00 Test Item Value Reference Range Interpretation Comments U Amph Scr (test code Negative *NA*(07/22/20 = U Amph Scr) 11:22 AM) [facility] [id number] 16:22:00 Test Item Value Reference Range Interpretation Comments U Hollie Scr (test code Negative *NA*(07/22/20 = U Hollie Scr) 11:22 AM) [facility] [id number] 16:22:00 Test Item Value Reference Range Interpretation Comments U Benzodiaz Scr (test Positive *ABN*(07/22/20 code = U Benzodiaz Scr) 11:22 AM) [facility] [id number] 16:22:00 Test Item Value Reference Range Interpretation Comments U Cannab Scr (test Positive *ABN*(07/22/20 code = U Cannab Scr) 11:22 AM) [facility] [id number] 16:22:00 Test Item Value Reference Range Interpretation Comments U Cocaine Scr (test Negative *NA*(07/22/20 code = U Cocaine Scr) 11:22 AM) [facility] [id number] 16:22:00 Test Item Value Reference Range Interpretation Comments U Opiate Scr (test Negative *NA*(07/22/20 code = U Opiate Scr) 11:22 AM) [facility] [id number] 16:22:00 Test Item Value Reference Range Interpretation Comments U Phencyclidine Scr (test Negative *NA*(07/22/20 code = U Phencyclidine 11:22 AM) Scr) [facility] [id number] 16:22:00 Test Item Value Reference Range Interpretation Comments UDS Note (test code = See Note (07/22/20 11:22 UDS Note) AM) [facility] [id number] 16:22:00 Test Item Value Reference Range Interpretation Comments UA Turbidity (test code = Clear (07/22/20 11:22 UA Turbidity) AM) [facility] AND [id number] 16:22:00 Test Item Value Reference Range Interpretation Comments UA Spec Grav (test code = UA Spec Grav) no gt [facility] AND [id number] 16:22:00 Test Item Value Reference Range Interpretation Comments UA pH (test code = UA pH) 8.0 1 5.0-8.0 [facility] AND [id number] 16:22:00 Test Item Value Reference Range Interpretation Comments UA Protein (test code = UA Negative mg/dL Protein) [facility] AND [id number] 16:22:00 Test Item Value Reference Range Interpretation Comments UA Glucose (test code = UA Negative mg/dL Glucose) [facility] AND [id number] 16:22:00 Test Item Value Reference Range Interpretation Comments UA Ketones (test code = UA Negative mg/dL Ketones) [facility] AND [id number] 16:22:00 Test Item Value Reference Range Interpretation Comments UA Bili (test code = Negative *NA*(07/22/20 UA Bili) 11:22 AM) [facility] AND [id number] 16:22:00 Test Item Value Reference Range Interpretation Comments UA Blood (test code = Negative (07/22/20 11:22 UA Blood) AM) [facility] AND [id number] 16:22:00 Test Item Value Reference Range Interpretation Comments UA Urobilinogen (test code = UA no gt 0.1-1.0 Urobilinogen) [facility] AND [id number] 16:22:00 Test Item Value Reference Range Interpretation Comments UA Nitrite (test code Negative (07/22/20 11:22 = UA Nitrite) AM) [facility] AND [id number] 16:22:00 Test Item Value Reference Range Interpretation Comments UA Leuk Est (test Negative (07/22/20 11:22 code = UA Leuk Est) AM) [facility] AND [id number] 16:22:00 Test Item Value Reference Range Interpretation Comments UA Sq Epi (test code = UA Sq Occasional /LPF Epi) [facility] AND [id number] 16:22:00 Test Item Value Reference Range Interpretation Comments UA WBC (test code = no gt See_Comment [Automa lalit message] The UA WBC) system which ge nerated this result transmit lalit reference range : <=5. The reference range was not used to interpr et this result as reid l/abnormal. [facility] [id number] 16:22:00 Test Item Value Reference Range Interpretation Comments UA RBC (test code = no gt See_Comment [Automa lalit message] The UA RBC) system which ge nerated this result transmit lalit reference range : <=2. The reference range was not used to interpr et this result as reid l/abnormal. [facility] [id number] 16:22:00 Test Item Value Reference Range Interpretation Comments UA Mucus (test code = UA Mucus) Few /LPF [facility] [id number] 16:22:00 Test Item Value Reference Range Interpretation Comments UA Color (test code = UA Color) STRAW [facility] [id number] 16:22:00 Test Item Value Reference Range Interpretation Comments U Amph Scr (test code Negative *NA*(07/22/20 = U Amph Scr) 11:22 AM) [facility] [id number] 16:22:00 Test Item Value Reference Range Interpretation Comments U Hollie Scr (test code Negative *NA*(07/22/20 = U Hollie Scr) 11:22 AM) [facility] [id number] 16:22:00 Test Item Value Reference Range Interpretation Comments U Benzodiaz Scr (test Positive *ABN*(07/22/20 code = U Benzodiaz Scr) 11:22 AM) [facility] [id number] 16:22:00 Test Item Value Reference Range Interpretation Comments U Cannab Scr (test Positive *ABN*(07/22/20 code = U Cannab Scr) 11:22 AM) [facility] [id number] 16:22:00 Test Item Value Reference Range Interpretation Comments U Cocaine Scr (test Negative *NA*(07/22/20 code = U Cocaine Scr) 11:22 AM) [facility] [id number] 16:22:00 Test Item Value Reference Range Interpretation Comments U Opiate Scr (test Negative *NA*(07/22/20 code = U Opiate Scr) 11:22 AM) [facility] [id number] 16:22:00 Test Item Value Reference Range Interpretation Comments U Phencyclidine Scr (test Negative *NA*(07/22/20 code = U Phencyclidine 11:22 AM) Scr) [facility] [id number] 16:22:00 Test Item Value Reference Range Interpretation Comments UDS Note (test code = See Note (07/22/20 11:22 UDS Note) AM) [facility] [id number] 16:22:00 Test Item Value Reference Range Interpretation Comments UA Turbidity (test code = Clear (07/22/20 11:22 UA Turbidity) AM) [facility] [id number] 16:22:00 Test Item Value Reference Range Interpretation Comments UA Spec Grav (test code = UA Spec Grav) no gt [facility] [id number] 16:22:00 Test Item Value Reference Range Interpretation Comments UA pH (test code = UA pH) 8.0 1 5.0-8.0 [facility] [id number] 16:22:00 Test Item Value Reference Range Interpretation Comments UA Protein (test code = UA Negative mg/dL Protein) [facility] [id number] 16:22:00 Test Item Value Reference Range Interpretation Comments UA Glucose (test code = UA Negative mg/dL Glucose) [facility] [id number] 16:22:00 Test Item Value Reference Range Interpretation Comments UA Ketones (test code = UA Negative mg/dL Ketones) [facility] [id number] 16:22:00 Test Item Value Reference Range Interpretation Comments UA Bili (test code = Negative *NA*(07/22/20 UA Bili) 11:22 AM) [facility] [id number] 16:22:00 Test Item Value Reference Range Interpretation Comments UA Blood (test code = Negative (07/22/20 11:22 UA Blood) AM) [facility] [id number] 16:22:00 Test Item Value Reference Range Interpretation Comments UA Urobilinogen (test code = UA no gt 0.1-1.0 Urobilinogen) [facility] [id number] 16:22:00 Test Item Value Reference Range Interpretation Comments UA Nitrite (test code Negative (07/22/20 11:22 = UA Nitrite) AM) [facility] [id number] 16:22:00 Test Item Value Reference Range Interpretation Comments UA Leuk Est (test Negative (07/22/20 11:22 code = UA Leuk Est) AM) [facility] [id number] 16:22:00 Test Item Value Reference Range Interpretation Comments UA Sq Epi (test code = UA Sq Occasional /LPF Epi) [facility] [id number] 16:22:00 Test Item Value Reference Range Interpretation Comments UA WBC (test code = no gt See_Comment [Automa lalit message] The UA WBC) system which ge nerated this result transmit lalit reference range : <=5. The reference range was not used to interpr et this result as reid l/abnormal. [facility] [id number] 16:22:00 Test Item Value Reference Range Interpretation Comments UA RBC (test code = no gt See_Comment [Automa lalit message] The UA RBC) system which ge nerated this result transmit lalit reference range : <=2. The reference range was not used to interpr et this result as reid l/abnormal. [facility] [id number] 16:22:00 Test Item Value Reference Range Interpretation Comments UA Mucus (test code = UA Mucus) Few /LPF [facility] [id number] 16:22:00 Test Item Value Reference Range Interpretation Comments UA Color (test code = UA Color) STRAW [facility] [id number] 16:22:00 Test Item Value Reference Range Interpretation Comments U Amph Scr (test code Negative *NA*(07/22/20 = U Amph Scr) 11:22 AM) [facility] [id number] 16:22:00 Test Item Value Reference Range Interpretation Comments U Hollie Scr (test code Negative *NA*(07/22/20 = U Hollie Scr) 11:22 AM) [facility] [id number] 16:22:00 Test Item Value Reference Range Interpretation Comments U Benzodiaz Scr (test Positive *ABN*(07/22/20 code = U Benzodiaz Scr) 11:22 AM) [facility] [id number] 16:22:00 Test Item Value Reference Range Interpretation Comments U Cannab Scr (test Positive *ABN*(07/22/20 code = U Cannab Scr) 11:22 AM) [facility] [id number] 16:22:00 Test Item Value Reference Range Interpretation Comments U Cocaine Scr (test Negative *NA*(07/22/20 code = U Cocaine Scr) 11:22 AM) [facility] [id number] 16:22:00 Test Item Value Reference Range Interpretation Comments U Opiate Scr (test Negative *NA*(07/22/20 code = U Opiate Scr) 11:22 AM) [facility] [id number] 16:22:00 Test Item Value Reference Range Interpretation Comments U Phencyclidine Scr (test Negative *NA*(07/22/20 code = U Phencyclidine 11:22 AM) Scr) [facility] [id number] 16:22:00 Test Item Value Reference Range Interpretation Comments UDS Note (test code = See Note (07/22/20 11:22 UDS Note) AM) [facility] [id number] 16:22:00 Test Item Value Reference Range Interpretation Comments UA Turbidity (test code = Clear (07/22/20 11:22 UA Turbidity) AM) [facility] [id number] 16:22:00 Test Item Value Reference Range Interpretation Comments UA Spec Grav (test code = UA Spec Grav) no gt [facility] [id number] 16:22:00 Test Item Value Reference Range Interpretation Comments UA pH (test code = UA pH) 8.0 1 5.0-8.0 [facility] [id number] 16:22:00 Test Item Value Reference Range Interpretation Comments UA Protein (test code = UA Negative mg/dL Protein) [facility] [id number] 16:22:00 Test Item Value Reference Range Interpretation Comments UA Glucose (test code = UA Negative mg/dL Glucose) [facility] [id number] 16:22:00 Test Item Value Reference Range Interpretation Comments UA Ketones (test code = UA Negative mg/dL Ketones) [facility] [id number] 16:22:00 Test Item Value Reference Range Interpretation Comments UA Bili (test code = Negative *NA*(07/22/20 UA Bili) 11:22 AM) [facility] [id number] 16:22:00 Test Item Value Reference Range Interpretation Comments UA Blood (test code = Negative (07/22/20 11:22 UA Blood) AM) [facility] [id number] 16:22:00 Test Item Value Reference Range Interpretation Comments UA Urobilinogen (test code = UA no gt 0.1-1.0 Urobilinogen) [facility] [id number] 16:22:00 Test Item Value Reference Range Interpretation Comments UA Nitrite (test code Negative (07/22/20 11:22 = UA Nitrite) AM) [facility] [id number] 16:22:00 Test Item Value Reference Range Interpretation Comments UA Leuk Est (test Negative (07/22/20 11:22 code = UA Leuk Est) AM) [facility] [id number] 16:22:00 Test Item Value Reference Range Interpretation Comments UA Sq Epi (test code = UA Sq Occasional /LPF Epi) [facility] [id number] 16:22:00 Test Item Value Reference Range Interpretation Comments UA WBC (test code = UA WBC) no gt <=5 [facility] [id number] 16:22:00 Test Item Value Reference Range Interpretation Comments UA RBC (test code = UA RBC) no gt <=2 [facility] [id number] 16:22:00 Test Item Value Reference Range Interpretation Comments UA Mucus (test code = UA Mucus) Few /LPF [facility] [id number] 16:22:00 Test Item Value Reference Range Interpretation Comments UA Color (test code = UA Color) [facility]AW [facility] [id number] 16:22:00 Test Item Value Reference Range Interpretation Comments U Amph Scr (test code Negative *NA*(07/22/20 = U Amph Scr) 11:22 AM) [facility] [id number] 16:22:00 Test Item Value Reference Range Interpretation Comments U Hollie Scr (test code Negative *NA*(07/22/20 = U Hollie Scr) 11:22 AM) [facility] [id number] 16:22:00 Test Item Value Reference Range Interpretation Comments U Benzodiaz Scr (test Positive *ABN*(07/22/20 code = U Benzodiaz Scr) 11:22 AM) [facility] [id number] 16:22:00 Test Item Value Reference Range Interpretation Comments U Cannab Scr (test Positive *ABN*(07/22/20 code = U Cannab Scr) 11:22 AM) [facility] [id number] 16:22:00 Test Item Value Reference Range Interpretation Comments U Cocaine Scr (test Negative *NA*(07/22/20 code = U Cocaine Scr) 11:22 AM) [facility] [id number] 16:22:00 Test Item Value Reference Range Interpretation Comments U Opiate Scr (test Negative *NA*(07/22/20 code = U Opiate Scr) 11:22 AM) [facility] [id number] 16:22:00 Test Item Value Reference Range Interpretation Comments U Phencyclidine Scr (test Negative *NA*(07/22/20 code = U Phencyclidine 11:22 AM) Scr) [facility] [id number] 16:22:00 Test Item Value Reference Range Interpretation Comments UDS Note (test code = See Note (07/22/20 11:22 UDS Note) AM) [facility] [id number] 16:22:00 Test Item Value Reference Range Interpretation Comments UA Turbidity (test code = Clear (07/22/20 11:22 UA Turbidity) AM) [facility] [id number] 16:22:00 Test Item Value Reference Range Interpretation Comments UA Spec Grav (test code = UA Spec Grav) no gt [facility] [id number] 16:22:00 Test Item Value Reference Range Interpretation Comments UA pH (test code = UA pH) 8.0 1 5.0-8.0 [facility] [id number] 16:22:00 Test Item Value Reference Range Interpretation Comments UA Protein (test code = UA Negative mg/dL Protein) [facility] [id number] 16:22:00 Test Item Value Reference Range Interpretation Comments UA Glucose (test code = UA Negative mg/dL Glucose) [facility] [id number] 16:22:00 Test Item Value Reference Range Interpretation Comments UA Ketones (test code = UA Negative mg/dL Ketones) [facility] [id number] 16:22:00 Test Item Value Reference Range Interpretation Comments UA Bili (test code = Negative *NA*(07/22/20 UA Bili) 11:22 AM) [facility] [id number] 16:22:00 Test Item Value Reference Range Interpretation Comments UA Blood (test code = Negative (07/22/20 11:22 UA Blood) AM) [facility] [id number] 16:22:00 Test Item Value Reference Range Interpretation Comments UA Urobilinogen (test code = UA no gt 0.1-1.0 Urobilinogen) [facility] [id number] 16:22:00 Test Item Value Reference Range Interpretation Comments UA Nitrite (test code Negative (07/22/20 11:22 = UA Nitrite) AM) [facility] [id number] 16:22:00 Test Item Value Reference Range Interpretation Comments UA Leuk Est (test Negative (07/22/20 11:22 code = UA Leuk Est) AM) [facility] [id number] 16:22:00 Test Item Value Reference Range Interpretation Comments UA Sq Epi (test code = UA Sq Occasional /LPF Epi) [facility] [id number] 16:22:00 Test Item Value Reference Range Interpretation Comments UA WBC (test code = UA WBC) no gt <=5 [facility] [id number] 16:22:00 Test Item Value Reference Range Interpretation Comments UA RBC (test code = UA RBC) no gt <=2 [facility] [id number] 16:22:00 Test Item Value Reference Range Interpretation Comments UA Mucus (test code = UA Mucus) Few /LPF [facility] [id number] 16:22:00 Test Item Value Reference Range Interpretation Comments UA Color (test code = UA Color) STRAW [facility] [id number] 16:22:00 Test Item Value Reference Range Interpretation Comments U Amph Scr (test code Negative *NA*(07/22/20 = U Amph Scr) 11:22 AM) [facility] [id number] 16:22:00 Test Item Value Reference Range Interpretation Comments U Hollie Scr (test code Negative *NA*(07/22/20 = U Hollie Scr) 11:22 AM) [facility] [id number] 16:22:00 Test Item Value Reference Range Interpretation Comments U Benzodiaz Scr (test Positive *ABN*(07/22/20 code = U Benzodiaz Scr) 11:22 AM) [facility] [id number] 16:22:00 Test Item Value Reference Range Interpretation Comments U Cannab Scr (test Positive *ABN*(07/22/20 code = U Cannab Scr) 11:22 AM) [facility] [id number] 16:22:00 Test Item Value Reference Range Interpretation Comments U Cocaine Scr (test Negative *NA*(07/22/20 code = U Cocaine Scr) 11:22 AM) [facility] [id number] 16:22:00 Test Item Value Reference Range Interpretation Comments U Opiate Scr (test Negative *NA*(07/22/20 code = U Opiate Scr) 11:22 AM) [facility] [id number] 16:22:00 Test Item Value Reference Range Interpretation Comments U Phencyclidine Scr (test Negative *NA*(07/22/20 code = U Phencyclidine 11:22 AM) Scr) [facility] [id number] 16:22:00 Test Item Value Reference Range Interpretation Comments UDS Note (test code = See Note (07/22/20 11:22 UDS Note) AM) [facility] [id number] 16:22:00 Test Item Value Reference Range Interpretation Comments UA Turbidity (test code = Clear (07/22/20 11:22 UA Turbidity) AM) [facility] [id number] 16:22:00 Test Item Value Reference Range Interpretation Comments UA Spec Grav (test code = UA Spec Grav) no gt [facility] [id number] 16:22:00 Test Item Value Reference Range Interpretation Comments UA pH (test code = UA pH) 8.0 1 5.0-8.0 [facility] AND [id number] 16:22:00 Test Item Value Reference Range Interpretation Comments UA Protein (test code = UA Negative mg/dL Protein) [facility] AND [id number] 16:22:00 Test Item Value Reference Range Interpretation Comments UA Glucose (test code = UA Negative mg/dL Glucose) [facility] AND [id number] 16:22:00 Test Item Value Reference Range Interpretation Comments UA Ketones (test code = UA Negative mg/dL Ketones) [facility] AND [id number] 16:22:00 Test Item Value Reference Range Interpretation Comments UA Bili (test code = Negative *NA*(07/22/20 UA Bili) 11:22 AM) [facility] AND [id number] 16:22:00 Test Item Value Reference Range Interpretation Comments UA Blood (test code = Negative (07/22/20 11:22 UA Blood) AM) [facility] AND [id number] 16:22:00 Test Item Value Reference Range Interpretation Comments UA Urobilinogen (test code = UA no gt 0.1-1.0 Urobilinogen) [facility] AND [id number] 16:22:00 Test Item Value Reference Range Interpretation Comments UA Nitrite (test code Negative (07/22/20 11:22 = UA Nitrite) AM) [facility] AND [id number] 16:22:00 Test Item Value Reference Range Interpretation Comments UA Leuk Est (test Negative (07/22/20 11:22 code = UA Leuk Est) AM) [facility] AND [id number] 16:22:00 Test Item Value Reference Range Interpretation Comments UA Sq Epi (test code = UA Sq Occasional /LPF Epi) [facility] AND [id number] 16:22:00 Test Item Value Reference Range Interpretation Comments UA WBC (test code = no gt See_Comment [Automa lalit message] The UA WBC) system which ge nerated this result transmit lalit reference range : <=5. The reference range was not used to interpr et this result as reid l/abnormal. [facility] AND [id number] 16:22:00 Test Item Value Reference Range Interpretation Comments UA RBC (test code = no gt See_Comment [Automa lalit message] The UA RBC) system which ge nerated this result transmit lalit reference range : <=2. The reference range was not used to interpr et this result as reid l/abnormal. [facility] [id number] 16:22:00 Test Item Value Reference Range Interpretation Comments UA Mucus (test code = UA Mucus) Few /LPF [facility] [id number] 16:22:00 Test Item Value Reference Range Interpretation Comments UA Color (test code = UA Color) STRAW [facility] [id number] 16:22:00 Test Item Value Reference Range Interpretation Comments U Amph Scr (test code Negative *NA*(07/22/20 = U Amph Scr) 11:22 AM) [facility] [id number] 16:22:00 Test Item Value Reference Range Interpretation Comments U Hollie Scr (test code Negative *NA*(07/22/20 = U Hollie Scr) 11:22 AM) [facility] [id number] 16:22:00 Test Item Value Reference Range Interpretation Comments U Benzodiaz Scr (test Positive *ABN*(07/22/20 code = U Benzodiaz Scr) 11:22 AM) [facility] [id number] 16:22:00 Test Item Value Reference Range Interpretation Comments U Cannab Scr (test Positive *ABN*(07/22/20 code = U Cannab Scr) 11:22 AM) [facility] [id number] 16:22:00 Test Item Value Reference Range Interpretation Comments U Cocaine Scr (test Negative *NA*(07/22/20 code = U Cocaine Scr) 11:22 AM) [facility] [id number] 16:22:00 Test Item Value Reference Range Interpretation Comments U Opiate Scr (test Negative *NA*(07/22/20 code = U Opiate Scr) 11:22 AM) [facility] [id number] 16:22:00 Test Item Value Reference Range Interpretation Comments U Phencyclidine Scr (test Negative *NA*(07/22/20 code = U Phencyclidine 11:22 AM) Scr) [facility] [id number] 16:22:00 Test Item Value Reference Range Interpretation Comments UDS Note (test code = See Note (07/22/20 11:22 UDS Note) AM) [facility] AND [id number] 16:22:00 Test Item Value Reference Range Interpretation Comments UA Turbidity (test code = Clear (07/22/20 11:22 UA Turbidity) AM) [facility] AND [id number] 16:22:00 Test Item Value Reference Range Interpretation Comments UA Spec Grav (test code = UA Spec Grav) no gt [facility] AND [id number] 16:22:00 Test Item Value Reference Range Interpretation Comments UA pH (test code = UA pH) 8.0 1 5.0-8.0 [facility] AND [id number] 16:22:00 Test Item Value Reference Range Interpretation Comments UA Protein (test code = UA Negative mg/dL Protein) [facility] AND [id number] 16:22:00 Test Item Value Reference Range Interpretation Comments UA Glucose (test code = UA Negative mg/dL Glucose) [facility] AND [id number] 16:22:00 Test Item Value Reference Range Interpretation Comments UA Ketones (test code = UA Negative mg/dL Ketones) [facility] AND [id number] 16:22:00 Test Item Value Reference Range Interpretation Comments UA Bili (test code = Negative *NA*(07/22/20 UA Bili) 11:22 AM) [facility] AND [id number] 16:22:00 Test Item Value Reference Range Interpretation Comments UA Blood (test code = Negative (07/22/20 11:22 UA Blood) AM) [facility] AND [id number] 16:22:00 Test Item Value Reference Range Interpretation Comments UA Urobilinogen (test code = UA no gt 0.1-1.0 Urobilinogen) [facility] AND [id number] 16:22:00 Test Item Value Reference Range Interpretation Comments UA Nitrite (test code Negative (07/22/20 11:22 = UA Nitrite) AM) [facility] AND [id number] 16:22:00 Test Item Value Reference Range Interpretation Comments UA Leuk Est (test Negative (07/22/20 11:22 code = UA Leuk Est) AM) [facility] [id number] 16:22:00 Test Item Value Reference Range Interpretation Comments UA Sq Epi (test code = UA Sq Occasional /LPF Epi) [facility] [id number] 16:22:00 Test Item Value Reference Range Interpretation Comments UA WBC (test code = no gt See_Comment [Automa lalit message] The UA WBC) system which ge nerated this result transmit lalit reference range : <=5. The reference range was not used to interpr et this result as reid l/abnormal. [facility] [id number] 16:22:00 Test Item Value Reference Range Interpretation Comments UA RBC (test code = no gt See_Comment [Automa lalit message] The UA RBC) system which ge nerated this result transmit lalit reference range : <=2. The reference range was not used to interpr et this result as reid l/abnormal. [facility] [id number] 16:22:00 Test Item Value Reference Range Interpretation Comments UA Mucus (test code = UA Mucus) Few /LPF [facility] [id number] 16:22:00 Test Item Value Reference Range Interpretation Comments UA Color (test code = UA Color) [facility]AW [facility] [id number] 16:22:00 Test Item Value Reference Range Interpretation Comments U Amph Scr (test code Negative *NA*(07/22/20 = U Amph Scr) 11:22 AM) [facility] [id number] 16:22:00 Test Item Value Reference Range Interpretation Comments U Hollie Scr (test code Negative *NA*(07/22/20 = U Hollie Scr) 11:22 AM) [facility] [id number] 16:22:00 Test Item Value Reference Range Interpretation Comments U Benzodiaz Scr (test Positive *ABN*(07/22/20 code = U Benzodiaz Scr) 11:22 AM) [facility] [id number] 16:22:00 Test Item Value Reference Range Interpretation Comments U Cannab Scr (test Positive *ABN*(07/22/20 code = U Cannab Scr) 11:22 AM) [facility] [id number] 16:22:00 Test Item Value Reference Range Interpretation Comments U Amph Scr (test code Negative *NA*(07/22/20 = U Amph Scr) 11:22 AM) [facility] [id number] 16:22:00 Test Item Value Reference Range Interpretation Comments U Hollie Scr (test code Negative *NA*(07/22/20 = U Hollie Scr) 11:22 AM) [facility] [id number] 16:22:00 Test Item Value Reference Range Interpretation Comments U Benzodiaz Scr (test Positive *ABN*(07/22/20 code = U Benzodiaz Scr) 11:22 AM) [facility] [id number] 16:22:00 Test Item Value Reference Range Interpretation Comments U Cannab Scr (test Positive *ABN*(07/22/20 code = U Cannab Scr) 11:22 AM) [facility] [id number] 16:22:00 Test Item Value Reference Range Interpretation Comments U Cocaine Scr (test Negative *NA*(07/22/20 code = U Cocaine Scr) 11:22 AM) [facility] [id number] 16:22:00 Test Item Value Reference Range Interpretation Comments U Opiate Scr (test Negative *NA*(07/22/20 code = U Opiate Scr) 11:22 AM) [facility] [id number] 16:22:00 Test Item Value Reference Range Interpretation Comments U Phencyclidine Scr (test Negative *NA*(07/22/20 code = U Phencyclidine 11:22 AM) Scr) [facility] [id number] 16:22:00 Test Item Value Reference Range Interpretation Comments UDS Note (test code = See Note (07/22/20 11:22 UDS Note) AM) [facility] [id number] 16:22:00 Test Item Value Reference Range Interpretation Comments U Cocaine Scr (test Negative *NA*(07/22/20 code = U Cocaine Scr) 11:22 AM) [facility] [id number] 16:22:00 Test Item Value Reference Range Interpretation Comments UA Turbidity (test code = Clear (07/22/20 11:22 UA Turbidity) AM) [facility] [id number] 16:22:00 Test Item Value Reference Range Interpretation Comments UA Spec Grav (test code = UA Spec Grav) no gt [facility] [id number] 16:22:00 Test Item Value Reference Range Interpretation Comments UA pH (test code = UA pH) 8.0 1 5.0-8.0 [facility] [id number] 16:22:00 Test Item Value Reference Range Interpretation Comments UA Protein (test code = UA Negative mg/dL Protein) [facility] [id number] 16:22:00 Test Item Value Reference Range Interpretation Comments UA Glucose (test code = UA Negative mg/dL Glucose) [facility] [id number] 16:22:00 Test Item Value Reference Range Interpretation Comments UA Ketones (test code = UA Negative mg/dL Ketones) [facility] [id number] 16:22:00 Test Item Value Reference Range Interpretation Comments UA Bili (test code = Negative *NA*(07/22/20 UA Bili) 11:22 AM) [facility] [id number] 16:22:00 Test Item Value Reference Range Interpretation Comments UA Blood (test code = Negative (07/22/20 11:22 UA Blood) AM) [facility] [id number] 16:22:00 Test Item Value Reference Range Interpretation Comments UA Urobilinogen (test code = UA no gt 0.1-1.0 Urobilinogen) [facility] [id number] 16:22:00 Test Item Value Reference Range Interpretation Comments UA Nitrite (test code Negative (07/22/20 11:22 = UA Nitrite) AM) [facility] [id number] 16:22:00 Test Item Value Reference Range Interpretation Comments U Opiate Scr (test Negative *NA*(07/22/20 code = U Opiate Scr) 11:22 AM) [facility] [id number] 16:22:00 Test Item Value Reference Range Interpretation Comments UA Leuk Est (test Negative (07/22/20 11:22 code = UA Leuk Est) AM) [facility] [id number] 16:22:00 Test Item Value Reference Range Interpretation Comments UA Sq Epi (test code = UA Sq Occasional /LPF Epi) [facility] [id number] 16:22:00 Test Item Value Reference Range Interpretation Comments UA WBC (test code = no gt See_Comment [Automa lalit message] The UA WBC) system which ge nerated this result transmit lalit reference range : <=5. The reference range was not used to interpr et this result as reid l/abnormal. [facility] [id number] 16:22:00 Test Item Value Reference Range Interpretation Comments UA RBC (test code = no gt See_Comment [Automa lalit message] The UA RBC) system which ge nerated this result transmit lalit reference range : <=2. The reference range was not used to interpr et this result as reid l/abnormal. [facility] [id number] 16:22:00 Test Item Value Reference Range Interpretation Comments UA Mucus (test code = UA Mucus) Few /LPF [facility] [id number] 16:22:00 Test Item Value Reference Range Interpretation Comments UA Color (test code = UA Color) STRAW [facility] [id number] 16:22:00 Test Item Value Reference Range Interpretation Comments U Phencyclidine Scr (test Negative *NA*(07/22/20 code = U Phencyclidine 11:22 AM) Scr) [facility] [id number] 16:22:00 Test Item Value Reference Range Interpretation Comments UDS Note (test code = See Note (07/22/20 11:22 UDS Note) AM) [facility] [id number] 16:22:00 Test Item Value Reference Range Interpretation Comments UA Turbidity (test code = Clear (07/22/20 11:22 UA Turbidity) AM) [facility] [id number] 16:22:00 Test Item Value Reference Range Interpretation Comments UA Spec Grav (test code = UA Spec Grav) no gt [facility] [id number] 16:22:00 Test Item Value Reference Range Interpretation Comments UA pH (test code = UA pH) 8.0 1 5.0-8.0 [facility] [id number] 16:22:00 Test Item Value Reference Range Interpretation Comments UA Protein (test code = UA Negative mg/dL Protein) [facility] [id number] 16:22:00 Test Item Value Reference Range Interpretation Comments U Amph Scr (test code Negative *NA*(07/22/20 = U Amph Scr) 11:22 AM) [facility] [id number] 16:22:00 Test Item Value Reference Range Interpretation Comments UA Glucose (test code = UA Negative mg/dL Glucose) [facility] [id number] 16:22:00 Test Item Value Reference Range Interpretation Comments U Hollie Scr (test code Negative *NA*(07/22/20 = U Hollie Scr) 11:22 AM) [facility] [id number] 16:22:00 Test Item Value Reference Range Interpretation Comments U Benzodiaz Scr (test Positive *ABN*(07/22/20 code = U Benzodiaz Scr) 11:22 AM) [facility] [id number] 16:22:00 Test Item Value Reference Range Interpretation Comments U Cannab Scr (test Positive *ABN*(07/22/20 code = U Cannab Scr) 11:22 AM) [facility] [id number] 16:22:00 Test Item Value Reference Range Interpretation Comments U Cocaine Scr (test Negative *NA*(07/22/20 code = U Cocaine Scr) 11:22 AM) [facility] [id number] 16:22:00 Test Item Value Reference Range Interpretation Comments U Opiate Scr (test Negative *NA*(07/22/20 code = U Opiate Scr) 11:22 AM) [facility] [id number] 16:22:00 Test Item Value Reference Range Interpretation Comments U Phencyclidine Scr (test Negative *NA*(07/22/20 code = U Phencyclidine 11:22 AM) Scr) [facility] [id number] 16:22:00 Test Item Value Reference Range Interpretation Comments UDS Note (test code = See Note (07/22/20 11:22 UDS Note) AM) [facility] [id number] 16:22:00 Test Item Value Reference Range Interpretation Comments UA Turbidity (test code = Clear (07/22/20 11:22 UA Turbidity) AM) [facility] [id number] 16:22:00 Test Item Value Reference Range Interpretation Comments UA Spec Grav (test code = UA Spec Grav) no gt [facility] [id number] 16:22:00 Test Item Value Reference Range Interpretation Comments UA pH (test code = UA pH) 8.0 1 5.0-8.0 [facility] AND [id number] 16:22:00 Test Item Value Reference Range Interpretation Comments UA Ketones (test code = UA Negative mg/dL Ketones) [facility] AND [id number] 16:22:00 Test Item Value Reference Range Interpretation Comments UA Protein (test code = UA Negative mg/dL Protein) [facility] AND [id number] 16:22:00 Test Item Value Reference Range Interpretation Comments UA Glucose (test code = UA Negative mg/dL Glucose) [facility] AND [id number] 16:22:00 Test Item Value Reference Range Interpretation Comments UA Ketones (test code = UA Negative mg/dL Ketones) [facility] AND [id number] 16:22:00 Test Item Value Reference Range Interpretation Comments UA Bili (test code = Negative *NA*(07/22/20 UA Bili) 11:22 AM) [facility] AND [id number] 16:22:00 Test Item Value Reference Range Interpretation Comments UA Blood (test code = Negative (07/22/20 11:22 UA Blood) AM) [facility] AND [id number] 16:22:00 Test Item Value Reference Range Interpretation Comments UA Urobilinogen (test code = UA no gt 0.1-1.0 Urobilinogen) [facility] AND [id number] 16:22:00 Test Item Value Reference Range Interpretation Comments UA Nitrite (test code Negative (07/22/20 11:22 = UA Nitrite) AM) [facility] AND [id number] 16:22:00 Test Item Value Reference Range Interpretation Comments UA Leuk Est (test Negative (07/22/20 11:22 code = UA Leuk Est) AM) [facility] AND [id number] 16:22:00 Test Item Value Reference Range Interpretation Comments UA Sq Epi (test code = UA Sq Occasional /LPF Epi) [facility] AND [id number] 16:22:00 Test Item Value Reference Range Interpretation Comments UA WBC (test code = no gt See_Comment [Automa lalit message] The UA WBC) system which ge nerated this result transmit lalit reference range : <=5. The reference range was not used to interpr et this result as reid l/abnormal. [facility] [id number] 16:22:00 Test Item Value Reference Range Interpretation Comments UA Bili (test code = Negative *NA*(07/22/20 UA Bili) 11:22 AM) [facility] [id number] 16:22:00 Test Item Value Reference Range Interpretation Comments UA RBC (test code = no gt See_Comment [Automa lalit message] The UA RBC) system which ge nerated this result transmit lalit reference range : <=2. The reference range was not used to interpr et this result as reid l/abnormal. [facility] [id number] 16:22:00 Test Item Value Reference Range Interpretation Comments UA Mucus (test code = UA Mucus) Few /LPF [facility] [id number] 16:22:00 Test Item Value Reference Range Interpretation Comments UA Color (test code = UA Color) STRAW [facility] AND [id number] 16:22:00 Test Item Value Reference Range Interpretation Comments UA Blood (test code = Negative (07/22/20 11:22 UA Blood) AM) [facility] [id number] 16:22:00 Test Item Value Reference Range Interpretation Comments UA Urobilinogen (test code = UA no gt 0.1-1.0 Urobilinogen) [facility] [id number] 16:22:00 Test Item Value Reference Range Interpretation Comments UA Nitrite (test code Negative (07/22/20 11:22 = UA Nitrite) AM) [facility] [id number] 16:22:00 Test Item Value Reference Range Interpretation Comments UA Leuk Est (test Negative (07/22/20 11:22 code = UA Leuk Est) AM) [facility] [id number] 16:22:00 Test Item Value Reference Range Interpretation Comments UA Sq Epi (test code = UA Sq Occasional /LPF Epi) [facility] AND [id number] 16:22:00 Test Item Value Reference Range Interpretation Comments UA WBC (test code = no gt See_Comment [Automa lalit message] The UA WBC) system which ge nerated this result transmit lalit reference range : <=5. The reference range was not used to interpr et this result as reid l/abnormal. [facility] [id number] 16:22:00 Test Item Value Reference Range Interpretation Comments U Amph Scr (test code Negative *NA*(07/22/20 = U Amph Scr) 11:22 AM) [facility] [id number] 16:22:00 Test Item Value Reference Range Interpretation Comments U Hollie Scr (test code Negative *NA*(07/22/20 = U Hollie Scr) 11:22 AM) [facility] [id number] 16:22:00 Test Item Value Reference Range Interpretation Comments U Benzodiaz Scr (test Positive *ABN*(07/22/20 code = U Benzodiaz Scr) 11:22 AM) [facility] [id number] 16:22:00 Test Item Value Reference Range Interpretation Comments U Cannab Scr (test Positive *ABN*(07/22/20 code = U Cannab Scr) 11:22 AM) [facility] [id number] 16:22:00 Test Item Value Reference Range Interpretation Comments UA RBC (test code = no gt See_Comment [Automa lalit message] The UA RBC) system which ge nerated this result transmit lalit reference range : <=2. The reference range was not used to interpr et this result as reid l/abnormal. [facility] [id number] 16:22:00 Test Item Value Reference Range Interpretation Comments U Cocaine Scr (test Negative *NA*(07/22/20 code = U Cocaine Scr) 11:22 AM) [facility] [id number] 16:22:00 Test Item Value Reference Range Interpretation Comments U Opiate Scr (test Negative *NA*(07/22/20 code = U Opiate Scr) 11:22 AM) [facility] [id number] 16:22:00 Test Item Value Reference Range Interpretation Comments U Phencyclidine Scr (test Negative *NA*(07/22/20 code = U Phencyclidine 11:22 AM) Scr) [facility] [id number] 16:22:00 Test Item Value Reference Range Interpretation Comments UDS Note (test code = See Note (4/9/21 11:22 UDS Note) AM) [facility] AND [id number] 16:22:00 Test Item Value Reference Range Interpretation Comments UA Turbidity (test code = Clear (07/22/20 11:22 UA Turbidity) AM) [facility] AND [id number] 16:22:00 Test Item Value Reference Range Interpretation Comments UA Spec Grav (test code = UA Spec Grav) no gt [facility] AND [id number] 16:22:00 Test Item Value Reference Range Interpretation Comments UA pH (test code = UA pH) 8.0 1 5.0-8.0 [facility] AND [id number] 16:22:00 Test Item Value Reference Range Interpretation Comments UA Protein (test code = UA Negative mg/dL Protein) [facility] AND [id number] 16:22:00 Test Item Value Reference Range Interpretation Comments UA Glucose (test code = UA Negative mg/dL Glucose) [facility] AND [id number] 16:22:00 Test Item Value Reference Range Interpretation Comments UA Ketones (test code = UA Negative mg/dL Ketones) [facility] AND [id number] 16:22:00 Test Item Value Reference Range Interpretation Comments UA Mucus (test code = UA Mucus) Few /LPF [facility] AND [id number] 16:22:00 Test Item Value Reference Range Interpretation Comments UA Bili (test code = Negative *NA*(07/22/20 UA Bili) 11:22 AM) [facility] AND [id number] 16:22:00 Test Item Value Reference Range Interpretation Comments UA Blood (test code = Negative (07/22/20 11:22 UA Blood) AM) [facility] AND [id number] 16:22:00 Test Item Value Reference Range Interpretation Comments UA Urobilinogen (test code = UA no gt 0.1-1.0 Urobilinogen) [facility] AND [id number] 16:22:00 Test Item Value Reference Range Interpretation Comments UA Nitrite (test code Negative (07/22/20 11:22 = UA Nitrite) AM) [facility] AND [id number] 16:22:00 Test Item Value Reference Range Interpretation Comments UA Leuk Est (test Negative (07/22/20 11:22 code = UA Leuk Est) AM) [facility] [id number] 16:22:00 Test Item Value Reference Range Interpretation Comments UA Sq Epi (test code = UA Sq Occasional /LPF Epi) [facility] [id number] 16:22:00 Test Item Value Reference Range Interpretation Comments UA WBC (test code = no gt See_Comment [Automa lalit message] The UA WBC) system which ge nerated this result transmit lalit reference range : <=5. The reference range was not used to interpr et this result as reid l/abnormal. [facility] [id number] 16:22:00 Test Item Value Reference Range Interpretation Comments UA RBC (test code = no gt See_Comment [Automa lalit message] The UA RBC) system which ge nerated this result transmit lalit reference range : <=2. The reference range was not used to interpr et this result as reid l/abnormal. [facility] AND [id number] 16:22:00 Test Item Value Reference Range Interpretation Comments UA Mucus (test code = UA Mucus) Few /LPF [facility] [id number] 16:22:00 Test Item Value Reference Range Interpretation Comments UA Color (test code = UA Color) [facility]AW [facility] [id number] 16:22:00 Test Item Value Reference Range Interpretation Comments UA Color (test code = UA Color) [facility]AW [id number] 13:54:00 Test Item Value Reference Range Interpretation Comments Hep Signal to Cut-Off (test code = Hep 0.01 1 Signal to Cut-Off) [facility] [id number] 13:54:00 Test Item Value Reference Range Interpretation Comments [facility] HIV 4th GEN (test Negative *NA*(07/22/20 code = CDC HIV 4th 8:54 AM) GEN) [facility] [employer] [id number] 13:54:00 Test Item Value Reference Range Interpretation Comments ABO/Rh (test code = ABO/Rh) O POS [facility] [employer] [id number] 13:54:00 Test Item Value Reference Range Interpretation Comments Antibody Scrn (test Negative (07/22/20 8:54 code = Antibody Scrn) AM) [facility] [id number] 13:54:00 Test Item Value Reference Range Interpretation Comments Hep C Ab (test code = Hep C Ab) NON-REACTIVE [facility] [id number] 13:54:00 Test Item Value Reference Range Interpretation Comments Hep Signal to Cut-Off (test code = Hep 0.01 1 Signal to Cut-Off) [facility] [id number] 13:54:00 Test Item Value Reference Range Interpretation Comments [facility] HIV 4th GEN (test Negative *NA*(07/22/20 code = [facility] HIV 4th 8:54 AM) GEN) [facility] [employer] [id number] 13:54:00 Test Item Value Reference Range Interpretation Comments ABO/Rh (test code = ABO/Rh) O POS [facility] [employer] [facility] [id number] 13:54:00 Test Item Value Reference Range Interpretation Comments Antibody Scrn (test Negative (07/22/20 8:54 code = Antibody Scrn) AM) [facility] [id number] 13:54:00 Test Item Value Reference Range Interpretation Comments Hep C Ab (test code = Hep C Ab) NON-REACTIVE [facility] [id number] 13:54:00 Test Item Value Reference Range Interpretation Comments Hep Signal to Cut-Off (test code = Hep 0.01 1 Signal to Cut-Off) [facility] [id number] 13:54:00 Test Item Value Reference Range Interpretation Comments [facility] HIV 4th GEN (test Negative *NA*(07/22/20 code = [facility] HIV 4th 8:54 AM) GEN) [facility] [employer] [id number] 13:54:00 Test Item Value Reference Range Interpretation Comments ABO/Rh (test code = ABO/Rh) O POS [facility] [employer] [id number] 13:54:00 Test Item Value Reference Range Interpretation Comments Antibody Scrn (test Negative (07/22/20 8:54 code = Antibody Scrn) AM) [facility] [id number] 13:54:00 Test Item Value Reference Range Interpretation Comments Hep C Ab (test code = Hep C Ab) NON-REACTIVE [facility] [id number] 13:54:00 Test Item Value Reference Range Interpretation Comments Hep Signal to Cut-Off (test code = Hep 0.01 1 Signal to Cut-Off) [id number] 13:54:00 Test Item Value Reference Range Interpretation Comments [facility] HIV 4th GEN (test Negative *NA*(07/22/20 code = CDC HIV 4th 8:54 AM) GEN) [facility] [id number] 13:54:00 Test Item Value Reference Range Interpretation Comments ABO/Rh (test code = ABO/Rh) O POS [facility] [id number] 13:54:00 Test Item Value Reference Range Interpretation Comments Antibody Scrn (test Negative (07/22/20 8:54 code = Antibody Scrn) AM) [facility] [id number] 13:54:00 Test Item Value Reference Range Interpretation Comments Hep C Ab (test code = Hep C Ab) NON-REACTIVE [facility] [id number] 13:54:00 Test Item Value Reference Range Interpretation Comments Hep Signal to Cut-Off (test code = Hep 0.01 1 Signal to Cut-Off) [facility] [id number] 13:54:00 Test Item Value Reference Range Interpretation Comments [facility] HIV 4th GEN (test Negative *NA*(07/22/20 code = [facility] HIV 4th 8:54 AM) GEN) [facility] [id number] 13:54:00 Test Item Value Reference Range Interpretation Comments ABO/Rh (test code = ABO/Rh) O POS [facility] [id number] 13:54:00 Test Item Value Reference Range Interpretation Comments Antibody Scrn (test Negative (07/22/20 8:54 code = Antibody Scrn) AM) [facility] [id number] 13:54:00 Test Item Value Reference Range Interpretation Comments Hep C Ab (test code = Hep C Ab) NON-REACTIVE [facility] [id number] 13:54:00 Test Item Value Reference Range Interpretation Comments Hep Signal to Cut-Off (test code = Hep 0.01 1 Signal to Cut-Off) [facility] H[id number] 13:54:00 Test Item Value Reference Range Interpretation Comments [facility] HIV 4th GEN (test Negative *NA*(07/22/20 code = [facility] HIV 4th 8:54 AM) GEN) [facility] [employer] [id number] 13:54:00 Test Item Value Reference Range Interpretation Comments ABO/Rh (test code = ABO/Rh) O POS [facility] CenterEmailFilm TechnologiesSAL[facility] [id number] 13:54:00 Test Item Value Reference Range Interpretation Comments Antibody Scrn (test Negative (07/22/20 8:54 code = Antibody Scrn) AM) [facility] Cent[id number] 13:54:00 Test Item Value Reference Range Interpretation Comments Hep C Ab (test code = Hep C Ab) NON-REACTIVE [facility] [id number] 13:54:00 Test Item Value Reference Range Interpretation Comments Hep Signal to Cut-Off (test code = Hep 0.01 1 Signal to Cut-Off) [facility] [id number] 13:54:00 Test Item Value Reference Range Interpretation Comments [facility] HIV GEN (test Negative *NA*(07/22/20 code = [facility] HIV 4th 8:54 AM) GEN) [facility] CenterYours Florally [id number] 13:54:00 Test Item Value Reference Range Interpretation Comments ABO/Rh (test code = ABO/Rh) O POS [facility] [employer] [id number] 13:54:00 Test Item Value Reference Range Interpretation Comments Antibody Scrn (test Negative (07/22/20 8:54 code = Antibody Scrn) AM) [facility] [id number] 13:54:00 Test Item Value Reference Range Interpretation Comments Hep C Ab (test code = Hep C Ab) NON-REACTIVE [facility] [id number] 13:54:00 Test Item Value Reference Range Interpretation Comments Hep Signal to Cut-Off (test code = Hep 0.01 1 Signal to Cut-Off) [facility] [id number] 13:54:00 Test Item Value Reference Range Interpretation Comments [facility] HIV 4th GEN (test Negative *NA*(07/22/20 code = [facility] HIV 4th 8:54 AM) GEN) [facility] [employer] [id number] 13:54:00 Test Item Value Reference Range Interpretation Comments ABO/Rh (test code = ABO/Rh) O POS [facility] [employer] [id number] 13:54:00 Test Item Value Reference Range Interpretation Comments Antibody Scrn (test Negative (07/22/20 8:54 code = Antibody Scrn) AM) [facility] H[id number] 13:54:00 Test Item Value Reference Range Interpretation Comments Hep C Ab (test code = Hep C Ab) NON-REACTIVE [facility] Cent[id number] 13:54:00 Test Item Value Reference Range Interpretation Comments Hep Signal to Cut-Off (test code = Hep 0.01 1 Signal to Cut-Off) [facility] [id number] 13:54:00 Test Item Value Reference Range Interpretation Comments [facility] HIV 4th GEN (test Negative *NA*(07/22/20 code = CDC HIV 4th 8:54 AM) GEN) [facility] CenterPicwingNORTHEAST [facility] [id number] 13:54:00 Test Item Value Reference Range Interpretation Comments ABO/Rh (test code = ABO/Rh) O POS [facility] [employer] [facility] [id number] 13:54:00 Test Item Value Reference Range Interpretation Comments Antibody Scrn (test Negative (07/22/20 8:54 code = Antibody Scrn) AM) [facility] CenterHwwnqkwVNRKRPUHQJ7831-08-85 13:54:00 Test Item Value Reference Range Interpretation Comments Hep C Ab (test code = Hep C Ab) NON-REACTIVE [facility] H[id number] 13:54:00 Test Item Value Reference Range Interpretation Comments Hep Signal to Cut-Off (test code = Hep 0.01 1 Signal to Cut-Off) [facility] Cent[id number] 13:54:00 Test Item Value Reference Range Interpretation Comments [facility] HIV 4th GEN (test Negative *NA*(07/22/20 code = CDC HIV 4th 8:54 AM) GEN) [facility] [employer] [facility] [id number] 13:54:00 Test Item Value Reference Range Interpretation Comments ABO/Rh (test code = ABO/Rh) O POS [facility] [employer] [id number] 13:54:00 Test Item Value Reference Range Interpretation Comments Antibody Scrn (test Negative (07/22/20 8:54 code = Antibody Scrn) AM) [facility] [id number] 13:54:00 Test Item Value Reference Range Interpretation Comments Hep C Ab (test code = Hep C Ab) NON-REACTIVE [facility] CenterPqkmtoaWFFSLCZNFZ6774-04-47 13:46:52 Test Item Value Reference Range Interpretation Comments Lymphocytes (test code = Lymphocytes) 27.1 20.0-40.0 [place] [id number] 13:46:52 Test Item Value Reference Range Interpretation Comments Monocytes (test code = Monocytes) 8.6 2.0-12.0 [facility] CenterLqfmtdjXTOXOJSSCC8302-91-47 13:46:52 Test Item Value Reference Range Interpretation Comments Eosinophils (test code = 1.1 See_Comment [A utomated message] The Eosinophils) system which ge nerated this result tra nsmitted reference range : <=4.0. The reference r marsha was not used to int erpret this result as normal/abnormal . [facility] CenterVecwieaTNBWFBNGWZ5844-17-31 13:46:52 Test Item Value Reference Range Interpretation Comments Basophils (test code = 0.7 See_Comment [Aut omated message] The Basophils) system which ge nerated this result tra nsmitted reference range : <=1.0. The reference r marsha was not used to int erpret this result as normal/abnormal . [facility] CenterJigslniTJKVTQRWHB1254-04-19 13:46:52 Test Item Value Reference Range Interpretation Comments Neutrophils # (test code = Neutrophils 7.0 1.5-8.1 #) [facility] CenterNugrppiDBZNBVOTHO4640-12-69 13:46:52 Test Item Value Reference Range Interpretation Comments Lymphocytes # (test code = Lymphocytes 3.1 1.0-5.5 #) [place] [id number] 13:46:52 Test Item Value Reference Range Interpretation Comments Monocytes # (test code 1.0 See_Comment [Aut omated message] The = Monocytes #) system which generated this result tra nsmitted reference range : <=0.8. The reference r marsha was not used to int erpret this result as normal/abnormal . [facility] CenterQmfvboeGZEAVYDKLP7626-35-16 13:46:52 Test Item Value Reference Range Interpretation Comments Eosinophils # (test code 0.1 See_Comment [A utomated message] The = Eosinophils #) system whic h generated this result tra nsmitted reference range : <=0.5. The reference r marsha was not used to int erpret this result as normal/abnormal . [facility] C[id number] 13:46:52 Test Item Value Reference Range Interpretation Comments Basophils # (test code 0.1 See_Comment [Aut omated message] The = Basophils #) system which generated this result tra nsmitted reference range : <=0.2. The reference r marsha was not used to int erpret this result as normal/abnormal . [place] [id number] 13:46:52 Test Item Value Reference Range Interpretation Comments Ethanol Lvl (test code = Ethanol Lvl) 125 [place] 886271-04-09 13:46:52 Test Item Value Reference Range Interpretation Comments Etoh (%) (test code = Etoh (%)) 0.125 [facility]2021-04-09 13:46:52 Test Item Value Reference Range Interpretation Comments Glucose Lvl (test code = Glucose Lvl) 89 [facility]2021-04-09 13:46:52 Test Item Value Reference Range Interpretation Comments BUN (test code = BUN) 11-03 [facility]2021-04-09 13:46:52 Test Item Value Reference Range Interpretation Comments Creatinine Lvl (test code = Creatinine 0.42 0.50-1.40 Lvl) [facility]2021-04-09 13:46:52 Test Item Value Reference Range Interpretation Comments Sodium Lvl (test code = Sodium Lvl) 143 135-145 [facility]2021-04-09 13:46:52 Test Item Value Reference Range Interpretation Comments Glucose Lvl (test code = Glucose Lvl) 89 7099 [facility]2021-04-09 13:46:52 Test Item Value Reference Range Interpretation Comments BUN (test code = BUN) 8 11-03 [facility]2021-04-09 13:46:52 Test Item Value Reference Range Interpretation Comments Creatinine Lvl (test code = Creatinine 0.42 0.50-1.40 Lvl) [facility]2021-04-09 13:46:52 Test Item Value Reference Range Interpretation Comments Sodium Lvl (test code = Sodium Lvl) 143 135-145 [facility]2021-04-09 13:46:52 Test Item Value Reference Range Interpretation Comments Potassium Lvl (test code = Potassium 3.6 3.5-5.1 Lvl) [place] 796881-04-09 13:46:52 Test Item Value Reference Range Interpretation Comments Chloride Lvl (test code = Chloride Lvl) 110 95-109 [place] 796881-04-09 13:46:52 Test Item Value Reference Range Interpretation Comments CO2 (test code = CO2) 27 24-32 [place] 796881-04-09 13:46:52 Test Item Value Reference Range Interpretation Comments Calcium Lvl (test code = Calcium Lvl) 8.5 8.5-10.5 [place] 796881-04-09 13:46:52 Test Item Value Reference Range Interpretation Comments Potassium Lvl (test code = Potassium 3.6 3.5-5.1 Lvl) [place] 796881-04-09 13:46:52 Test Item Value Reference Range Interpretation Comments AGAP (test code = AGAP) 9.6 10.0-20.0 [place] 796881-04-09 13:46:52 Test Item Value Reference Range Interpretation Comments eGFR (test code = eGFR) 140 [place] 796881-04-09 13:46:52 Test Item Value Reference Range Interpretation Comments Lactic Acid Lvl (test code = Lactic 1.6 0.5-2.2 Acid Lvl) [place] [id number] 13:46:52 Test Item Value Reference Range Interpretation Comments S Preg (test code = S Negative *NA*(07/22/20 Preg) 8:46 AM) [place] 247341-04-09 13:46:52 Test Item Value Reference Range Interpretation Comments WBC X 10x3 (test code = WBC X 10x3) 11.3 3.7-10.4 [place] [address]-04-09 13:46:52 Test Item Value Reference Range Interpretation Comments RBC X 10x6 (test code = RBC X 10x6) 4.39 4.20-5.40 [place] 247341-04-09 13:46:52 Test Item Value Reference Range Interpretation Comments Hgb (test code = Hgb) 13.0 12.0-16.0 [place] 247341-04-09 13:46:52 Test Item Value Reference Range Interpretation Comments Hct (test code = Hct) 40.3 36.0-48.0 [place] 247341-04-09 13:46:52 Test Item Value Reference Range Interpretation Comments MCV (test code = MCV) 91.7 80.0-98.0 [facility] CenterHdqgcgmOVWCGVLSKI8768-06-74 13:46:52 Test Item Value Reference Range Interpretation Comments MCH (test code = MCH) 29.7 pg 27.0-31.0 [facility]2021-04-09 13:46:52 Test Item Value Reference Range Interpretation Comments Chloride Lvl (test code = Chloride Lvl) 110 95-109 [facility] CenterGbvizxsOAJWLXNLKH8337-13-20 13:46:52 Test Item Value Reference Range Interpretation Comments MCHC (test code = MCHC) 32.4 32.0-36.0 [facility] CenterWqdofrwKZOMUVUMRJ8278-15-84 13:46:52 Test Item Value Reference Range Interpretation Comments RDW (test code = RDW) 13.7 11.5-14.5 [place] 247341-04-09 13:46:52 Test Item Value Reference Range Interpretation Comments Platelet (test code = Platelet) 245 133-450 [facility] CenterXdeqsjcKCNQGRBZFX3742-55-69 13:46:52 Test Item Value Reference Range Interpretation Comments MPV (test code = MPV) 8.3 7.4-10.4 [facility] CenterDvzsoivNGXBCZBZUG0931-36-37 13:46:52 Test Item Value Reference Range Interpretation Comments ACT (TEG) Rapid (test code = ACT (TEG) 105 s 86-118 Rapid) [facility] CenterEodrbxoLCBHQFYDGQ4531-40-26 13:46:52 Test Item Value Reference Range Interpretation Comments Split Point Rapid (test code = Split 0.5 min Point Rapid) [place] [address]-04-09 13:46:52 Test Item Value Reference Range Interpretation Comments R-time Rapid (test code = R-time 0.6 min 0.4-0.7 Rapid) [place] 247341-04-09 13:46:52 Test Item Value Reference Range Interpretation Comments K-time Rapid (test code = K-time 1.0 min 0.6-2.3 Rapid) [place] 247341-04-09 13:46:52 Test Item Value Reference Range Interpretation Comments Angle Rapid (test code = Angle 77 degrees 64-80 Rapid) [facility] CenterIgnmarlUDTOPUIBUD0483-99-86 13:46:52 Test Item Value Reference Range Interpretation Comments Max Amplitude Rapid (test code = Max 71 mm 52-71 Amplitude Rapid) [facility]2021-04-09 13:46:52 Test Item Value Reference Range Interpretation Comments CO2 (test code = CO2) 27 24-32 [place] 247341-04-09 13:46:52 Test Item Value Reference Range Interpretation Comments G-value Rapid (test code = G-value 12.5 5.0-11.6 Rapid) [place] 247341-04-09 13:46:52 Test Item Value Reference Range Interpretation Comments Estimated % Lysis Rapid 0.0 See_Comment [Au tomated message] The (test code = Estimated syste m which generated % Lysis Rapid) this result t ransmitted reference range : <=7.5. The reference r marsha was not used to int erpret this result as normal/abnormal . [facility] CenterCfbqyjaYFMOVMSRMS7115-15-50 13:46:52 Test Item Value Reference Range Interpretation Comments Segs (test code = Segs) 62.5 45.0-75.0 [facility] CenterXybmhcjHUHURMCZOJ4939-17-38 13:46:52 Test Item Value Reference Range Interpretation Comments Lymphocytes (test code = Lymphocytes) 27.1 20.0-40.0 [place] [address]-04-09 13:46:52 Test Item Value Reference Range Interpretation Comments Monocytes (test code = Monocytes) 8.6 2.0-12.0 [place] 247341-04-09 13:46:52 Test Item Value Reference Range Interpretation Comments Eosinophils (test code = 1.1 See_Comment [A utomated message] The Eosinophils) system which ge nerated this result tra nsmitted reference range : <=4.0. The reference r marsha was not used to int erpret this result as normal/abnormal . [place] 247341-04-09 13:46:52 Test Item Value Reference Range Interpretation Comments Basophils (test code = 0.7 See_Comment [Aut omated message] The Basophils) system which ge nerated this result tra nsmitted reference range : <=1.0. The reference r marsha was not used to int erpret this result as normal/abnormal . [facility] CenterJrwmedoQPHASRBQSX2174-38-59 13:46:52 Test Item Value Reference Range Interpretation Comments Neutrophils # (test code = Neutrophils 7.0 1.5-8.1 #) [facility] CenterBirozwnBGOTIXVCEZ0749-72-52 13:46:52 Test Item Value Reference Range Interpretation Comments Lymphocytes # (test code = Lymphocytes 3.1 1.0-5.5 #) [facility] CenterLoerfjnKGVBLNJNCK7549-31-24 13:46:52 Test Item Value Reference Range Interpretation Comments Monocytes # (test code 1.0 See_Comment [Aut omated message] The = Monocytes #) system which generated this result tra nsmitted reference range : <=0.8. The reference r marsha was not used to int erpret this result as normal/abnormal . [facility] EZBHX6667-87-72 13:46:52 Test Item Value Reference Range Interpretation Comments Calcium Lvl (test code = Calcium Lvl) 8.5 8.5-10.5 [facility] CenterOxcgrddGOXBLBAPQL5344-97-55 13:46:52 Test Item Value Reference Range Interpretation Comments Eosinophils # (test code 0.1 See_Comment [A utomated message] The = Eosinophils #) system whic h generated this result tra nsmitted reference range : <=0.5. The reference r marsha was not used to int erpret this result as normal/abnormal . [facility] CenterZwsioguSODNULPLFK8267-83-77 13:46:52 Test Item Value Reference Range Interpretation Comments Basophils # (test code 0.1 See_Comment [Aut omated message] The = Basophils #) system which generated this result tra nsmitted reference range : <=0.2. The reference r marsha was not used to int erpret this result as normal/abnormal . [facility]CgpbfbdNJQWVRNXWY9686-08-77 13:46:52 Test Item Value Reference Range Interpretation Comments Ethanol Lvl (test code = Ethanol Lvl) 125 [place] 886271-04-09 13:46:52 Test Item Value Reference Range Interpretation Comments Etoh (%) (test code = Etoh (%)) 0.125 [facility] Center[facility] PYNMO3292-76-17 13:46:52 Test Item Value Reference Range Interpretation Comments AGAP (test code = AGAP) 9.6 10.0-20.0 [place] 796881-04-09 13:46:52 Test Item Value Reference Range Interpretation Comments eGFR (test code = eGFR) 140 [facility]2021-04-09 13:46:52 Test Item Value Reference Range Interpretation Comments Lactic Acid Lvl (test code = Lactic 1.6 0.5-2.2 Acid Lvl) [facility]XsbnmcrOAJPMDARSJZAO2083-45-02 13:46:52 Test Item Value Reference Range Interpretation Comments S Preg (test code = S Negative *NA*(07/22/20 Preg) 8:46 AM) [facility] CenterSqxarvvPREFBCQKVZ3651-82-65 13:46:52 Test Item Value Reference Range Interpretation Comments WBC X 10x3 (test code = WBC X 10x3) 11.3 3.7-10.4 [facility]2021-04-09 13:46:52 Test Item Value Reference Range Interpretation Comments Glucose Lvl (test code = Glucose Lvl) 89 70-99 [facility]2021-04-09 13:46:52 Test Item Value Reference Range Interpretation Comments BUN (test code = BUN) 8 7-22 [facility]2021-04-09 13:46:52 Test Item Value Reference Range Interpretation Comments Creatinine Lvl (test code = Creatinine 0.42 0.50-1.40 Lvl) [facility]2021-04-09 13:46:52 Test Item Value Reference Range Interpretation Comments Sodium Lvl (test code = Sodium Lvl) 143 135-145 [facility]2021-04-09 13:46:52 Test Item Value Reference Range Interpretation Comments Potassium Lvl (test code = Potassium 3.6 3.5-5.1 Lvl) [facility]2021-04-09 13:46:52 Test Item Value Reference Range Interpretation Comments Chloride Lvl (test code = Chloride Lvl) 110 95-109 [place] 796881-04-09 13:46:52 Test Item Value Reference Range Interpretation Comments CO2 (test code = CO2) 27 24-32 [place] 247341-04-09 13:46:52 Test Item Value Reference Range Interpretation Comments RBC X 10x6 (test code = RBC X 10x6) 4.39 4.20-5.40 [place] 796881-04-09 13:46:52 Test Item Value Reference Range Interpretation Comments Calcium Lvl (test code = Calcium Lvl) 8.5 8.5-10.5 [facility]2021-04-09 13:46:52 Test Item Value Reference Range Interpretation Comments AGAP (test code = AGAP) 9.6 10.0-20.0 [facility]2021-04-09 13:46:52 Test Item Value Reference Range Interpretation Comments eGFR (test code = eGFR) 140 [facility]2021-04-09 13:46:52 Test Item Value Reference Range Interpretation Comments Lactic Acid Lvl (test code = Lactic 1.6 0.5-2.2 Acid Lvl) [place] [id number] 13:46:52 Test Item Value Reference Range Interpretation Comments S Preg (test code = S Negative *NA*(07/22/20 Preg) 8:46 AM) [facility] CenterMjfddcnPUANMSFCLL2851-62-53 13:46:52 Test Item Value Reference Range Interpretation Comments WBC X 10x3 (test code = WBC X 10x3) 11.3 3.7-10.4 [facility] CenterQvuvqjdCOSTPKHHZJ2601-88-31 13:46:52 Test Item Value Reference Range Interpretation Comments RBC X 10x6 (test code = RBC X 10x6) 4.39 4.20-5.40 [facility] CenterDpeqxtsBTAMSMQTKX9152-95-97 13:46:52 Test Item Value Reference Range Interpretation Comments Hgb (test code = Hgb) 13.0 12.0-16.0 [facility] CenterGnkituwWSPVXLKJNT4274-53-46 13:46:52 Test Item Value Reference Range Interpretation Comments Hct (test code = Hct) 40.3 36.0-48.0 [facility] CenterMfcjpzyGGUSSNJBXT1965-10-84 13:46:52 Test Item Value Reference Range Interpretation Comments MCV (test code = MCV) 91.7 80.0-98.0 [facility] CenterDdajceaESSPPAXQEM9201-91-97 13:46:52 Test Item Value Reference Range Interpretation Comments Hgb (test code = Hgb) 13.0 12.0-16.0 [facility] CenterNvcvpqfQMVRJRLULB4094-71-83 13:46:52 Test Item Value Reference Range Interpretation Comments MCH (test code = MCH) 29.7 pg 27.0-31.0 [place] 247341-04-09 13:46:52 Test Item Value Reference Range Interpretation Comments MCHC (test code = MCHC) 32.4 32.0-36.0 [facility] CenterHoukfxaQVSLOMIVYE4770-92-62 13:46:52 Test Item Value Reference Range Interpretation Comments RDW (test code = RDW) 13.7 11.5-14.5 [place] 247341-04-09 13:46:52 Test Item Value Reference Range Interpretation Comments Platelet (test code = Platelet) 245 133-450 [facility] CenterSzodnqjUJFLCROLEL7938-80-78 13:46:52 Test Item Value Reference Range Interpretation Comments MPV (test code = MPV) 8.3 7.4-10.4 [facility] CenterYhjeddgENOBTGNUGE9870-05-59 13:46:52 Test Item Value Reference Range Interpretation Comments ACT (TEG) Rapid (test code = ACT (TEG) 105 s 86-118 Rapid) [facility] CenterFgtjdgyJBAIEFCIWM4234-91-22 13:46:52 Test Item Value Reference Range Interpretation Comments Split Point Rapid (test code = Split 0.5 min Point Rapid) [facility] CenterEtbeoxzLMWSXRLTLL1813-18-87 13:46:52 Test Item Value Reference Range Interpretation Comments R-time Rapid (test code = R-time 0.6 min 0.4-0.7 Rapid) [facility] CenterLosuropPIBWSXNUHX3575-12-96 13:46:52 Test Item Value Reference Range Interpretation Comments K-time Rapid (test code = K-time 1.0 min 0.6-2.3 Rapid) [facility] CenterAhqbiknXKOQANYWLY6545-14-99 13:46:52 Test Item Value Reference Range Interpretation Comments Angle Rapid (test code = Angle 77 degrees 64-80 Rapid) [facility] CenterKvvycseVSSKEFVZTM3573-08-43 13:46:52 Test Item Value Reference Range Interpretation Comments Hct (test code = Hct) 40.3 36.0-48.0 [place] 247341-04-09 13:46:52 Test Item Value Reference Range Interpretation Comments Max Amplitude Rapid (test code = Max 71 mm 52-71 Amplitude Rapid) [place] 247341-04-09 13:46:52 Test Item Value Reference Range Interpretation Comments G-value Rapid (test code = G-value 12.5 5.0-11.6 Rapid) [place] 247341-04-09 13:46:52 Test Item Value Reference Range Interpretation Comments Estimated % Lysis Rapid 0.0 See_Comment [Au tomated message] The (test code = Estimated syste m which generated % Lysis Rapid) this result t ransmitted reference range : <=7.5. The reference r marsha was not used to int erpret this result as normal/abnormal . [place] 247341-04-09 13:46:52 Test Item Value Reference Range Interpretation Comments Segs (test code = Segs) 62.5 45.0-75.0 [place] 247341-04-09 13:46:52 Test Item Value Reference Range Interpretation Comments Lymphocytes (test code = Lymphocytes) 27.1 20.0-40.0 [place] 247341-04-09 13:46:52 Test Item Value Reference Range Interpretation Comments Monocytes (test code = Monocytes) 8.6 2.0-12.0 [facility] CenterFrxigxiIXOQWLULLK9972-85-68 13:46:52 Test Item Value Reference Range Interpretation Comments Eosinophils (test code = 1.1 See_Comment [A utomated message] The Eosinophils) system which ge nerated this result tra nsmitted reference range : <=4.0. The reference r marsha was not used to int erpret this result as normal/abnormal . [facility] CenterGgapcxeAODDSVFGII1138-84-03 13:46:52 Test Item Value Reference Range Interpretation Comments Basophils (test code = 0.7 See_Comment [Aut omated message] The Basophils) system which ge nerated this result tra nsmitted reference range : <=1.0. The reference r marsha was not used to int erpret this result as normal/abnormal . [facility] CenterOgjimpjZBPAURFZUI8820-71-33 13:46:52 Test Item Value Reference Range Interpretation Comments Neutrophils # (test code = Neutrophils 7.0 1.5-8.1 #) [place] 247341-04-09 13:46:52 Test Item Value Reference Range Interpretation Comments Lymphocytes # (test code = Lymphocytes 3.1 1.0-5.5 #) [facility] CenterBrtwaixYKEEVSVLBD6218-38-89 13:46:52 Test Item Value Reference Range Interpretation Comments MCV (test code = MCV) 91.7 80.0-98.0 [place] 247341-04-09 13:46:52 Test Item Value Reference Range Interpretation Comments Monocytes # (test code 1.0 See_Comment [Aut omated message] The = Monocytes #) system which generated this result tra nsmitted reference range : <=0.8. The reference r marsha was not used to int erpret this result as normal/abnormal . [facility] CenterPotcvvkMPWCTAFNZJ4675-96-48 13:46:52 Test Item Value Reference Range Interpretation Comments Eosinophils # (test code 0.1 See_Comment [A utomated message] The = Eosinophils #) system whic h generated this result tra nsmitted reference range : <=0.5. The reference r marsha was not used to int erpret this result as normal/abnormal . [facility] CenterVcdxzvrPHSRGONTRS7462-86-99 13:46:52 Test Item Value Reference Range Interpretation Comments Basophils # (test code 0.1 See_Comment [Aut omated message] The = Basophils #) system which generated this result tra nsmitted reference range : <=0.2. The reference r marsha was not used to int erpret this result as normal/abnormal . [facility] HospitalDvbkebwSMNSBSXTLB6462-46-77 13:46:52 Test Item Value Reference Range Interpretation Comments Ethanol Lvl (test code = Ethanol Lvl) 125 [place] 50054021-04-09 13:46:52 Test Item Value Reference Range Interpretation Comments Etoh (%) (test code = Etoh (%)) 0.125 [facility] CenterGakcmmyEKNCNXTELO6193-74-43 13:46:52 Test Item Value Reference Range Interpretation Comments MCH (test code = MCH) 29.7 pg 27.0-31.0 [facility] CenterVnnfsyhQAJSOMNOHA6262-02-89 13:46:52 Test Item Value Reference Range Interpretation Comments MCHC (test code = MCHC) 32.4 32.0-36.0 [facility] CenterLfglvudWOADCBGJRH9036-86-84 13:46:52 Test Item Value Reference Range Interpretation Comments RDW (test code = RDW) 13.7 11.5-14.5 [facility] CenterNryvojaPIVWNNRAWP2954-43-80 13:46:52 Test Item Value Reference Range Interpretation Comments Platelet (test code = Platelet) 245 133-450 [facility] CenterXmbzssnIQHTJTSRIQ2412-65-17 13:46:52 Test Item Value Reference Range Interpretation Comments MPV (test code = MPV) 8.3 7.4-10.4 [place] 796881-04-09 13:46:52 Test Item Value Reference Range Interpretation Comments Glucose Lvl (test code = Glucose Lvl) 89 70-99 [facility]2021-04-09 13:46:52 Test Item Value Reference Range Interpretation Comments BUN (test code = BUN) 8 7-22 [place] 796881-04-09 13:46:52 Test Item Value Reference Range Interpretation Comments Creatinine Lvl (test code = Creatinine 0.42 0.50-1.40 Lvl) [facility]2021-04-09 13:46:52 Test Item Value Reference Range Interpretation Comments Sodium Lvl (test code = Sodium Lvl) 143 135-145 [facility]2021-04-09 13:46:52 Test Item Value Reference Range Interpretation Comments Potassium Lvl (test code = Potassium 3.6 3.5-5.1 Lvl) [facility]2021-04-09 13:46:52 Test Item Value Reference Range Interpretation Comments Chloride Lvl (test code = Chloride Lvl) 110 95-109 [facility]SceukacXKPHZZIRZA0179-58-64 13:46:52 Test Item Value Reference Range Interpretation Comments ACT (TEG) Rapid (test code = ACT (TEG) 105 s 86-118 Rapid) [facility]2021-04-09 13:46:52 Test Item Value Reference Range Interpretation Comments CO2 (test code = CO2) 27 24-32 [place] 796881-04-09 13:46:52 Test Item Value Reference Range Interpretation Comments Calcium Lvl (test code = Calcium Lvl) 8.5 8.5-10.5 [facility]2021-04-09 13:46:52 Test Item Value Reference Range Interpretation Comments AGAP (test code = AGAP) 9.6 10.0-20.0 [place] 796881-04-09 13:46:52 Test Item Value Reference Range Interpretation Comments eGFR (test code = eGFR) 140 [facility]2021-04-09 13:46:52 Test Item Value Reference Range Interpretation Comments Lactic Acid Lvl (test code = Lactic 1.6 0.5-2.2 Acid Lvl) [place] 51303021-04-09 13:46:52 Test Item Value Reference Range Interpretation Comments S Preg (test code = S Negative *NA*(07/22/20 Preg) 8:46 AM) [facility] CenterQtqlzytMLZWZFBFEO9556-57-26 13:46:52 Test Item Value Reference Range Interpretation Comments WBC X 10x3 (test code = WBC X 10x3) 11.3 3.7-10.4 [facility] CenterNssdsziMFIPREYBYX1777-21-45 13:46:52 Test Item Value Reference Range Interpretation Comments RBC X 10x6 (test code = RBC X 10x6) 4.39 4.20-5.40 [facility] CenterIavyzrfJHNUMLOXKW6998-98-70 13:46:52 Test Item Value Reference Range Interpretation Comments Hgb (test code = Hgb) 13.0 12.0-16.0 [facility] CenterFubzezuTTKQBWDHLA9694-55-92 13:46:52 Test Item Value Reference Range Interpretation Comments Hct (test code = Hct) 40.3 36.0-48.0 [facility] CenterGwjdlrdSXDQQIKVCK7463-72-41 13:46:52 Test Item Value Reference Range Interpretation Comments Split Point Rapid (test code = Split 0.5 min Point Rapid) [facility] CenterVslibhrOKVTMOBIVR4620-25-64 13:46:52 Test Item Value Reference Range Interpretation Comments MCV (test code = MCV) 91.7 80.0-98.0 [facility] CenterCdbelyyJUPQGRHHHO0350-93-12 13:46:52 Test Item Value Reference Range Interpretation Comments MCH (test code = MCH) 29.7 pg 27.0-31.0 [facility] CenterBtwninxFSVLGDIENK7076-63-09 13:46:52 Test Item Value Reference Range Interpretation Comments MCHC (test code = MCHC) 32.4 32.0-36.0 [facility] CenterXggdjqgADCBWFIPXJ1343-93-80 13:46:52 Test Item Value Reference Range Interpretation Comments RDW (test code = RDW) 13.7 11.5-14.5 [facility] CenterXokdlaiTYFJYURZSX9639-75-54 13:46:52 Test Item Value Reference Range Interpretation Comments Platelet (test code = Platelet) 245 133-450 [facility] CenterIkfaywuIAUGCYGFNT2594-81-20 13:46:52 Test Item Value Reference Range Interpretation Comments MPV (test code = MPV) 8.3 7.4-10.4 [place] 247341-04-09 13:46:52 Test Item Value Reference Range Interpretation Comments ACT (TEG) Rapid (test code = ACT (TEG) 105 s 86-118 Rapid) [facility] CenterNymsmjwFQAIRCJKMS0904-26-78 13:46:52 Test Item Value Reference Range Interpretation Comments Split Point Rapid (test code = Split 0.5 min Point Rapid) [facility] CenterEsvstlrUDXPLUJMEY2952-06-98 13:46:52 Test Item Value Reference Range Interpretation Comments R-time Rapid (test code = R-time 0.6 min 0.4-0.7 Rapid) [place] 247341-04-09 13:46:52 Test Item Value Reference Range Interpretation Comments K-time Rapid (test code = K-time 1.0 min 0.6-2.3 Rapid) [place] 247341-04-09 13:46:52 Test Item Value Reference Range Interpretation Comments R-time Rapid (test code = R-time 0.6 min 0.4-0.7 Rapid) [facility] CenterBszsjplAKXBTOZRBR5445-74-08 13:46:52 Test Item Value Reference Range Interpretation Comments Angle Rapid (test code = Angle 77 degrees 64-80 Rapid) [facility] CenterPqimhvnWJJLTJJQCI9596-13-72 13:46:52 Test Item Value Reference Range Interpretation Comments Max Amplitude Rapid (test code = Max 71 mm 52-71 Amplitude Rapid) [facility] CenterQlszslnDUQXMOAWBJ7722-23-52 13:46:52 Test Item Value Reference Range Interpretation Comments G-value Rapid (test code = G-value 12.5 5.0-11.6 Rapid) [place] 247341-04-09 13:46:52 Test Item Value Reference Range Interpretation Comments Estimated % Lysis Rapid (test code = 0.0 <=7.5 Estimated % Lysis Rapid) [place] 247341-04-09 13:46:52 Test Item Value Reference Range Interpretation Comments Segs (test code = Segs) 62.5 45.0-75.0 [place] 247341-04-09 13:46:52 Test Item Value Reference Range Interpretation Comments Lymphocytes (test code = Lymphocytes) 27.1 20.0-40.0 [place] 247341-04-09 13:46:52 Test Item Value Reference Range Interpretation Comments Monocytes (test code = Monocytes) 8.6 2.0-12.0 [place] 247341-04-09 13:46:52 Test Item Value Reference Range Interpretation Comments Eosinophils (test code = Eosinophils) 1.1 <=4.0 [place] 247341-04-09 13:46:52 Test Item Value Reference Range Interpretation Comments Basophils (test code = Basophils) 0.7 <=1.0 [place] 247341-04-09 13:46:52 Test Item Value Reference Range Interpretation Comments Neutrophils # (test code = Neutrophils 7.0 1.5-8.1 #) [facility] CenterFvvopsdAWEGAUPECA4543-28-73 13:46:52 Test Item Value Reference Range Interpretation Comments K-time Rapid (test code = K-time 1.0 min 0.6-2.3 Rapid) [facility] CenterXutokdvALIIIXTOBL3624-22-66 13:46:52 Test Item Value Reference Range Interpretation Comments Lymphocytes # (test code = Lymphocytes 3.1 1.0-5.5 #) [facility] CenterFisfxvjTXWHMORDPK9281-87-48 13:46:52 Test Item Value Reference Range Interpretation Comments Monocytes # (test code = Monocytes #) 1.0 <=0.8 [facility] CenterVjopldwHNSESZEDWU6233-11-83 13:46:52 Test Item Value Reference Range Interpretation Comments Eosinophils # (test code = Eosinophils 0.1 <=0.5 #) [facility] CenterNkkmnjbUFVFFLEGFJ6810-26-37 13:46:52 Test Item Value Reference Range Interpretation Comments Basophils # (test code = Basophils #) 0.1 <=0.2 [place] [id number] 13:46:52 Test Item Value Reference Range Interpretation Comments Ethanol Lvl (test code = Ethanol Lvl) 125 [place] 886271-04-09 13:46:52 Test Item Value Reference Range Interpretation Comments Etoh (%) (test code = Etoh (%)) 0.125 [facility] CenterZadmtlwYIJCRCXAWO5945-32-48 13:46:52 Test Item Value Reference Range Interpretation Comments Angle Rapid (test code = Angle 77 degrees 64-80 Rapid) [facility] CenterNuxicivSJTUPJAOML0849-10-72 13:46:52 Test Item Value Reference Range Interpretation Comments Max Amplitude Rapid (test code = Max 71 mm 52-71 Amplitude Rapid) [place] 247341-04-09 13:46:52 Test Item Value Reference Range Interpretation Comments G-value Rapid (test code = G-value 12.5 5.0-11.6 Rapid) [facility] CenterAdtibmhVKTQQNTHIU9364-95-60 13:46:52 Test Item Value Reference Range Interpretation Comments Estimated % Lysis Rapid 0.0 See_Comment [Au tomated message] The (test code = Estimated syste m which generated % Lysis Rapid) this result t ransmitted reference range : <=7.5. The reference r marsha was not used to int erpret this result as normal/abnormal . [facility] CenterTwjazifJHMBYYDLDI3720-76-20 13:46:52 Test Item Value Reference Range Interpretation Comments Segs (test code = Segs) 62.5 45.0-75.0 [facility] CenterKetcjljCZINSDYCTF9385-74-42 13:46:52 Test Item Value Reference Range Interpretation Comments Lymphocytes (test code = Lymphocytes) 27.1 20.0-40.0 [place] 247341-04-09 13:46:52 Test Item Value Reference Range Interpretation Comments Monocytes (test code = Monocytes) 8.6 2.0-12.0 [facility] CenterDawgdrcNROBSUTHCH4462-54-99 13:46:52 Test Item Value Reference Range Interpretation Comments Eosinophils (test code = 1.1 See_Comment [A utomated message] The Eosinophils) system which ge nerated this result tra nsmitted reference range : <=4.0. The reference r marsha was not used to int erpret this result as normal/abnormal . [facility] CenterLjcscliZLGTISFWBH9567-18-18 13:46:52 Test Item Value Reference Range Interpretation Comments Basophils (test code = 0.7 See_Comment [Aut omated message] The Basophils) system which ge nerated this result tra nsmitted reference range : <=1.0. The reference r marsha was not used to int erpret this result as normal/abnormal . [facility] CenterFtkkrkoSRWBWDKSZK2858-88-16 13:46:52 Test Item Value Reference Range Interpretation Comments Neutrophils # (test code = Neutrophils 7.0 1.5-8.1 #) [facility] CenterNwbgxioBCWURDGYRY9002-66-83 13:46:52 Test Item Value Reference Range Interpretation Comments Lymphocytes # (test code = Lymphocytes 3.1 1.0-5.5 #) [place] 247341-04-09 13:46:52 Test Item Value Reference Range Interpretation Comments Monocytes # (test code 1.0 See_Comment [Aut omated message] The = Monocytes #) system which generated this result tra nsmitted reference range : <=0.8. The reference r marsha was not used to int erpret this result as normal/abnormal . [facility] CenterYrxofjfFVKLORYRYS6955-01-86 13:46:52 Test Item Value Reference Range Interpretation Comments Eosinophils # (test code 0.1 See_Comment [A utomated message] The = Eosinophils #) system whic h generated this result tra nsmitted reference range : <=0.5. The reference r marsha was not used to int erpret this result as normal/abnormal . [facility] CenterEmjvxpuXCSMJQMJPO7825-50-50 13:46:52 Test Item Value Reference Range Interpretation Comments Basophils # (test code 0.1 See_Comment [Aut omated message] The = Basophils #) system which generated this result tra nsmitted reference range : <=0.2. The reference r marsha was not used to int erpret this result as normal/abnormal . [place] 886271-04-09 13:46:52 Test Item Value Reference Range Interpretation Comments Ethanol Lvl (test code = Ethanol Lvl) 125 [place] 886271-04-09 13:46:52 Test Item Value Reference Range Interpretation Comments Etoh (%) (test code = Etoh (%)) 0.125 [facility]2021-04-09 13:46:52 Test Item Value Reference Range Interpretation Comments Glucose Lvl (test code = Glucose Lvl) 89 70-99 [facility]2021-04-09 13:46:52 Test Item Value Reference Range Interpretation Comments BUN (test code = BUN) 8 7-22 [facility] YZTYF8690-77-89 13:46:52 Test Item Value Reference Range Interpretation Comments Creatinine Lvl (test code = Creatinine 0.42 0.50-1.40 Lvl) [facility]2021-04-09 13:46:52 Test Item Value Reference Range Interpretation Comments Sodium Lvl (test code = Sodium Lvl) 143 135-145 [place] 796881-04-09 13:46:52 Test Item Value Reference Range Interpretation Comments Potassium Lvl (test code = Potassium 3.6 3.5-5.1 Lvl) [place] 796881-04-09 13:46:52 Test Item Value Reference Range Interpretation Comments Chloride Lvl (test code = Chloride Lvl) 110 95-109 [place] 796881-04-09 13:46:52 Test Item Value Reference Range Interpretation Comments CO2 (test code = CO2) 27 24-32 [place] 796881-04-09 13:46:52 Test Item Value Reference Range Interpretation Comments Calcium Lvl (test code = Calcium Lvl) 8.5 8.5-10.5 [place] 796881-04-09 13:46:52 Test Item Value Reference Range Interpretation Comments AGAP (test code = AGAP) 9.6 10.0-20.0 [place] 796881-04-09 13:46:52 Test Item Value Reference Range Interpretation Comments eGFR (test code = eGFR) 140 [place] 796881-04-09 13:46:52 Test Item Value Reference Range Interpretation Comments Lactic Acid Lvl (test code = Lactic 1.6 0.5-2.2 Acid Lvl) [place] 51303021-04-09 13:46:52 Test Item Value Reference Range Interpretation Comments S Preg (test code = S Negative *NA*(07/22/20 Preg) 8:46 AM) [facility] CenterEgzeunvIHPIAJOBLA4875-22-97 13:46:52 Test Item Value Reference Range Interpretation Comments WBC X 10x3 (test code = WBC X 10x3) 11.3 3.7-10.4 [place] 247341-04-09 13:46:52 Test Item Value Reference Range Interpretation Comments RBC X 10x6 (test code = RBC X 10x6) 4.39 4.20-5.40 [place] 247341-04-09 13:46:52 Test Item Value Reference Range Interpretation Comments Hgb (test code = Hgb) 13.0 12.0-16.0 [place] 247341-04-09 13:46:52 Test Item Value Reference Range Interpretation Comments Hct (test code = Hct) 40.3 36.0-48.0 [place] 247341-04-09 13:46:52 Test Item Value Reference Range Interpretation Comments MCV (test code = MCV) 91.7 80.0-98.0 [place] 247341-04-09 13:46:52 Test Item Value Reference Range Interpretation Comments MCH (test code = MCH) 29.7 pg 27.0-31.0 [place] 247341-04-09 13:46:52 Test Item Value Reference Range Interpretation Comments MCHC (test code = MCHC) 32.4 32.0-36.0 [place] 247341-04-09 13:46:52 Test Item Value Reference Range Interpretation Comments RDW (test code = RDW) 13.7 11.5-14.5 [place] [address]-04-09 13:46:52 Test Item Value Reference Range Interpretation Comments Platelet (test code = Platelet) 245 133-450 [place] 247341-04-09 13:46:52 Test Item Value Reference Range Interpretation Comments MPV (test code = MPV) 8.3 7.4-10.4 [place] 247341-04-09 13:46:52 Test Item Value Reference Range Interpretation Comments ACT (TEG) Rapid (test code = ACT (TEG) 105 s 86-118 Rapid) [facility] CenterSljrvtoVCRYRRKNVQ8635-17-85 13:46:52 Test Item Value Reference Range Interpretation Comments Split Point Rapid (test code = Split 0.5 min Point Rapid) [facility] CenterDfhmfgbUWISARVUHV7051-67-01 13:46:52 Test Item Value Reference Range Interpretation Comments R-time Rapid (test code = R-time 0.6 min 0.4-0.7 Rapid) [place] 247341-04-09 13:46:52 Test Item Value Reference Range Interpretation Comments K-time Rapid (test code = K-time 1.0 min 0.6-2.3 Rapid) [place] 247341-04-09 13:46:52 Test Item Value Reference Range Interpretation Comments Angle Rapid (test code = Angle 77 degrees 64-80 Rapid) [place] 247341-04-09 13:46:52 Test Item Value Reference Range Interpretation Comments Max Amplitude Rapid (test code = Max 71 mm 52-71 Amplitude Rapid) [place] 247341-04-09 13:46:52 Test Item Value Reference Range Interpretation Comments G-value Rapid (test code = G-value 12.5 5.0-11.6 Rapid) [facility] CenterOffosdeVJHJCREYSW8914-94-99 13:46:52 Test Item Value Reference Range Interpretation Comments Estimated % Lysis Rapid (test code = 0.0 <=7.5 Estimated % Lysis Rapid) [facility] CenterNyzoucnBSIJZNUMFW9236-69-16 13:46:52 Test Item Value Reference Range Interpretation Comments Segs (test code = Segs) 62.5 45.0-75.0 [facility] CenterUfbodcrYBSUJQJPXP1237-40-61 13:46:52 Test Item Value Reference Range Interpretation Comments Lymphocytes (test code = Lymphocytes) 27.1 20.0-40.0 [facility] CenterWjktmwkXLWYBZXCCK3809-29-87 13:46:52 Test Item Value Reference Range Interpretation Comments Monocytes (test code = Monocytes) 8.6 2.0-12.0 [facility] CenterVmahuioTNAUWPIXBQ5264-05-06 13:46:52 Test Item Value Reference Range Interpretation Comments Eosinophils (test code = Eosinophils) 1.1 <=4.0 [facility] CenterRwufvfqQJFNCTVRLC2449-89-62 13:46:52 Test Item Value Reference Range Interpretation Comments Basophils (test code = Basophils) 0.7 <=1.0 [facility] CenterSzxhqqfJCOHVRZFUI0117-33-34 13:46:52 Test Item Value Reference Range Interpretation Comments Neutrophils # (test code = Neutrophils 7.0 1.5-8.1 #) [facility] CenterLyvulgbIEWOVBTZDC0490-84-73 13:46:52 Test Item Value Reference Range Interpretation Comments Lymphocytes # (test code = Lymphocytes 3.1 1.0-5.5 #) [facility] CenterEzxeigyIPDLSMWAMA2201-32-03 13:46:52 Test Item Value Reference Range Interpretation Comments Monocytes # (test code = Monocytes #) 1.0 <=0.8 [facility] CenterMmqefgyYZJUXXAPEX1986-76-77 13:46:52 Test Item Value Reference Range Interpretation Comments Eosinophils # (test code = Eosinophils 0.1 <=0.5 #) [facility] CenterWomjzuyFTMEBORRAE3278-87-40 13:46:52 Test Item Value Reference Range Interpretation Comments Basophils # (test code = Basophils #) 0.1 <=0.2 [facility] HospitalNzmqsgiOWLJGFUTWB1256-43-91 13:46:52 Test Item Value Reference Range Interpretation Comments Ethanol Lvl (test code = Ethanol Lvl) 125 [facility] HospitalWgeoxbbDYNMQWUDHO1336-51-79 13:46:52 Test Item Value Reference Range Interpretation Comments Etoh (%) (test code = Etoh (%)) 0.125 [place] 796881-04-09 13:46:52 Test Item Value Reference Range Interpretation Comments Glucose Lvl (test code = Glucose Lvl) 89 70-99 [place] 796881-04-09 13:46:52 Test Item Value Reference Range Interpretation Comments BUN (test code = BUN) 8 7-22 [place] 796881-04-09 13:46:52 Test Item Value Reference Range Interpretation Comments Creatinine Lvl (test code = Creatinine 0.42 0.50-1.40 Lvl) [place] 796881-04-09 13:46:52 Test Item Value Reference Range Interpretation Comments Sodium Lvl (test code = Sodium Lvl) 143 135-145 [place] 796881-04-09 13:46:52 Test Item Value Reference Range Interpretation Comments Potassium Lvl (test code = Potassium 3.6 3.5-5.1 Lvl) [facility]2021-04-09 13:46:52 Test Item Value Reference Range Interpretation Comments Chloride Lvl (test code = Chloride Lvl) 110 95-109 [facility]2021-04-09 13:46:52 Test Item Value Reference Range Interpretation Comments CO2 (test code = CO2) 27 24-32 [place] 796881-04-09 13:46:52 Test Item Value Reference Range Interpretation Comments Calcium Lvl (test code = Calcium Lvl) 8.5 8.5-10.5 [place] 796881-04-09 13:46:52 Test Item Value Reference Range Interpretation Comments AGAP (test code = AGAP) 9.6 10.0-20.0 [place] 796881-04-09 13:46:52 Test Item Value Reference Range Interpretation Comments eGFR (test code = eGFR) 140 [place] 796881-04-09 13:46:52 Test Item Value Reference Range Interpretation Comments Lactic Acid Lvl (test code = Lactic 1.6 0.5-2.2 Acid Lvl) [facility] HospitalIlygeisEVRBDCWRCLUSR0398-10-80 13:46:52 Test Item Value Reference Range Interpretation Comments S Preg (test code = S Negative *NA*(07/22/20 Preg) 8:46 AM) [facility] CenterZtopaecQCFBJQYPIJ1838-52-24 13:46:52 Test Item Value Reference Range Interpretation Comments WBC X 10x3 (test code = WBC X 10x3) 11.3 3.7-10.4 [place] 247341-04-09 13:46:52 Test Item Value Reference Range Interpretation Comments RBC X 10x6 (test code = RBC X 10x6) 4.39 4.20-5.40 [facility] CenterYchndlxKVXKYXVGAB7700-45-89 13:46:52 Test Item Value Reference Range Interpretation Comments Hgb (test code = Hgb) 13.0 12.0-16.0 [facility] CenterFuoxudkBZJJYCWCLV1968-98-18 13:46:52 Test Item Value Reference Range Interpretation Comments Hct (test code = Hct) 40.3 36.0-48.0 [facility] CenterIpxlbdzGNMFOYTXKR0876-83-74 13:46:52 Test Item Value Reference Range Interpretation Comments MCV (test code = MCV) 91.7 80.0-98.0 [facility] CenterLjggnlnETAKQHNCMR8906-61-36 13:46:52 Test Item Value Reference Range Interpretation Comments MCH (test code = MCH) 29.7 pg 27.0-31.0 [facility] CenterCjjukljOZCFEEFWOF4638-65-35 13:46:52 Test Item Value Reference Range Interpretation Comments MCHC (test code = MCHC) 32.4 32.0-36.0 [facility] CenterDdgtugkFEAAOXVCRO4254-83-82 13:46:52 Test Item Value Reference Range Interpretation Comments RDW (test code = RDW) 13.7 11.5-14.5 [facility] CenterThzvhnfBJCUMXLNNL1381-47-05 13:46:52 Test Item Value Reference Range Interpretation Comments Platelet (test code = Platelet) 245 133-450 [facility] CenterBfhlbyxCJUFSYEBKQ1279-22-42 13:46:52 Test Item Value Reference Range Interpretation Comments MPV (test code = MPV) 8.3 7.4-10.4 [facility] CenterOsvidmeUHZSMFUZJA5940-45-53 13:46:52 Test Item Value Reference Range Interpretation Comments ACT (TEG) Rapid (test code = ACT (TEG) 105 s 86-118 Rapid) [facility] CenterTqevnvlOHNBTDIRXZ2554-57-46 13:46:52 Test Item Value Reference Range Interpretation Comments Split Point Rapid (test code = Split 0.5 min Point Rapid) [place] [address]-04-09 13:46:52 Test Item Value Reference Range Interpretation Comments R-time Rapid (test code = R-time 0.6 min 0.4-0.7 Rapid) [place] [address]-04-09 13:46:52 Test Item Value Reference Range Interpretation Comments K-time Rapid (test code = K-time 1.0 min 0.6-2.3 Rapid) [place] 247341-04-09 13:46:52 Test Item Value Reference Range Interpretation Comments Angle Rapid (test code = Angle 77 degrees 64-80 Rapid) [place] 247341-04-09 13:46:52 Test Item Value Reference Range Interpretation Comments Max Amplitude Rapid (test code = Max 71 mm 52-71 Amplitude Rapid) [place] [address]-04-09 13:46:52 Test Item Value Reference Range Interpretation Comments G-value Rapid (test code = G-value 12.5 5.0-11.6 Rapid) [place] 247341-04-09 13:46:52 Test Item Value Reference Range Interpretation Comments Estimated % Lysis Rapid 0.0 See_Comment [Au tomated message] The (test code = Estimated syste m which generated % Lysis Rapid) this result t ransmitted reference range : <=7.5. The reference r marsha was not used to int erpret this result as normal/abnormal . [place] 247341-04-09 13:46:52 Test Item Value Reference Range Interpretation Comments Segs (test code = Segs) 62.5 45.0-75.0 [place] 247341-04-09 13:46:52 Test Item Value Reference Range Interpretation Comments Lymphocytes (test code = Lymphocytes) 27.1 20.0-40.0 [place] [address]-04-09 13:46:52 Test Item Value Reference Range Interpretation Comments Monocytes (test code = Monocytes) 8.6 2.0-12.0 [place] [address]-04-09 13:46:52 Test Item Value Reference Range Interpretation Comments Eosinophils (test code = 1.1 See_Comment [A utomated message] The Eosinophils) system which ge nerated this result tra nsmitted reference range : <=4.0. The reference r marsha was not used to int erpret this result as normal/abnormal . [facility] CenterYbneqryCLHRPKLYKI8437-58-27 13:46:52 Test Item Value Reference Range Interpretation Comments Basophils (test code = 0.7 See_Comment [Aut omated message] The Basophils) system which ge nerated this result tra nsmitted reference range : <=1.0. The reference r marsha was not used to int erpret this result as normal/abnormal . [facility] CenterYdeffaxPFJEYYDWOW6742-29-01 13:46:52 Test Item Value Reference Range Interpretation Comments Neutrophils # (test code = Neutrophils 7.0 1.5-8.1 #) [facility] CenterJrnwzjbCYIYSZJEFU7887-18-27 13:46:52 Test Item Value Reference Range Interpretation Comments Lymphocytes # (test code = Lymphocytes 3.1 1.0-5.5 #) [facility] CenterKcckszvQOKJTEATYG5863-43-80 13:46:52 Test Item Value Reference Range Interpretation Comments Monocytes # (test code 1.0 See_Comment [Aut omated message] The = Monocytes #) system which generated this result tra nsmitted reference range : <=0.8. The reference r marsha was not used to int erpret this result as normal/abnormal . [facility] CenterYqqwxgkVLFYRHCLUW2696-74-20 13:46:52 Test Item Value Reference Range Interpretation Comments Eosinophils # (test code 0.1 See_Comment [A utomated message] The = Eosinophils #) system whic h generated this result tra nsmitted reference range : <=0.5. The reference r marsha was not used to int erpret this result as normal/abnormal . [facility] CenterNweialhNEHJLZCYMA4775-11-72 13:46:52 Test Item Value Reference Range Interpretation Comments Basophils # (test code 0.1 See_Comment [Aut omated message] The = Basophils #) system which generated this result tra nsmitted reference range : <=0.2. The reference r marsha was not used to int erpret this result as normal/abnormal . [place] 50054021-04-09 13:46:52 Test Item Value Reference Range Interpretation Comments Ethanol Lvl (test code = Ethanol Lvl) 125 [place] 50054021-04-09 13:46:52 Test Item Value Reference Range Interpretation Comments Etoh (%) (test code = Etoh (%)) 0.125 [facility]2021-04-09 13:46:52 Test Item Value Reference Range Interpretation Comments Glucose Lvl (test code = Glucose Lvl) 89 70-99 [facility]2021-04-09 13:46:52 Test Item Value Reference Range Interpretation Comments BUN (test code = BUN) 8 7-22 [facility]2021-04-09 13:46:52 Test Item Value Reference Range Interpretation Comments Creatinine Lvl (test code = Creatinine 0.42 0.50-1.40 Lvl) [facility]2021-04-09 13:46:52 Test Item Value Reference Range Interpretation Comments Sodium Lvl (test code = Sodium Lvl) 143 135-145 [facility]2021-04-09 13:46:52 Test Item Value Reference Range Interpretation Comments Potassium Lvl (test code = Potassium 3.6 3.5-5.1 Lvl) [facility]2021-04-09 13:46:52 Test Item Value Reference Range Interpretation Comments Chloride Lvl (test code = Chloride Lvl) 110 95-109 [facility]2021-04-09 13:46:52 Test Item Value Reference Range Interpretation Comments CO2 (test code = CO2) 27 24-32 [facility]2021-04-09 13:46:52 Test Item Value Reference Range Interpretation Comments Calcium Lvl (test code = Calcium Lvl) 8.5 8.5-10.5 [facility]2021-04-09 13:46:52 Test Item Value Reference Range Interpretation Comments AGAP (test code = AGAP) 9.6 10.0-20.0 [facility]2021-04-09 13:46:52 Test Item Value Reference Range Interpretation Comments eGFR (test code = eGFR) 140 [facility]2021-04-09 13:46:52 Test Item Value Reference Range Interpretation Comments Lactic Acid Lvl (test code = Lactic 1.6 0.5-2.2 Acid Lvl) [facility]zkjqovOOOWCVVMHVKCM2232-08-05 13:46:52 Test Item Value Reference Range Interpretation Comments S Preg (test code = S Negative *NA*(4/9/21 Preg) 8:46 AM) [facility] CenterTnlcmitHUNMIHKACK4572-55-02 13:46:52 Test Item Value Reference Range Interpretation Comments WBC X 10x3 (test code = WBC X 10x3) 11.3 3.7-10.4 [facility] CenterIzlonmfGNRIMWKEGG3572-24-83 13:46:52 Test Item Value Reference Range Interpretation Comments RBC X 10x6 (test code = RBC X 10x6) 4.39 4.20-5.40 [facility] CenterRxnmeeeCALGGBESBU5755-46-39 13:46:52 Test Item Value Reference Range Interpretation Comments Hgb (test code = Hgb) 13.0 12.0-16.0 [facility] CenterYqilqnkRSDQXEVRJS6051-45-57 13:46:52 Test Item Value Reference Range Interpretation Comments Hct (test code = Hct) 40.3 36.0-48.0 [facility] CenterGupoqvsLHVZKNPKYC1727-23-70 13:46:52 Test Item Value Reference Range Interpretation Comments MCV (test code = MCV) 91.7 80.0-98.0 [facility] CenterAcmtpegBRNRBLNOXT5881-45-99 13:46:52 Test Item Value Reference Range Interpretation Comments MCH (test code = MCH) 29.7 pg 27.0-31.0 [facility] CenterLesbgltQSYNWXCMUU4129-20-07 13:46:52 Test Item Value Reference Range Interpretation Comments MCHC (test code = MCHC) 32.4 32.0-36.0 [facility] CenterOsygjdrDBYTKADRVF1755-73-00 13:46:52 Test Item Value Reference Range Interpretation Comments RDW (test code = RDW) 13.7 11.5-14.5 [facility] CenterTmoleqqTAVAEGLNLM9304-44-39 13:46:52 Test Item Value Reference Range Interpretation Comments Platelet (test code = Platelet) 245 133-450 [facility] CenterJkprfdsIMNEVKEYXT4683-44-20 13:46:52 Test Item Value Reference Range Interpretation Comments MPV (test code = MPV) 8.3 7.4-10.4 [facility] CenterPojykgbMWGVIFRIVF7652-58-59 13:46:52 Test Item Value Reference Range Interpretation Comments ACT (TEG) Rapid (test code = ACT (TEG) 105 s 86-118 Rapid) [facility] CenterMwimuifLMOVSOVHEA1916-44-53 13:46:52 Test Item Value Reference Range Interpretation Comments Split Point Rapid (test code = Split 0.5 min Point Rapid) [place] [address]-04-09 13:46:52 Test Item Value Reference Range Interpretation Comments R-time Rapid (test code = R-time 0.6 min 0.4-0.7 Rapid) [place] [address]-04-09 13:46:52 Test Item Value Reference Range Interpretation Comments K-time Rapid (test code = K-time 1.0 min 0.6-2.3 Rapid) [place] [address]-04-09 13:46:52 Test Item Value Reference Range Interpretation Comments Angle Rapid (test code = Angle 77 degrees 64-80 Rapid) [place] [address]-04-09 13:46:52 Test Item Value Reference Range Interpretation Comments Max Amplitude Rapid (test code = Max 71 mm 52-71 Amplitude Rapid) [place] [address]-04-09 13:46:52 Test Item Value Reference Range Interpretation Comments G-value Rapid (test code = G-value 12.5 5.0-11.6 Rapid) [place] [address]-04-09 13:46:52 Test Item Value Reference Range Interpretation Comments Estimated % Lysis Rapid 0.0 See_Comment [Au tomated message] The (test code = Estimated syste m which generated % Lysis Rapid) this result t ransmitted reference range : <=7.5. The reference r marsha was not used to int erpret this result as normal/abnormal . [place] [address]-04-09 13:46:52 Test Item Value Reference Range Interpretation Comments Segs (test code = Segs) 62.5 45.0-75.0 [place] 247341-04-09 13:46:52 Test Item Value Reference Range Interpretation Comments Lymphocytes (test code = Lymphocytes) 27.1 20.0-40.0 [place] [address]-04-09 13:46:52 Test Item Value Reference Range Interpretation Comments Monocytes (test code = Monocytes) 8.6 2.0-12.0 [place] [address]-04-09 13:46:52 Test Item Value Reference Range Interpretation Comments Eosinophils (test code = 1.1 See_Comment [A utomated message] The Eosinophils) system which ge nerated this result tra nsmitted reference range : <=4.0. The reference r marsha was not used to int erpret this result as normal/abnormal . [facility] CenterKeinbyuFQXTGWTYTM8484-44-52 13:46:52 Test Item Value Reference Range Interpretation Comments Basophils (test code = 0.7 See_Comment [Aut omated message] The Basophils) system which ge nerated this result tra nsmitted reference range : <=1.0. The reference r marsha was not used to int erpret this result as normal/abnormal . [facility] CenterCzpokzfVKHDRUHOKV8401-18-64 13:46:52 Test Item Value Reference Range Interpretation Comments Neutrophils # (test code = Neutrophils 7.0 1.5-8.1 #) [facility] CenterPibsfbsWIAFGOFFGY7415-69-26 13:46:52 Test Item Value Reference Range Interpretation Comments Lymphocytes # (test code = Lymphocytes 3.1 1.0-5.5 #) [facility] CenterFsyvspzABREZFAMXW7114-25-38 13:46:52 Test Item Value Reference Range Interpretation Comments Monocytes # (test code 1.0 See_Comment [Aut omated message] The = Monocytes #) system which generated this result tra nsmitted reference range : <=0.8. The reference r marsha was not used to int erpret this result as normal/abnormal . [facility] CenterFuzetvkDYHHTXWMFX8934-71-61 13:46:52 Test Item Value Reference Range Interpretation Comments Eosinophils # (test code 0.1 See_Comment [A utomated message] The = Eosinophils #) system whic h generated this result tra nsmitted reference range : <=0.5. The reference r marsha was not used to int erpret this result as normal/abnormal . [facility] CenterMlqpnzvIQVCROQORD9319-50-83 13:46:52 Test Item Value Reference Range Interpretation Comments Basophils # (test code 0.1 See_Comment [Aut omated message] The = Basophils #) system which generated this result tra nsmitted reference range : <=0.2. The reference r marsha was not used to int erpret this result as normal/abnormal . [facility] HospitalHnbmotuLBNWLQDDKM8088-60-77 13:46:52 Test Item Value Reference Range Interpretation Comments Ethanol Lvl (test code = Ethanol Lvl) [address] [place] [id number] 13:46:52 Test Item Value Reference Range Interpretation Comments Etoh (%) (test code = Etoh (%)) 0.125 [facility]2021-04-09 13:46:52 Test Item Value Reference Range Interpretation Comments Glucose Lvl (test code = Glucose Lvl) 89 70-99 [facility]2021-04-09 13:46:52 Test Item Value Reference Range Interpretation Comments BUN (test code = BUN) 8 7-22 [facility]2021-04-09 13:46:52 Test Item Value Reference Range Interpretation Comments Creatinine Lvl (test code = Creatinine 0.42 0.50-1.40 Lvl) [facility]2021-04-09 13:46:52 Test Item Value Reference Range Interpretation Comments Sodium Lvl (test code = Sodium Lvl) 143 135-145 [facility]2021-04-09 13:46:52 Test Item Value Reference Range Interpretation Comments Potassium Lvl (test code = Potassium 3.6 3.5-5.1 Lvl) [facility]2021-04-09 13:46:52 Test Item Value Reference Range Interpretation Comments Chloride Lvl (test code = Chloride Lvl) 110 95-109 [facility]2021-04-09 13:46:52 Test Item Value Reference Range Interpretation Comments CO2 (test code = CO2) 27 24-32 [facility]2021-04-09 13:46:52 Test Item Value Reference Range Interpretation Comments Calcium Lvl (test code = Calcium Lvl) 8.5 8.5-10.5 [facility]2021-04-09 13:46:52 Test Item Value Reference Range Interpretation Comments AGAP (test code = AGAP) 9.6 10.0-20.0 [facility]2021-04-09 13:46:52 Test Item Value Reference Range Interpretation Comments eGFR (test code = eGFR) 140 [facility]2021-04-09 13:46:52 Test Item Value Reference Range Interpretation Comments Lactic Acid Lvl (test code = Lactic 1.6 0.5-2.2 Acid Lvl) [facility]SbstasnAIKQWMYONJZMH9495-18-76 13:46:52 Test Item Value Reference Range Interpretation Comments S Preg (test code = S Negative *NA*(07/22/20 Preg) 8:46 AM) [facility]MsgylmyQHRNQZKKZX7201-91-65 13:46:52 Test Item Value Reference Range Interpretation Comments WBC X 10x3 (test code = WBC X 10x3) 11.3 3.7-10.4 [facility] CenterOjfyijoLEXTORXEVM9883-91-23 13:46:52 Test Item Value Reference Range Interpretation Comments RBC X 10x6 (test code = RBC X 10x6) 4.39 4.20-5.40 [facility] CenterWdrtyjyEWDSUTNIHR1047-46-83 13:46:52 Test Item Value Reference Range Interpretation Comments Hgb (test code = Hgb) 13.0 12.0-16.0 [facility] CenterXjxgukbTAYFHYQKAK6692-52-11 13:46:52 Test Item Value Reference Range Interpretation Comments Hct (test code = Hct) 40.3 36.0-48.0 [facility] CenterBiiyslpQWRELTIYPG4861-49-70 13:46:52 Test Item Value Reference Range Interpretation Comments MCV (test code = MCV) 91.7 80.0-98.0 [facility] CenterYbbtrnkMDMGRRMUJU4156-27-39 13:46:52 Test Item Value Reference Range Interpretation Comments MCH (test code = MCH) 29.7 pg 27.0-31.0 [facility] CenterAivoaozIMWADHHSOK6377-41-88 13:46:52 Test Item Value Reference Range Interpretation Comments MCHC (test code = MCHC) 32.4 32.0-36.0 [facility] CenterYxucaezVBUWDJOLSW6023-41-33 13:46:52 Test Item Value Reference Range Interpretation Comments RDW (test code = RDW) 13.7 11.5-14.5 [facility] CenterRncrhtdBHORHUCTPP5939-81-99 13:46:52 Test Item Value Reference Range Interpretation Comments Platelet (test code = Platelet) 245 133-450 [facility] CenterXmyqkfkKKKMOWODMH4253-83-95 13:46:52 Test Item Value Reference Range Interpretation Comments MPV (test code = MPV) 8.3 7.4-10.4 [facility] CenterVxfhhxpEXJDTELIMP0272-05-57 13:46:52 Test Item Value Reference Range Interpretation Comments ACT (TEG) Rapid (test code = ACT (TEG) 105 s 86-118 Rapid) [facility] CenterUxrryicJYAFLRXTNM3605-88-13 13:46:52 Test Item Value Reference Range Interpretation Comments Split Point Rapid (test code = Split 0.5 min Point Rapid) [facility] CenterJbfmhfsQYNJCSKKZQ2608-50-08 13:46:52 Test Item Value Reference Range Interpretation Comments R-time Rapid (test code = R-time 0.6 min 0.4-0.7 Rapid) [place] 247341-04-09 13:46:52 Test Item Value Reference Range Interpretation Comments K-time Rapid (test code = K-time 1.0 min 0.6-2.3 Rapid) [place] [address]-04-09 13:46:52 Test Item Value Reference Range Interpretation Comments Angle Rapid (test code = Angle 77 degrees 64-80 Rapid) [place] 247341-04-09 13:46:52 Test Item Value Reference Range Interpretation Comments Max Amplitude Rapid (test code = Max 71 mm 52-71 Amplitude Rapid) [place] [address]-04-09 13:46:52 Test Item Value Reference Range Interpretation Comments G-value Rapid (test code = G-value 12.5 5.0-11.6 Rapid) [place] [address]-04-09 13:46:52 Test Item Value Reference Range Interpretation Comments Estimated % Lysis Rapid 0.0 See_Comment [Au tomated message] The (test code = Estimated syste m which generated % Lysis Rapid) this result t ransmitted reference range : <=7.5. The reference r marsha was not used to int erpret this result as normal/abnormal . [facility] CenterFjjazzcKGKSDCFORK3734-51-28 13:46:52 Test Item Value Reference Range Interpretation Comments Segs (test code = Segs) 62.5 45.0-75.0 [place] 247341-04-09 13:46:52 Test Item Value Reference Range Interpretation Comments Lymphocytes (test code = Lymphocytes) 27.1 20.0-40.0 [place] 247341-04-09 13:46:52 Test Item Value Reference Range Interpretation Comments Monocytes (test code = Monocytes) 8.6 2.0-12.0 [place] [address]-04-09 13:46:52 Test Item Value Reference Range Interpretation Comments Eosinophils (test code = 1.1 See_Comment [A utomated message] The Eosinophils) system which ge nerated this result tra nsmitted reference range : <=4.0. The reference r marsha was not used to int erpret this result as normal/abnormal . [place] 247341-04-09 13:46:52 Test Item Value Reference Range Interpretation Comments Basophils (test code = 0.7 See_Comment [Aut omated message] The Basophils) system which ge nerated this result tra nsmitted reference range : <=1.0. The reference r marsha was not used to int erpret this result as normal/abnormal . [facility] CenterTxfoovrZLFBPFNOQH7722-38-39 13:46:52 Test Item Value Reference Range Interpretation Comments Neutrophils # (test code = Neutrophils 7.0 1.5-8.1 #) [facility] CenterAguhvkhLWFJLPVECK3749-43-18 13:46:52 Test Item Value Reference Range Interpretation Comments Lymphocytes # (test code = Lymphocytes 3.1 1.0-5.5 #) [facility] CenterEhgnzqgXDVGIPJOAC1600-16-54 13:46:52 Test Item Value Reference Range Interpretation Comments Monocytes # (test code 1.0 See_Comment [Aut omated message] The = Monocytes #) system which generated this result tra nsmitted reference range : <=0.8. The reference r marsha was not used to int erpret this result as normal/abnormal . [facility] CenterEshisihOIADLROHIJ2678-31-36 13:46:52 Test Item Value Reference Range Interpretation Comments Eosinophils # (test code 0.1 See_Comment [A utomated message] The = Eosinophils #) system whic h generated this result tra nsmitted reference range : <=0.5. The reference r marsha was not used to int erpret this result as normal/abnormal . [facility] CenterBldgvslJNCFLKPXWV7903-07-56 13:46:52 Test Item Value Reference Range Interpretation Comments Basophils # (test code 0.1 See_Comment [Aut omated message] The = Basophils #) system which generated this result tra nsmitted reference range : <=0.2. The reference r marsha was not used to int erpret this result as normal/abnormal . [facility]StddkldXHQQGJJLUS7812-96-98 13:46:52 Test Item Value Reference Range Interpretation Comments Ethanol Lvl (test code = Ethanol Lvl) [address] [place] [address]0054021-04-09 13:46:52 Test Item Value Reference Range Interpretation Comments Etoh (%) (test code = Etoh (%)) 0.125 [facility] YWRSQ3094-78-35 13:46:52 Test Item Value Reference Range Interpretation Comments Glucose Lvl (test code = Glucose Lvl) 89 70-99 [facility]2021-04-09 13:46:52 Test Item Value Reference Range Interpretation Comments BUN (test code = BUN) 8 7-22 [facility]2021-04-09 13:46:52 Test Item Value Reference Range Interpretation Comments Creatinine Lvl (test code = Creatinine 0.42 0.50-1.40 Lvl) [facility]2021-04-09 13:46:52 Test Item Value Reference Range Interpretation Comments Sodium Lvl (test code = Sodium Lvl) 143 135-145 [facility]2021-04-09 13:46:52 Test Item Value Reference Range Interpretation Comments Potassium Lvl (test code = Potassium 3.6 3.5-5.1 Lvl) [facility]2021-04-09 13:46:52 Test Item Value Reference Range Interpretation Comments Chloride Lvl (test code = Chloride Lvl) 110 95-109 [facility]2021-04-09 13:46:52 Test Item Value Reference Range Interpretation Comments CO2 (test code = CO2) 27 24-32 [facility]2021-04-09 13:46:52 Test Item Value Reference Range Interpretation Comments Calcium Lvl (test code = Calcium Lvl) 8.5 8.5-10.5 [facility]2021-04-09 13:46:52 Test Item Value Reference Range Interpretation Comments AGAP (test code = AGAP) 9.6 10.0-20.0 [facility]2021-04-09 13:46:52 Test Item Value Reference Range Interpretation Comments eGFR (test code = eGFR) 140 [facility]2021-04-09 13:46:52 Test Item Value Reference Range Interpretation Comments Lactic Acid Lvl (test code = Lactic 1.6 0.5-2.2 Acid Lvl) [facility] HospitalXwnvztjWASGGODYQWTGR0074-16-94 13:46:52 Test Item Value Reference Range Interpretation Comments S Preg (test code = S Negative *NA*(07/22/20 Preg) 8:46 AM) [facility]QvyplcmGUWXLBIKJZ2162-64-50 13:46:52 Test Item Value Reference Range Interpretation Comments WBC X 10x3 (test code = WBC X 10x3) 11.3 3.7-10.4 [facility] CenterZxvsonyJGTBDDKTDU7714-60-11 13:46:52 Test Item Value Reference Range Interpretation Comments RBC X 10x6 (test code = RBC X 10x6) 4.39 4.20-5.40 [facility] CenterJfvgrbnPHDXWGSAWW4455-11-74 13:46:52 Test Item Value Reference Range Interpretation Comments Hgb (test code = Hgb) 13.0 12.0-16.0 [facility] CenterJlovnqnFGKRXUMHKB1677-53-52 13:46:52 Test Item Value Reference Range Interpretation Comments Hct (test code = Hct) 40.3 36.0-48.0 [facility] CenterDqzlkokJLGXLDHNHS7256-38-64 13:46:52 Test Item Value Reference Range Interpretation Comments MCV (test code = MCV) 91.7 80.0-98.0 [facility] CenterUbezwnlNEJSZOQTXP5600-13-20 13:46:52 Test Item Value Reference Range Interpretation Comments MCH (test code = MCH) 29.7 pg 27.0-31.0 [facility] CenterEedemqgPCTXMOBIRD3028-87-32 13:46:52 Test Item Value Reference Range Interpretation Comments MCHC (test code = MCHC) 32.4 32.0-36.0 [facility] CenterBysgzyfSGNIDFRSGU9937-81-18 13:46:52 Test Item Value Reference Range Interpretation Comments RDW (test code = RDW) 13.7 11.5-14.5 [facility] CenterJpulvxhRPWRWHOISY2546-79-96 13:46:52 Test Item Value Reference Range Interpretation Comments Platelet (test code = Platelet) 245 133-450 [facility] CenterUpjzlauQRUAAPFKOM1122-09-32 13:46:52 Test Item Value Reference Range Interpretation Comments MPV (test code = MPV) 8.3 7.4-10.4 [facility] CenterXxjmnscIFGIXKYJIP0880-53-37 13:46:52 Test Item Value Reference Range Interpretation Comments ACT (TEG) Rapid (test code = ACT (TEG) 105 s 86-118 Rapid) [facility] CenterLrbuivrHASMANPLNJ8691-27-59 13:46:52 Test Item Value Reference Range Interpretation Comments Split Point Rapid (test code = Split 0.5 min Point Rapid) [facility] CenterSmpbqufUWKIGAIFKY0552-42-35 13:46:52 Test Item Value Reference Range Interpretation Comments R-time Rapid (test code = R-time 0.6 min 0.4-0.7 Rapid) [place] [address]-04-09 13:46:52 Test Item Value Reference Range Interpretation Comments K-time Rapid (test code = K-time 1.0 min 0.6-2.3 Rapid) [place] [address]-04-09 13:46:52 Test Item Value Reference Range Interpretation Comments Angle Rapid (test code = Angle 77 degrees 64-80 Rapid) [place] 247341-04-09 13:46:52 Test Item Value Reference Range Interpretation Comments Max Amplitude Rapid (test code = Max 71 mm 52-71 Amplitude Rapid) [place] [address]-04-09 13:46:52 Test Item Value Reference Range Interpretation Comments G-value Rapid (test code = G-value 12.5 5.0-11.6 Rapid) [place] [address]-04-09 13:46:52 Test Item Value Reference Range Interpretation Comments Estimated % Lysis Rapid 0.0 See_Comment [Au tomated message] The (test code = Estimated syste m which generated % Lysis Rapid) this result t ransmitted reference range : <=7.5. The reference r marsha was not used to int erpret this result as normal/abnormal . [place] 247341-04-09 13:46:52 Test Item Value Reference Range Interpretation Comments Segs (test code = Segs) 62.5 45.0-75.0 [place] 247341-04-09 13:46:52 Test Item Value Reference Range Interpretation Comments Lymphocytes (test code = Lymphocytes) 27.1 20.0-40.0 [place] 247341-04-09 13:46:52 Test Item Value Reference Range Interpretation Comments Monocytes (test code = Monocytes) 8.6 2.0-12.0 [place] [address]-04-09 13:46:52 Test Item Value Reference Range Interpretation Comments Eosinophils (test code = 1.1 See_Comment [A utomated message] The Eosinophils) system which ge nerated this result tra nsmitted reference range : <=4.0. The reference r marsha was not used to int erpret this result as normal/abnormal . [place] [address]-04-09 13:46:52 Test Item Value Reference Range Interpretation Comments Basophils (test code = 0.7 See_Comment [Aut omated message] The Basophils) system which ge nerated this result tra nsmitted reference range : <=1.0. The reference r marsha was not used to int erpret this result as normal/abnormal . [place] 247341-04-09 13:46:52 Test Item Value Reference Range Interpretation Comments Neutrophils # (test code = Neutrophils 7.0 1.5-8.1 #) [facility] CenterTtnppsrSSRGOXARBA9527-25-67 13:46:52 Test Item Value Reference Range Interpretation Comments Lymphocytes # (test code = Lymphocytes 3.1 1.0-5.5 #) [place] 247341-04-09 13:46:52 Test Item Value Reference Range Interpretation Comments Monocytes # (test code 1.0 See_Comment [Aut omated message] The = Monocytes #) system which generated this result tra nsmitted reference range : <=0.8. The reference r marsha was not used to int erpret this result as normal/abnormal . [facility] CenterJmziszeAGYPERCZTY2724-23-60 13:46:52 Test Item Value Reference Range Interpretation Comments Eosinophils # (test code 0.1 See_Comment [A utomated message] The = Eosinophils #) system whic h generated this result tra nsmitted reference range : <=0.5. The reference r marsha was not used to int erpret this result as normal/abnormal . [facility] CenterZzatyiyWLJXDGPTGR9136-98-06 13:46:52 Test Item Value Reference Range Interpretation Comments Basophils # (test code 0.1 See_Comment [Aut omated message] The = Basophils #) system which generated this result tra nsmitted reference range : <=0.2. The reference r marsha was not used to int erpret this result as normal/abnormal . [facility] HospitalLnnqesoGJWUKCPHHD9985-53-61 13:46:52 Test Item Value Reference Range Interpretation Comments Ethanol Lvl (test code = Ethanol Lvl) 125 [facility] HospitalDaqqplwCOCHICMQFG9269-52-95 13:46:52 Test Item Value Reference Range Interpretation Comments Etoh (%) (test code = Etoh (%)) 0.125 [facility] HospitalEversnap MNEFJ1330-01-94 13:46:52 Test Item Value Reference Range Interpretation Comments Glucose Lvl (test code = Glucose Lvl) 89 70-99 [facility] CenterannMARIA PARHAM HEALTHGSDGJ3535-64-55 13:46:52 Test Item Value Reference Range Interpretation Comments BUN (test code = BUN) 8 7-22 [place] 796881-04-09 13:46:52 Test Item Value Reference Range Interpretation Comments Creatinine Lvl (test code = Creatinine 0.42 0.50-1.40 Lvl) [facility]2021-04-09 13:46:52 Test Item Value Reference Range Interpretation Comments Sodium Lvl (test code = Sodium Lvl) 143 135-145 [place] 796881-04-09 13:46:52 Test Item Value Reference Range Interpretation Comments Potassium Lvl (test code = Potassium 3.6 3.5-5.1 Lvl) [place] 796881-04-09 13:46:52 Test Item Value Reference Range Interpretation Comments Chloride Lvl (test code = Chloride Lvl) 110 95-109 [facility]2021-04-09 13:46:52 Test Item Value Reference Range Interpretation Comments CO2 (test code = CO2) 27 24-32 [facility]2021-04-09 13:46:52 Test Item Value Reference Range Interpretation Comments Calcium Lvl (test code = Calcium Lvl) 8.5 8.5-10.5 [facility]2021-04-09 13:46:52 Test Item Value Reference Range Interpretation Comments AGAP (test code = AGAP) 9.6 10.0-20.0 [facility]2021-04-09 13:46:52 Test Item Value Reference Range Interpretation Comments eGFR (test code = eGFR) 140 [facility]2021-04-09 13:46:52 Test Item Value Reference Range Interpretation Comments Lactic Acid Lvl (test code = Lactic 1.6 0.5-2.2 Acid Lvl) [facility] CenterRidvenmUPDNTOHWWYVUS6988-41-78 13:46:52 Test Item Value Reference Range Interpretation Comments S Preg (test code = S Negative *NA*(07/22/20 Preg) 8:46 AM) [facility] CenterSwrwbfdSPCJKCQXJU0845-60-30 13:46:52 Test Item Value Reference Range Interpretation Comments WBC X 10x3 (test code = WBC X 10x3) 11.3 3.7-10.4 [facility] CenterXmftweyYJKHUQFYXC7041-83-58 13:46:52 Test Item Value Reference Range Interpretation Comments RBC X 10x6 (test code = RBC X 10x6) 4.39 4.20-5.40 [facility] CenterMdwjrfkOTACTYMCKM0874-09-01 13:46:52 Test Item Value Reference Range Interpretation Comments Hgb (test code = Hgb) 13.0 12.0-16.0 [place] 247341-04-09 13:46:52 Test Item Value Reference Range Interpretation Comments Hct (test code = Hct) 40.3 36.0-48.0 [facility] CenterFhujcwyXJPCBWDKAZ1189-61-39 13:46:52 Test Item Value Reference Range Interpretation Comments MCV (test code = MCV) 91.7 80.0-98.0 [place] 247341-04-09 13:46:52 Test Item Value Reference Range Interpretation Comments MCH (test code = MCH) 29.7 pg 27.0-31.0 [facility] CenterQiuzvmzYKFNFGNGLG1327-80-55 13:46:52 Test Item Value Reference Range Interpretation Comments MCHC (test code = MCHC) 32.4 32.0-36.0 [facility] CenterKoyzivvAMBJGZMVBD8766-95-47 13:46:52 Test Item Value Reference Range Interpretation Comments RDW (test code = RDW) 13.7 11.5-14.5 [facility] CenterQzglvtmCHYGORODXR9819-61-02 13:46:52 Test Item Value Reference Range Interpretation Comments Platelet (test code = Platelet) 245 133-450 [facility] CenterKlukvftFCOSAHOBPN5075-48-58 13:46:52 Test Item Value Reference Range Interpretation Comments MPV (test code = MPV) 8.3 7.4-10.4 [place] 247341-04-09 13:46:52 Test Item Value Reference Range Interpretation Comments ACT (TEG) Rapid (test code = ACT (TEG) 105 s 86-118 Rapid) [facility] CenterEoqqbbiGXWPNNPZIE1508-27-52 13:46:52 Test Item Value Reference Range Interpretation Comments Split Point Rapid (test code = Split 0.5 min Point Rapid) [facility] CenterEzhihqeMWQMNPZZAR7082-83-92 13:46:52 Test Item Value Reference Range Interpretation Comments R-time Rapid (test code = R-time 0.6 min 0.4-0.7 Rapid) [facility] CenterNyuftjuYCVGVTPOHF6534-44-99 13:46:52 Test Item Value Reference Range Interpretation Comments K-time Rapid (test code = K-time 1.0 min 0.6-2.3 Rapid) [facility] CenterQeomjpwRZSQKNIJKV4001-56-10 13:46:52 Test Item Value Reference Range Interpretation Comments Angle Rapid (test code = Angle 77 degrees 64-80 Rapid) [facility] CenterPmlfusrBSWWYOHJSJ6620-84-69 13:46:52 Test Item Value Reference Range Interpretation Comments Max Amplitude Rapid (test code = Max 71 mm 52-71 Amplitude Rapid) [facility] CenterYimvtcmFKAVYTFLQL7635-91-63 13:46:52 Test Item Value Reference Range Interpretation Comments G-value Rapid (test code = G-value 12.5 5.0-11.6 Rapid) [facility] CenterObxxhxoJANFLFZBME6435-85-57 13:46:52 Test Item Value Reference Range Interpretation Comments Estimated % Lysis Rapid 0.0 See_Comment [Au tomated message] The (test code = Estimated syste m which generated % Lysis Rapid) this result t ransmitted reference range : <=7.5. The reference r marsha was not used to int erpret this result as normal/abnormal . [facility] CenterIoirclqKPCGMWVOCK6708-66-09 13:46:52 Test Item Value Reference Range Interpretation Comments Segs (test code = Segs) 62.5 45.0-75.0 [facility] Coronavirus 2019 [id number] 11:29:00 Test Item Value Reference Range Interpretation Comments Novel Coronavirus 2019 nCoV (test Negative Negative code = COVID19) - XR CHEST 1 [id number] 14:00:00 Patient Name: ALYSSIA LEE Unit No: [id number] EXAMS: CPT CODE: [id number] XR CHEST 1 V [id number] Reason: cough - XR CHEST 1 V [...] Technologist: Brenna Costa (Schroeder) RT Trscrpt Dt/ (1400)tSonuSDR.[id number] Orig Print D/T: S: 07/05/2019 (1403) [facility] NAME: ALYSSIA LEE5 Andie Mendez PHYS: [place] [id number] : 1995 AGE: 23 SEX: F LOC: [place] PHONE #: [phone] EXAM DATE: 07/05/2019 STATUS: REG ER FAX #: RAD NO: DC Dt: PAGE 1 Signed ReportHCG SERUM [id number] 20:31:00 Test Item Value Reference Range Interpretation [...] using aquantitative h CG assay. CBC W/AUTO [id number] 20:17:00 Test Item Value Reference Range Interpretation [...]
[2023-02-09 16:42] LABS: Specific Gravity 1.025 (1.005-1.030); Urine Bacteria None Seen /HPF (<20); Urine Bilirubin NEGATIVE (Negative); Urine Blood Trace (Negative); Urine Clarity Clear (Clear); Urine Color Light-Yellow (Yellow); Urine Glucose NEGATIVE (Negative); Urine Mucus Slight /HPF (None Seen); Urine Protein NEGATIVE (Negative); Urine Urobilinogen Normal (Normal)
--- NOTE | 2023-02-09 17:21 | RAD REPORT ---
EXAM DESCRIPTION: US - TRANSVAG OB - 02/09/2023 5:09 pm CLINICAL HISTORY: ABD CRAMPING, COMPARISON: No comparisons FINDINGS: Gestational sac visualized. The gestational sac mean sac diameter measures 4 mm which is c onsistent with 5 week 1 day. No pole identified. The right ovary measures 3.2 cm x 2.2 cm x 2.7 cm with volume of 10.2 cm. The left ovary is enlarged secondary to simple appearing cyst measuring 6.4 x 4.5 cm . The left ovary measures 6.7 x 5 x 6.5 cm with volume of 115 cc. Both ovaries have vascular flow . IMPRESSION: Gestational sac identified measuring 5 week 1 day. Bilateral ovarian blood flow. Simple appearing left ovarian cyst measuring 6.4 cm in maximal dimensio n. In a premenopausal female, a cyst of this size should have a 6-8 week follow-up pelvic ultrasound.
[2023-02-09 18:15] LABS: Absolute Lymphocytes (CBC) 2.9 K/uL (0.7-4.9); Hematocrit 37.6 % (36.0-45.0); MCV 89.7 fL (80-100); Platelets 293 thou/uL (152-406)
[2023-02-09] MEDS ORDERED: NA CHLORIDE 0.9% 1,000 ML ONE (18:20)
[2023-02-09] MEDS ORDERED: ONDANSETRON 4 MG/2 ML VIAL ONE (18:24)
[2023-02-09 18:51] LABS: Potassium 3.3 mEq/L (3.5-5.1)
--- NOTE | 2023-02-09 19:07 | ER ---
Nurse's Notes [facility] Name: Kanwal De La Vega Age: 27 yrs Sex: Female : 1995 Arrival Date: 02/09/2023 Time: 15:07 Bed DX4 Private MD: Diagnosis: 5 Weeks ;Abdominal Cramping Presentation: 02/09 15:49 Chief complaint: Sharp lower abdominal pain x 2 days, worse this afternoon. Denies hb vaginal bleeding. Pt is approx 6 weeks . LMP 9/, . Coronavirus screen: At this time, the client does not indicate any symptoms associated with coronavirus-19. Ebola Screen: No symptoms or risks identified at this time. Initial Sepsis Screen: Does the patient meet any 2 criteria? No. Patient's initial sepsis screen is negative. Does the patient have a suspected source of infection? No. Patient's initial sepsis screen is negative. Risk Assessment: Do you want to hurt yourself or someone else? Patient reports no desire to harm self or others. Onset of symptoms was February 09, 2023. 15:49 Method Of Arrival: Ambulatory hb 15:49 Acuity: MOI 3 hb Triage Assessment: 19:29 General: Appears comfortable, Behavior is cooperative. Pain: Denies pain. GI: Abdomen ha1 is round non-distended, Bowel sounds present X 4 quads. Reports nausea. Historical: - Allergies: 15:51 Clindamycin; hb 15:51 PENICILLINS; hb - Home Meds: 15:51 Vitamin Oral [Active]; hb - PMHx: 15:51 Asthma; hb - PSHx: 15:51 None; hb - Immunization history:: Adult Immunizations up to date. - Social history:: Smoking status: Patient denies any tobacco usage or history of. Screenin:28 [facility] ED Fall Risk Assessment (Adult) History of falling in the last 3 months, ha1 including since admission No falls in past 3 months (0 pts) Score/Fall Risk Level 0 - 2 = Low Risk Oriented to surroundings, Maintained a safe environment. Abuse screen: Denies threats or abuse. Denies injuries from another. Nutritional screening: No deficits noted. Tuberculosis screening: No symptoms or risk factors identified. Assessment: 19:28 Reassessment: Patient and/or family updated on plan of care and expected duration. Pain ha1 level reassessed. Patient is alert, oriented x 3, equal unlabored respirations, skin warm/dry/pink. Patient denies pain at this time. Patient states feeling better. Patient states symptoms have improved. Vital Signs: 15:49 BP 131 / 55; Pulse 95; Resp 16; Temp 98.1; Pulse Ox 100% on R/A; Weight 77.11 kg; hb Height 4 ft. 11 in. ; Pain 9/10; 19:28 BP 130 / 65; Pulse 90; Resp 17; Pulse Ox 100% on R/A; ha1 15:49 Body Mass Index 34.34 (77.11 kg, 149.86 cm) hb 15:49 Pain Scale: Adult hb ED Course: 15:11 Patient arrived in ED. mg5 15:27 Troy Downing MD is Attending Physician. ec2 15:51 Triage completed. hb 15:52 Arm band placed on. hb 16:59 TRANSVAG OB In Process Unspecified. EDMS 18:04 Initial lab(s) drawn, by dc, sent to lab. Inserted saline lock: 22 gauge in right jl7 antecubital area, using aseptic technique. Blood collected. 19:29 No provider procedures requiring assistance completed. IV discontinued, intact, ha1 bleeding controlled, No redness/swelling at site. Pressure dressing applied. Administered Medications: 18:12 Drug: NS 0.9% IV 1000 ml IV at 1 bolus Per protocol; 1000 mL bolus Route: IV; Rate: 1 jl7 bolus; Site: right antecubital; 18:12 Drug: Ondansetron IVP 4 mg IVP once; over 2 minutes Route: IVP; Site: right antecubital;jl7 Medication: 19:30 VIS not applicable for this client. ha1 Outcome: 19:07 Discharge ordered by . ec2 19:29 Discharged to home ambulatory, ha1 19:29 Condition: stable 19:29 Discharge instructions given to patient, Instructed on discharge instructions, follow up and referral plans. medication usage, Demonstrated understanding of instructions, follow-up care, medications, Prescriptions given X 1, 19:30 Patient left the ED. ha1 Signatures: Dispatcher [employer] EDCT Pamela Adkins RN RN Sylvia Sinha RN RN jl7 Steff Yung RN RN ha1 Latasha Bean mg5 Troy Downing MD MD ec2 Corrections: (The following items were deleted from the chart) 15:52 15:49 Chief complaint: Sharp lower abdominal pain x 2 days, worse this afternoon. hb Denies vaginal bleeding/V/D. Pt is approx 6 weeks . LMP 12/27, . hb
--- NOTE | 2023-02-09 19:07 | EDPHYS ---
Physician Documentation [facility] Name: Kanwal De La Vega Age: 27 yrs Sex: Female : 1995 Arrival Date: 02/09/2023 Time: 15:07 Bed DX4 Private MD: ED Physician Troy Downing HPI: 02/09 15:52 This 27 yrs old Female presents to ER via Ambulatory with complaints of ec2 Abdominal Cramping, Vaginal Pain, -6wks. 15:52 Patient reports that she is approximately 6 weeks . Patient reports that she is ec2 having worsening abdominal cramping so she came for evaluation. Patient reports no vaginal bleeding, some issues with nausea and vomiting, denies any urinary problems. Patient states that she has seen a physician for blood work however has not had any confirmatory IUP. . Historical: - Allergies: 15:51 Clindamycin; hb 15:51 PENICILLINS; hb - Home Meds: 15:51 Vitamin Oral [Active]; hb - PMHx: 15:51 Asthma; hb - PSHx: 15:51 None; hb - Immunization history:: Adult Immunizations up to date. - Social history:: Smoking status: Patient denies any tobacco usage or history of. ROS: 15:52 Constitutional: as per hpi ec2 Exam: 15:52 Constitutional: GEN: NAD Head: atraumatic Eyes: EOMI Ears: External ears are ec2 normal. CV: regular rate LUNGS: no respiratory distress ABD: non-distende, soft, nontender, no guarding, not rigid SKIN: no evidence of rashes MSK: no evidence of trauma NEURO: moves all extremities equally Vital Signs: 15:49 BP 131 / 55; Pulse 95; Resp 16; Temp 98.1; Pulse Ox 100% on R/A; Weight 77.11 kg; hb Height 4 ft. 11 in. ; Pain 9/10; 19:28 BP 130 / 65; Pulse 90; Resp 17; Pulse Ox 100% on R/A; ha1 15:49 Body Mass Index 34.34 (77.11 kg, 149.86 cm) hb 15:49 Pain Scale: Adult hb MDM: 15:27 Patient medically screened. ec2 15:52 ED course: Patient arrives today due to concern for worsening abdominal cramping in the ec2 setting of approximately 6-week . Examination remarkable for well-appearing nontoxic individual is otherwise in no acute distress. Obtained some lab work, ultrasound and urine studies. I will also treat the patient's nausea and vomiting with crystalloid and Zofran. 16:05 ED course: EKG independently reviewed and interpreted by me, shows normal sinus rhythm, ec2 rate of 56, no acute ST segment elevations, nonspecific T wave inversion in aVL, first-degree AV block noted.. 17:47 ED course: Urine is noninfectious appearing. Transvaginal ultrasound shows appropriate ec2 gestational sac measuring approximately 5 weeks and 1 day. Patient is noted to have a ovarian cysts., Per radiology report, radiology recommends outpatient follow-up in a premenopausal woman however patient is obviously not premenopausal given her active . . 19:06 ED course: Patient is lab work remarkable for reassuring CBC, metabolic profile with ec2 slight hypokalemia noted, hCG is 1600. On reassessment patient is well-appearing reports improvement in her symptoms. Will discharge home, return precautions given. . 19:07 Data reviewed: vital signs. ec2 02/09 15:55 Order name: CBC with Diff; Complete Time: 19:05 ec2 02/09 15:55 Order name: BMP; Complete Time: 19:05 ec2 02/09 15:55 Order name: Urinalysis w/ reflexes; Complete Time: 17:46 ec2 02/09 15:55 Order name: HCG-Quantitative; Complete Time: 19:05 ec2 02/09 16:35 Order name: TRANSVAG OB; Complete Time: 17:46 EDMS Administered Medications: 18:12 Drug: NS 0.9% IV 1000 ml IV at 1 bolus Per protocol; 1000 mL bolus Route: IV; Rate: 1 jl7 bolus; Site: right antecubital; 18:12 Drug: Ondansetron IVP 4 mg IVP once; over 2 minutes Route: IVP; Site: right antecubital;jl7 Disposition Summary: 02/09/23 19:07 Discharge Ordered Notes: Location: Home ec2 Condition: Stable ec2 Diagnosis - 5 Weeks ec2 - Abdominal Cramping ec2 Discharge Instructions: - Discharge Summary Sheet ec2 - Abdominal Pain During , [id number] ec2 Forms: - Medication Reconciliation Form ec2 - Thank You Letter ec2 - Antibiotic Education ec2 - Prescription Opioid Use ec2 - Patient Portal Instructions ec2 - Leadership Thank You Letter ec2 Signatures: Dispatcher [employer] Pamela Vasquez, RN RN Sylvia Sinha RN RN jl7 Troy Downing MD MD ec2 Corrections: (The following items were deleted from the chart) 16:35 15:56 OB Limited+US.RAD.BRZ ordered. EDMS EDMS
[2023-02-09 19:46] VITALS: TEMP 98.1; O2SAT 100
[2023-02-09 19:48] VITALS: BP 130/65
== END 2023-02-09 19:30 | disposition home or self-care (01) ==
LOC: ER 15:07
DX: O26.891 Other specified pregnancy related conditions, first trimester (principal); Z3A.01 Less than 8 weeks gestation of pregnancy; Z88.0 Allergy status to penicillin; Z88.3 Allergy status to other anti-infective agents
CPT/HCPCS: 85025; 81001; 80048; 36415; 84702; 76813; 96374; 99284; J2405; J7030

== ENCOUNTER → 2023-05-20 | Emergency (ER) | payer SELFPAY ==
[~2023-05-20] MED LIST: ACETAMINOPHEN 325 MG TABLET ONE; AZITHROMYCIN 250 MG TAB ONE; CEFTRIAXONE 1000 MG/VIAL ONE; NA CHLORIDE 0.9% 1,000 ML ONE; ONDANSETRON 4 MG/2 ML VIAL ONE; POTASSIUM 25 MEQ EFFERV TAB ONE
[2023-05-20 14:22] LABS: Absolute Lymphocytes (CBC) 2.9 K/uL (0.7-4.9); Hematocrit 38.8 % (36.0-45.0); Lymphocytes % 18.6 % (15.3-44.8); MCV 90.4 fL (80-100); MPV 8.9 fL (7.6-11.3); Platelets 312 thou/uL (152-406); RBC Red Blood Cell Count 4.29 M/uL (3.86-4.86)
[2023-05-20 14:28] LABS: Specific Gravity 1.018 (1.005-1.030)
[2023-05-20 14:29] LABS: Specific Gravity 1.017 (1.005-1.030); Urine Bacteria None Seen /HPF (<20); Urine Bilirubin NEGATIVE (Negative); Urine Blood Negative (Negative); Urine Clarity Clear (Clear); Urine Color Light-Yellow (Yellow); Urine Glucose NEGATIVE (Negative); Urine Protein NEGATIVE (Negative); Urine RBC <5 /HPF (None Seen); Urine Urobilinogen Normal (Normal)
[2023-05-20 14:30] LABS: Barbiturates NEGATIVE (NEGATIVE); Benzodiazepines NEGATIVE (NEGATIVE); Cocaine NEGATIVE (NEGATIVE); METHAMPHETAM NEGATIVE (NEGATIVE); Methadone NEGATIVE (NEGATIVE); Opiates NEGATIVE (NEGATIVE); Phencyclidine NEGATIVE (NEGATIVE); THC Cannibis NEGATIVE (NEGATIVE)
[2023-05-20 14:33] LABS: SARS-CoV-2 Antigen Rapid Res Negative (Negative)
[2023-05-20 14:38] LABS: Albumin 3.8 g/dL (3.4-5.0); Bilirubin Total 0.2 mg/dL (0.2-1.0); Potassium 3.4 mEq/L (3.5-5.1)
--- NOTE | 2023-05-20 17:27 | RAD REPORT ---
EXAM DESCRIPTION: RAD - Chest Pa And Lat (2 Views) - 05/20/2023 2:33 pm CLINICAL HISTORY: COUGH COMPARISON: No comparisons TECHNIQUE: PA and lateral views of the chest were obtained. FINDINGS: The lungs are clear. Heart size is normal and central vasculature is within normal limits. No pleural effusion or pneumothorax seen. No acute bony finding noted. IMPRESSION: No acute cardiopulmonary process.
--- NOTE | 2023-05-20 17:27 | RAD REPORT ---
EXAM DESCRIPTION: US - Abdomen Exam Limited - 05/20/2023 4:07 pm CLINICAL HISTORY: ABD PAIN COMPARISON: Stone Protocol dated 05/20/2023 TECHNIQUE: Sonographic grayscale and color flow images of the right upper abdominal quadrant were o btained. FINDINGS: The gallbladder is contracted limiting evaluation. It demonstrates no gallstones. No peric holecystic fluid or definitive gallbladder wall thickening, although the degree of contraction limits evaluation. The common bile duct is normal measuring 3 mm. The liver demonstrates no findings of intrahepatic biliary dilatation. IMPRESSION: Contracted gallbladder limiting evaluation. No abnormal findings allowing for this limit ation.
--- NOTE | 2023-05-20 17:33 | RAD REPORT ---
EXAM DESCRIPTION: CT - Stone Protocol - 05/20/2023 3:48 pm CLINICAL HISTORY: FLANK PAIN COMPARISON: No comparisons TECHNIQUE: Thin cut axial CT imaging of the abdomen and pelvis was performed without IV contrast. Mu ltiplanar reformats were generated and reviewed. All CT scans are performed using dose optimization technique as appropriate and may include automated exposure control or mA/KV adjustment according to patient size. FINDINGS: No suspicious findings in the lung bases. The liver, spleen, and pancreas show no suspicious findings. Gallbladder is contracted limiting evalu ation. Symmetric renal contour, without suspicious parenchymal findings within limits of noncontrast techniq ue. No evidence of radiopaque calculi or hydroureteronephrosis. No dilated bowel loops or bowel wall thickening. Dominant left adnexal 5.7 x 4.6 cm fluid density cys t. Smaller cysts or follicles of the right ovary. No free air, free fluid or inflammatory stranding. No hernia, mass or bulky lymphadenopathy. The urinary bladder is without significant finding. No suspicious bony findings. IMPRESSION: No acute intra-abdominal process. Dominant left adnexal 5.7 cm fluid density cyst, not well characterized. Although likely physiologic, short-term follow-up sonographic evaluation would be recommended in 6-10 weeks to re-evaluate poonam dumont
--- NOTE | 2023-05-20 17:54 | EDPHYS ---
Physician Documentation [facility] Name: Kanwal De La Vega Age: 27 yrs Sex: Female : 1995 Arrival Date: 05/20/2023 Time: 13:31 Bed 6 Private MD: ED Physician Ruben Loza HPI: 05/20 16:31 This 27 yrs old Female presents to ER via Ambulatory with complaints of radha Doesn't Feel Right. 16:31 WEAKNESS, COUGH. Onset: The symptoms/episode began/occurred just prior to arrival. radha Severity of symptoms: At their worst the symptoms were mild in the emergency department the symptoms are unchanged. The patient has not experienced similar symptoms in the past. Historical: - Allergies: 13:47 Clindamycin; ko1 13:47 PENICILLINS; ko1 - PMHx: 13:47 Asthma; Anxiety; ko1 - Immunization history:: Adult Immunizations up to date. - Social history:: Smoking status: Patient denies any tobacco usage or history of. - Family history:: not pertinent. ROS: 16:31 Constitutional: Negative for fever, chills, and weight loss, Eyes: Negative for injury, radha pain, redness, and discharge, ENT: Negative for injury, pain, and discharge, Neck: Negative for injury, pain, and swelling, Cardiovascular: Negative for chest pain, palpitations, and edema, Abdomen/GI: Negative for abdominal pain, nausea, vomiting, diarrhea, and constipation, Back: Negative for injury and pain, : Negative for injury, bleeding, discharge, and swelling, MS/Extremity: Negative for injury and deformity, Skin: Negative for injury, rash, and discoloration, Neuro: Negative for headache, weakness, numbness, tingling, and seizure, Psych: Negative for depression, anxiety, suicide ideation, homicidal ideation, and hallucinations, Allergy/Immunology: Negative for hives, rash, and allergies, Endocrine: Negative for neck swelling, polydipsia, polyuria, polyphagia, and marked weight changes, Hematologic/Lymphatic: Negative for swollen nodes, abnormal bleeding, and unusual bruising, 16:31 Respiratory: Positive for cough, shortness of breath, at rest. Exam: 16:31 Constitutional: This is a well developed, well nourished patient who is awake, alert, radha and in no acute distress. Head/Face: Normocephalic, atraumatic. Eyes: Pupils equal round and reactive to light, extra-ocular motions intact. Lids and lashes normal. Conjunctiva and sclera are non-icteric and not injected. Cornea within normal limits. Periorbital areas with no swelling, redness, or edema. ENT: Nares patent. No nasal discharge, no septal abnormalities noted. Tympanic membranes are normal and external auditory canals are clear. Oropharynx with no redness, swelling, or masses, exudates, or evidence of obstruction, uvula midline. Mucous membranes moist. Neck: Trachea midline, no thyromegaly or masses palpated, and no cervical lymphadenopathy. Supple, full range of motion without nuchal rigidity, or vertebral point tenderness. No Meningismus. Chest/axilla: Normal chest wall appearance and motion. Nontender with no deformity. No lesions are appreciated. Cardiovascular: Regular rate and rhythm with a normal S1 and S2. No gallops, murmurs, or rubs. Normal PMI, no JVD. No pulse deficits. Respiratory: Lungs have equal breath sounds bilaterally, clear to auscultation and percussion. No rales, rhonchi or wheezes noted. No increased work of breathing, no retractions or nasal flaring. Abdomen/GI: Soft, non-tender, with normal bowel sounds. No distension or tympany. No guarding or rebound. No evidence of tenderness throughout. Back: No spinal tenderness. No costovertebral tenderness. Full range of motion. Skin: Warm, dry with normal turgor. Normal color with no rashes, no lesions, and no evidence of cellulitis. MS/ Extremity: Pulses equal, no cyanosis. Neurovascular intact. Full, normal range of motion. Neuro: Awake and alert, GCS 15, oriented to person, place, time, and situation. Cranial nerves II-XII grossly intact. Motor strength 5/5 in all extremities. Sensory grossly intact. Cerebellar exam normal. Normal gait. Psych: Awake, alert, with orientation to person, place and time. Behavior, mood, and affect are within normal limits. 16:36 Musculoskeletal/extremity: DVT Exam: No signs of deep vein thrombosis. no pain, no radha swelling, no tenderness, negative Homans' sign noted on exam, no appreciated bluish discoloration, no erythema, no increased warmth, N TRAUMA, NO STASIS ,NI HCS , NO HX DVT, NO HX PE. Vital Signs: 13:45 BP 134 / 86; Pulse 123; Resp 19; Temp 99.3(T); Pulse Ox 98% ; ko1 14:20 BP 120 / 72; Pulse 107; Resp 16 S; Pulse Ox 100% on R/A; kc6 14:40 BP 117 / 73; Pulse 104; Resp 19 S; Temp 98.7(O); Pulse Ox 100% on R/A; kc6 15:43 BP 109 / 77; Pulse 100; Resp 16 S; Pulse Ox 100% on R/A; kc6 17:00 BP 85 / 59; Pulse 93; Pulse Ox 100% on R/A; ap3 17:14 BP 122 / 92; Pulse 101; Resp 16 S; Pulse Ox 100% on R/A; kc6 MDM: 13:37 Patient medically screened. radha 16:34 Differential Diagnosis flu. Data reviewed: vital signs, nurses notes, lab test radha result(s), radiologic studies, CT scan, ultrasound. Consideration of Admission/Observation Escalation of care including admission/observation considered. I considered the following discharge prescriptions or medication management in the emergency department Medications were administered in the Emergency Department. See MAR. Independent interpretation of the following test(s) in the Emergency Department X-Ray: My interpretation is CXR NEG. CT Scan: My interpretation is CT STONE. Radiology Department Ultrasound: My interpretation is GB NEG. Test considered but Not performed: CT: NO CT CHEST. Historians other than the Patient: PT WELL IN FORMED. Care significantly affected by the following chronic conditions: Obesity, ASTHMA, ANXIETY. Counseling: I had a detailed discussion with the patient and/or guardian regarding the historical points, exam findings, and any diagnostic results supporting the discharge/admit diagnosis, lab results, radiology results, the need for outpatient follow up, a family practitioner. 05/20 13:58 Order name: Flu; Complete Time: 15:18 radha 05/20 13:58 Order name: SARS RAPID; Complete Time: 15:18 radha 05/20 13:58 Order name: CBC with Diff; Complete Time: 15:18 radha 05/20 13:58 Order name: Comprehensive Metabolic Panel; Complete Time: 15:18 radha 05/20 13:58 Order name: Urinalysis w/ reflexes; Complete Time: 15:18 radha 05/20 13:58 Order name: PREGU; Complete Time: 15:18 [facility] 05/20 13:58 Order name: UDS; Complete Time: 15:18 [facility] 05/20 13:59 Order name: Strep; Complete Time: 15:18 [facility] 05/20 14:41 Order name: Throat Culture EDMS 05/20 13:58 Order name: Chest Pa And Lat (2 Views) XRAY [facility] 05/20 15:21 Order name: CT Stone Protocol [facility] 05/20 15:21 Order name: US Abdomen Limited [facility] 05/20 17:05 Order name: CT Chest For PE Angio ap3 05/20 15:20 Order name: PO challenge; Complete Time: 15:22 [facility] Administered Medications: 14:19 Drug: NS 0.9% IV 1000 ml IV at 1 bolus Per protocol; 1000 mL bolus Route: IV; Rate: 1 kc6 bolus; Site: right antecubital; 17:01 Follow up: Response: No adverse reaction; IV Status: Completed infusion; IV Intake: kc6 1000ml 14:19 Drug: Acetaminophen PO 650 mg PO once Route: PO; kc6 14:55 Follow up: Response: No adverse reaction; Temperature is decreased kc6 15:28 Drug: Rocephin IV 1 grams IV at per protocol once; Given slow IV push per pharmacy kc6 instructions Route: IV; Rate: per protocol; Site: right antecubital; 17:01 Follow up: Response: No adverse reaction; IV Status: Completed infusion; IV Intake: [id number] 15:28 Drug: AZITHromycin PO 500 mg PO once Route: PO; kc6 17:01 Follow up: Response: No adverse reaction 6 15:28 Drug: Potassium PO Effervescent Tablet 25 mEq PO once; dissolve in 4 ounces of water or kc6 juice Route: PO; 17:01 Follow up: Response: No adverse reaction kc6 17:10 Drug: NS 0.9% IV 1000 ml IV at 1 bolus Per protocol; 1000 mL bolus Route: IV; Rate: 1 ap3 bolus; Site: right antecubital; 17:22 Drug: Ondansetron IVP 4 mg IVP once; over 2 minutes Route: IVP; Site: right antecubital;kc6 18:00 Not Given (Other Intervention Used): ondansetron 4 mg IVP once; over 2 minutes kc6 Disposition Summary: 05/20/23 17:54 Discharge Ordered Notes: Location: Home radha Problem: new radha Symptoms: have improved radha Condition: Stable radha Diagnosis - Weakness radha - Anxiety disorder, unspecified radha - Tachycardia, unspecified radha - Acute upper respiratory infection, unspecified radha - Elevated white blood cell count radha - Other and unspecified ovarian cysts - left ovarian, 5.7 cm radha - Nausea with vomiting, unspecified radha Followup: radha - With: Private Physician - When: 2 - 3 days - Reason: Recheck today's complaints, Continuance of care, Re-evaluation by your physician Followup: radha - With: Marie Pittman MD - When: 2 - 3 days - Reason: Recheck today's complaints, Re-evaluation by your physician Discharge Instructions: - Discharge Summary Sheet radha - Nausea and Vomiting, Adult radha - Upper Respiratory Infection, Adult radha - Weakness radha - Cool Mist Vaporizer radha - Fatigue radha - Upper Respiratory Infection, Adult, [id number] radha - Cough, Adult, Jgyv-ex-Vjup radha - Weakness, Oylk-xs-Zuld radha - Cough, Adult radha - Managing Anxiety, Adult radha Forms: - Medication Reconciliation Form [facility] - Thank You Letter [facility] - Antibiotic Education radha - Prescription Opioid Use radha - Patient Portal Instructions radha - Leadership Thank You Letter [facility] - Work release form kc6 - Family Work Release kc6 Prescriptions: - ondansetron 4 mg Oral Tablet,disintegrating - take 1 tablet ORAL route every 8-12 hours for 5 days; 20 tablet; Refills: 0, radha Product Selection Permitted - Zithromax Z-Wesly 250 mg Oral Tablet - take 1 tablet ORAL route as directed for 5 days Day 1 - take two (2) tablets [facility] one time. Day 2, 3, 4 , 5 take one (1) tablet once daily.; 6 tablet; Refills: 0, Product Selection Permitted Signatures: Dispatcher [employer] Ruben Motta MD MD cha Prokisch, Amanda RN RN ap3 Maribel Magallon RN RN kc6 Renetta Rincon RN RN ko1
--- NOTE | 2023-05-20 17:54 | ER ---
Nurse's Notes [facility] Name: Kanwal De La Vega Age: 27 yrs Sex: Female : 1995 Arrival Date: 05/20/2023 Time: 13:31 Bed 6 Private MD: Diagnosis: Weakness;Anxiety disorder, unspecified;Tachycardia, unspecified;Acute upper respiratory infection, unspecified;Elevated white blood cell count;Other and unspecified ovarian cysts-left ovarian, 5.7 cm ;Nausea with vomiting, unspecified Presentation: 05/20 13:45 Chief complaint: Patient states: was at work and when I was on lunch, I started feeling ko1 short of breath and light headed. Coronavirus screen: At this time, the client does not indicate any symptoms associated with coronavirus-19. Ebola Screen: No symptoms or risks identified at this time. Initial Sepsis Screen: Does the patient meet any 2 criteria? No. Patient's initial sepsis screen is negative. Does the patient have a suspected source of infection? No. Patient's initial sepsis screen is negative. Risk Assessment: Do you want to hurt yourself or someone else? Patient reports no desire to harm self or others. Onset of symptoms was May 20, 2023. 13:45 Method Of Arrival: Ambulatory ko1 13:45 Acuity: MOI 3 ko1 Triage Assessment: 13:47 General: Appears distressed, Behavior is cooperative, appropriate for age, anxious. ko1 Pain: Denies pain. Historical: - Allergies: 13:47 Clindamycin; ko1 13:47 PENICILLINS; ko1 - PMHx: 13:47 Asthma; Anxiety; ko1 - Immunization history:: Adult Immunizations up to date. - Social history:: Smoking status: Patient denies any tobacco usage or history of. - Family history:: not pertinent. Screenin:54 [facility] ED Fall Risk Assessment (Adult) History of falling in the last 3 months, kc6 including since admission No falls in past 3 months (0 pts) Confusion or Disorientation No (0 pts) Intoxicated or Sedated No (0 pts) Impaired Gait No (0 pts) Mobility Assist Device Used No (0 pt) Altered Elimination No (0 pt) Score/Fall Risk Level 0 - 2 = Low Risk. Abuse screen: Denies threats or abuse. Denies injuries from another. Nutritional screening: No deficits noted. Tuberculosis screening: No symptoms or risk factors identified. Assessment: 14:19 General: Appears in no apparent distress. comfortable, well groomed, well developed, kc6 Behavior is calm, cooperative, appropriate for age. Pain: Denies pain. Neuro: Level of Consciousness is awake, alert, obeys commands, Oriented to person, place, time, situation, Appropriate for age Reports headache. Cardiovascular: Denies chest pain, Heart tones S1 S2 present Capillary refill < 3 seconds Rhythm is sinus tachycardia. Respiratory: Reports shortness of breath at rest Airway is patent Trachea midline Respiratory effort is even, unlabored, Respiratory pattern is regular, symmetrical. GI: No signs and/or symptoms were reported involving the gastrointestinal system. : No signs and/or symptoms were reported regarding the genitourinary system. EENT: No signs and/or symptoms were reported regarding the EENT system. Derm: No signs and/or symptoms reported regarding the dermatologic system. Skin is intact, is healthy with good turgor, Skin is pink, warm \T\ dry. Musculoskeletal: No signs and/or symptoms reported regarding the musculoskeletal system. Circulation, motion, and sensation intact. Capillary refill < 3 seconds, Range of motion: intact in all extremities. 15:43 Reassessment: Patient appears in no apparent distress at this time. No changes from kc6 previously documented assessment. Patient and/or family updated on plan of care and expected duration. Pain level reassessed. Patient is alert, oriented x 3, equal unlabored respirations, skin warm/dry/pink. 16:43 Reassessment: Patient appears in no apparent distress at this time. No changes from kc6 previously documented assessment. Patient and/or family updated on plan of care and expected duration. Pain level reassessed. Patient is alert, oriented x 3, equal unlabored respirations, skin warm/dry/pink. 17:24 Respiratory: Reports shortness of breath at rest. GI: Pt is actively vomiting bile. kc6 Vital Signs: 13:45 BP 134 / 86; Pulse 123; Resp 19; Temp 99.3(T); Pulse Ox 98% ; ko1 14:20 BP 120 / 72; Pulse 107; Resp 16 S; Pulse Ox 100% on R/A; kc6 14:40 BP 117 / 73; Pulse 104; Resp 19 S; Temp 98.7(O); Pulse Ox 100% on R/A; kc6 15:43 BP 109 / 77; Pulse 100; Resp 16 S; Pulse Ox 100% on R/A; kc6 17:00 BP 85 / 59; Pulse 93; Pulse Ox 100% on R/A; ap3 17:14 BP 122 / 92; Pulse 101; Resp 16 S; Pulse Ox 100% on R/A; kc6 ED Course: 13:32 Patient arrived in ED. rg4 13:37 Ruben Loza MD is Attending Physician. radha 13:47 Triage completed. ko1 13:47 Arm band placed on right wrist. Patient placed in an exam room, on a stretcher, on ko1 pulse oximetry, Patient notified of wait time. 13:54 Maribel Magallon, RN is Primary Nurse. kc6 13:54 Patient maintains SpO2 saturation greater than 95% on room air. kc6 13:55 Patient has correct armband on for positive identification. Bed in low position. Call kc6 light in reach. Side rails up X 1. Client placed on continuous cardiac and pulse oximetry monitoring. NIBP monitoring applied. nuclear monitoring technician on. 14:14 Inserted saline lock: 20 gauge in right antecubital area, using aseptic technique. kc6 Blood collected. 14:35 Chest Pa And Lat (2 Views) XRAY In Process Unspecified. EDMS 15:49 CT Stone Protocol In Process Unspecified. EDMS 16:09 US Abdomen Limited In Process Unspecified. EDMS 17:51 CT Chest For PE Angio In Process Unspecified. EDMS 17:54 Marie Pittman MD is Referral Physician. radha 18:07 No provider procedures requiring assistance completed. IV discontinued, intact, kc6 bleeding controlled, No redness/swelling at site. Pressure dressing applied. Administered Medications: 14:19 Drug: NS 0.9% IV 1000 ml IV at 1 bolus Per protocol; 1000 mL bolus Route: IV; Rate: 1 kc6 bolus; Site: right antecubital; 17:01 Follow up: Response: No adverse reaction; IV Status: Completed infusion; IV Intake: kc6 1000ml 14:19 Drug: Acetaminophen PO 650 mg PO once Route: PO; kc6 14:55 Follow up: Response: No adverse reaction; Temperature is decreased kc6 15:28 Drug: Rocephin IV 1 grams IV at per protocol once; Given slow IV push per pharmacy kc6 instructions Route: IV; Rate: per protocol; Site: right antecubital; 17:01 Follow up: Response: No adverse reaction; IV Status: Completed infusion; IV Intake: [id number] 15:28 Drug: AZITHromycin PO 500 mg PO once Route: PO; kc6 17:01 Follow up: Response: No adverse reaction kc6 15:28 Drug: Potassium PO Effervescent Tablet 25 mEq PO once; dissolve in 4 ounces of water or kc6 juice Route: PO; 17:01 Follow up: Response: No adverse reaction kc6 17:10 Drug: NS 0.9% IV 1000 ml IV at 1 bolus Per protocol; 1000 mL bolus Route: IV; Rate: 1 ap3 bolus; Site: right antecubital; 17:22 Drug: Ondansetron IVP 4 mg IVP once; over 2 minutes Route: IVP; Site: right antecubital;kc6 18:00 Not Given (Other Intervention Used): ondansetron 4 mg IVP once; over 2 minutes kc6 Medication: 18:07 VIS not applicable for this client. kc6 Intake: 17:01 IV: 1000ml; Total: 1000ml. kc6 17:01 IV: 50ml; Total: 1050ml. kc6 Outcome: 17:54 Discharge ordered by . radha 18:07 Discharged to home ambulatory, with significant other, kc6 18:07 Condition: stable 18:07 Discharge instructions given to patient, significant other, Instructed on discharge instructions, follow up and referral plans. medication usage, Demonstrated understanding of instructions, follow-up care, medications, Prescriptions given X 2, 18:08 Patient left the ED. kc6 Signatures: Dispatcher [employer] EDRuben Amezcua MD MD cha Garcia, Rubi rg4 Angle Westbrook RN RN ap3 Maribel Magallon RN RN kc6 Renetta Rincon RN RN ko1 Corrections: (The following items were deleted from the chart) 14:55 14:40 BP 117 / 73; Pulse 104bpm; Resp 19bpm; Spontaneous; Pulse Ox 100% RA; kc6 kc6
--- NOTE | 2023-05-20 18:14 | RAD REPORT ---
EXAM DESCRIPTION: CT - Chest For Pe Angio - 05/20/2023 5:49 pm CLINICAL HISTORY: SOB COMPARISON: No comparisons TECHNIQUE: Thin axial CT images of the chest were obtained following administration of 100 mL Isovue 370 IV contrast. Multiplanar reconstructions, and maximum intensity projection reconstructions were generated and reviewed. Exam utilizes a protocol for optimal evaluation of pulmonary arterial tree. All CT scans are performed using dose optimization technique as appropriate and may include automated exposure control or mA/KV adjustment according to patient size. FINDINGS: Pulmonary arteries are normal. No emboli or other suspicious finding. No acute or signific ant aorta findings. No mass or infiltrate in the lung parenchyma. No pleural thickening or pleural effusion. No pneumotho rax. No abnormal mediastinal or hilar masses or lymphadenopathy seen. No chest wall mass or abnormal axill iary lymphadenopathy. IMPRESSION: No evidence of acute central pulmonary emboli. No other acute pulmonary process.
[2023-05-21 10:32] VITALS: BP 122/92; TEMP 98.7; O2SAT 100
== END ==
LOC: ER 13:31
DX: J06.9 Acute upper respiratory infection, unspecified (principal); F41.9 Anxiety disorder, unspecified; R00.0 Tachycardia, unspecified; D72.829 Elevated white blood cell count, unspecified; R11.2 Nausea with vomiting, unspecified; N83.292 Other ovarian cyst, left side; Z11.52 Encounter for screening for COVID-19
CPT/HCPCS: 36415; 71046; 71275; 74176; 76377; 76705; 80053; 80307; 81001; 81025; 85025; 87070; 87081; 87804; 87811; J0696; J2405; J7030; Q9967

== ENCOUNTER 2023-12-28 18:43 | Emergency (ER) | payer BC ==
[2023-12-28] MEDS ORDERED: predniSONE 20 MG TAB ONE (19:33)
[2023-12-28] MEDS ORDERED: AZITHROMYCIN 250 MG TAB ONE ×2 (19:34)
[2023-12-28] MEDS ORDERED: IBUPROFEN 200 MG TAB PO ONE (19:34)
[2023-12-28 20:02] LABS: SARS-CoV-2 Antigen CONTROL BLUE LINE VIS/BG OK; SARS-CoV-2 Antigen Rapid Res Negative (Negative)
--- NOTE | 2023-12-28 20:15 | ER ---
Nurse's Notes [facility] Name: Kanwal De La Vega Age: 28 yrs Sex: Female : 1995 Arrival Date: 12/28/2023 Time: 18:43 Bed DX3 Private MD: Diagnosis: Acute suppurative otitis media;Acute upper respiratory infection, unspecified Presentation: 12/27 18:58 Chief complaint: Patient states: body aches, cough, sore throat, ear pain, and cm10 congestion onset Saturday. Coronavirus screen: Client denies travel out of the [place] in the last 14 days. Ebola Screen: Patient denies travel to an Ebola-affected area in the 21 days before illness onset. No symptoms or risks identified at this time. Initial Sepsis Screen: Does the patient meet any 2 criteria? No. Patient's initial sepsis screen is negative. Does the patient have a suspected source of infection? No. Patient's initial sepsis screen is negative. Risk Assessment: Do you want to hurt yourself or someone else? Patient reports no desire to harm self or others. Onset of symptoms was December 28, 2023. 18:58 Method Of Arrival: Ambulatory cm10 18:58 Acuity: MOI 4 cm10 Triage Assessment: 19:00 General: Appears in no apparent distress. comfortable, Behavior is calm, cooperative. cm10 Neuro: No deficits noted. Level of Consciousness is awake, alert, obeys commands, Oriented to person, place, time, situation, Appropriate for age. Respiratory: No deficits noted. Airway is patent Respiratory effort is even, unlabored, Respiratory pattern is regular, symmetrical. Historical: - Allergies: 19:00 Clindamycin; cm10 19:00 PENICILLINS; cm10 - PMHx: 19:00 Anxiety; Asthma; cm10 - Immunization history:: Adult Immunizations up to date. - Infectious Disease History:: Denies. - Social history:: Smoking status: Patient denies any tobacco usage or history of. - Family history:: not pertinent. Screenin:24 [facility] ED Fall Risk Assessment (Adult) History of falling in the last 3 months, vc1 including since admission No falls in past 3 months (0 pts) Confusion or Disorientation No (0 pts) Intoxicated or Sedated No (0 pts) Impaired Gait No (0 pts) Mobility Assist Device Used No (0 pt) Altered Elimination No (0 pt) Score/Fall Risk Level 0 - 2 = Low Risk Oriented to surroundings, Maintained a safe environment, Educated pt \T\ family on fall prevention, incl call for assistance when getting out of bed. Abuse screen: Denies threats or abuse. Nutritional screening: No deficits noted. Tuberculosis screening: No symptoms or risk factors identified. Assessment: 20:26 General: Appears in no apparent distress. uncomfortable, obese, well groomed, well vc1 developed, Behavior is calm, cooperative, appropriate for age. Pain:. 20:27 Pain: Complains of pain in right ear and left ear. Neuro: Level of Consciousness is vc1 awake, alert, obeys commands, Oriented to person, place, time, situation, Appropriate for age. Cardiovascular: Heart tones S1 S2 Capillary refill < 3 seconds Patient's skin is warm and dry. Respiratory: Airway is patent Respiratory effort is even, unlabored, Respiratory pattern is regular, symmetrical, Breath sounds are clear bilaterally. GI: Abdomen is round non-distended. : No deficits noted. No signs and/or symptoms were reported regarding the genitourinary system. EENT: Reports pain in left ear and right ear. Derm: Skin is intact, is healthy with good turgor, Skin is dry, Skin is normal, Skin temperature is warm. Vital Signs: 18:58 BP 111 / 42; Pulse 82; Resp 16; Temp 98.9(O); Pulse Ox 98% on R/A; Weight 79.38 kg; cm10 Height 4 ft. 11 in. ; Pain 8/10; 20:28 BP 108 / 58; Pulse 80; Resp 17; Pulse Ox 99% ; vc1 18:58 Body Mass Index 35.35 (79.38 kg, 149.86 cm) cm10 18:58 Pain Scale: Adult cm10 ED Course: 18:53 Patient arrived in ED. ra3 18:59 Arnav Vega MD is Attending Physician. rt 18:59 Triage completed. cm10 19:00 Arm band placed on Patient placed in waiting room. cm10 19:43 Influenza Screen (a \T\ B) Sent. cm10 19:43 SARS RAPID Sent. cm10 19:43 COVID swab sent to lab. Flu and/or RSV swab sent to lab. cm10 20:24 Liv Urena, RN is Primary Nurse. vc1 20:25 No provider procedures requiring assistance completed. Patient did not have IV access vc1 during this emergency room visit. 20:26 seen in diagnostic chair. Provided Education on: complete abx, ibuprofen for pain. vc1 Administered Medications: 19:47 Drug: predniSONE PO 40 mg PO once Route: PO; cm10 20:30 Follow up: Response: No adverse reaction vc1 19:47 Drug: AZITHromycin PO 500 mg PO once Route: PO; cm10 20:30 Follow up: Response: No adverse reaction vc1 19:47 Drug: Ibuprofen PO 600 mg PO once Route: PO; cm10 20:30 Follow up: Response: No adverse reaction vc1 Medication: 20:26 VIS not applicable for this client. vc1 Outcome: 20:14 Discharge ordered by . rt 20:25 Discharged to home ambulatory, vc1 20:25 Condition: good 20:25 Discharge instructions given to patient, Instructed on discharge instructions, follow up and referral plans. medication usage, Demonstrated understanding of instructions, follow-up care, medications, Prescriptions given X 3, 20:28 Patient left the ED. vc1 Signatures: Liv Urena, RN RN vc1 Arnav Vega MD MD rt Barbara Sandoval RN RN cm10 Jennifer Dunlap 3
--- NOTE | 2023-12-28 20:15 | EDPHYS ---
Physician Documentation [facility] Name: Kanwal De La Vega Age: 28 yrs Sex: Female : 1995 Arrival Date: 12/28/2023 Time: 18:43 Bed DX3 Private MD: ED Physician Arnav Vega HPI: 12/27 19:29 This 28 yrs old Female presents to ER via Ambulatory with complaints of Ear rt Pain, Cold Symptoms. 19:29 Patient presents to the ED with cough, body aches, bilateral ear pain worse on the rt right for the past 4 days. Denies other acute complaints at this time, symptoms are mild in severity, no other aggravating or alleviating factors.. Historical: - Allergies: 19:00 Clindamycin; cm10 19:00 PENICILLINS; cm10 - PMHx: 19:00 Anxiety; Asthma; cm10 - Immunization history:: Adult Immunizations up to date. - Infectious Disease History:: Denies. - Social history:: Smoking status: Patient denies any tobacco usage or history of. - Family history:: not pertinent. ROS: 19:29 Constitutional: Negative for fever, chills, and weight loss, Cardiovascular: Negative rt for chest pain, palpitations, and edema, Abdomen/GI: Negative for abdominal pain, nausea, vomiting, diarrhea, and constipation, MS/Extremity: Negative for injury and deformity, Skin: Negative for injury, rash, and discoloration, 19:29 ENT: Positive for rhinorrhea, sore throat, 19:29 Respiratory: Positive for cough, wheezing, Exam: 19:29 Constitutional: This is a well developed, well nourished patient who is awake, alert, rt and in no acute distress. Head/Face: Normocephalic, atraumatic. Chest/axilla: Normal chest wall appearance and motion. Nontender with no deformity. No lesions are appreciated. Cardiovascular: Regular rate and rhythm with a normal S1 and S2. No gallops, murmurs, or rubs. Normal PMI, no JVD. No pulse deficits. Respiratory: Lungs have equal breath sounds bilaterally, clear to auscultation and percussion. No rales, rhonchi or wheezes noted. No increased work of breathing, no retractions or nasal flaring. Abdomen/GI: Soft, non-tender, with normal bowel sounds. No distension or tympany. No guarding or rebound. No evidence of tenderness throughout. Skin: Warm, dry with normal turgor. Normal color with no rashes, no lesions, and no evidence of cellulitis. MS/ Extremity: Pulses equal, no cyanosis. Neurovascular intact. Full, normal range of motion. 19:29 ENT: Bilateral TM effusions. Vital Signs: 18:58 BP 111 / 42; Pulse 82; Resp 16; Temp 98.9(O); Pulse Ox 98% on R/A; Weight 79.38 kg; cm10 Height 4 ft. 11 in. ; Pain 8/10; 20:28 BP 108 / 58; Pulse 80; Resp 17; Pulse Ox 99% ; vc1 18:58 Body Mass Index 35.35 (79.38 kg, 149.86 cm) cm10 18:58 Pain Scale: Adult cm10 MDM: 19:04 Patient medically screened. rt 20:17 Differential diagnosis: otitis media, Viral syndrome. Data reviewed: vital signs, rt nurses notes, lab test result(s). I considered the following discharge prescriptions or medication management in the emergency department Medications were administered in the Emergency Department. See MAR. Test considered but Not performed: X-ray: Low suspicion for bacterial pneumonia, x-rays not indicated. Care significantly affected by the following chronic conditions: Asthma. Counseling: I had a detailed discussion with the patient and/or guardian regarding the historical points, exam findings, and any diagnostic results supporting the discharge/admit diagnosis, lab results, the need for outpatient follow up. Response to treatment: the patient's symptoms have mildly improved after treatment. 12/27 19:05 Order name: SARS RAPID; Complete Time: 20:12 rt 12/27 19:05 Order name: Influenza Screen (a \T\ B); Complete Time: 20:12 rt Administered Medications: 19:47 Drug: predniSONE PO 40 mg PO once Route: PO; cm10 20:30 Follow up: Response: No adverse reaction vc1 19:47 Drug: AZITHromycin PO 500 mg PO once Route: PO; cm10 20:30 Follow up: Response: No adverse reaction vc1 19:47 Drug: Ibuprofen PO 600 mg PO once Route: PO; cm10 20:30 Follow up: Response: No adverse reaction vc1 Disposition Summary: 12/28/23 20:14 Discharge Ordered Notes: Location: Home rt Problem: new rt Symptoms: have improved rt Condition: Stable rt Diagnosis - Acute suppurative otitis media rt - Acute upper respiratory infection, unspecified rt Followup: rt - With: Private Physician - When: 2 - 3 days - Reason: Discharge Instructions: - Discharge Summary Sheet rt - Otitis Media, Adult rt - Upper Respiratory Infection, Adult rt Forms: - Work release form vc1 - Medication Reconciliation Form rt - Antibiotic Education rt - Prescription Opioid Use rt - Patient Portal Instructions rt - Leadership Thank You Letter rt Prescriptions: - albuterol sulfate 90 mcg/actuation Inhalation HFA Aerosol Inhaler - inhale 3 spray INHALATION route every 4 hours as needed; 2 Each; Refills: 0, rt Product Selection Permitted - azithromycin 250 mg Oral tablet - take 1 tablet ORAL route daily; 4 tablet; Refills: 0, Product Selection rt Permitted - Prednisone 20 mg Oral tablet - take 2 tablets ORAL route once daily for 4 days; 8 tablet; Refills: 0, Product rt Selection Permitted Signatures: Dispatcher [employer] Arnav Lopez MD MD rt Barbara Sandoval RN RN cm10 Liv Urena RN vc1
[2023-12-28 20:36] VITALS: TEMP 98.9
[2023-12-28 20:38] VITALS: BP 108/58; O2SAT 99
== END 2023-12-28 20:28 | disposition home or self-care (01) ==
LOC: ER 18:43
DX: H66.003 Acute suppurative otitis media without spontaneous rupture of ear drum, bilateral (principal); J06.9 Acute upper respiratory infection, unspecified; F41.9 Anxiety disorder, unspecified; J45.909 Unspecified asthma, uncomplicated; Z88.0 Allergy status to penicillin; Z88.3 Allergy status to other anti-infective agents; Z11.52 Encounter for screening for COVID-19
CPT/HCPCS: 36415; 87804 ×2; 99283; 87811; J7512